=== PATIENT | male | born 1965 | race Caucasian/White ===

== ENCOUNTER 2019-11-19 16:24 | Emergency (ER) | payer MEDICARE ==
[2019-11-19] MEDS ORDERED: DUONEB 0.5-3 MG/3 ml Neb IH ONE ×2 (16:43→16:50)
[2019-11-19] MEDS ORDERED: solu-MEDROL 125 MG IV ONE (16:43)
--- NOTE | 2019-11-19 16:49 | ERPHSYRPT ---
- History of Present Illness Time Seen by Provider: 11/19/19 16:40 Source: patient Exam Limitations: no limitations Physician History: 53 years old male with history of tobacco abuse, COPD, congestive heart failure, hypertension presented in the ER with chief complaint of increasing shortness of breath since yesterday associated with cough productive of clear to yellow sputum, copious in amount. Patient report shortness of breath gets worse with activity and no significant relieving factors. He has bilateral lower extremity swelling which is not any worse than usual and has been taking diuretics. Denies any fever or chills. Denies any known sick contact. Timing/Duration: yesterday, gradual onset, worse Activities at Onset: rest Severity of Dyspnea-Max: moderate Severity of Dyspnea-Current: moderate Possible Cause: occasional episodes Modifying Factors: Improves With: coughing Associated Symptoms: cough, chest pain/discomfort, edema, wheezing, leg swelling, painful breathing, productive cough, No fever Allergies/Adverse Reactions: No Known Drug Allergies Allergy (Unverified 11/19/19 16:45) Home Medications: Albuterol Sulfate [Albuterol Sulfate Hfa] 2 puffs QID 11/19/19 [History] Alprazolam 0.5 mg [xanAX 0.5 MG] 1 ea TID 11/19/19 [History] Bumetanide 1 ea DAILY 11/19/19 [History] Fluticasone/Vilanterol [Breo Ellipta 100-25 Mcg INH] 1 ea DAILY 11/19/19 [History] Levocetirizine Dihydrochloride 1 ea DAILY 11/19/19 [History] Prednisone 10 mg [Deltasone 10 mg] 1 ea DAILY 11/19/19 [History] Roflumilast [Daliresp] 1 ea DAILY 11/19/19 [History] - Review of Systems Constitutional: No Symptoms Eyes: No Symptoms Ears, Nose, & Throat: No Symptoms Respiratory: Cough, Dyspnea, Dyspnea on Exertion (JAIN), Wheezing Cardiac: Edema Abdominal/Gastrointestinal: No Symptoms Genitourinary Symptoms: No Symptoms Musculoskeletal: No Symptoms Skin: No Symptoms Neurological: No Symptoms Psychological: No Symptoms Endocrine: No Symptoms Hematologic/Lymphatic: No Symptoms Immunological/Allergic: No Symptoms - Past Medical History Respiratory History: CHF, COPD - Past Surgical History Past Surgical History: No - Social History Drug Use: none - Nursing Vital Signs Nursing Vital Signs: Initial Vital Signs Temperature 98.4 F 11/19/19 16:43 Pulse Rate 105 H 11/19/19 16:43 Respiratory Rate 24 11/19/19 16:43 Blood Pressure 114/83 11/19/19 16:43 O2 Sat by Pulse Oximetry 97 11/19/19 16:43 Pain Scale Pain Intensity 4 - Physical Exam General Appearance: mild distress, alert Eye Exam: PERRL/EOMI, eyes nml inspection Ears, Nose, Throat Exam: hearing grossly normal, normal ENT inspection, normal pharynx Neck Exam: normal inspection, non-tender, supple, full range of motion Respiratory Exam: wheezing Cardiovascular/Chest Exam: normal heart sounds, tachycardia Abdominal/Gastrointestinal Exam: soft, normal bowel sounds Extremity Exam: non-tender, swelling Neurologic Exam: alert, oriented x 3, cooperative Skin Exam: normal color SpO2 Interpretation: normal SpO2: 97 - Course EKG Interpreted by Me: RATE ([id number]), Sinus Tach, NORMAL AXIS, NORMAL INTERVALS, Non-specific ST Changes Ordered Tests: Active Orders 24 hr Category Date Time Status Flower Stripper STAT Care 11/19/19 16:44 Active EKG-ER Only STAT Care 11/19/19 16:43 Active IV Insertion STAT Care 11/19/19 16:43 Active CHEST 1 VIEW (PORTABLE) Stat Exams 11/19/19 16:44 Taken BLOOD CULTURE Stat Lab 11/19/19 17:07 Received CBC W DIFF Stat Lab 11/19/19 16:46 Completed CMP Stat Lab 11/19/19 16:46 Completed D-DIMER QUANTITATIVE Stat Lab 11/19/19 16:46 Completed Lactic Acid Stat Lab 11/19/19 16:49 Completed MAGNESIUM Stat Lab 11/19/19 16:46 Completed Manual Differential NC Stat Lab 11/19/19 16:46 Completed NT PRO BNP Stat Lab 11/19/19 16:46 Completed TROPONIN Q3H Lab 11/19/19 16:46 Completed TROPONIN Q3H Lab 11/19/19 19:45 Ordered TROPONIN Q3H Lab 11/19/19 22:45 Ordered TROPONIN Q3H Lab 11/20/19 01:45 Ordered TROPONIN Q3H Lab 11/20/19 04:45 Ordered Respiratory Therapy Assessment ONCE RT 11/19/19 17:05 Active Medication Summary Discontinued Medications Generic Name Dose Route Start Last Admin Trade Name Freq PRN Reason Stop Dose Admin Albuterol/Ipratropium 3 ml 11/19/19 16:43 11/19/19 17:00 Duoneb 0.5-3 Mg/3 Ml Neb IH 11/19/19 16:44 3 ml STAT ONE Administration Albuterol/Ipratropium Confirm 11/19/19 16:50 Duoneb 0.5-3 Mg/3 Ml Neb Administered 11/19/19 16:51 Dose 3 ml IH .STK-MED ONE Aspirin 324 mg 11/20/19 10:00 Ecotrin 81 Mg PO 12/20/19 09:59 DAILY LIZETT Aspirin Confirm 11/19/19 17:10 Baby Aspirin 81 Mg Chew Administered 11/19/19 17:11 Dose 324 mg .ROUTE .STK-MED ONE Aspirin 324 mg 11/19/19 17:44 11/19/19 18:02 Baby Aspirin 81 Mg Chew PO 11/19/19 17:45 324 mg STAT ONE Administration Azithromycin 500 mg in 250 mls @ 250 mls/hr 11/19/19 17:25 11/19/19 17:50 Zithromax 500 Mg/ 250 Ml Nacl Premix IV 11/19/19 18:24 250 mls/hr STAT STA 250 mls/hr Administration Ceftriaxone Sodium/Dextrose 2 g in 50 mls @ 100 mls/hr 11/19/19 17:25 11/19/19 17:50 Rocephin 2 Gm-D5w 50ml Bag IV 11/19/19 17:54 100 mls/hr STAT STA 100 mls/hr Administration Azithromycin Confirm 11/19/19 17:45 Zithromax 500 Mg/ 250 Ml Nacl Premix Administered 11/19/19 17:46 Dose 500 mg in 250 mls @ ud IV .STK-MED ONE Ceftriaxone Sodium/Dextrose Confirm 11/19/19 17:45 Rocephin 2 Gm-D5w 50ml Bag Administered 11/19/19 17:46 Dose 2 g in 50 mls @ ud IV .STK-MED ONE Methylprednisolone Sodium Succinate 125 mg 11/19/19 16:43 11/19/19 17:12 Solu-Medrol 125 Mg IV 11/19/19 16:44 125 mg STAT ONE Administration Methylprednisolone Sodium Succinate Confirm 11/19/19 17:10 Solu-Medrol 125 Mg Administered 11/19/19 17:11 Dose 125 mg .ROUTE .STK-MED ONE Lab/Rad Data: Laboratory Result Diagrams 11/19/19 16:46 11/19/19 16:46 Laboratory Results 11/19/19 11/19/19 11/19/19 Range/Units 16:49 16:46 16:46 WBC (4.0-10.5) K/mm3 RBC (4.1-5.6) M/mm3 Hgb (12.5-18.0) gm/dl Hct (42-50) % MCV (78-100) fl MCH (26-32) pg MCHC (32-36) g/dl RDW (11.5-14.0) % Plt Count (150-450) K/mm3 MPV (7.5-11.0) fl Segmented Neutrophils (36.-66.) % Band Neutrophils (0.0-2.0) % Lymphocytes (Manual) (24-44) % Monocytes (Manual) (0.0-12.0) % Eosinophils (Manual) (0.00-3.0) % Platelet Estimate (NORMAL) RBC Morphology D-Dimer 359 (215-500) ng/mL Sodium (137-145) mmol/L Potassium (3.5-5.1) mmol/L Chloride (98-107) mmol/L Carbon Dioxide (22-30) mmol/L Anion Gap (5-15) MEQ/L BUN (9-20) mg/dL Creatinine (0.66-1.25) mg/dL Estimated GFR ML/MIN Glucose (74-106) mg/dL Lactic Acid 1.5 (0.4-2.0) Calcium (8.4-10.2) mg/dL Magnesium (1.6-2.3) mg/dL Total Bilirubin (0.2-1.3) mg/dL AST (17-59) U/L ALT (0-50) U/L Alkaline Phosphatase (38-126) U/L Troponin I < 0.012 (0.000-0.034) ng/mL NT-Pro-B Natriuret Pep (0-900) pg/mL Serum Total Protein (6.3-8.2) g/dL Albumin (3.5-5.0) g/dL 11/19/19 11/19/19 Range/Units 16:46 16:46 WBC 12.2 H (4.0-10.5) K/mm3 RBC 5.12 (4.1-5.6) M/mm3 Hgb 16.8 (12.5-18.0) gm/dl Hct 52.1 H (42-50) % MCV 101.8 H (78-100) fl MCH 32.8 H (26-32) pg MCHC 32.2 (32-36) g/dl RDW 14.0 (11.5-14.0) % Plt Count 168 (150-450) K/mm3 MPV 11.5 H (7.5-11.0) fl Segmented Neutrophils 80 H (36.-66.) % Band Neutrophils 1 (0.0-2.0) % Lymphocytes (Manual) 11 L (24-44) % Monocytes (Manual) 7 (0.0-12.0) % Eosinophils (Manual) 1 (0.00-3.0) % Platelet Estimate NORMAL (NORMAL) RBC Morphology NORMAL D-Dimer (215-500) ng/mL Sodium 139 (137-145) mmol/L Potassium 3.5 (3.5-5.1) mmol/L Chloride 105 (98-107) mmol/L Carbon Dioxide 29 (22-30) mmol/L Anion Gap 9.4 (5-15) MEQ/L BUN 15 (9-20) mg/dL Creatinine 0.78 (0.66-1.25) mg/dL Estimated GFR > 60.0 ML/MIN Glucose 88 (74-106) mg/dL Lactic Acid (0.4-2.0) Calcium 9.3 (8.4-10.2) mg/dL Magnesium 2.1 (1.6-2.3) mg/dL Total Bilirubin 0.80 (0.2-1.3) mg/dL AST 23 (17-59) U/L ALT 22 (0-50) U/L Alkaline Phosphatase 54 (38-126) U/L Troponin I (0.000-0.034) ng/mL NT-Pro-B Natriuret Pep 37.8 (0-900) pg/mL Serum Total Protein 6.8 (6.3-8.2) g/dL Albumin 4.2 (3.5-5.0) g/dL - Progress Progress: improved, re-examined Air Movement: good Progress Note: 11/19/19 18:13 53 years old is evaluated for worsening shortness of breath. Patient was wheezing all over on presentation, given shot of Solu-Medrol and breathing treatment, on reevaluation feeling better. EKG showed sinus tach with no acute ST elevations. Negative troponins. Has a white count of 12, grossly unremarkable chemistries. Chest x-ray did not show focal consolidation. I have given him a dose of Rocephin/Zithromax. Recommended observation admission but patient does not want to stay. He does have nebulizer at home which he is advised to use it every 4-6 hourly as needed and will start him on oral prednisone and Levaquin to go home. Discussed signs symptoms of worsening needing return to ER which he seems understanding. 11/19/19 18:25 I have ambulated patient in the ER without oxygen and his sats are around 96%. Patient reported then that he has been using 3 L oxygen normally at home. I think he would do good and is stable for discharge. Antibiotics given: Yes Counseled pt/family regarding: lab results, diagnosis, need for follow-up, rad results, smoking cessation - Departure Departure Disposition: Home Clinical Impression: COPD exacerbation Condition: Stable Critical Care Time: Yes Critical Care Time(excluding separately billable procedures): Critical 30-74 mins Referrals: TRISH DOMINGO [Primary Care Provider] - (2 days for re evaluation) Instructions: Chronic Obstructive Pulmonary Disease, Cough, Adult (DC), Exacerbation of COPD (DC) Additional Instructions: Do not smoke. Take inhaler and nebulizer which you have at home as recommended. Follow-up with your primary care physician for reevaluation. Return to ER for worsening shortness of breath/wheezing/fever chills etc. Prescriptions: Prednisone 20 mg [Deltasone 20 mg] 60 mg PO DAILY 5 Days #15 tablet Levofloxacin [Levaquin 500 MG Tablet] 500 mg PO DAILY #7 tablet
[2019-11-19] MEDS ORDERED: solu-MEDROL 125 MG ONE (17:10)
[2019-11-19] MEDS ORDERED: BABY ASPIRIN 81 MG CHEW ONE (17:10)
[2019-11-19 17:24] LABS: Hematocrit 52.1 % (42-50); Hemoglobin 16.8 gm/dl (12.5-18.0); Mean Cell Volume 101.8 fl (78-100); Mean Corpuscular Hemoglobin 32.8 pg (26-32); Mean Corpuscular Hgb Concent. 32.2 g/dl (32-36); Mean Platelet Volume 11.5 fl (7.5-11.0); Platelet Count 168 K/mm3 (150-450); Red Blood Count 5.12 M/mm3 (4.1-5.6); White Blood Count 12.2 K/mm3 (4.0-10.5)
[2019-11-19] MEDS ORDERED: ROCEPHIN 2 Gm-D5w 50ML BAG** 2 G/50 ML IVPB IV STA (17:25)
[2019-11-19] MEDS ORDERED: Zithromax 500 MG/ 250 ML NaCl Premix 500 MG/250 ML IVPB IV STA (17:25)
[2019-11-19 17:37] LABS: ALBUMIN 4.2 g/dL (3.5-5.0); ALKALINE PHOSPHATASE 54 U/L (38-126); ANION GAP 9.4 MEQ/L (5-15); BLOOD UREA NITROGEN 15 mg/dL (9-20); CHLORIDE 105 mmol/L (98-107); Calcium 9.3 mg/dL (8.4-10.2); Carbon Dioxide 29 mmol/L (22-30); Creatinine 1 0.78 mg/dL (0.66-1.25); EST GLOMERULAR FILTRATION RATE > 60.0 ML/MIN; Glucose 88 mg/dL (74-106); MAGNESIUM 2.1 mg/dL (1.6-2.3); NT PRO BNP 37.8 pg/mL (0-900); Potassium 3.5 mmol/L (3.5-5.1); SGOT/AST 23 U/L (17-59); SGPT/ALT 22 U/L (0-50); SODIUM 139 mmol/L (137-145); Total Protein 6.8 g/dL (6.3-8.2)
[2019-11-19] MEDS ORDERED: BABY ASPIRIN 81 MG CHEW PO ONE (17:44)
[2019-11-19] MEDS ORDERED: Zithromax 500 MG/ 250 ML NaCl Premix 500 MG/250 ML IVPB IV ONE (17:45)
[2019-11-19] MEDS ORDERED: ROCEPHIN 2 Gm-D5w 50ML BAG** 2 G/50 ML IVPB IV ONE (17:45)
[2019-11-19 18:16] LABS: BAND 1 % (0.0-2.0); Eosinophil 1 % (0.00-3.0); Lymphocytes 11 % (24-44); Monocyte 7 % (0.0-12.0); Neutrophils 80 % (36.-66.); Platelet Estimate NORMAL (NORMAL); Total Cells Counted 100
--- NOTE | 2019-11-19 18:37 | XRAY ---
Indication: Cough. Pneumonia. Comparison: March 03, 2007. Portable chest demonstrates new minimal left mid to lower lung subsegmental atelectasis/scarring. Remaining heart and right lung normal. Bony thorax intact.
[2019-11-19 19:10] VITALS: BP 116/86; PULSE 92; O2SAT 100
[2019-11-20] MEDS ORDERED: ECOTRIN 81 MG PO SCH (10:00)
== END 2019-11-19 19:18 | disposition home or self-care (01) ==
LOC: ED 16:24
DX: J44.1 Chronic obstructive pulmonary disease with (acute) exacerbation (principal); I50.9 Heart failure, unspecified; I10 Essential (primary) hypertension
CPT/HCPCS: 36000; 36415; 71045; 80053; 83605; 83735; 83880; 84484; 85025; 85379; 87040; 93005; 93041; 94640; 96365; 96368; 96374; 99284; 99291; J0456; J0696; J2930; A9270-GY

== ENCOUNTER 2019-11-23 18:40 | Inpatient (IN) | payer MEDICARE ==
--- NOTE | 2019-11-23 18:54 | ERPHSYRPT ---
- History of Present Illness Time Seen by Provider: 11/23/19 18:51 Source: patient Exam Limitations: no limitations Physician History: This is a 53-year-old obese white male who is oxygen dependent COPD on steroids who presents to this emergency department with worsening shortness of breath and cough as well as wheezing. Patient was seen on 11/19/2019 with a diagnosis of COPD exacerbation. It was recommended at that time that the patient be admitted in the hospital. However patient refused. 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 Patient has a history of tobacco abuse COPD, CHF hypertension. He has no known exposure to COVID-19 patients. A few months ago patient has been admitted to [facility] with COPD and shortness of breath. He states at that time his COVID-19 test were negative. He had several of them. Patient denies chest pain. He denies abdominal pain. Timing/Duration: day(s) (Several days) Severity of Dyspnea-Max: moderate Severity of Dyspnea-Current: moderate Possible Cause: frequent episodes Modifying Factors: Improves With: coughing, exertion Associated Symptoms: cough, ankle swelling, No chest pain/discomfort Allergies/Adverse Reactions: No Known Drug Allergies Allergy (Verified 11/23/19 18:55) Home Medications: Albuterol Sulfate [Albuterol Sulfate Hfa] 2 puffs QID 11/19/19 [History] Alprazolam 0.5 mg [xanAX 0.5 MG] 1 ea TID 11/19/19 [History] Bumetanide 1 ea DAILY 11/19/19 [History] Fluticasone/Vilanterol [Breo Ellipta 100-25 Mcg INH] 1 ea DAILY 11/19/19 [History] Levocetirizine Dihydrochloride 1 ea DAILY 11/19/19 [History] Prednisone 10 mg [Deltasone 10 mg] 1 ea DAILY 11/19/19 [History] Roflumilast [Daliresp] 1 ea DAILY 11/19/19 [History] Hx Influenza Vaccination/Date Given: No Hx Pneumococcal Vaccination/Date Given: No Travel Risk - International Travel Have you traveled outside of the country in past 3 weeks: No - Coronavirus Screening Are you exhibiting any of the following symptoms?: Yes Symptoms: Shortness of Breath Close contact with a COVID-19 positive Pt in past 14-21 Days: No - Review of Systems Constitutional: No Symptoms Eyes: No Symptoms Ears, Nose, & Throat: No Symptoms Respiratory: Cough, Dyspnea, Wheezing Cardiac: No Symptoms Abdominal/Gastrointestinal: No Symptoms Genitourinary Symptoms: No Symptoms Musculoskeletal: No Symptoms Skin: No Symptoms Neurological: No Symptoms Psychological: No Symptoms Endocrine: No Symptoms Hematologic/Lymphatic: No Symptoms Immunological/Allergic: No Symptoms All Other Systems: Reviewed and Negative - Past Medical History Pertinent Past Medical History: Yes Neurological History: No Pertinent History ENT History: No Pertinent History Cardiac History: No Pertinent History Respiratory History: CHF, COPD Endocrine Medical History: No Pertinent History Musculoskeletal History: No Pertinent History GI Medical History: No Pertinent History History: No Pertinent History Psycho-Social History: No Pertinent History Male Reproductive Disorders: No Pertinent History - Past Surgical History Past Surgical History: No Neuro Surgical History: No Pertinent History Cardiac: No Pertinent History Respiratory: No Pertinent History Gastrointestinal: No Pertinent History Genitourinary: No Pertinent History Musculoskeletal: No Pertinent History Male Surgical History: No Pertinent History - Social History Smoking Status: Current every day smoker Exposure to second hand smoke: Yes Drug Use: none Patient Lives Alone: Yes - Nursing Vital Signs Nursing Vital Signs: Initial Vital Signs Temperature 98.2 F 11/23/19 18:41 Pulse Rate 117 H 11/23/19 18:41 Respiratory Rate 26 H 11/23/19 18:41 Blood Pressure 136/85 11/23/19 18:41 O2 Sat by Pulse Oximetry 94 L 11/23/19 18:41 Pain Scale Pain Intensity 0 - Physical Exam General Appearance: mild distress, alert, anxiety Eye Exam: PERRL/EOMI, eyes nml inspection Ears, Nose, Throat Exam: hearing grossly normal, normal ENT inspection Neck Exam: normal inspection, non-tender, supple, full range of motion Respiratory Exam: airway intact, diminished breath sounds, wheezing, No chest tenderness, No respiratory distress Cardiovascular/Chest Exam: normal heart sounds, regular rate/rhythm Abdominal/Gastrointestinal Exam: soft, normal bowel sounds, No tenderness Rectal Exam: not done Extremity Exam: normal range of motion, pedal edema Neurologic Exam: alert, oriented x 3, cooperative, utility pipe layer II-XII nml as tested, normal mood/affect, nml cerebellar function, nml station & gait, sensation nml Skin Exam: normal color, warm, dry Lymphatic Exam: No adenopathy SpO2 Interpretation: borderline oxygenation - Course Nursing assessment & vital signs reviewed: Yes Ordered Tests: Active Orders 24 hr Category Date Time Status Second Class Welder STAT Care 11/23/19 18:55 Active EKG-ER Only STAT Care 11/23/19 18:54 Active IV Insertion STAT Care 11/23/19 18:54 Active CHEST 1 VIEW (PORTABLE) Stat Exams 11/23/19 18:55 Taken BLOOD CULTURE Stat Lab 11/23/19 18:50 Received CBC W DIFF Stat Lab 11/23/19 18:50 Completed CMP Stat Lab 11/23/19 18:50 Completed D-DIMER QUANTITATIVE Stat Lab 11/23/19 18:50 Completed Lactic Acid Stat Lab 11/23/19 19:00 Completed Lactic Acid Stat Lab 11/23/19 21:07 Received Manual Differential NC Stat Lab 11/23/19 18:50 Completed NT PRO BNP Stat Lab 11/23/19 18:50 Completed PROTIME WITH INR Stat Lab 11/23/19 18:50 Completed TROPONIN Q3H Lab 11/23/19 18:50 Completed TROPONIN Q3H Lab 11/23/19 22:00 Ordered TROPONIN Q3H Lab 11/24/19 01:00 Ordered TROPONIN Q3H Lab 11/24/19 04:00 Ordered TROPONIN Q3H Lab 11/24/19 07:00 Ordered Respiratory Therapy Assessment DAILY RT 11/23/19 19:35 Completed Transfer Order Routine Transfer 11/23/19 Ordered Medication Summary Discontinued Medications Generic Name Dose Route Start Last Admin Trade Name Freq PRN Reason Stop Dose Admin Albuterol/Ipratropium 3 ml 11/23/19 19:35 11/23/19 19:37 Duoneb 0.5-3 Mg/3 Ml Neb IH 11/23/19 19:36 3 ml STAT ONE Administration Albuterol/Ipratropium Confirm 11/23/19 19:36 Duoneb 0.5-3 Mg/3 Ml Neb Administered 11/23/19 19:37 Dose 3 ml IH .STK-MED ONE Ceftriaxone Sodium/Dextrose 1 g in 50 mls @ 100 mls/hr 11/23/19 20:58 11/23/19 21:33 Rocephin 1 Gm-D5w 50 Ml Bag IV 11/23/19 21:27 100 mls/hr STAT STA 100 mls/hr Administration Ceftriaxone Sodium/Dextrose Confirm 11/23/19 21:29 Rocephin 1 Gm-D5w 50 Ml Bag Administered 11/23/19 21:30 Dose 1 g in 50 mls @ ud IV .STK-MED ONE Methylprednisolone Sodium Succinate 125 mg 11/23/19 19:16 11/23/19 19:24 Solu-Medrol 125 Mg IV 11/23/19 19:17 125 mg STAT ONE Administration Methylprednisolone Sodium Succinate Confirm 11/23/19 19:21 Solu-Medrol 125 Mg Administered 11/23/19 19:22 Dose 125 mg .ROUTE .STK-MED ONE Lab/Rad Data: Laboratory Result Diagrams 11/23/19 18:50 11/23/19 18:50 Laboratory Results 11/23/19 11/23/19 11/23/19 Range/Units 19:39 19:00 18:50 WBC (4.0-10.5) K/mm3 RBC (4.1-5.6) M/mm3 Hgb (12.5-18.0) gm/dl Hct (42-50) % MCV (78-100) fl MCH (26-32) pg MCHC (32-36) g/dl RDW (11.5-14.0) % Plt Count (150-450) K/mm3 MPV (7.5-11.0) fl Segmented Neutrophils (36.-66.) % Band Neutrophils (0.0-2.0) % Lymphocytes (Manual) (24-44) % Monocytes (Manual) (0.0-12.0) % Platelet Estimate (NORMAL) RBC Morphology PT (8.83-12.87) SECONDS INR (0.8-3.0) D-Dimer (215-500) ng/mL Sodium (137-145) mmol/L Potassium (3.5-5.1) mmol/L Chloride (98-107) mmol/L Carbon Dioxide (22-30) mmol/L Anion Gap (5-15) MEQ/L BUN (9-20) mg/dL Creatinine (0.66-1.25) mg/dL Estimated GFR ML/MIN Glucose (74-106) mg/dL Lactic Acid 3.5 H (0.4-2.0) Calcium (8.4-10.2) mg/dL Total Bilirubin (0.2-1.3) mg/dL AST (17-59) U/L ALT (0-50) U/L Alkaline Phosphatase (38-126) U/L Troponin I < 0.012 (0.000-0.034) ng/mL NT-Pro-B Natriuret Pep (0-900) pg/mL Serum Total Protein (6.3-8.2) g/dL Albumin (3.5-5.0) g/dL SARS-CoV-2 (PCR) NEGATIVE (NEGATIVE) 11/23/19 11/23/19 11/23/19 Range/Units 18:50 18:50 18:50 WBC 17.0 H (4.0-10.5) K/mm3 RBC 5.01 (4.1-5.6) M/mm3 Hgb 16.3 (12.5-18.0) gm/dl Hct 50.2 H (42-50) % MCV 100.2 H (78-100) fl MCH 32.5 H (26-32) pg MCHC 32.5 (32-36) g/dl RDW 14.2 H (11.5-14.0) % Plt Count 172 (150-450) K/mm3 MPV 10.4 (7.5-11.0) fl Segmented Neutrophils 84 H (36.-66.) % Band Neutrophils 2 (0.0-2.0) % Lymphocytes (Manual) 12 L (24-44) % Monocytes (Manual) 2 (0.0-12.0) % Platelet Estimate NORMAL (NORMAL) RBC Morphology NORMAL PT 11.6 (8.83-12.87) SECONDS INR 1.03 (0.8-3.0) D-Dimer 250 (215-500) ng/mL Sodium 136 L (137-145) mmol/L Potassium 3.8 (3.5-5.1) mmol/L Chloride 103 (98-107) mmol/L Carbon Dioxide 26 (22-30) mmol/L Anion Gap 11.3 (5-15) MEQ/L BUN 18 (9-20) mg/dL Creatinine 1.08 (0.66-1.25) mg/dL Estimated GFR > 60.0 ML/MIN Glucose 115 H (74-106) mg/dL Lactic Acid (0.4-2.0) Calcium 9.3 (8.4-10.2) mg/dL Total Bilirubin 0.20 (0.2-1.3) mg/dL AST 22 (17-59) U/L ALT 30 (0-50) U/L Alkaline Phosphatase 50 (38-126) U/L Troponin I (0.000-0.034) ng/mL NT-Pro-B Natriuret Pep 56.3 (0-900) pg/mL Serum Total Protein 6.9 (6.3-8.2) g/dL Albumin 4.4 (3.5-5.0) g/dL SARS-CoV-2 (PCR) (NEGATIVE) - Progress Progress: improved, re-examined Air Movement: fair Progress Note: 11/23/19 20:56 Chest x-ray today shows no acute pulmonary process. There are chronic changes noted. There is no significant change from the prior chest x-ray dated 11/19/2019. 11/23/19 21:28 Call decision making: This patient has COPD exacerbation. He failed outpatient therapy just 4 days ago. He is back again with similar and worsening symptoms. Patient's white count has increased from 12,00 to 17,000. We will place him on IV antibiotics. We will admit him in the hospital. I spoke with Dr. Lagunas. History, condition, laboratory results, EKG findings as well as x-ray findings. Patient is COVID-19 negative on today's rapid test. She accepts the patient for admission. Blood Culture(s) Obtained: Yes Antibiotics given: Yes Counseled pt/family regarding: lab results, diagnosis, need for follow-up, rad results - Departure Departure Disposition: In-patient Admission Clinical Impression: COPD exacerbation, Leukocytosis Condition: Fair Critical Care Time: No Referrals: [facility] [Primary Care Provider] - Instructions: Chronic Obstructive Pulmonary Disease
[2019-11-23 19:00] LABS: Hematocrit 50.2 % (42-50); Hemoglobin 16.3 gm/dl (12.5-18.0); Mean Cell Volume 100.2 fl (78-100); Mean Corpuscular Hemoglobin 32.5 pg (26-32); Mean Corpuscular Hgb Concent. 32.5 g/dl (32-36); Mean Platelet Volume 10.4 fl (7.5-11.0); Platelet Count 172 K/mm3 (150-450); Red Blood Count 5.01 M/mm3 (4.1-5.6); Red Cell Distribution Width 14.2 % (11.5-14.0)
[2019-11-23 19:06] LABS: INR 1.03 (0.8-3.0); PROTIME 11.6 SECONDS (8.83-12.87)
[2019-11-23] MEDS ORDERED: solu-MEDROL 125 MG IV ONE (19:16)
[2019-11-23 19:19] LABS: ALBUMIN 4.4 g/dL (3.5-5.0); ALKALINE PHOSPHATASE 50 U/L (38-126); ANION GAP 11.3 MEQ/L (5-15); BLOOD UREA NITROGEN 18 mg/dL (9-20); CHLORIDE 103 mmol/L (98-107); Calcium 9.3 mg/dL (8.4-10.2); Carbon Dioxide 26 mmol/L (22-30); Creatinine 1 1.08 mg/dL (0.66-1.25); EST GLOMERULAR FILTRATION RATE > 60.0 ML/MIN; Glucose 115 mg/dL (74-106); NT PRO BNP 56.3 pg/mL (0-900); Potassium 3.8 mmol/L (3.5-5.1); SGOT/AST 22 U/L (17-59); SGPT/ALT 30 U/L (0-50); SODIUM 136 mmol/L (137-145); Total Protein 6.9 g/dL (6.3-8.2)
[2019-11-23] MEDS ORDERED: solu-MEDROL 125 MG ONE (19:21)
[2019-11-23] MEDS ORDERED: DUONEB 0.5-3 MG/3 ml Neb IH ONE ×3 (19:35→23:25)
[2019-11-23 19:55] LABS: BAND 2 % (0.0-2.0); Lymphocytes 12 % (24-44); Monocyte 2 % (0.0-12.0); Neutrophils 84 % (36.-66.); Platelet Estimate NORMAL (NORMAL); Total Cells Counted 100
[2019-11-23] MEDS ORDERED: ROCEPHIN 1 Gm-D5w 50 ml Bag** 1 G/50 ML IVPB IV STA (20:58)
[2019-11-23] MEDS ORDERED: ROCEPHIN 1 Gm-D5w 50 ml Bag** 1 G/50 ML IVPB IV ONE (21:29)
[2019-11-23] MEDS ORDERED: TYLENOL 325 MG PO PRN (22:12)
[2019-11-23] MEDS ORDERED: Zofran 4 MG/2 ML VIAL IV PRN (22:12)
--- NOTE | 2019-11-23 22:18 | XRAY ---
Indication: Short of breath. COPD. Comparison: November 19, 2019. Portable chest hyperinflated without focal infiltrate, consolidation, or large effusion. Heart is not enlarged. Bony thorax intact. No new/acute findings. Impression: Nonacute hyperinflated chest.
[2019-11-23] MEDS: solu-MEDROL 125 MG IV SCH (22:22)
[2019-11-23] MEDS: DUONEB 0.5-3 MG/3 ml Neb IH SCH (23:39)
[2019-11-24] MEDS ORDERED: Ativan 2 MG/1 ML VIAL IV PRN (00:12)
[2019-11-24] MEDS: DUONEB 0.5-3 MG/3 ml Neb IH SCH ×6 (03:29→23:13)
[2019-11-24 04:22] LABS: Absolute Neutrophil Ct (ANC) 12.44 (1.4-6.9); BASOPHIL % 0.1 % (0.0-0.4); Basophil (Absolute #) 0.01 (0-0.4); Eosinophil % 0.1 % (0.00-5.0); Eosinophil (Absolute #) 0.01 (0-0.5); Hematocrit 49.3 % (42-50); Hemoglobin 15.7 gm/dl (12.5-18.0); Lymphocyte (Absolute #) 0.51 (1.0-4.6); Lymphocytes % 3.8 % (24.0-44.0); Mean Cell Volume 102.1 fl (78-100); Mean Corpuscular Hemoglobin 32.5 pg (26-32); Mean Corpuscular Hgb Concent. 31.8 g/dl (32-36); Mean Platelet Volume 10.7 fl (7.5-11.0); Monocyte (Absolute #) 0.44 (0.0-1.3); Monocytes % 3.3 % (0.0-12.0); Neutrophil % 92.7 % (36.0-66.0); Platelet Count 156 K/mm3 (150-450); Red Blood Count 4.83 M/mm3 (4.1-5.6); Red Cell Distribution Width 14.2 % (11.5-14.0); White Blood Count 13.4 K/mm3 (4.0-10.5)
[2019-11-24 04:38] LABS: ALKALINE PHOSPHATASE 46 U/L (38-126); ANION GAP 9.1 MEQ/L (5-15); BLOOD UREA NITROGEN 17 mg/dL (9-20); CHLORIDE 104 mmol/L (98-107); Calcium 8.9 mg/dL (8.4-10.2); Carbon Dioxide 26 mmol/L (22-30); EST GLOMERULAR FILTRATION RATE > 60.0 ML/MIN; Glucose 137 mg/dL (74-106); Potassium 4.5 mmol/L (3.5-5.1); SGOT/AST 21 U/L (17-59); SGPT/ALT 29 U/L (0-50); SODIUM 135 mmol/L (137-145); Total Protein 6.3 g/dL (6.3-8.2)
[2019-11-24 05:24] LABS: Slide Review 1 YES
[2019-11-24] MEDS: solu-MEDROL 125 MG IV SCH ×3 (05:38→21:44)
[2019-11-24] MEDS: Sodium Chloride 0.9% 10 ML FLUSH Syringe IV SCH ×3 (05:41→21:44)
[2019-11-24] MEDS ORDERED: DUONEB 0.5-3 MG/3 ml Neb IH ONE (06:57)
[2019-11-24] MEDS: Advair Hfa 115/21 Common canister IH SCH ×2 (07:14→19:35)
[2019-11-24] MEDS ORDERED: Zithromax 500 MG/ 250 ML NaCl Premix 500 MG/250 ML IVPB IV SCH (10:00)
--- NOTE | 2019-11-24 13:43 | PCM.DS ---
Discharge Summary Date of Admission: 11/23/19 22:09 Admitting Physician: UMESH KEITH DO Primary Care Provider: UMESH KEITH DO Allergies Allergies No Known Drug Allergies Allergy (Verified 11/23/19 18:55) Hospital Summary - Hospital Course Hospital Course: Patient is a 69 yr old gentleman undergoing Tx for gastric cancer. He - Vitals & Intake/Output Vital Signs: Vital Signs Temperature 98.5 F 11/24/19 12:00 Pulse Rate 89 11/24/19 12:00 Respiratory Rate 18 11/24/19 12:00 Blood Pressure 121/58 11/24/19 12:00 O2 Sat by Pulse Oximetry 95 11/24/19 12:00 Intake & Output: Intake & Output 11/22/19 11/23/19 11/24/19 11/25/19 11:59 11:59 11:59 11:59 Intake Total 966 Balance 966 Weight 106 kg - Lab Result Diagrams: 11/24/19 04:08 11/24/19 04:08 Lab Results-Last 24 Hrs: Lab Results-Last 24 Hours 11/23/19 11/23/19 11/23/19 Range/Units 18:50 18:50 18:50 WBC 17.0 H (4.0-10.5) K/mm3 RBC 5.01 (4.1-5.6) M/mm3 Hgb 16.3 (12.5-18.0) gm/dl Hct 50.2 H (42-50) % MCV 100.2 H (78-100) fl MCH 32.5 H (26-32) pg MCHC 32.5 (32-36) g/dl RDW 14.2 H (11.5-14.0) % Plt Count 172 (150-450) K/mm3 MPV 10.4 (7.5-11.0) fl Gran % (36.0-66.0) % Eos # (Auto) (0-0.5) Absolute Lymphs (auto) (1.0-4.6) Absolute Monos (auto) (0.0-1.3) Lymphocytes % (24.0-44.0) % Monocytes % (0.0-12.0) % Eosinophils % (0.00-5.0) % Basophils % (0.0-0.4) % Absolute Granulocytes (1.4-6.9) Segmented Neutrophils 84 H (36.-66.) % Band Neutrophils 2 (0.0-2.0) % Lymphocytes (Manual) 12 L (24-44) % Monocytes (Manual) 2 (0.0-12.0) % Basophils # (0-0.4) Platelet Estimate NORMAL (NORMAL) RBC Morphology NORMAL PT 11.6 (8.83-12.87) SECONDS INR 1.03 (0.8-3.0) D-Dimer 250 (215-500) ng/mL Sodium 136 L (137-145) mmol/L Potassium 3.8 (3.5-5.1) mmol/L Chloride 103 (98-107) mmol/L Carbon Dioxide 26 (22-30) mmol/L Anion Gap 11.3 (5-15) MEQ/L BUN 18 (9-20) mg/dL Creatinine 1.08 (0.66-1.25) mg/dL Estimated GFR > 60.0 ML/MIN Glucose 115 H (74-106) mg/dL Lactic Acid (0.4-2.0) Calcium 9.3 (8.4-10.2) mg/dL Total Bilirubin 0.20 (0.2-1.3) mg/dL AST 22 (17-59) U/L ALT 30 (0-50) U/L Alkaline Phosphatase 50 (38-126) U/L Troponin I (0.000-0.034) ng/mL NT-Pro-B Natriuret Pep 56.3 (0-900) pg/mL Serum Total Protein 6.9 (6.3-8.2) g/dL Albumin 4.4 (3.5-5.0) g/dL SARS-CoV-2 (PCR) (NEGATIVE) Slides for Path Review 11/23/19 11/23/19 11/23/19 Range/Units 18:50 19:00 19:39 WBC (4.0-10.5) K/mm3 RBC (4.1-5.6) M/mm3 Hgb (12.5-18.0) gm/dl Hct (42-50) % MCV (78-100) fl MCH (26-32) pg MCHC (32-36) g/dl RDW (11.5-14.0) % Plt Count (150-450) K/mm3 MPV (7.5-11.0) fl Gran % (36.0-66.0) % Eos # (Auto) (0-0.5) Absolute Lymphs (auto) (1.0-4.6) Absolute Monos (auto) (0.0-1.3) Lymphocytes % (24.0-44.0) % Monocytes % (0.0-12.0) % Eosinophils % (0.00-5.0) % Basophils % (0.0-0.4) % Absolute Granulocytes (1.4-6.9) Segmented Neutrophils (36.-66.) % Band Neutrophils (0.0-2.0) % Lymphocytes (Manual) (24-44) % Monocytes (Manual) (0.0-12.0) % Basophils # (0-0.4) Platelet Estimate (NORMAL) RBC Morphology PT (8.83-12.87) SECONDS INR (0.8-3.0) D-Dimer (215-500) ng/mL Sodium (137-145) mmol/L Potassium (3.5-5.1) mmol/L Chloride (98-107) mmol/L Carbon Dioxide (22-30) mmol/L Anion Gap (5-15) MEQ/L BUN (9-20) mg/dL Creatinine (0.66-1.25) mg/dL Estimated GFR ML/MIN Glucose (74-106) mg/dL Lactic Acid 3.5 H (0.4-2.0) Calcium (8.4-10.2) mg/dL Total Bilirubin (0.2-1.3) mg/dL AST (17-59) U/L ALT (0-50) U/L Alkaline Phosphatase (38-126) U/L Troponin I < 0.012 (0.000-0.034) ng/mL NT-Pro-B Natriuret Pep (0-900) pg/mL Serum Total Protein (6.3-8.2) g/dL Albumin (3.5-5.0) g/dL SARS-CoV-2 (PCR) NEGATIVE (NEGATIVE) Slides for Path Review 11/23/19 11/23/19 11/24/19 Range/Units 21:07 22:10 01:15 WBC (4.0-10.5) K/mm3 RBC (4.1-5.6) M/mm3 Hgb (12.5-18.0) gm/dl Hct (42-50) % MCV (78-100) fl MCH (26-32) pg MCHC (32-36) g/dl RDW (11.5-14.0) % Plt Count (150-450) K/mm3 MPV (7.5-11.0) fl Gran % (36.0-66.0) % Eos # (Auto) (0-0.5) Absolute Lymphs (auto) (1.0-4.6) Absolute Monos (auto) (0.0-1.3) Lymphocytes % (24.0-44.0) % Monocytes % (0.0-12.0) % Eosinophils % (0.00-5.0) % Basophils % (0.0-0.4) % Absolute Granulocytes (1.4-6.9) Segmented Neutrophils (36.-66.) % Band Neutrophils (0.0-2.0) % Lymphocytes (Manual) (24-44) % Monocytes (Manual) (0.0-12.0) % Basophils # (0-0.4) Platelet Estimate (NORMAL) RBC Morphology PT (8.83-12.87) SECONDS INR (0.8-3.0) D-Dimer (215-500) ng/mL Sodium (137-145) mmol/L Potassium (3.5-5.1) mmol/L Chloride (98-107) mmol/L Carbon Dioxide (22-30) mmol/L Anion Gap (5-15) MEQ/L BUN (9-20) mg/dL Creatinine (0.66-1.25) mg/dL Estimated GFR ML/MIN Glucose (74-106) mg/dL Lactic Acid 1.6 (0.4-2.0) Calcium (8.4-10.2) mg/dL Total Bilirubin (0.2-1.3) mg/dL AST (17-59) U/L ALT (0-50) U/L Alkaline Phosphatase (38-126) U/L Troponin I < 0.012 < 0.012 (0.000-0.034) ng/mL NT-Pro-B Natriuret Pep (0-900) pg/mL Serum Total Protein (6.3-8.2) g/dL Albumin (3.5-5.0) g/dL SARS-CoV-2 (PCR) (NEGATIVE) Slides for Path Review 11/24/19 11/24/19 11/24/19 Range/Units 04:08 04:08 04:08 WBC 13.4 H (4.0-10.5) K/mm3 RBC 4.83 (4.1-5.6) M/mm3 Hgb 15.7 (12.5-18.0) gm/dl Hct 49.3 (42-50) % MCV 102.1 H (78-100) fl MCH 32.5 H (26-32) pg MCHC 31.8 L (32-36) g/dl RDW 14.2 H (11.5-14.0) % Plt Count 156 (150-450) K/mm3 MPV 10.7 (7.5-11.0) fl Gran % 92.7 H (36.0-66.0) % Eos # (Auto) 0.01 (0-0.5) Absolute Lymphs (auto) 0.51 L (1.0-4.6) Absolute Monos (auto) 0.44 (0.0-1.3) Lymphocytes % 3.8 L (24.0-44.0) % Monocytes % 3.3 (0.0-12.0) % Eosinophils % 0.1 (0.00-5.0) % Basophils % 0.1 (0.0-0.4) % Absolute Granulocytes 12.44 H (1.4-6.9) Segmented Neutrophils (36.-66.) % Band Neutrophils (0.0-2.0) % Lymphocytes (Manual) (24-44) % Monocytes (Manual) (0.0-12.0) % Basophils # 0.01 (0-0.4) Platelet Estimate (NORMAL) RBC Morphology PT (8.83-12.87) SECONDS INR (0.8-3.0) D-Dimer (215-500) ng/mL Sodium 135 L (137-145) mmol/L Potassium 4.5 (3.5-5.1) mmol/L Chloride 104 (98-107) mmol/L Carbon Dioxide 26 (22-30) mmol/L Anion Gap 9.1 (5-15) MEQ/L BUN 17 (9-20) mg/dL Creatinine 0.90 (0.66-1.25) mg/dL Estimated GFR > 60.0 ML/MIN Glucose 137 H (74-106) mg/dL Lactic Acid (0.4-2.0) Calcium 8.9 (8.4-10.2) mg/dL Total Bilirubin 0.20 (0.2-1.3) mg/dL AST 21 (17-59) U/L ALT 29 (0-50) U/L Alkaline Phosphatase 46 (38-126) U/L Troponin I < 0.012 (0.000-0.034) ng/mL NT-Pro-B Natriuret Pep (0-900) pg/mL Serum Total Protein 6.3 (6.3-8.2) g/dL Albumin 4.0 (3.5-5.0) g/dL SARS-CoV-2 (PCR) (NEGATIVE) Slides for Path Review YES 11/24/19 Range/Units 07:00 WBC (4.0-10.5) K/mm3 RBC (4.1-5.6) M/mm3 Hgb (12.5-18.0) gm/dl Hct (42-50) % MCV (78-100) fl MCH (26-32) pg MCHC (32-36) g/dl RDW (11.5-14.0) % Plt Count (150-450) K/mm3 MPV (7.5-11.0) fl Gran % (36.0-66.0) % Eos # (Auto) (0-0.5) Absolute Lymphs (auto) (1.0-4.6) Absolute Monos (auto) (0.0-1.3) Lymphocytes % (24.0-44.0) % Monocytes % (0.0-12.0) % Eosinophils % (0.00-5.0) % Basophils % (0.0-0.4) % Absolute Granulocytes (1.4-6.9) Segmented Neutrophils (36.-66.) % Band Neutrophils (0.0-2.0) % Lymphocytes (Manual) (24-44) % Monocytes (Manual) (0.0-12.0) % Basophils # (0-0.4) Platelet Estimate (NORMAL) RBC Morphology PT (8.83-12.87) SECONDS INR (0.8-3.0) D-Dimer (215-500) ng/mL Sodium (137-145) mmol/L Potassium (3.5-5.1) mmol/L Chloride (98-107) mmol/L Carbon Dioxide (22-30) mmol/L Anion Gap (5-15) MEQ/L BUN (9-20) mg/dL Creatinine (0.66-1.25) mg/dL Estimated GFR ML/MIN Glucose (74-106) mg/dL Lactic Acid (0.4-2.0) Calcium (8.4-10.2) mg/dL Total Bilirubin (0.2-1.3) mg/dL AST (17-59) U/L ALT (0-50) U/L Alkaline Phosphatase (38-126) U/L Troponin I < 0.012 (0.000-0.034) ng/mL NT-Pro-B Natriuret Pep (0-900) pg/mL Serum Total Protein (6.3-8.2) g/dL Albumin (3.5-5.0) g/dL SARS-CoV-2 (PCR) (NEGATIVE) Slides for Path Review - Radiology Exams Ordered Rad Exams-Entire Visit: Radiology Procedures Category Date Time Status CHEST 1 VIEW (PORTABLE) Stat Exams 11/23/19 18:55 Completed - Procedures and Test Procedures and Tests throughout Hospitalization: Therapy Orders & Screens 11/23/19 19:35 Respiratory Therapy Assessment DAILY Comment: 11/23/19 22:12 Oxygen Nasal Cannula 3 lpm Comment: Respiratory Therapy Consult ROUTINE Comment: Reason For Exam: 11/23/19 23:10 RT Screen per Nursing Assess ONCE Comment: Protocol Order Physician Instructions: Greater than 3 points order RT Admission Screen Reason For Exam: Triggered on Admission Diagnosis: COPD Diagnosis: COPD Home O2: Yes: 3 L NC @ home Home CPAP/BIPAP: Yes Home Nebs/MDI: Yes Total Points: 15 11/24/19 07:00 Peak Expiratory Flow Rate DAILY Comment: Reason For Exam: Diagnosis: COPD - Discharge Disposition: Home, Self-Care Condition: Fair Prescriptions: No Action Roflumilast [Daliresp] 1 ea DAILY Prednisone 10 mg [Deltasone 10 mg] 1 ea DAILY Levocetirizine Dihydrochloride 1 ea DAILY Fluticasone/Vilanterol [Breo Ellipta 100-25 Mcg INH] 1 ea DAILY Bumetanide 1 ea DAILY Alprazolam 0.5 mg [xanAX 0.5 MG] 1 ea TID Albuterol Sulfate [Albuterol Sulfate Hfa] 2 puffs QID Ipratropium/Albuterol Sulfate [Iprat-Albut 0.5-3(2.5) mg/3 ml] 1 ampul IH UD Follow up with: UMESH KEITH DO [Primary Care Provider] - 1 Week
[2019-11-24] MEDS ORDERED: DUONEB 0.5-3 MG/3 ml Neb IH SCH (15:15)
--- NOTE | 2019-11-24 15:35 | PCM.HP ---
History of Present Illness - Chief Complaint Chief Complaint: COPD History of Present Illness: is a 53 year old male on disability for oxygen and steroid dependant COPD followed by [employer],Dr Burgos. He is a current everyday smoker,diagnosed with sleep apnea but no longer has his Cpap machine. States he would forget to where it and insurance took it away.He suffers from chronic pitting edema on Bumex but continues to have edema. He presented to ER with sob,cough and wheezing that has been progressively getting worse . This is the second time in ER this month. Covid tests have been negative . ER labs WBC 17,000. Troponin,BNP and Ddimer were not elevated. CXR showed hyperinflated lungs without infiltrate. Admitted with COPD exacerbation. - Review of Systems Constitutional: Fatigue Eyes: No Symptoms Respiratory: Cough, Short Of Breath, Wheezing Cardiac: Edema Abdominal/Gastrointestinal: Constipation (chronic) Genitourinary Symptoms: No Symptoms Musculoskeletal: No Symptoms Skin: No Symptoms Neurological: No Symptoms Psychological: Anxiety Endocrine: No Symptoms Hematologic/Lymphatic: No Symptoms Immunological/Allergic: No Symptoms Medications & Allergies Home Medications: Home Medication List Albuterol Sulfate [Albuterol Sulfate Hfa] 2 puffs QID 11/19/19 [History Confirmed 11/23/19] Alprazolam 0.5 mg [xanAX 0.5 MG] 1 ea TID 11/19/19 [History Confirmed 11/23/19] Bumetanide 1 ea DAILY 11/19/19 [History Confirmed 11/23/19] Fluticasone/Vilanterol [Breo Ellipta 100-25 Mcg INH] 1 ea DAILY 11/19/19 [History Confirmed 11/23/19] Levocetirizine Dihydrochloride 1 ea DAILY 11/19/19 [History Confirmed 11/23/19] Prednisone 10 mg [Deltasone 10 mg] 1 ea DAILY 11/19/19 [History Confirmed 11/23/19] Roflumilast [Daliresp] 1 ea DAILY 11/19/19 [History Confirmed 11/23/19] Ipratropium/Albuterol Sulfate [Iprat-Albut 0.5-3(2.5) mg/3 ml] 1 ampul IH UD 11/23/19 [History Confirmed 11/23/19] Allergies/Adverse Reactions: Allergies Allergy/AdvReac Type Severity Reaction Status Date / Time No Known Drug Allergies Allergy Verified 11/23/19 18:55 - Past Medical History Past Medical History: Yes Neurological History: No Pertinent History ENT History: No Pertinent History Cardiac History: No Pertinent History Respiratory History: CHF, COPD, Sleep Apnea Endocrine Medical History: No Pertinent History Musculoskelatal History: No Pertinent History GI Medical History: No Pertinent History History: No Pertinent History Pyscho-Social History: No Pertinent History Male Reproductive Disorders: No Pertinent History - Past Surgical History Past Surgical History: No Neuro Surgical History: No Pertinent History Cardiac History: No Pertinent History Respiratory Surgery: No Pertinent History GI Surgical History: No Pertinent History Genitourinary Surgical Hx: No Pertinent History Musculskeletal Surgical Hx: No Pertinent History Male Surgical History: No Pertinent History - Social History Smoking Status: Current every day smoker How long have you smoked: 49 years Exposure to second hand smoke: Yes Alcohol: None Drug Use: none - Physical Exam Vital Signs: Vital Signs - 24 hr Temp Pulse Resp BP Pulse Ox 11/24/19 12:00 98.5 F 89 18 121/58 95 11/24/19 11:22 98 H 24 96 11/24/19 07:14 98.2 F 67 19 132/80 97 11/24/19 07:13 79 28 H 89 L 11/24/19 04:02 98.1 F 85 24 141/74 97 11/24/19 03:29 85 22 97 11/23/19 23:31 75 22 94 L 11/23/19 22:50 98.1 F 95 H 22 123/83 97 11/23/19 22:10 92 H 21 116/74 97 11/23/19 21:18 94 H 21 118/79 95 11/23/19 20:00 96 H 20 119/78 97 11/23/19 19:40 100 H 20 110/80 98 11/23/19 19:38 101 H 18 98 11/23/19 18:41 98.2 F 117 H 28 H 136/85 95 General Appearance: mild distress (conversational dyspnea improved after Duoneb Tx.) Neurologic Exam: alert, oriented x 3, agitation Eye Exam: eyes nml inspection Ears, Nose, Throat Exam: moist mucous membranes Respiratory Exam: diminished breath sounds, wheezing (eew scattered) Cardiovascular Exam: regular rate/rhythm Gastrointestinal/Abdomen Exam: distention Rectal Exam: deferred (nontender) Results - Labs Lab/Micro Results: Lab Results-Last 24 Hours 11/23/19 11/23/19 11/23/19 Range/Units 18:50 18:50 18:50 WBC 17.0 H (4.0-10.5) K/mm3 RBC 5.01 (4.1-5.6) M/mm3 Hgb 16.3 (12.5-18.0) gm/dl Hct 50.2 H (42-50) % MCV 100.2 H (78-100) fl MCH 32.5 H (26-32) pg MCHC 32.5 (32-36) g/dl RDW 14.2 H (11.5-14.0) % Plt Count 172 (150-450) K/mm3 MPV 10.4 (7.5-11.0) fl Gran % (36.0-66.0) % Eos # (Auto) (0-0.5) Absolute Lymphs (auto) (1.0-4.6) Absolute Monos (auto) (0.0-1.3) Lymphocytes % (24.0-44.0) % Monocytes % (0.0-12.0) % Eosinophils % (0.00-5.0) % Basophils % (0.0-0.4) % Absolute Granulocytes (1.4-6.9) Segmented Neutrophils 84 H (36.-66.) % Band Neutrophils 2 (0.0-2.0) % Lymphocytes (Manual) 12 L (24-44) % Monocytes (Manual) 2 (0.0-12.0) % Basophils # (0-0.4) Platelet Estimate NORMAL (NORMAL) RBC Morphology NORMAL PT 11.6 (8.83-12.87) SECONDS INR 1.03 (0.8-3.0) D-Dimer 250 (215-500) ng/mL Sodium 136 L (137-145) mmol/L Potassium 3.8 (3.5-5.1) mmol/L Chloride 103 (98-107) mmol/L Carbon Dioxide 26 (22-30) mmol/L Anion Gap 11.3 (5-15) MEQ/L BUN 18 (9-20) mg/dL Creatinine 1.08 (0.66-1.25) mg/dL Estimated GFR > 60.0 ML/MIN Glucose 115 H (74-106) mg/dL Lactic Acid (0.4-2.0) Calcium 9.3 (8.4-10.2) mg/dL Total Bilirubin 0.20 (0.2-1.3) mg/dL AST 22 (17-59) U/L ALT 30 (0-50) U/L Alkaline Phosphatase 50 (38-126) U/L Troponin I (0.000-0.034) ng/mL NT-Pro-B Natriuret Pep 56.3 (0-900) pg/mL Serum Total Protein 6.9 (6.3-8.2) g/dL Albumin 4.4 (3.5-5.0) g/dL SARS-CoV-2 (PCR) (NEGATIVE) Slides for Path Review 11/23/19 11/23/19 11/23/19 Range/Units 18:50 19:00 19:39 WBC (4.0-10.5) K/mm3 RBC (4.1-5.6) M/mm3 Hgb (12.5-18.0) gm/dl Hct (42-50) % MCV (78-100) fl MCH (26-32) pg MCHC (32-36) g/dl RDW (11.5-14.0) % Plt Count (150-450) K/mm3 MPV (7.5-11.0) fl Gran % (36.0-66.0) % Eos # (Auto) (0-0.5) Absolute Lymphs (auto) (1.0-4.6) Absolute Monos (auto) (0.0-1.3) Lymphocytes % (24.0-44.0) % Monocytes % (0.0-12.0) % Eosinophils % (0.00-5.0) % Basophils % (0.0-0.4) % Absolute Granulocytes (1.4-6.9) Segmented Neutrophils (36.-66.) % Band Neutrophils (0.0-2.0) % Lymphocytes (Manual) (24-44) % Monocytes (Manual) (0.0-12.0) % Basophils # (0-0.4) Platelet Estimate (NORMAL) RBC Morphology PT (8.83-12.87) SECONDS INR (0.8-3.0) D-Dimer (215-500) ng/mL Sodium (137-145) mmol/L Potassium (3.5-5.1) mmol/L Chloride (98-107) mmol/L Carbon Dioxide (22-30) mmol/L Anion Gap (5-15) MEQ/L BUN (9-20) mg/dL Creatinine (0.66-1.25) mg/dL Estimated GFR ML/MIN Glucose (74-106) mg/dL Lactic Acid 3.5 H (0.4-2.0) Calcium (8.4-10.2) mg/dL Total Bilirubin (0.2-1.3) mg/dL AST (17-59) U/L ALT (0-50) U/L Alkaline Phosphatase (38-126) U/L Troponin I < 0.012 (0.000-0.034) ng/mL NT-Pro-B Natriuret Pep (0-900) pg/mL Serum Total Protein (6.3-8.2) g/dL Albumin (3.5-5.0) g/dL SARS-CoV-2 (PCR) NEGATIVE (NEGATIVE) Slides for Path Review 11/23/19 11/23/19 11/24/19 Range/Units 21:07 22:10 01:15 WBC (4.0-10.5) K/mm3 RBC (4.1-5.6) M/mm3 Hgb (12.5-18.0) gm/dl Hct (42-50) % MCV (78-100) fl MCH (26-32) pg MCHC (32-36) g/dl RDW (11.5-14.0) % Plt Count (150-450) K/mm3 MPV (7.5-11.0) fl Gran % (36.0-66.0) % Eos # (Auto) (0-0.5) Absolute Lymphs (auto) (1.0-4.6) Absolute Monos (auto) (0.0-1.3) Lymphocytes % (24.0-44.0) % Monocytes % (0.0-12.0) % Eosinophils % (0.00-5.0) % Basophils % (0.0-0.4) % Absolute Granulocytes (1.4-6.9) Segmented Neutrophils (36.-66.) % Band Neutrophils (0.0-2.0) % Lymphocytes (Manual) (24-44) % Monocytes (Manual) (0.0-12.0) % Basophils # (0-0.4) Platelet Estimate (NORMAL) RBC Morphology PT (8.83-12.87) SECONDS INR (0.8-3.0) D-Dimer (215-500) ng/mL Sodium (137-145) mmol/L Potassium (3.5-5.1) mmol/L Chloride (98-107) mmol/L Carbon Dioxide (22-30) mmol/L Anion Gap (5-15) MEQ/L BUN (9-20) mg/dL Creatinine (0.66-1.25) mg/dL Estimated GFR ML/MIN Glucose (74-106) mg/dL Lactic Acid 1.6 (0.4-2.0) Calcium (8.4-10.2) mg/dL Total Bilirubin (0.2-1.3) mg/dL AST (17-59) U/L ALT (0-50) U/L Alkaline Phosphatase (38-126) U/L Troponin I < 0.012 < 0.012 (0.000-0.034) ng/mL NT-Pro-B Natriuret Pep (0-900) pg/mL Serum Total Protein (6.3-8.2) g/dL Albumin (3.5-5.0) g/dL SARS-CoV-2 (PCR) (NEGATIVE) Slides for Path Review 11/24/19 11/24/19 11/24/19 Range/Units 04:08 04:08 04:08 WBC 13.4 H (4.0-10.5) K/mm3 RBC 4.83 (4.1-5.6) M/mm3 Hgb 15.7 (12.5-18.0) gm/dl Hct 49.3 (42-50) % MCV 102.1 H (78-100) fl MCH 32.5 H (26-32) pg MCHC 31.8 L (32-36) g/dl RDW 14.2 H (11.5-14.0) % Plt Count 156 (150-450) K/mm3 MPV 10.7 (7.5-11.0) fl Gran % 92.7 H (36.0-66.0) % Eos # (Auto) 0.01 (0-0.5) Absolute Lymphs (auto) 0.51 L (1.0-4.6) Absolute Monos (auto) 0.44 (0.0-1.3) Lymphocytes % 3.8 L (24.0-44.0) % Monocytes % 3.3 (0.0-12.0) % Eosinophils % 0.1 (0.00-5.0) % Basophils % 0.1 (0.0-0.4) % Absolute Granulocytes 12.44 H (1.4-6.9) Segmented Neutrophils (36.-66.) % Band Neutrophils (0.0-2.0) % Lymphocytes (Manual) (24-44) % Monocytes (Manual) (0.0-12.0) % Basophils # 0.01 (0-0.4) Platelet Estimate (NORMAL) RBC Morphology PT (8.83-12.87) SECONDS INR (0.8-3.0) D-Dimer (215-500) ng/mL Sodium 135 L (137-145) mmol/L Potassium 4.5 (3.5-5.1) mmol/L Chloride 104 (98-107) mmol/L Carbon Dioxide 26 (22-30) mmol/L Anion Gap 9.1 (5-15) MEQ/L BUN 17 (9-20) mg/dL Creatinine 0.90 (0.66-1.25) mg/dL Estimated GFR > 60.0 ML/MIN Glucose 137 H (74-106) mg/dL Lactic Acid (0.4-2.0) Calcium 8.9 (8.4-10.2) mg/dL Total Bilirubin 0.20 (0.2-1.3) mg/dL AST 21 (17-59) U/L ALT 29 (0-50) U/L Alkaline Phosphatase 46 (38-126) U/L Troponin I < 0.012 (0.000-0.034) ng/mL NT-Pro-B Natriuret Pep (0-900) pg/mL Serum Total Protein 6.3 (6.3-8.2) g/dL Albumin 4.0 (3.5-5.0) g/dL SARS-CoV-2 (PCR) (NEGATIVE) Slides for Path Review YES 11/24/19 Range/Units 07:00 WBC (4.0-10.5) K/mm3 RBC (4.1-5.6) M/mm3 Hgb (12.5-18.0) gm/dl Hct (42-50) % MCV (78-100) fl MCH (26-32) pg MCHC (32-36) g/dl RDW (11.5-14.0) % Plt Count (150-450) K/mm3 MPV (7.5-11.0) fl Gran % (36.0-66.0) % Eos # (Auto) (0-0.5) Absolute Lymphs (auto) (1.0-4.6) Absolute Monos (auto) (0.0-1.3) Lymphocytes % (24.0-44.0) % Monocytes % (0.0-12.0) % Eosinophils % (0.00-5.0) % Basophils % (0.0-0.4) % Absolute Granulocytes (1.4-6.9) Segmented Neutrophils (36.-66.) % Band Neutrophils (0.0-2.0) % Lymphocytes (Manual) (24-44) % Monocytes (Manual) (0.0-12.0) % Basophils # (0-0.4) Platelet Estimate (NORMAL) RBC Morphology PT (8.83-12.87) SECONDS INR (0.8-3.0) D-Dimer (215-500) ng/mL Sodium (137-145) mmol/L Potassium (3.5-5.1) mmol/L Chloride (98-107) mmol/L Carbon Dioxide (22-30) mmol/L Anion Gap (5-15) MEQ/L BUN (9-20) mg/dL Creatinine (0.66-1.25) mg/dL Estimated GFR ML/MIN Glucose (74-106) mg/dL Lactic Acid (0.4-2.0) Calcium (8.4-10.2) mg/dL Total Bilirubin (0.2-1.3) mg/dL AST (17-59) U/L ALT (0-50) U/L Alkaline Phosphatase (38-126) U/L Troponin I < 0.012 (0.000-0.034) ng/mL NT-Pro-B Natriuret Pep (0-900) pg/mL Serum Total Protein (6.3-8.2) g/dL Albumin (3.5-5.0) g/dL SARS-CoV-2 (PCR) (NEGATIVE) Slides for Path Review Microbiology 11/24/19 08:27 Gram Stain - Final Sputum - Expectorant - Radiology Impressions Radiology Exams & Impressions: Radiology Procedures Category Date Time Status CHEST 1 VIEW (PORTABLE) Stat Exams 11/23/19 18:55 Completed - Other Procedures and Tests Respiratory Therapy 11/23/19 19:35 Respiratory Therapy Assessment DAILY 11/23/19 22:12 Oxygen Nasal Cannula 3 lpm 11/24/19 07:00 Peak Expiratory Flow Rate DAILY Assessment/Plan (1) COPD exacerbation Current Visit: Yes Status: Acute Assessment & Plan: IV solumedrol and antibiotics,Neb Tx culture pending Code(s): J44.1 - CHRONIC OBSTRUCTIVE PULMONARY DISEASE W (ACUTE) EXACERBATION (2) Leukocytosis Current Visit: Yes Status: Acute Assessment & Plan: sputum and blood cultures pending Code(s): D72.829 - ELEVATED WHITE BLOOD CELL COUNT, UNSPECIFIED (3) Sleep apnea Current Visit: Yes Status: Chronic Assessment & Plan: untreated Code(s): G47.30 - SLEEP APNEA, UNSPECIFIED (4) Edema Current Visit: Yes Status: Chronic Assessment & Plan: not responding to Bumex,suspect cause is untreated sleep apnea. Code(s): R60.9 - EDEMA, UNSPECIFIED
[2019-11-24] MEDS: xanAX 0.5 MG PO SCH ×2 (15:50→21:44)
[2019-11-24] MEDS: BUMEX 1 MG PO SCH (15:51)
[2019-11-24] MEDS: DALIRESP PO SCH (15:51)
[2019-11-24] MEDS: CLARITIN 10 MG PO SCH (15:51)
[2019-11-24] MEDS ORDERED: PROVENTIL 2.5 MG/3 ML NEB IH PRN (16:00)
[2019-11-24] MEDS: ROCEPHIN 1 Gm-D5w 50 ml Bag** 1 G/50 ML IVPB IV SCH (21:44)
[2019-11-24] MEDS: Zithromax 500 MG/ 250 ML NaCl Premix 500 MG/250 ML IVPB IV SCH (22:12)
[2019-11-25] MEDS: DUONEB 0.5-3 MG/3 ml Neb IH SCH ×6 (02:59→23:16)
[2019-11-25] MEDS: solu-MEDROL 125 MG IV SCH ×3 (05:16→21:29)
[2019-11-25] MEDS: Sodium Chloride 0.9% 10 ML FLUSH Syringe IV SCH ×3 (06:08→21:35)
[2019-11-25 06:17] LABS: ALBUMIN 4.1 g/dL (3.5-5.0); ALKALINE PHOSPHATASE 46 U/L (38-126); ANION GAP 7.9 MEQ/L (5-15); BLOOD UREA NITROGEN 24 mg/dL (9-20); CHLORIDE 99 mmol/L (98-107); Calcium 9.2 mg/dL (8.4-10.2); Carbon Dioxide 31 mmol/L (22-30); Creatinine 1 0.82 mg/dL (0.66-1.25); EST GLOMERULAR FILTRATION RATE > 60.0 ML/MIN; Glucose 131 mg/dL (74-106); Potassium 4.2 mmol/L (3.5-5.1); SGOT/AST 24 U/L (17-59); SGPT/ALT 34 U/L (0-50); SODIUM 134 mmol/L (137-145); Total Protein 6.5 g/dL (6.3-8.2)
[2019-11-25] MEDS: Advair Hfa 115/21 Common canister IH SCH ×2 (07:13→19:22)
[2019-11-25 08:57] LABS: Hematocrit 49.5 % (42-50); Hemoglobin 16.2 gm/dl (12.5-18.0); Mean Corpuscular Hemoglobin 33.1 pg (26-32); Mean Corpuscular Hgb Concent. 32.7 g/dl (32-36); Mean Platelet Volume 11.7 fl (7.5-11.0); Platelet Count 167 K/mm3 (150-450); White Blood Count 19.8 K/mm3 (4.0-10.5)
[2019-11-25] MEDS: DALIRESP PO SCH (09:13)
[2019-11-25] MEDS: BUMEX 1 MG PO SCH (09:13)
[2019-11-25] MEDS: xanAX 0.5 MG PO SCH ×3 (09:13→21:29)
[2019-11-25] MEDS: CLARITIN 10 MG PO SCH (09:13)
[2019-11-25] MEDS: ENOXAPARIN SODIUM SQ SCH (09:14)
[2019-11-25 09:43] LABS: Lymphocytes 8 % (24-44); Monocyte 7 % (0.0-12.0); Neutrophils 85 % (36.-66.); Platelet Estimate NORMAL (NORMAL); Total Cells Counted 100
[2019-11-25] MEDS ORDERED: LEVOCETIRIZINE DIHYDROCHLORIDE PO SCH (10:00)
[2019-11-25] MEDS ORDERED: ROFLUMILAST PO SCH (10:00)
--- NOTE | 2019-11-25 13:42 | PCM.NOTE ---
Date and Time: 11/25/19 1322 Subjective Assessment: Patient states he is starting to breath a little easier finally. He is eating ok ,denies any new symptoms.Is a 1ppd smoker but does not want a nicoderm patch. Objective Exam Neurologic Exam: alert, oriented x 3, cooperative, normal mood/affect (no longer aggitated) Skin Exam: warm, dry (dusky color) Ears, Nose, Throat Exam: other (no nasal discharge , O2/NC) Respiratory Exam: diminished breath sounds, wheezing (eew all lung snyder but with improved aeration compaired to yesterday) Cardiovascular Exam: regular rate/rhythm Gastrointestinal/Abdomen Exam: soft (nontender,less distended) Extremity Exam: pedal edema (elastic hose on ,pitting edema pretibial) OBJECTIVE DATA Vital Signs: Vital Signs - 24 hr Temp Pulse Resp BP Pulse Ox 11/25/19 12:00 97.9 F 84 16 111/56 97 11/25/19 10:54 86 18 95 11/25/19 08:00 98.0 F 76 14 125/66 94 L 11/25/19 07:16 84 18 94 L 11/25/19 03:51 97.9 F 91 H 22 119/69 95 11/25/19 02:59 91 H 22 95 11/24/19 23:53 97.9 F 96 H 22 117/65 97 11/24/19 23:13 92 H 22 94 L 11/24/19 20:02 98.5 F 104 H 26 H 138/66 96 11/24/19 19:36 119 H 24 95 11/24/19 19:34 95 11/24/19 16:00 97.9 F 99 H 18 122/70 95 Pain Assessment - Last Documented Pain Intensity 0 Pain Scale Used 0-10 Pain Scale Intake and Output: Intake & Output 11/23/19 11/24/19 11/25/19 11/26/19 11:59 11:59 11:59 11:59 Intake Total 966 2207 620 Output Total 3100 700 Balance 966 -893 -80 Weight 106 kg Lab Results: Lab Results-Last 24 Hours 11/25/19 11/25/19 11/25/19 Range/Units 04:00 05:20 05:20 WBC 19.8 H (4.0-10.5) K/mm3 RBC 4.90 (4.1-5.6) M/mm3 Hgb 16.2 (12.5-18.0) gm/dl Hct 49.5 (42-50) % MCV 101.0 H (78-100) fl MCH 33.1 H (26-32) pg MCHC 32.7 (32-36) g/dl RDW 14.0 (11.5-14.0) % Plt Count 167 (150-450) K/mm3 MPV 11.7 H (7.5-11.0) fl Segmented Neutrophils 85 H (36.-66.) % Lymphocytes (Manual) 8 L (24-44) % Monocytes (Manual) 7 (0.0-12.0) % Platelet Estimate NORMAL (NORMAL) RBC Morphology NORMAL Sodium 134 L (137-145) mmol/L Potassium 4.2 (3.5-5.1) mmol/L Chloride 99 (98-107) mmol/L Carbon Dioxide 31 H (22-30) mmol/L Anion Gap 7.9 (5-15) MEQ/L BUN 24 H (9-20) mg/dL Creatinine 0.82 (0.66-1.25) mg/dL Estimated GFR > 60.0 ML/MIN Glucose 131 H (74-106) mg/dL Hemoglobin A1c (4.5-6.0) % Calcium 9.2 (8.4-10.2) mg/dL Total Bilirubin 0.30 (0.2-1.3) mg/dL AST 24 (17-59) U/L ALT 34 (0-50) U/L Alkaline Phosphatase 46 (38-126) U/L Serum Total Protein 6.5 (6.3-8.2) g/dL Albumin 4.1 (3.5-5.0) g/dL TSH 3rd Generation 1.440 (0.47-4.68) mIU/L 11/25/19 Range/Units 05:20 WBC (4.0-10.5) K/mm3 RBC (4.1-5.6) M/mm3 Hgb (12.5-18.0) gm/dl Hct (42-50) % MCV (78-100) fl MCH (26-32) pg MCHC (32-36) g/dl RDW (11.5-14.0) % Plt Count (150-450) K/mm3 MPV (7.5-11.0) fl Segmented Neutrophils (36.-66.) % Lymphocytes (Manual) (24-44) % Monocytes (Manual) (0.0-12.0) % Platelet Estimate (NORMAL) RBC Morphology Sodium (137-145) mmol/L Potassium (3.5-5.1) mmol/L Chloride (98-107) mmol/L Carbon Dioxide (22-30) mmol/L Anion Gap (5-15) MEQ/L BUN (9-20) mg/dL Creatinine (0.66-1.25) mg/dL Estimated GFR ML/MIN Glucose (74-106) mg/dL Hemoglobin A1c 5.82 (4.5-6.0) % Calcium (8.4-10.2) mg/dL Total Bilirubin (0.2-1.3) mg/dL AST (17-59) U/L ALT (0-50) U/L Alkaline Phosphatase (38-126) U/L Serum Total Protein (6.3-8.2) g/dL Albumin (3.5-5.0) g/dL TSH 3rd Generation (0.47-4.68) mIU/L Radiology Exams: Radiology Procedures Category Date Time Status CHEST 1 VIEW (PORTABLE) Stat Exams 11/23/19 18:55 Completed Assessment/Plan (1) COPD exacerbation Current Visit: Yes Status: Acute Assessment & Plan: improving Code(s): J44.1 - CHRONIC OBSTRUCTIVE PULMONARY DISEASE W (ACUTE) EXACERBATION (2) Leukocytosis Current Visit: Yes Status: Acute Assessment & Plan: WBC 19,800 today was 17,000 on admission down to 13,000 yesterday - is on IV Solumedrol ,sputum and blood culture are still pending. Continue Rocephin and Zithromax and await culture. Code(s): D72.829 - ELEVATED WHITE BLOOD CELL COUNT, UNSPECIFIED (3) Sleep apnea Current Visit: Yes Status: Chronic Code(s): G47.30 - SLEEP APNEA, UNSPECIFIED (4) Edema Current Visit: Yes Status: Chronic Assessment & Plan: continue Bumex. Code(s): R60.9 - EDEMA, UNSPECIFIED
[2019-11-25] MEDS: ROCEPHIN 1 Gm-D5w 50 ml Bag** 1 G/50 ML IVPB IV SCH (21:29)
[2019-11-25] MEDS: Zithromax 500 MG/ 250 ML NaCl Premix 500 MG/250 ML IVPB IV SCH (22:04)
[2019-11-26] MEDS: DUONEB 0.5-3 MG/3 ml Neb IH SCH ×6 (03:29→23:21)
[2019-11-26] MEDS: solu-MEDROL 125 MG IV SCH (05:21)
[2019-11-26] MEDS: Sodium Chloride 0.9% 10 ML FLUSH Syringe IV SCH ×3 (05:21→21:36)
[2019-11-26 06:16] LABS: Hematocrit 49.8 % (42-50); Hemoglobin 15.9 gm/dl (12.5-18.0); Mean Cell Volume 103.8 fl (78-100); Mean Corpuscular Hemoglobin 33.1 pg (26-32); Mean Corpuscular Hgb Concent. 31.9 g/dl (32-36); Mean Platelet Volume 11.3 fl (7.5-11.0); Platelet Count 162 K/mm3 (150-450); White Blood Count 22.2 K/mm3 (4.0-10.5)
[2019-11-26 06:33] LABS: ALBUMIN 3.9 g/dL (3.5-5.0); ALKALINE PHOSPHATASE 43 U/L (38-126); BLOOD UREA NITROGEN 29 mg/dL (9-20); CHLORIDE 98 mmol/L (98-107); Carbon Dioxide 33 mmol/L (22-30); Creatinine 1 0.88 mg/dL (0.66-1.25); EST GLOMERULAR FILTRATION RATE > 60.0 ML/MIN; Glucose 120 mg/dL (74-106); SGOT/AST 22 U/L (17-59); SGPT/ALT 29 U/L (0-50); SODIUM 136 mmol/L (137-145); Total Protein 6.2 g/dL (6.3-8.2)
[2019-11-26] MEDS: Advair Hfa 115/21 Common canister IH SCH ×2 (06:43→18:54)
[2019-11-26 07:16] LABS: ANION GAP 9.8 MEQ/L (5-15); Potassium 4.6 mmol/L (3.5-5.1)
[2019-11-26] MEDS: xanAX 0.5 MG PO SCH ×3 (09:31→21:36)
[2019-11-26] MEDS: DALIRESP PO SCH (09:31)
[2019-11-26] MEDS: BUMEX 1 MG PO SCH (09:31)
[2019-11-26] MEDS: CLARITIN 10 MG PO SCH (09:31)
[2019-11-26] MEDS: ENOXAPARIN SODIUM SQ SCH (09:31)
[2019-11-26 10:02] LABS: ANISOCYTOSIS 1+; Lymphocytes 6 % (24-44); Monocyte 4 % (0.0-12.0); Neutrophils 90 % (36.-66.); Platelet Estimate NORMAL (NORMAL); Total Cells Counted 100; Toxic Granulation 1+
--- NOTE | 2019-11-26 12:07 | PCM.NOTE ---
Date and Time: 11/26/19 1205 Subjective Assessment: still short of breath - Review of Systems Constitutional: No Fever, No Chills Eyes: No Symptoms Ears, Nose, & Throat: No Symptoms Respiratory: Orthopnea, Short Of Breath, No Cough Cardiac: No Chest Pain, No Edema, No Syncope Abdominal/Gastrointestinal: No Abdominal Pain, No Nausea, No Vomiting, No Diarrhea Genitourinary Symptoms: No Dysuria Musculoskeletal: No Back Pain, No Neck Pain Skin: No Rash Neurological: No Dizziness, No Focal Weakness, No Sensory Changes Psychological: No Symptoms Endocrine: No Symptoms Hematologic/Lymphatic: No Symptoms Immunological/Allergic: No Symptoms Objective Exam General Appearance: no apparent distress, alert Neurologic Exam: alert, oriented x 3, cooperative, normal mood/affect, nml cerebellar function, sensation nml, No motor deficits Skin Exam: normal color, warm, dry Eye Exam: PERRL, EOMI, eyes nml inspection Ears, Nose, Throat Exam: normal ENT inspection, pharynx normal, moist mucous membranes Neck Exam: normal inspection, non-tender, supple, full range of motion Respiratory Exam: normal breath sounds, respiratory distress, diminished breath sounds Cardiovascular Exam: regular rate/rhythm, normal heart sounds Gastrointestinal/Abdomen Exam: soft, No tenderness, No mass Extremity Exam: normal inspection, normal range of motion Back Exam: normal inspection, normal range of motion, No CVA tenderness, No vertebral tenderness Male Genitalia Exam: deferred Rectal Exam: deferred OBJECTIVE DATA Vital Signs: Vital Signs - 24 hr Temp Pulse Resp BP Pulse Ox 11/26/19 10:43 73 16 97 11/26/19 07:19 98.1 F 68 20 114/66 98 11/26/19 06:47 82 20 95 11/26/19 03:41 97.9 F 84 20 122/80 96 11/26/19 03:31 79 18 97 11/25/19 23:57 97.9 F 88 18 105/63 96 11/25/19 23:16 94 H 20 97 11/25/19 20:00 98.3 F 103 H 20 119/61 94 L 11/25/19 19:23 101 H 20 94 L 11/25/19 15:56 98.0 F 103 H 16 118/58 95 11/25/19 15:10 88 22 93 L Pain Assessment - Last Documented Pain Intensity 0 Pain Scale Used 0-10 Pain Scale Intake and Output: Intake & Output 11/24/19 11/25/19 11/26/19 11/27/19 11:59 11:59 11:59 11:59 Intake Total 966 2207 620 Output Total 3100 1300 Balance 196 -503 -680 Weight 106 kg Lab Results: Lab Results-Last 24 Hours 11/26/19 11/26/19 Range/Units 04:55 04:55 WBC 22.2 H (4.0-10.5) K/mm3 RBC 4.80 (4.1-5.6) M/mm3 Hgb 15.9 (12.5-18.0) gm/dl Hct 49.8 (42-50) % MCV 103.8 H (78-100) fl MCH 33.1 H (26-32) pg MCHC 31.9 L (32-36) g/dl RDW 14.0 (11.5-14.0) % Plt Count 162 (150-450) K/mm3 MPV 11.3 H (7.5-11.0) fl Segmented Neutrophils 90 H (36.-66.) % Lymphocytes (Manual) 6 L (24-44) % Monocytes (Manual) 4 (0.0-12.0) % Toxic Granulation 1+ Platelet Estimate NORMAL (NORMAL) RBC Morphology ABNORMAL Anisocytosis 1+ Sodium 136 L (137-145) mmol/L Potassium 4.6 (3.5-5.1) mmol/L Chloride 98 (98-107) mmol/L Carbon Dioxide 33 H (22-30) mmol/L Anion Gap 9.8 (5-15) MEQ/L BUN 29 H (9-20) mg/dL Creatinine 0.88 (0.66-1.25) mg/dL Estimated GFR > 60.0 ML/MIN Glucose 120 H (74-106) mg/dL Calcium 9.0 (8.4-10.2) mg/dL Total Bilirubin 0.30 (0.2-1.3) mg/dL AST 22 (17-59) U/L ALT 29 (0-50) U/L Alkaline Phosphatase 43 (38-126) U/L Serum Total Protein 6.2 L (6.3-8.2) g/dL Albumin 3.9 (3.5-5.0) g/dL Assessment/Plan (1) COPD exacerbation Current Visit: Yes Status: Acute Code(s): J44.1 - CHRONIC OBSTRUCTIVE PULMONARY DISEASE W (ACUTE) EXACERBATION (2) Leukocytosis Current Visit: Yes Status: Acute Code(s): D72.829 - ELEVATED WHITE BLOOD CELL COUNT, UNSPECIFIED (3) Sleep apnea Current Visit: Yes Status: Chronic Code(s): G47.30 - SLEEP APNEA, UNSPECIFIED
[2019-11-26] MEDS ORDERED: TYLENOL 325 MG PO PRN (13:15)
[2019-11-26] MEDS: solu-MEDROL 40 MG IV SCH ×2 (14:24→22:22)
--- NOTE | 2019-11-26 16:51 | CONS ---
CONSULT DATE: 11/26/2019 HISTORY OF PRESENT ILLNESS: Mr. Gibbs is a 53 year-old male with history of advanced chronic obstructive pulmonary disease, well known to me, who has been sick for about the past 2 weeks. The patient initially started feeling sick around Labor Day weekend. He had developed cough productive of thick expectoration with increasing wheezing. He was seen in [facility] and was advised hospitalization. However, he opted to go home. The patient reports that he started feeling progressively more short of breath over the past few days and ended up coming back to the hospital before last weekend. He is being admitted under the care of Dr. Shearer. He was treated with IV steroids and antibiotics. At the time of my evaluation today, he is sitting in chair. He feels "a lot better". He is able to carry off a normal conversation. He has not ambulated yet. He was seen by primary care this morning and was advised of possible discharge tomorrow. He is nevertheless still on very high dose steroids of Solu-Medrol 80 mg q 8. PAST MEDICAL HISTORY: Positive for chronic obstructive pulmonary disease, chronic bronchitis, history of pulmonary thromboembolism, history of lung nodule, anxiety. PAST SURGICAL HISTORY: No recent surgeries. PERSONAL AND SOCIAL HISTORY: Has been a smoker. ALLERGIES: NOTED. CURRENT MEDICATIONS: Reviewed. PHYSICAL EXAMINATION: Middle aged male appears comfortable. Able to speak without much respiratory difficulty. VITAL SIGNS: Noted. HEENT: Normocephalic. Oral exam is unremarkable. NECK: Supple. CVS: 1st and 2nd heart sounds normal, regular rhythm. RESPIRATORY: Shows diminished breath sounds. Scattered rhonchi are heard. ABDOMEN: Soft. No significant edema noted. WBC 22.2, Hgb 15.9, Hct 50, platelets 162, sodium 136, potassium 4.6, chloride 98, bicarb 33. Glucose 120, BUN 29, creatinine 0.8. Chest x-ray was unremarkable. Blood cultures have remained negative. ASSESSMENT: 53 year-old male admitted with: 1. CHRONIC OBSTRUCTIVE PULMONARY DISEASE WITH ACUTE EXACERBATION CLINICALLY IMPROVING. 2. ACUTE BRONCHITIS. 3. HYPOXEMIA. 4. PRIOR HISTORY OF PULMONARY THROMBOEMBOLISM. 5. HISTORY OF LUNG NODULE. 6. ANXIETY DISORDER. RECOMMENDATIONS: 1. Patient has clearly shown significant clinical improvement with current therapy. He is currently on Rocephin and Zithromax. 2. Advised reduction in IV steroids, will convert into PO upon discharge. 3. Continue Advair along with Daliresp and bronchodilators. 4. Patient is on deep vein thrombosis prophylaxis. 5. He has been advised to follow-up with me in 1 week upon discharge. Call earlier if needed. Will continue to follow. Thank you for allowing me to participate in the care of Mr. Gibbs.
[2019-11-26] MEDS: ROCEPHIN 1 Gm-D5w 50 ml Bag** 1 G/50 ML IVPB IV SCH (21:31)
[2019-11-26] MEDS: Zithromax 500 MG/ 250 ML NaCl Premix 500 MG/250 ML IVPB IV SCH (22:22)
[2019-11-27] MEDS: DUONEB 0.5-3 MG/3 ml Neb IH SCH ×4 (03:41→14:14)
[2019-11-27 05:09] LABS: Hematocrit 49.8 % (42-50); Hemoglobin 15.8 gm/dl (12.5-18.0); Mean Cell Volume 103.3 fl (78-100); Mean Corpuscular Hemoglobin 32.8 pg (26-32); Mean Corpuscular Hgb Concent. 31.7 g/dl (32-36); Mean Platelet Volume 10.5 fl (7.5-11.0); Platelet Count 149 K/mm3 (150-450); Red Blood Count 4.82 M/mm3 (4.1-5.6); Red Cell Distribution Width 14.1 % (11.5-14.0); White Blood Count 22.1 K/mm3 (4.0-10.5)
[2019-11-27 05:21] LABS: ALKALINE PHOSPHATASE 49 U/L (38-126); ANION GAP 9.1 MEQ/L (5-15); BLOOD UREA NITROGEN 26 mg/dL (9-20); CHLORIDE 97 mmol/L (98-107); Calcium 9.3 mg/dL (8.4-10.2); Carbon Dioxide 34 mmol/L (22-30); Creatinine 1 0.75 mg/dL (0.66-1.25); EST GLOMERULAR FILTRATION RATE > 60.0 ML/MIN; Glucose 135 mg/dL (74-106); Potassium 5.3 mmol/L (3.5-5.1); SGOT/AST 25 U/L (17-59); SGPT/ALT 37 U/L (0-50); SODIUM 135 mmol/L (137-145); Total Protein 6.4 g/dL (6.3-8.2)
[2019-11-27] MEDS: solu-MEDROL 40 MG IV SCH ×2 (05:48→16:26)
[2019-11-27 06:04] LABS: Lymphocytes 5 % (24-44); Monocyte 3 % (0.0-12.0); Neutrophils 92 % (36.-66.); Platelet Estimate NORMAL (NORMAL); Total Cells Counted 100
[2019-11-27] MEDS: Advair Hfa 115/21 Common canister IH SCH (07:04)
[2019-11-27 07:14] VITALS: O2SAT 97
[2019-11-27] MEDS: xanAX 0.5 MG PO SCH ×2 (10:50→16:26)
[2019-11-27] MEDS: BUMEX 1 MG PO SCH (10:50)
[2019-11-27] MEDS: CLARITIN 10 MG PO SCH (10:50)
[2019-11-27] MEDS: ENOXAPARIN SODIUM SQ SCH (10:50)
[2019-11-27] MEDS: DALIRESP PO SCH (10:51)
--- NOTE | 2019-11-27 11:57 | PCM.NOTE ---
Date and Time: 11/27/19 1157 Subjective Assessment: doing better - Review of Systems Constitutional: No Fever, No Chills Eyes: No Symptoms Ears, Nose, & Throat: No Symptoms Respiratory: No Cough, No Short Of Breath Cardiac: No Chest Pain, No Edema, No Syncope Abdominal/Gastrointestinal: No Abdominal Pain, No Nausea, No Vomiting, No Diarrhea Genitourinary Symptoms: No Dysuria Musculoskeletal: No Back Pain, No Neck Pain Skin: No Rash Neurological: No Dizziness, No Focal Weakness, No Sensory Changes Psychological: No Symptoms Endocrine: No Symptoms Hematologic/Lymphatic: No Symptoms Immunological/Allergic: No Symptoms Objective Exam General Appearance: no apparent distress, alert Neurologic Exam: alert, oriented x 3, cooperative, normal mood/affect, nml cerebellar function, sensation nml, No motor deficits Skin Exam: normal color, warm, dry Eye Exam: PERRL, EOMI, eyes nml inspection Ears, Nose, Throat Exam: normal ENT inspection, pharynx normal, moist mucous membranes Neck Exam: normal inspection, non-tender, supple, full range of motion Respiratory Exam: normal breath sounds, lungs clear, No respiratory distress Cardiovascular Exam: regular rate/rhythm, normal heart sounds Gastrointestinal/Abdomen Exam: soft, No tenderness, No mass Extremity Exam: normal inspection, normal range of motion Back Exam: normal inspection, normal range of motion, No CVA tenderness, No vertebral tenderness Male Genitalia Exam: deferred Rectal Exam: deferred OBJECTIVE DATA Vital Signs: Vital Signs - 24 hr Temp Pulse Resp BP Pulse Ox 11/27/19 11:02 88 18 97 11/27/19 07:45 98.1 F 87 16 118/72 97 11/27/19 07:00 87 16 97 11/27/19 03:44 83 20 93 L 11/27/19 03:42 97.4 F 84 18 119/66 95 11/27/19 00:00 97.2 F 81 22 125/70 95 11/26/19 23:24 92 H 18 96 11/26/19 19:44 97.4 F 87 115/59 96 11/26/19 18:55 91 H 20 95 11/26/19 16:00 98.0 F 83 20 133/78 95 11/26/19 14:41 105 H 20 93 L 11/26/19 12:00 97.9 F 87 20 118/64 96 Pain Assessment - Last Documented Pain Intensity 0 Pain Scale Used [facility] Intake and Output: Intake & Output 11/24/19 11/25/19 11/26/19 11/27/19 11:59 11:59 11:59 11:59 Intake Total 966 2207 620 1320 Output Total 3100 1300 2250 Balance 147 -968 -256 -655 Weight 106 kg 110.132 kg Lab Results: Lab Results-Last 24 Hours 11/27/19 11/27/19 Range/Units 04:50 04:50 WBC 22.1 H (4.0-10.5) K/mm3 RBC 4.82 (4.1-5.6) M/mm3 Hgb 15.8 (12.5-18.0) gm/dl Hct 49.8 (42-50) % MCV 103.3 H (78-100) fl MCH 32.8 H (26-32) pg MCHC 31.7 L (32-36) g/dl RDW 14.1 H (11.5-14.0) % Plt Count 149 L (150-450) K/mm3 MPV 10.5 (7.5-11.0) fl Segmented Neutrophils 92 H (36.-66.) % Lymphocytes (Manual) 5 L (24-44) % Monocytes (Manual) 3 (0.0-12.0) % Platelet Estimate NORMAL (NORMAL) RBC Morphology NORMAL Sodium 135 L (137-145) mmol/L Potassium 5.3 H (3.5-5.1) mmol/L Chloride 97 L (98-107) mmol/L Carbon Dioxide 34 H (22-30) mmol/L Anion Gap 9.1 (5-15) MEQ/L BUN 26 H (9-20) mg/dL Creatinine 0.75 (0.66-1.25) mg/dL Estimated GFR > 60.0 ML/MIN Glucose 135 H (74-106) mg/dL Calcium 9.3 (8.4-10.2) mg/dL Total Bilirubin 0.30 (0.2-1.3) mg/dL AST 25 (17-59) U/L ALT 37 (0-50) U/L Alkaline Phosphatase 49 (38-126) U/L Serum Total Protein 6.4 (6.3-8.2) g/dL Albumin 4.0 (3.5-5.0) g/dL Multi-Disciplinary Progress Notes: Multi-Disciplinary Progress Notes 11/27/19 09:55 Case Management Note by Kristina Sosa PATIENT CONTINUES TO DENY ANY NEEDS REGARDING DC AT THIS TIME. HE HAS HOME OXYGEN ALREADY SET UP AT 3L/NC THRU [facility]. 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
[2019-11-27 13:28] VITALS: BP 126/66
[2019-11-27 14:16] VITALS: PULSE 94
--- NOTE | 2019-11-27 21:10 | PCM.DS ---
Discharge Summary Date of Admission: 11/23/19 22:09 Admitting Physician: UMESH KEITH DO Consults: Consults on Case 11/24/19 15:47 Consult Pulmonology ROUTINE Primary Care Provider: UMESH KEITH DO Allergies Allergies No Known Drug Allergies Allergy (Verified 11/23/19 18:55) Hospital Summary - Hospital Course Hospital Course: Chief Complaint Diagnosis COPD Allergies Allergy/AdvReac Type Severity Reaction Status Date / Time No Known Drug Allergies Allergy Verified 11/23/19 18:55 Vital Signs (Last 24 hours) Temp Pulse Resp BP Pulse Ox 11/27/19 14:15 94 H 18 97 11/27/19 12:00 97.6 F 90 16 126/66 97 11/27/19 11:02 88 18 97 11/27/19 07:45 98.1 F 87 16 118/72 97 11/27/19 07:00 87 16 97 11/27/19 03:44 83 20 93 L 11/27/19 03:42 97.4 F 84 18 119/66 95 11/27/19 00:00 97.2 F 81 22 125/70 95 11/26/19 23:24 92 H 18 96 Home Medications Medication Instructions Recorded Confirmed Last Taken Type Ipratropium/Albuterol Sulfate 1 ampul IH UD 11/23/19 11/23/19 Unknown History [Iprat-Albut 0.5-3(2.5) mg/3 ml] Azithromycin [Zithromax Tri-Brennon] 500 mg PO UD #1 packet 11/27/19 Unknown Rx Current Medications Discontinued Medications Generic Name Dose Route Start Last Admin Trade Name Freq PRN Reason Stop Dose Admin Acetaminophen 652 mg 11/23/19 22:12 Tylenol 325 Mg PO 12/23/19 22:11 Q4H PRN PRN PAIN, FEVER, HEADACHE Acetaminophen 650 mg 11/26/19 13:15 Tylenol 325 Mg PO 12/23/19 22:11 Q4H PRN PRN PAIN, FEVER, HEADACHE Albuterol Sulfate 2.5 mg 11/24/19 16:00 Proventil 2.5 Mg/3 Ml Neb IH 12/24/19 15:59 Q2H PRN PRN SHORTNESS OF BREATH/WHEEZING Albuterol/Ipratropium 3 ml 11/23/19 19:35 11/23/19 19:37 Duoneb 0.5-3 Mg/3 Ml Neb IH 11/23/19 19:36 3 ml STAT ONE Administration Albuterol/Ipratropium Confirm 11/23/19 19:36 Duoneb 0.5-3 Mg/3 Ml Neb Administered 11/23/19 19:37 Dose 3 ml IH .STK-MED ONE Albuterol/Ipratropium Confirm 11/23/19 23:25 Duoneb 0.5-3 Mg/3 Ml Neb Administered 11/23/19 23:26 Dose 3 ml IH .STK-MED ONE Albuterol/Ipratropium 3 ml 11/23/19 23:00 11/27/19 14:14 Duoneb 0.5-3 Mg/3 Ml Neb IH 12/23/19 22:59 3 ml Q4HRT LIZETT Administration Albuterol/Ipratropium Confirm 11/24/19 06:57 Duoneb 0.5-3 Mg/3 Ml Neb Administered 11/24/19 06:58 Dose 3 ml IH .STK-MED ONE Alprazolam 0.5 mg 11/24/19 15:00 11/27/19 16:26 Xanax 0.5 Mg PO 12/24/19 14:59 Not Given TID LIZETT Bumetanide 1 mg 11/24/19 16:00 11/27/19 10:50 Bumex 1 Mg PO 12/24/19 15:59 1 mg DAILY LIZETT Administration Enoxaparin Sodium 40 mg 11/25/19 10:00 11/27/19 10:50 Enoxaparin Sodium SQ 12/25/19 09:59 40 mg DAILY LIZETT Administration Ceftriaxone Sodium/Dextrose 1 g in 50 mls @ 100 mls/hr 11/23/19 20:58 11/23/19 21:33 Rocephin 1 Gm-D5w 50 Ml Bag IV 11/23/19 21:27 100 mls/hr STAT STA 100 mls/hr Administration Ceftriaxone Sodium/Dextrose Confirm 11/23/19 21:29 Rocephin 1 Gm-D5w 50 Ml Bag Administered 11/23/19 21:30 Dose 1 g in 50 mls @ ud IV .STK-MED ONE Ceftriaxone Sodium/Dextrose 1 g in 50 mls @ 100 mls/hr 11/24/19 22:00 11/26/19 21:31 Rocephin 1 Gm-D5w 50 Ml Bag IV 12/24/19 21:59 100 mls/hr QPM LIZETT Administration Azithromycin 500 mg in 250 mls @ 250 mls/hr 11/24/19 10:00 11/23/19 22:41 Zithromax 500 Mg/ 250 Ml Nacl Premix IV 12/24/19 09:59 250 mls/hr Q24H10 LIZETT Administration Azithromycin 500 mg in 250 mls @ 250 mls/hr 11/24/19 22:00 11/26/19 22:22 Zithromax 500 Mg/ 250 Ml Nacl Premix IV 12/24/19 09:59 250 mls/hr QPM LIZETT Administration Loratadine 10 mg 11/24/19 16:00 11/27/19 10:50 Claritin 10 Mg PO 12/24/19 15:59 10 mg DAILY LIZETT Administration Lorazepam 1 mg 11/24/19 00:12 11/24/19 00:47 Ativan 2 Mg/1 Ml Vial IV 12/24/19 00:11 1 mg Q6H PRN PRN Administration ANXIETY Methylprednisolone Sodium Succinate 125 mg 11/23/19 19:16 11/23/19 19:24 Solu-Medrol 125 Mg IV 11/23/19 19:17 125 mg STAT ONE Administration Methylprednisolone Sodium Succinate Confirm 11/23/19 19:21 Solu-Medrol 125 Mg Administered 11/23/19 19:22 Dose 125 mg .ROUTE .STK-MED ONE Methylprednisolone Sodium Succinate 80 mg 11/23/19 22:12 11/26/19 05:21 Solu-Medrol 125 Mg IV 12/23/19 22:11 80 mg Q8H LIZETT Administration Methylprednisolone Sodium Succinate 40 mg 11/26/19 14:00 11/27/19 16:26 Solu-Medrol 40 Mg IV 12/26/19 13:59 Not Given Q8HT LIZETT Ondansetron HCl 4 mg 11/23/19 22:12 Zofran 4 Mg/2 Ml Vial IV 12/23/19 22:11 Q6H PRN PRN NAUSEA/VOMITING Roflumilast 250 mcg 11/24/19 16:00 11/27/19 10:51 Daliresp PO 12/24/19 15:59 250 mcg DAILY LIZETT Administration Fluticasone/Salmeterol 2 puff 11/24/19 07:00 11/27/19 07:04 Advair Hfa 115/21 Common Canister* IH 12/24/19 06:59 2 puff BIDRT LIZETT Administration Sodium Chloride 10 ml 11/24/19 06:00 11/26/19 21:36 Sodium Chloride 0.9% 10 Ml Flush Syringe IV 12/24/19 05:59 10 ml Q8HT LIZETT Administration Intake & Output (Last 24 hours) 11/25/19 11/26/19 11/27/19 11/28/19 11:59 11:59 11:59 11:59 Intake Total 2207 620 1320 620 Output Total 3100 1300 2250 700 Balance -893 -680 -930 -80 Weight 110.132 kg Microbiology Results (Last 24 hours) 11/24/19 08:27 Sputum - Expectorant Gram Stain - Final 11/24/19 08:27 Sputum - Expectorant Sputum Culture - Final ORGANISMS ISOLATED ARE CONSISTENT WITH NORMAL RESP AC MODERATE GROWTH, NO PREDOMINANT ORGANISM Laboratory Results (Last 24 hours) 11/27/19 11/27/19 04:50 04:50 WBC 22.1 H RBC 4.82 Hgb 15.8 Hct 49.8 MCV 103.3 H MCH 32.8 H MCHC 31.7 L RDW 14.1 H Plt Count 149 L MPV 10.5 Segmented Neutrophils 92 H Lymphocytes (Manual) 5 L Monocytes (Manual) 3 Platelet Estimate NORMAL RBC Morphology NORMAL Sodium 135 L Potassium 5.3 H Chloride 97 L Carbon Dioxide 34 H Anion Gap 9.1 BUN 26 H Creatinine 0.75 Estimated GFR > 60.0 Glucose 135 H Calcium 9.3 Total Bilirubin 0.30 AST 25 ALT 37 Alkaline Phosphatase 49 Serum Total Protein 6.4 Albumin 4.0 Orders (Last 24 hours) Category Date Time Status Discharge Routine Discharge 11/27/19 Ordered CBC W DIFF AM.LAB Lab 11/27/19 04:50 Completed CMP AM.LAB Lab 11/27/19 04:50 Completed Manual Differential NC Routine Lab 11/27/19 04:50 Completed Patient Care Notes (Last 24 hours) 11/27/19 16:27 Nursing Note by Rozina Clemens patient discharged home with paperwork, instructions given, IV removed. Patient' s family did not bring patient's portable oxygen tank so patient did not have any oxygen to wear home. He stated that he would be fine and goes a couple hours without it sometimes Initialized on 11/27/19 16:27 - END OF NOTE 11/27/19 09:55 Case Management Note by Kristina Sosa PATIENT CONTINUES TO DENY ANY NEEDS REGARDING DC AT THIS TIME. HE HAS HOME OXYGEN ALREADY SET UP AT 3/MS THRU [facility]. PATIENT PLANS TO RETURN HOME TO HIS PRIOR LEVEL OF FUNCTIONING Initialized on 11/27/19 09:55 - END OF NOTE - Vitals & Intake/Output Vital Signs: Vital Signs Temperature 97.6 F 11/27/19 12:00 Pulse Rate 94 H 11/27/19 14:15 Respiratory Rate 18 11/27/19 14:15 Blood Pressure 126/66 11/27/19 12:00 O2 Sat by Pulse Oximetry 97 11/27/19 14:15 Intake & Output: Intake & Output 11/25/19 11/26/19 11/27/19 11/28/19 11:59 11:59 11:59 11:59 Intake Total 2207 620 1320 620 Output Total 3100 1300 2250 700 Balance -893 -680 -930 -80 Weight 110.132 kg - Lab Result Diagrams: 11/27/19 04:50 11/27/19 04:50 Lab Results-Last 24 Hrs: Lab Results-Last 24 Hours 11/27/19 11/27/19 Range/Units 04:50 04:50 WBC 22.1 H (4.0-10.5) K/mm3 RBC 4.82 (4.1-5.6) M/mm3 Hgb 15.8 (12.5-18.0) gm/dl Hct 49.8 (42-50) % MCV 103.3 H (78-100) fl MCH 32.8 H (26-32) pg MCHC 31.7 L (32-36) g/dl RDW 14.1 H (11.5-14.0) % Plt Count 149 L (150-450) K/mm3 MPV 10.5 (7.5-11.0) fl Segmented Neutrophils 92 H (36.-66.) % Lymphocytes (Manual) 5 L (24-44) % Monocytes (Manual) 3 (0.0-12.0) % Platelet Estimate NORMAL (NORMAL) RBC Morphology NORMAL Sodium 135 L (137-145) mmol/L Potassium 5.3 H (3.5-5.1) mmol/L Chloride 97 L (98-107) mmol/L Carbon Dioxide 34 H (22-30) mmol/L Anion Gap 9.1 (5-15) MEQ/L BUN 26 H (9-20) mg/dL Creatinine 0.75 (0.66-1.25) mg/dL Estimated GFR > 60.0 ML/MIN Glucose 135 H (74-106) mg/dL Calcium 9.3 (8.4-10.2) mg/dL Total Bilirubin 0.30 (0.2-1.3) mg/dL AST 25 (17-59) U/L ALT 37 (0-50) U/L Alkaline Phosphatase 49 (38-126) U/L Serum Total Protein 6.4 (6.3-8.2) g/dL Albumin 4.0 (3.5-5.0) g/dL Micro Results-Entire Visit: Microbiology 11/24/19 08:27 Gram Stain - Final Sputum - Expectorant Sputum Culture - Final ORGANISMS ISOLATED ARE CONSISTENT WITH NORMAL RESP AC MODERATE GROWTH, NO PREDOMINANT ORGANISM 11/23/19 21:10 Blood Culture - Preliminary Blood NO GROWTH TO DATE 11/23/19 18:50 Blood Culture - Preliminary Blood NO GROWTH TO DATE - Procedures and Test Procedures and Tests throughout Hospitalization: Therapy Orders & Screens 11/23/19 19:35 Respiratory Therapy Assessment DAILY Comment: 11/23/19 22:12 Oxygen Nasal Cannula 3 lpm Comment: Respiratory Therapy Consult ROUTINE Comment: Reason For Exam: 11/23/19 23:10 RT Screen per Nursing Assess ONCE Comment: Protocol Order Physician Instructions: Greater than 3 points order RT Admission Screen Reason For Exam: Triggered on Admission Diagnosis: COPD Diagnosis: COPD Home O2: Yes: 3 L NC @ home Home CPAP/BIPAP: Yes Home Nebs/MDI: Yes Total Points: 15 11/24/19 07:00 Peak Expiratory Flow Rate DAILY Comment: Reason For Exam: Diagnosis: COPD Discharge Exam General Appearance: no apparent distress, alert Neurologic Exam: alert, oriented x 3, cooperative, normal mood/affect, nml cerebellar function, sensation nml, No motor deficits Eye Exam: PERRL, EOMI, eyes nml inspection Ears, Nose, Throat Exam: normal ENT inspection, pharynx normal, moist mucous membranes Neck Exam: normal inspection, non-tender, supple, full range of motion Respiratory Exam: normal breath sounds, lungs clear, No respiratory distress Cardiovascular Exam: regular rate/rhythm, normal heart sounds Gastrointestinal/Abdomen Exam: soft, No tenderness, No mass Male Genitalia Exam: deferred Rectal Exam: deferred Back Exam: normal inspection, normal range of motion, No CVA tenderness, No vertebral tenderness Extremity Exam: normal inspection, normal range of motion Skin Exam: normal color, warm, dry Final Diagnosis/Problem List - Final Discharge Diagnosis/Problem (1) COPD exacerbation Status: Resolved Code(s): J44.1 - CHRONIC OBSTRUCTIVE PULMONARY DISEASE W (ACUTE) EXACERBATION (2) Leukocytosis Status: Acute Code(s): D72.829 - ELEVATED WHITE BLOOD CELL COUNT, UNSPECIFIED (3) Sleep apnea Status: Chronic Code(s): G47.30 - SLEEP APNEA, UNSPECIFIED - Discharge Discharge Date: 11/27/19 Disposition: Home, Self-Care Condition: Stable Prescriptions: New Azithromycin [Zithromax Tri-Brennon] 500 mg PO UD #1 packet Continue Roflumilast [Daliresp] 1 ea DAILY Prednisone 10 mg [Deltasone 10 mg] 1 ea DAILY Levocetirizine Dihydrochloride 1 ea DAILY Fluticasone/Vilanterol [Breo Ellipta 100-25 Mcg INH] 1 ea DAILY Bumetanide 1 ea DAILY Alprazolam 0.5 mg [xanAX 0.5 MG] 1 ea TID Albuterol Sulfate [Albuterol Sulfate Hfa] 2 puffs QID Ipratropium/Albuterol Sulfate [Iprat-Albut 0.5-3(2.5) mg/3 ml] 1 ampul IH UD Instructions: Exacerbation of COPD (DC) Additional Instructions: DR HALE APPOINTMENT IN [place]. Follow up with: ROZINA HALE [ACTIVE STAFF] - 12/05/19 2:00 pm AG SOW MD [ACTIVE STAFF] - 12/05/19 10:30 am Forms: Discharge Instructions
== END 2019-11-27 15:30 | disposition home or self-care (01) | DRG 192 ==
LOC: ED 18:40 → MED SURG 22:09
PROVIDERS: ADMIT Family Medicine; ATTEND General Practice
DX: J44.1 Chronic obstructive pulmonary disease with (acute) exacerbation (principal); J20.9 Acute bronchitis, unspecified; J44.0 Chronic obstructive pulmonary disease with (acute) lower respiratory infection; Z99.81 Dependence on supplemental oxygen; I10 Essential (primary) hypertension; R09.02 Hypoxemia; F41.9 Anxiety disorder, unspecified; D72.829 Elevated white blood cell count, unspecified; R60.9 Edema, unspecified; G47.30 Sleep apnea, unspecified; Z79.899 Other long term (current) drug therapy; F17.200 Nicotine dependence, unspecified, uncomplicated
CPT/HCPCS: 36000; 36415; 71045; 80053; 83036; 83605; 83880; 84443; 84484; 85025; 85379; 85610; 87040; 87070; 93005; 93041; 94150; 94640; 94760; 96365; 96374; 99284; U0003; J0456; J0696; J1650; J2060; J2920; J2930; A9270-GY

== ENCOUNTER 2019-12-12 18:04 | Inpatient (IN) | payer MEDICARE ==
--- NOTE | 2019-12-12 18:23 | ERPHSYRPT ---
- History of Present Illness Time Seen by Provider: 12/12/19 18:22 Source: patient, family Exam Limitations: no limitations Patient Subjective Stated Complaint: bilat lower leg pain/swelling with redness and fluid from the left leg blister Triage Nursing Assessment: pt to ED c/o bilat lower leg pain, swelling and redness x 1.5 weeks. rates 6/10 pain to legs. denies hx DVT. legs appear shiny, tight, swollen, red, and warm to touch. pt ambulatory with slow gate to ED room. states he uses a walker at home on occasion. wound noted to posterior side of L leg. Physician History: He has cellulitis in both lower legs. The condition is worsening over the past week or so. He is having pain with weight bearing. The left leg has an open blister on the posterior calf draining serous fluid. He is obese and has chronic LE edema. Method of Injury: other (No injury, obese with chronic LE edema) Occurred: last week Quality: constant, burning, cramping, throbbing Severity of Pain-Max: moderate Severity of Pain-Current: moderate Lower Extremities Pain: leg: bilateral (cellulitis), foot: bilateral (cellulitis), ankle: bilateral (cellulitis) Modifying Factors: Improves With: movement Associated Symptoms: none Allergies/Adverse Reactions: No Known Drug Allergies Allergy (Verified 12/12/19 18:22) Home Medications: Albuterol Sulfate [Albuterol Sulfate Hfa] 2 puffs QID 11/19/19 [History] Alprazolam 0.5 mg [xanAX 0.5 MG] 1 ea TID 11/19/19 [History] Bumetanide 1 ea DAILY 11/19/19 [History] Fluticasone/Vilanterol [Breo Ellipta 100-25 Mcg INH] 1 ea DAILY 11/19/19 [History] Levocetirizine Dihydrochloride 1 ea DAILY 11/19/19 [History] Prednisone 10 mg [Deltasone 10 mg] 1 ea DAILY 11/19/19 [History] Roflumilast [Daliresp] 1 ea DAILY 11/19/19 [History] Ipratropium/Albuterol Sulfate [Iprat-Albut 0.5-3(2.5) mg/3 ml] 1 ampul IH UD 11/23/19 [History] Fluticasone/Umeclidin/Vilanter [Trelegy Ellipta 100-62.5-25] 1 puff DAILY 12/12/19 [History] Hx Tetanus, Diphtheria Vaccination/Date Given: No Hx Influenza Vaccination/Date Given: No Hx Pneumococcal Vaccination/Date Given: No Immunizations Up to Date: No Travel Risk - International Travel Have you traveled outside of the country in past 3 weeks: No - Coronavirus Screening Are you exhibiting any of the following symptoms?: No Close contact with a COVID-19 positive Pt in past 14-21 Days: No - Review of Systems Constitutional: Malaise, Weakness Eyes: No Symptoms Ears, Nose, & Throat: No Symptoms Respiratory: No Symptoms Cardiac: No Symptoms Abdominal/Gastrointestinal: No Symptoms, Appetite Changes Musculoskeletal: Joint Redness, Joint Pain, Joint Swelling Skin: Cellulitis Neurological: No Symptoms Psychological: No Symptoms Endocrine: No Symptoms Hematologic/Lymphatic: No Symptoms Immunological/Allergic: No Symptoms All Other Systems: Reviewed and Negative - Past Medical History Pertinent Past Medical History: Yes Neurological History: No Pertinent History ENT History: No Pertinent History Cardiac History: No Pertinent History Respiratory History: CHF, COPD, Sleep Apnea Endocrine Medical History: No Pertinent History Musculoskeletal History: No Pertinent History GI Medical History: No Pertinent History History: No Pertinent History Psycho-Social History: No Pertinent History Male Reproductive Disorders: No Pertinent History - Past Surgical History Past Surgical History: No Neuro Surgical History: No Pertinent History Cardiac: No Pertinent History Respiratory: No Pertinent History Gastrointestinal: No Pertinent History Genitourinary: No Pertinent History Musculoskeletal: No Pertinent History Male Surgical History: No Pertinent History - Social History Smoking Status: Current every day smoker How long have you smoked: 49 years Exposure to second hand smoke: Yes Drug Use: none Patient Lives Alone: No - Nursing Vital Signs Nursing Vital Signs: Initial Vital Signs Temperature 98.9 F 12/12/19 18:11 Pulse Rate 107 H 12/12/19 18:11 Respiratory Rate 22 12/12/19 18:11 Blood Pressure 104/82 12/12/19 18:11 O2 Sat by Pulse Oximetry 99 12/12/19 18:11 Pain Scale Pain Intensity 5 - Physical Exam General Appearance: mild distress Eyes, Ears, Nose, Throat Exam: normal ENT inspection Neck Exam: normal inspection Cardiovascular/Respiratory Exam: chest non-tender, normal breath sounds Gastrointestinal/Abdominal Exam: non-tender, soft Back Exam: normal inspection, normal range of motion Hips Exam: bilateral: non-tender, normal inspection, normal range of motion, no evidence of injury Legs Exam: bilateral leg: limited range of motion, pain, soft tissue tenderness, swelling (oozing fluid from left post calf), other (cellulitis) Knees Exam: bilateral knee: normal inspection, normal range of motion, no evidence of injury Ankle Exam: bilateral ankle: soft tissue tenderness, swelling, other (cellulitis) Foot Exam: bilateral foot: soft tissue tenderness, swelling, other (celllulitis) Neuro/Tendon Exam: normal sensation, normal motor functions, responds to pain Mental Status Exam: alert, oriented x 3, cooperative Skin Exam: normal color, warm, dry SpO2 Interpretation: normal SpO2: 99 O2 Delivery: Room Air - Course Nursing assessment & vital signs reviewed: Yes EKG Interpreted by Me: RATE, Sinus Rhythm, NORMAL AXIS, NORMAL INTERVALS, NORMAL QRS, NORMAL ST-T Ordered Tests: Active Orders 24 hr Category Date Time Status Bedrest with BRP/BSC ROUTINE Activity 12/12/19 21:43 Active Up Ad [place] TOLERATED Activity 12/12/19 21:43 Active IV Insertion STAT Care 12/12/19 18:47 Completed Oxygen-ED Only Nasal Cannula 3 lpm Care 12/12/19 21:[address] in Observation ROUTINE Care 12/12/19 21:43 Active Wound Care ROUTINE Care 12/12/19 21:43 Active Heart-Healthy Diet Diet 12/12/19 Breakfast Active BLOOD CULTURE Stat Lab 12/12/19 19:38 Received CBC W DIFF Stat Lab 12/12/19 18:24 Completed CMP Stat Lab 12/12/19 18:24 Completed Transfer Order Routine Transfer 12/12/19 Completed Medication Summary Generic Name Dose Route Start Last Admin Trade Name Freq PRN Reason Stop Dose Admin Ceftriaxone Sodium/Dextrose 1 g in 50 mls @ 100 mls/hr 12/13/19 10:00 Rocephin 1 Gm-D5w 50 Ml Bag IV 01/12/20 09:59 Q24H10 LIZETT Discontinued Medications Generic Name Dose Route Start Last Admin Trade Name Freq PRN Reason Stop Dose Admin Hydrocodone Bitart/Acetaminophen 1 tab 12/12/19 20:37 12/12/19 20:45 [place] 10/325 Mg Tablet PO 12/12/19 20:38 1 tab STAT ONE Administration Hydrocodone Bitart/Acetaminophen Confirm 12/12/19 20:41 [place] 10/325 Mg Tablet Administered 12/12/19 20:42 Dose 1 tab .ROUTE .STK-MED ONE Ceftriaxone Sodium/Dextrose 1 g in 50 mls @ 100 mls/hr 12/12/19 20:37 12/12/19 20:45 Rocephin 1 Gm-D5w 50 Ml Bag IV 12/12/19 21:06 100 ml/hr STAT STA 100 mls/hr Administration Ceftriaxone Sodium/Dextrose Confirm 12/12/19 20:41 Rocephin 1 Gm-D5w 50 Ml Bag Administered 12/12/19 20:42 Dose 1 g in 50 mls @ ud IV .STK-MED ONE Lab/Rad Data: Laboratory Result Diagrams 12/12/19 18:24 12/12/19 18:24 Laboratory Results 12/12/19 12/12/19 Range/Units 18:24 18:24 WBC 9.9 (4.0-10.5) K/mm3 RBC 4.32 (4.1-5.6) M/mm3 Hgb 14.2 (12.5-18.0) gm/dl Hct 44.3 (42-50) % MCV 102.5 H (78-100) fl MCH 32.9 H (26-32) pg MCHC 32.1 (32-36) g/dl RDW 14.0 (11.5-14.0) % Plt Count 176 (150-450) K/mm3 MPV 11.0 (7.5-11.0) fl Gran % 65.4 (36.0-66.0) % Eos # (Auto) 0.28 (0-0.5) Absolute Lymphs (auto) 2.12 (1.0-4.6) Absolute Monos (auto) 1.00 (0.0-1.3) Lymphocytes % 21.4 L (24.0-44.0) % Monocytes % 10.1 (0.0-12.0) % Eosinophils % 2.8 (0.00-5.0) % Basophils % 0.3 (0.0-0.4) % Absolute Granulocytes 6.48 (1.4-6.9) Basophils # 0.03 (0-0.4) Sodium 136 L (137-145) mmol/L Potassium 3.4 L (3.5-5.1) mmol/L Chloride 102 (98-107) mmol/L Carbon Dioxide 31 H (22-30) mmol/L Anion Gap 6.7 (5-15) MEQ/L BUN 11 (9-20) mg/dL Creatinine 0.69 (0.66-1.25) mg/dL Estimated GFR > 60.0 ML/MIN Glucose 91 (74-106) mg/dL Calcium 9.2 (8.4-10.2) mg/dL Total Bilirubin 0.60 (0.2-1.3) mg/dL AST 26 (17-59) U/L ALT 29 (0-50) U/L Alkaline Phosphatase 58 (38-126) U/L Serum Total Protein 6.3 (6.3-8.2) g/dL Albumin 3.7 (3.5-5.0) g/dL - Progress Progress: improved Progress Note: Significant lower extremity edema and erythema, cellulitis, no sign of DVT, open area on post. left calf draining serous fluid. Not septic. Labs OK. Obs bed per Dr. Shearer. He wants rocephin ordered as monotherapy, no other abx (for potential MRSA) at this time. 12/12/19 21:13 - Departure Departure Disposition: Observation Clinical Impression: Cellulitis Qualifiers: Site of cellulitis: extremity Site of cellulitis of extremity: lower extremity Laterality: unspecified laterality Qualified Code(s): L03.119 - Cellulitis of unspecified part of limb Condition: Stable Critical Care Time: No
[2019-12-12 19:08] LABS: Absolute Neutrophil Ct (ANC) 6.48 (1.4-6.9); BASOPHIL % 0.3 % (0.0-0.4); Basophil (Absolute #) 0.03 (0-0.4); Eosinophil % 2.8 % (0.00-5.0); Eosinophil (Absolute #) 0.28 (0-0.5); Hematocrit 44.3 % (42-50); Hemoglobin 14.2 gm/dl (12.5-18.0); Lymphocyte (Absolute #) 2.12 (1.0-4.6); Lymphocytes % 21.4 % (24.0-44.0); Mean Cell Volume 102.5 fl (78-100); Mean Corpuscular Hemoglobin 32.9 pg (26-32); Mean Corpuscular Hgb Concent. 32.1 g/dl (32-36); Monocytes % 10.1 % (0.0-12.0); Neutrophil % 65.4 % (36.0-66.0); Platelet Count 176 K/mm3 (150-450); Red Blood Count 4.32 M/mm3 (4.1-5.6); White Blood Count 9.9 K/mm3 (4.0-10.5)
[2019-12-12 19:30] LABS: ALBUMIN 3.7 g/dL (3.5-5.0); ALKALINE PHOSPHATASE 58 U/L (38-126); ANION GAP 6.7 MEQ/L (5-15); BLOOD UREA NITROGEN 11 mg/dL (9-20); CHLORIDE 102 mmol/L (98-107); Calcium 9.2 mg/dL (8.4-10.2); Carbon Dioxide 31 mmol/L (22-30); Creatinine 1 0.69 mg/dL (0.66-1.25); EST GLOMERULAR FILTRATION RATE > 60.0 ML/MIN; Glucose 91 mg/dL (74-106); Potassium 3.4 mmol/L (3.5-5.1); SGOT/AST 26 U/L (17-59); SGPT/ALT 29 U/L (0-50); SODIUM 136 mmol/L (137-145); Total Protein 6.3 g/dL (6.3-8.2)
[2019-12-12] MEDS ORDERED: Norco 10/325 MG Tablet PO ONE (20:37)
[2019-12-12] MEDS ORDERED: ROCEPHIN 1 Gm-D5w 50 ml Bag** 1 G/50 ML IVPB IV STA (20:37)
[2019-12-12] MEDS ORDERED: Norco 10/325 MG Tablet ONE (20:41)
[2019-12-12] MEDS ORDERED: ROCEPHIN 1 Gm-D5w 50 ml Bag** 1 G/50 ML IVPB IV ONE (20:41)
[2019-12-12] MEDS: xanAX 0.5 MG PO SCH (23:28)
[2019-12-12] MEDS ORDERED: PROVENTIL 2.5 MG/3 ML NEB IH PRN (23:42)
[2019-12-13] MEDS: DUONEB 0.5-3 MG/3 ml Neb IH SCH ×4 (05:39→19:16)
[2019-12-13] MEDS: Advair Hfa 115/21 Common canister IH SCH ×2 (05:40→19:17)
[2019-12-13] MEDS: Sodium Chloride 0.9% 10 ML FLUSH Syringe IV SCH ×3 (05:59→22:19)
[2019-12-13] MEDS ORDERED: PROVENTIL 2.5 MG/3 ML NEB IH SCH (07:00)
--- NOTE | 2019-12-13 09:11 | PCM.HP ---
History of Present Illness - Chief Complaint Chief Complaint: swelling on both lower extrimities History of Present Illness: is a 54 year old male.has cellulitis in both lower legs. The condition is worsening over the past week or so. He is having pain with weight bearing. The left leg has an open blister on the posterior calf draining serous fluid. He is obese and has chronic LE edema. Method of Injury: other (No injury, obese with chronic LE edema) Occurred: last week Quality: constant, burning, cramping, throbbing Severity of Pain-Max: moderate Severity of Pain-Current: moderate Lower Extremities Pain: leg: bilateral (cellulitis), foot: bilateral (cellulitis), ankle: bilateral (cellulitis) Modifying Factors: Improves With: movement Associated Symptoms: none - Review of Systems Constitutional: No Fever, No Chills Eyes: No Symptoms Ears, Nose, & Throat: No Symptoms Respiratory: No Cough, No Short Of Breath Cardiac: No Chest Pain, No Edema, No Syncope Abdominal/Gastrointestinal: No Abdominal Pain, No Nausea, No Vomiting, No Diarrhea Genitourinary Symptoms: No Dysuria Musculoskeletal: No Back Pain, No Neck Pain Skin: Cellulitis (both lower extrimitiy), No Rash Neurological: No Dizziness, No Focal Weakness, No Sensory Changes Psychological: No Symptoms Endocrine: No Symptoms Hematologic/Lymphatic: No Symptoms Immunological/Allergic: No Symptoms Medications & Allergies Home Medications: Home Medication List Albuterol Sulfate [Albuterol Sulfate Hfa] 2 puffs QID 11/19/19 [History Confirmed 12/12/19] Alprazolam 0.5 mg [xanAX 0.5 MG] 1 ea TID 11/19/19 [History Confirmed 12/12/19] Bumetanide 1 ea DAILY 11/19/19 [History Confirmed 12/12/19] Levocetirizine Dihydrochloride 1 ea DAILY 11/19/19 [History Confirmed 12/12/19] Prednisone 10 mg [Deltasone 10 mg] 1 ea DAILY 11/19/19 [History Confirmed 12/12/19] Roflumilast [Daliresp] 1 ea DAILY 11/19/19 [History Confirmed 12/12/19] Ipratropium/Albuterol Sulfate [Iprat-Albut 0.5-3(2.5) mg/3 ml] 1 ampul IH UD 11/23/19 [History Confirmed 12/12/19] Fluticasone/Umeclidin/Vilanter [Trelegy Ellipta 100-62.5-25] 1 puff DAILY 12/12/19 [History Confirmed 12/12/19] Allergies/Adverse Reactions: Allergies Allergy/AdvReac Type Severity Reaction Status Date / Time No Known Drug Allergies Allergy Verified 12/12/19 18:22 - Past Medical History Past Medical History: Yes Neurological History: No Pertinent History ENT History: No Pertinent History Cardiac History: No Pertinent History Respiratory History: CHF, COPD, Sleep Apnea Endocrine Medical History: No Pertinent History Musculoskelatal History: No Pertinent History GI Medical History: No Pertinent History History: No Pertinent History Pyscho-Social History: No Pertinent History Male Reproductive Disorders: No Pertinent History - Past Surgical History Past Surgical History: No Neuro Surgical History: No Pertinent History Cardiac History: No Pertinent History Respiratory Surgery: No Pertinent History GI Surgical History: No Pertinent History Genitourinary Surgical Hx: No Pertinent History Musculskeletal Surgical Hx: No Pertinent History Male Surgical History: No Pertinent History - Social History Smoking Status: Current every day smoker How long have you smoked: 49 years Exposure to second hand smoke: Yes Alcohol: None Drug Use: none - Physical Exam Vital Signs: Vital Signs - 24 hr Temp Pulse Resp BP Pulse Ox 12/13/19 07:48 98.3 F 92 H 18 110/63 98 12/13/19 05:44 91 H 20 95 12/13/19 03:51 98.2 F 73 20 105/69 98 12/12/19 23:28 100 H 22 97 12/12/19 22:13 99 12/12/19 22:06 97.8 F 112 H 26 H 146/87 98 12/12/19 20:24 96 H 16 111/79 100 12/12/19 19:05 99 H 16 106/82 100 12/12/19 18:11 98.9 F 107 H 22 104/82 99 General Appearance: no apparent distress, alert Neurologic Exam: alert, oriented x 3, cooperative, normal mood/affect, nml cerebellar function, nml station & gait, sensation nml, No motor deficits Eye Exam: PERRL/EOMI, eyes nml inspection Ears, Nose, Throat Exam: normal ENT inspection, TMs normal, pharynx normal, moist mucous membranes Neck Exam: normal inspection, non-tender, supple, full range of motion Respiratory Exam: normal breath sounds, lungs clear, No respiratory distress Cardiovascular Exam: regular rate/rhythm, normal heart sounds, normal peripheral pulses Gastrointestinal/Abdomen Exam: soft, normal bowel sounds, No tenderness, No mass Back Exam: normal inspection, normal range of motion, No CVA tenderness, No vertebral tenderness Extremity Exam: normal inspection, normal range of motion, pelvis stable, inflammation, swelling Skin Exam: normal color, warm, dry, No rash Wound Assessment: Skin/Wound Assessment Wound/Incision Assessment Start: 12/12/19 21:47 Text: Status: Active Freq: Q6H Protocol: Document 12/13/19 08:00 RENATO (Rec: 12/13/19 09:02 RENATO [id number]) Wound/Incision Assessment Right Other Wound Assessment Shift Assessment Wound Type CELLULITIS Wound Stage Non Pressure Wound Dressing Status Dry & Intact General Appearance Reddened Primary Dressing Gauze Roll/Wrap Secondary Dressing Non-Adherent Gauze Pads Left Other Wound Assessment Shift Assessment Wound Type CELLULITIS Wound Stage Non Pressure Wound Dressing Status Dry & Intact General Appearance Reddened Primary Dressing Gauze Roll/Wrap Secondary Dressing Non-Adherent Gauze Pads Lymphatic Exam: No adenopathy Results - Labs Lab/Micro Results: Lab Results-Last 24 Hours 12/12/19 12/12/19 Range/Units 18:24 18:24 WBC 9.9 (4.0-10.5) K/mm3 RBC 4.32 (4.1-5.6) M/mm3 Hgb 14.2 (12.5-18.0) gm/dl Hct 44.3 (42-50) % MCV 102.5 H (78-100) fl MCH 32.9 H (26-32) pg MCHC 32.1 (32-36) g/dl RDW 14.0 (11.5-14.0) % Plt Count 176 (150-450) K/mm3 MPV 11.0 (7.5-11.0) fl Gran % 65.4 (36.0-66.0) % Eos # (Auto) 0.28 (0-0.5) Absolute Lymphs (auto) 2.12 (1.0-4.6) Absolute Monos (auto) 1.00 (0.0-1.3) Lymphocytes % 21.4 L (24.0-44.0) % Monocytes % 10.1 (0.0-12.0) % Eosinophils % 2.8 (0.00-5.0) % Basophils % 0.3 (0.0-0.4) % Absolute Granulocytes 6.48 (1.4-6.9) Basophils # 0.03 (0-0.4) Sodium 136 L (137-145) mmol/L Potassium 3.4 L (3.5-5.1) mmol/L Chloride 102 (98-107) mmol/L Carbon Dioxide 31 H (22-30) mmol/L Anion Gap 6.7 (5-15) MEQ/L BUN 11 (9-20) mg/dL Creatinine 0.69 (0.66-1.25) mg/dL Estimated GFR > 60.0 ML/MIN Glucose 91 (74-106) mg/dL Calcium 9.2 (8.4-10.2) mg/dL Total Bilirubin 0.60 (0.2-1.3) mg/dL AST 26 (17-59) U/L ALT 29 (0-50) U/L Alkaline Phosphatase 58 (38-126) U/L Serum Total Protein 6.3 (6.3-8.2) g/dL Albumin 3.7 (3.5-5.0) g/dL - Radiology Impressions Radiology Exams & Impressions: Radiology Procedures Category Date Time Status ARTERIAL BILAT LOWER EXTREMITY [US] DAILY Exams 12/13/19 09:15 Ordered VENOUS BILATERAL EXTREMITY [US] DAILY Exams 12/13/19 09:15 Ordered - Other Procedures and Tests Respiratory Therapy 12/12/19 23:02 Oxygen Nasal Cannula 3 lpm 12/12/19 23:16 Peak Expiratory Flow Rate ONCE Respiratory Therapy Assessment DAILY Assessment/Plan (1) Cellulitis Current Visit: Yes Status: Acute Qualifiers: Site of cellulitis: extremity Site of cellulitis of extremity: lower extremity Laterality: unspecified laterality Qualified Code(s): L03.119 - Cellulitis of unspecified part of limb Assessment & Plan: Chief Complaint Diagnosis BLE cellulitis Allergies Allergy/AdvReac Type Severity Reaction Status Date / Time No Known Drug Allergies Allergy Verified 12/12/19 18:22 Vital Signs (Last 24 hours) Temp Pulse Resp BP Pulse Ox 10/01/20 07:48 98.3 F 92 H 18 110/63 98 12/13/19 05:44 91 H 20 95 12/13/19 03:51 98.2 F 73 20 105/69 98 12/12/19 23:28 100 H 22 97 12/12/19 22:13 99 12/12/19 22:06 97.8 F 112 H 26 H 146/87 98 12/12/19 20:24 96 H 16 111/79 100 12/12/19 19:05 99 H 16 106/82 100 12/12/19 18:11 98.9 F 107 H 22 104/82 99 Home Medications Medication Instructions Recorded Confirmed Last Taken Type Fluticasone/Umeclidin/Vilanter 1 puff DAILY 12/12/19 12/12/19 12/12/19 History [Corwin Camejo 100-62.5-25] Current Medications Generic Name Dose Route Start Last Admin Trade Name Freq PRN Reason Stop Dose Admin Albuterol Sulfate 2.5 mg 12/12/19 23:42 Proventil 2.5 Mg/3 Ml Neb IH 01/11/20 23:40 Q4H PRN PRN SHORTNESS OF BREATH Albuterol/Ipratropium 3 ml 12/13/19 07:00 12/13/19 05:39 Duoneb 0.5-3 Mg/3 Ml Neb IH 01/12/20 06:59 3 ml QIDRT LIZETT Administration Alprazolam 0.5 mg 12/12/19 23:00 12/12/19 23:28 Xanax 0.5 Mg PO 01/11/20 22:59 0.5 mg TID LIZETT Administration Bumetanide 1 mg 12/13/19 10:00 Bumex 1 Mg PO 01/12/20 09:59 DAILY LIZETT Gabapentin 300 mg 12/13/19 10:00 Neurontin 300 Mg PO 01/12/20 09:59 BID LIZETT Ceftriaxone Sodium/Dextrose 1 g in 50 mls @ 100 mls/hr 12/13/19 22:00 Rocephin 1 Gm-D5w 50 Ml Bag IV 01/12/20 21:59 Q24H22 LIZETT Loratadine 10 mg 12/13/19 10:00 Claritin 10 Mg PO 01/12/20 09:59 DAILY LIZETT Prednisone 10 mg 12/13/19 10:00 Deltasone 10 Mg PO 01/12/20 09:59 DAILY LIZETT Roflumilast 250 mcg 12/13/19 10:00 Daliresp PO 01/12/20 09:59 DAILY LIZETT Fluticasone/Salmeterol 2 puff 12/13/19 07:00 12/13/19 05:40 Advair Hfa 115/21 Common Canister* IH 01/12/20 06:59 2 puff BIDRT LIZETT Administration Sodium Chloride 10 ml 12/13/19 06:00 12/13/19 05:59 Sodium Chloride 0.9% 10 Ml Flush Syringe IV 01/12/20 05:59 10 ml Q8HT LIZETT Administration Discontinued Medications Generic Name Dose Route Start Last Admin Trade Name Freq PRN Reason Stop Dose Admin Hydrocodone Bitart/Acetaminophen 1 tab 12/12/19 20:37 12/12/19 20:45 Bannister 10/325 Mg Tablet PO 12/12/19 20:38 1 tab STAT ONE Administration Hydrocodone Bitart/Acetaminophen Confirm 12/12/19 20:41 Bannister 10/325 Mg Tablet Administered 12/12/19 20:42 Dose 1 tab .ROUTE .STK-MED ONE Albuterol Sulfate 2.5 mg 12/13/19 07:00 12/12/19 23:27 Proventil 2.5 Mg/3 Ml Neb IH 01/12/20 06:59 2.5 mg QIDRT LIZETT Administration Ceftriaxone Sodium/Dextrose 1 g in 50 mls @ 100 mls/hr 12/12/19 20:37 12/12/19 20:45 Rocephin 1 Gm-D5w 50 Ml Bag IV 12/12/19 21:06 100 ml/hr STAT STA 100 mls/hr Administration Ceftriaxone Sodium/Dextrose Confirm 12/12/19 20:41 Rocephin 1 Gm-D5w 50 Ml Bag Administered 12/12/19 20:42 Dose 1 g in 50 mls @ ud IV .STK-MED ONE Intake & Output (Last 24 hours) 12/10/19 12/11/19 12/12/19 12/13/19 11:59 11:59 11:59 11:59 Intake Total 600 Output Total 750 Balance -150 Weight 109.3 kg Microbiology Results (Last 24 hours) 12/12/19 19:38 Blood Blood Culture Gram Stain - Pending 12/12/19 19:38 Blood Blood Culture - Pending 12/12/19 18:24 Blood Blood Culture Gram Stain - Pending 12/12/19 18:24 Blood Blood Culture - Pending Laboratory Results (Last 24 hours) 12/12/19 12/12/19 18:24 18:24 WBC 9.9 RBC 4.32 Hgb 14.2 Hct 44.3 MCV 102.5 H MCH 32.9 H MCHC 32.1 RDW 14.0 Plt Count 176 MPV 11.0 Gran % 65.4 Eos # (Auto) 0.28 Absolute Lymphs (auto) 2.12 Absolute Monos (auto) 1.00 Lymphocytes % 21.4 L Monocytes % 10.1 Eosinophils % 2.8 Basophils % 0.3 Absolute Granulocytes 6.48 Basophils # 0.03 Sodium 136 L Potassium 3.4 L Chloride 102 Carbon Dioxide 31 H Anion Gap 6.7 BUN 11 Creatinine 0.69 Estimated GFR > 60.0 Glucose 91 Calcium 9.2 Total Bilirubin 0.60 AST 26 ALT 29 Alkaline Phosphatase 58 Serum Total Protein 6.3 Albumin 3.7 Orders (Last 24 hours) Category Date Time Status Bedrest with BRP/BSC ROUTINE Activity 12/12/19 21:43 Active Up Ad [place] Q8H Activity 12/12/19 21:43 Active IV Insertion STAT Care 12/12/19 18:47 Completed Oxygen-ED Only Nasal Cannula 3 lpm Care 12/12/19 21:[address] in Observation ROUTINE Care 12/12/19 21:43 Active Wound Care ROUTINE Care 12/12/19 21:43 Active [employer]/Discharge Plan ROUTINE Cons 12/12/19 22:58 Active House Regular Diet Diet 12/13/19 Breakfast Active Nutritional Admission Screen ONCE Diet 12/12/19 22:58 Active ARTERIAL BILAT LOWER EXTREMITY [US] DAILY Exams 12/13/19 09:15 Ordered VENOUS BILATERAL EXTREMITY [US] DAILY Exams 12/13/19 09:15 Ordered BLOOD CULTURE Stat Lab 12/12/19 19:38 Received CBC W DIFF Stat Lab 12/12/19 18:24 Completed CMP Stat Lab 12/12/19 18:24 Completed Albuterol 2.5 mg/3 ml Neb [Proventil 2.5 mg/3 ml Neb Med 12/12/19 23:42 Active ] 2.5 mg IH Q4H PRN PRN Albuterol 2.5 mg/3 ml Neb [Proventil 2.5 mg/3 ml Neb Med 12/13/19 07:00 Discontinued ] 2.5 mg IH QIDRT Albuterol/Ipratropium 3ml Neb* [DUONEB 0.5-3 MG/3 ml Med 12/13/19 07:00 Active Neb] 3 ml IH QIDRT Alprazolam 0.5 mg [xanAX 0.5 MG] Med 12/12/19 23:00 Active 0.5 mg PO TID Bumetanide 1 mg [Bumex 1 mg] Med 12/13/19 10:00 Active 1 mg PO DAILY Ceftriaxone 1 GM/50 ML PREMIX* [ROCEPHIN 1 Gm-D5w 50 ml Med 12/13/19 22:00 Active Bag] 1 g in 50 ml IV Q24H22 Ceftriaxone 1 GM/50 ML PREMIX* [ROCEPHIN 1 Gm-D5w 50 ml Med 12/12/19 20:37 Discontinued Bag] 1 g in 50 ml IV STAT Ceftriaxone 1 GM/50 ML PREMIX* [ROCEPHIN 1 Gm-D5w 50 ml Med 12/12/19 20:41 Discontinued Bag] 1 g in 50 ml IV UD Fluticasone/Salmeterol 115/21 [Advair Hfa 115/21 Common Med 12/13/19 07:00 Active canister*] 2 puff IH BIDRT Gabapentin 300 mg [Neurontin 300 mg] Med 12/13/19 10:00 Active 300 mg PO BID Hydrocodone/APAP 10/325 mg [Bannister 10/325 MG Tablet Med 12/12/19 20:41 Discontinued *] 1 tab .ROUTE .STK-MED ONE Hydrocodone/APAP 10/325 mg [Bannister 10/325 MG Tablet Med 12/12/19 20:37 Discontinued *] 1 tab PO STAT ONE Loratadine 10 mg [Claritin 10 mg] Med 12/13/19 10:00 Active 10 mg PO DAILY NaCl 0.9% 10 ML FLUSH [Sodium Chloride 0.9% 10 ML FLUSH Med 12/13/19 06:00 Active Syringe] 10 ml IV Q8HT Prednisone 10 mg [Deltasone 10 mg] Med 12/13/19 10:00 Active 10 mg PO DAILY Roflumilast [Daliresp] Med 12/13/19 10:00 Active 250 mcg PO DAILY OT Screen per Nursing Assess ONCE OT 12/12/19 22:58 Active PT Eval & Treat (MD Order) ONCE PT 12/13/19 09:02 Active PT Screen per Nursing Assess ONCE PT 12/12/19 22:58 Active Oxygen Nasal Cannula 3 lpm RT 12/12/19 23:02 Active Peak Expiratory Flow Rate ONCE RT 12/12/19 23:16 Active Pulse Oximetry .spot check RT 12/12/19 23:03 Active RT Screen per Nursing Assess ONCE RT 12/12/19 22:58 Completed Respiratory Therapy Assessment DAILY RT 12/12/19 23:16 Active Code(s): L03.90 - CELLULITIS, UNSPECIFIED (2) COPD (chronic obstructive pulmonary disease) Current Visit: Yes Status: Acute (3) Edema Current Visit: No Status: Chronic Code(s): R60.9 - EDEMA, UNSPECIFIED
[2019-12-13] MEDS: BUMEX 1 MG PO SCH (09:28)
[2019-12-13] MEDS: NEURONTIN 300 MG PO SCH ×2 (09:29→21:08)
[2019-12-13] MEDS: CLARITIN 10 MG PO SCH (09:29)
[2019-12-13] MEDS: xanAX 0.5 MG PO SCH ×3 (09:29→21:08)
[2019-12-13] MEDS: DALIRESP PO SCH (09:29)
[2019-12-13] MEDS: DELTASONE 10 MG PO SCH (09:29)
[2019-12-13] MEDS ORDERED: ROFLUMILAST PO SCH (10:00)
[2019-12-13] MEDS ORDERED: LEVOCETIRIZINE DIHYDROCHLORIDE PO SCH (10:00)
[2019-12-13] MEDS ORDERED: BUMEX 1 MG PO SCH (10:00)
[2019-12-13] MEDS ORDERED: DELTASONE 10 MG PO SCH (10:00)
--- NOTE | 2019-12-13 11:31 | XRAY ---
Indication: Bilateral lower extremity edema. Bilateral cellulitis. Two-dimensional sonogram and color Doppler imaging of the major venous vessels of the left and right leg was performed. Comparison: None No thrombus seen in the examined deep venous vessels of the left and right leg including greater saphenous veins. Veins demonstrate normal compressibility. Venous waveforms are normal with and without augmentation. Impression: Left and right legs negative for DVT.
--- NOTE | 2019-12-13 11:35 | XRAY ---
Indication: Bilateral lower extremity edema. Bilateral cellulitis. Two-dimensional sonogram and color Doppler imaging of the major arteries vessels of the left and right leg was performed. Comparison: None Examination of the right leg demonstrates widely patent common femoral, deep femoral, superficial femoral, popliteal, posterior tibial, and dorsal pedal arteries. Arterial waveforms are multiphasic throughout the right leg. Examination of the left leg also demonstrates widely patent common femoral, deep femoral, superficial femoral, popliteal, posterior tibial, and dorsal pedal arteries with normal multiphasic arterial waveforms. Left and right ankle brachial index exam not performed due to open bilateral leg wounds. Impression: Left and right leg arterial sonogram negative for critical stenosis/obstruction.
[2019-12-13] MEDS: NORCO 5/325 MG PO PRN ×2 (12:11→16:37)
[2019-12-13] MEDS: ROCEPHIN 1 Gm-D5w 50 ml Bag** 1 G/50 ML IVPB IV SCH (21:09)
[2019-12-14] MEDS: Sodium Chloride 0.9% 10 ML FLUSH Syringe IV SCH ×3 (07:10→21:34)
[2019-12-14] MEDS: NORCO 5/325 MG PO PRN ×3 (07:18→21:33)
[2019-12-14] MEDS: DUONEB 0.5-3 MG/3 ml Neb IH SCH ×4 (07:22→18:32)
[2019-12-14] MEDS: Advair Hfa 115/21 Common canister IH SCH ×2 (07:22→18:32)
[2019-12-14 08:46] LABS: Absolute Neutrophil Ct (ANC) 6.14 (1.4-6.9); BASOPHIL % 0.2 % (0.0-0.4); Basophil (Absolute #) 0.02 (0-0.4); Eosinophil % 3.2 % (0.00-5.0); Eosinophil (Absolute #) 0.28 (0-0.5); Hematocrit 43.2 % (42-50); Hemoglobin 14.1 gm/dl (12.5-18.0); Lymphocyte (Absolute #) 1.51 (1.0-4.6); Lymphocytes % 17.2 % (24.0-44.0); Mean Cell Volume 101.4 fl (78-100); Mean Corpuscular Hemoglobin 33.1 pg (26-32); Mean Corpuscular Hgb Concent. 32.6 g/dl (32-36); Mean Platelet Volume 10.2 fl (7.5-11.0); Monocyte (Absolute #) 0.82 (0.0-1.3); Monocytes % 9.4 % (0.0-12.0); Platelet Count 173 K/mm3 (150-450); Red Blood Count 4.26 M/mm3 (4.1-5.6); Red Cell Distribution Width 13.7 % (11.5-14.0); White Blood Count 8.8 K/mm3 (4.0-10.5)
[2019-12-14] MEDS: CLARITIN 10 MG PO SCH (09:05)
[2019-12-14] MEDS: xanAX 0.5 MG PO SCH ×3 (09:05→21:34)
[2019-12-14] MEDS: DALIRESP PO SCH (09:05)
[2019-12-14] MEDS: DELTASONE 10 MG PO SCH (09:05)
[2019-12-14] MEDS: NEURONTIN 300 MG PO SCH ×2 (09:05→21:34)
[2019-12-14] MEDS: BUMEX 1 MG PO SCH (09:05)
--- NOTE | 2019-12-14 10:28 | PCM.NOTE ---
Date and Time: 12/14/19 1027 Subjective Assessment: swollen legs, no fever - Review of Systems Constitutional: No Fever, No Chills Eyes: No Symptoms Ears, Nose, & Throat: No Symptoms Respiratory: Orthopnea, No Cough, No Short Of Breath Cardiac: No Chest Pain, No Edema, No Syncope Abdominal/Gastrointestinal: No Abdominal Pain, No Nausea, No Vomiting, No Diarrhea Genitourinary Symptoms: No Dysuria Musculoskeletal: Joint Swelling, No Back Pain, No Neck Pain Skin: Cellulitis, No Rash Neurological: No Dizziness, No Focal Weakness, No Sensory Changes Psychological: No Symptoms Endocrine: No Symptoms Hematologic/Lymphatic: No Symptoms Immunological/Allergic: No Symptoms Objective Exam General Appearance: no apparent distress, alert Neurologic Exam: alert, oriented x 3, cooperative, normal mood/affect, nml cerebellar function, sensation nml, No motor deficits Skin Exam: normal color, warm, dry Wound Assessment: Skin/Wound Assessment Wound/Incision Assessment Start: 12/12/19 21:47 Text: Status: Active Freq: Q6H Protocol: Document 12/14/19 07:29 RENATO (Rec: 12/14/19 07:39 [id number] Wound/Incision Assessment Right Other Wound Assessment Shift Assessment Wound Type CELLULITIS Wound Stage Non Pressure Wound Drainage Amount Moderate Drainage Description Serous Drainage Odor None/Absent General Appearance Reddened Surrounding Tissue Brainard,Bright Red,Taut,Edematous ,Edematous-pitting Comment KHADIJAH-barrier cream applied Left Other Wound Assessment Shift Assessment Wound Type CELLULITIS Wound Stage Non Pressure Wound Drainage Amount Moderate Drainage Description Serous Drainage Odor None/Absent General Appearance Reddened Surrounding Tissue Brainard,Bright Red,Edematous Comment KHADIJAH-barrier cream applied Wound Photo Photo Taken No Eye Exam: PERRL, EOMI, eyes nml inspection Ears, Nose, Throat Exam: normal ENT inspection, pharynx normal, moist mucous membranes Neck Exam: normal inspection, non-tender, supple, full range of motion Respiratory Exam: normal breath sounds, lungs clear, No respiratory distress Cardiovascular Exam: regular rate/rhythm, normal heart sounds Gastrointestinal/Abdomen Exam: soft, No tenderness, No mass Extremity Exam: normal inspection, normal range of motion, inflammation, pedal edema, swelling Back Exam: normal inspection, normal range of motion, No CVA tenderness, No vertebral tenderness Male Genitalia Exam: deferred Rectal Exam: deferred OBJECTIVE DATA Vital Signs: Vital Signs - 24 hr Temp Pulse Resp BP Pulse Ox 12/14/19 07:24 78 22 96 12/14/19 07:00 97.4 F 79 18 100/59 98 12/14/19 04:00 97.8 F 83 12 119/84 100 12/14/19 00:00 98.1 F 79 20 115/74 100 12/13/19 19:20 73 20 97 12/13/19 18:23 98.3 F 92 H 21 110/66 99 12/13/19 15:42 98.8 F 84 18 105/62 96 12/13/19 15:32 102 H 18 97 12/13/19 12:00 97.6 F 102 H 18 102/65 97 12/13/19 10:36 90 18 95 Oxygen-Last 24 hours Oxygen Flowrate (L/min)-RT 3 Pain Assessment - Last Documented Pain Intensity 0 Pain Scale Used 0-10 Pain Scale Intake and Output: Intake & Output 12/11/19 12/12/19 12/13/19 12/14/19 11:59 11:59 11:59 11:59 Intake Total 600 2510 Output Total 750 3350 Balance -150 -840 Weight 109.3 kg Lab Results: Lab Results-Last 24 Hours 12/14/19 Range/Units 08:35 WBC 8.8 (4.0-10.5) K/mm3 RBC 4.26 (4.1-5.6) M/mm3 Hgb 14.1 (12.5-18.0) gm/dl Hct 43.2 (42-50) % MCV 101.4 H (78-100) fl MCH 33.1 H (26-32) pg MCHC 32.6 (32-36) g/dl RDW 13.7 (11.5-14.0) % Plt Count 173 (150-450) K/mm3 MPV 10.2 (7.5-11.0) fl Gran % 70.0 H (36.0-66.0) % Eos # (Auto) 0.28 (0-0.5) Absolute Lymphs (auto) 1.51 (1.0-4.6) Absolute Monos (auto) 0.82 (0.0-1.3) Lymphocytes % 17.2 L (24.0-44.0) % Monocytes % 9.4 (0.0-12.0) % Eosinophils % 3.2 (0.00-5.0) % Basophils % 0.2 (0.0-0.4) % Absolute Granulocytes 6.14 (1.4-6.9) Basophils # 0.02 (0-0.4) Radiology Exams: Radiology Procedures Category Date Time Status ARTERIAL BILAT LOWER EXTREMITY [US] DAILY Exams 12/13/19 09:15 Completed VENOUS BILATERAL EXTREMITY [US] DAILY Exams 12/13/19 09:15 Completed Assessment/Plan (1) Cellulitis Current Visit: Yes Status: Acute Qualifiers: Site of cellulitis: extremity Site of cellulitis of extremity: lower extremity Laterality: unspecified laterality Qualified Code(s): L03.119 - Cellulitis of unspecified part of limb Code(s): L03.90 - CELLULITIS, UNSPECIFIED (2) COPD (chronic obstructive pulmonary disease) Current Visit: Yes Status: Acute (3) Edema Current Visit: No Status: Chronic Code(s): R60.9 - EDEMA, UNSPECIFIED
[2019-12-14 13:51] LABS: ALBUMIN 3.7 g/dL (3.5-5.0); ALKALINE PHOSPHATASE 63 U/L (38-126); ANION GAP 5.2 MEQ/L (5-15); BLOOD UREA NITROGEN 11 mg/dL (9-20); CHLORIDE 97 mmol/L (98-107); Calcium 9.1 mg/dL (8.4-10.2); Carbon Dioxide 38 mmol/L (22-30); Creatinine 1 0.74 mg/dL (0.66-1.25); EST GLOMERULAR FILTRATION RATE > 60.0 ML/MIN; Glucose 124 mg/dL (74-106); Potassium 4.1 mmol/L (3.5-5.1); SGOT/AST 23 U/L (17-59); SGPT/ALT 29 U/L (0-50); SODIUM 136 mmol/L (137-145); Total Protein 6.4 g/dL (6.3-8.2)
[2019-12-14] MEDS: ROCEPHIN 1 Gm-D5w 50 ml Bag** 1 G/50 ML IVPB IV SCH (21:30)
[2019-12-15] MEDS: Sodium Chloride 0.9% 10 ML FLUSH Syringe IV SCH ×3 (06:05→20:37)
[2019-12-15] MEDS: NORCO 5/325 MG PO PRN ×3 (06:21→20:34)
[2019-12-15] MEDS: Advair Hfa 115/21 Common canister IH SCH ×2 (06:53→19:10)
[2019-12-15] MEDS: DUONEB 0.5-3 MG/3 ml Neb IH SCH ×4 (06:53→19:09)
--- NOTE | 2019-12-15 07:08 | PCM.NOTE ---
Date and Time: 12/15/1907 Subjective Assessment: doing better, still swelling on legs - Review of Systems Constitutional: No Fever, No Chills Eyes: No Symptoms Ears, Nose, & Throat: No Symptoms Respiratory: No Cough, No Short Of Breath Cardiac: Edema, No Chest Pain, No Syncope Abdominal/Gastrointestinal: No Abdominal Pain, No Nausea, No Vomiting, No Diarrhea Genitourinary Symptoms: No Dysuria Musculoskeletal: No Back Pain, No Neck Pain Skin: Cellulitis, No Rash Neurological: No Dizziness, No Focal Weakness, No Sensory Changes Psychological: No Symptoms Endocrine: No Symptoms Hematologic/Lymphatic: No Symptoms Immunological/Allergic: No Symptoms Objective Exam General Appearance: no apparent distress, alert Neurologic Exam: alert, oriented x 3, cooperative, normal mood/affect, nml cerebellar function, sensation nml, No motor deficits Skin Exam: normal color, warm, dry Wound Assessment: Skin/Wound Assessment Wound/Incision Assessment Start: 12/12/19 21:47 Text: Status: Active Freq: Q6H Protocol: Document 12/15/19 02:00 KX (Rec: 12/15/19 02:30 KX [id number]) Wound/Incision Assessment Right Other Wound Assessment Shift Assessment Wound Type CELLULITIS Wound Stage Non Pressure Wound Dressing Status Dry & Intact Drainage Amount None Primary Dressing KERLIX Secondary Dressing COBAN Comment BARRIER CREAM , KERLIX, COBAN. WRAPPED BY PT THIS AM. Dressing in place and no drainage noted. Left Other Wound Assessment Shift Assessment Wound Type CELLULITIS Wound Stage Non Pressure Wound Dressing Status Dry & Intact Drainage Amount None Primary Dressing KERLIX Secondary Dressing COBAN Comment BARRIER CREAM , KERLIX, COBAN. WRAPPED BY PT THIS AM Wound Photo Photo Taken No Eye Exam: PERRL, EOMI, eyes nml inspection Ears, Nose, Throat Exam: normal ENT inspection, pharynx normal, moist mucous membranes Neck Exam: normal inspection, non-tender, supple, full range of motion Respiratory Exam: normal breath sounds, lungs clear, No respiratory distress Cardiovascular Exam: regular rate/rhythm, normal heart sounds Gastrointestinal/Abdomen Exam: soft, No tenderness, No mass Extremity Exam: normal inspection, normal range of motion, pedal edema, swelling Back Exam: normal inspection, normal range of motion, No CVA tenderness, No vertebral tenderness Male Genitalia Exam: deferred Rectal Exam: deferred OBJECTIVE DATA Vital Signs: Vital Signs - 24 hr Temp Pulse Resp BP Pulse Ox 12/15/19 06:56 87 16 98 12/15/19 06:52 98.9 F 70 18 123/67 100 12/15/19 04:00 97.4 F 82 20 112/66 97 12/15/19 00:00 97.9 F 79 20 109/65 99 12/14/19 19:42 97.5 F 87 20 140/81 99 12/14/19 18:36 74 20 98 12/14/19 15:50 98.6 F 70 20 107/63 98 12/14/19 14:47 72 18 97 12/14/19 11:13 98.6 F 92 H 20 111/80 99 12/14/19 10:52 109 H 24 93 L 12/14/19 07:24 78 22 96 Oxygen-Last 24 hours Oxygen Flowrate (L/min)-RT 2 Pain Assessment - Last Documented Pain Intensity 7 Pain Scale Used 0-10 Pain Scale Intake and Output: Intake & Output 12/12/19 12/13/19 12/14/19 12/15/19 11:59 11:59 11:59 11:59 Intake Total 600 2510 1680 Output Total 750 3350 2600 Balance -150 -840 -920 Weight 109.3 kg 111.5 kg Lab Results: Lab Results-Last 24 Hours 12/14/19 12/14/19 Range/Units 08:35 08:35 WBC 8.8 (4.0-10.5) K/mm3 RBC 4.26 (4.1-5.6) M/mm3 Hgb 14.1 (12.5-18.0) gm/dl Hct 43.2 (42-50) % MCV 101.4 H (78-100) fl MCH 33.1 H (26-32) pg MCHC 32.6 (32-36) g/dl RDW 13.7 (11.5-14.0) % Plt Count 173 (150-450) K/mm3 MPV 10.2 (7.5-11.0) fl Gran % 70.0 H (36.0-66.0) % Eos # (Auto) 0.28 (0-0.5) Absolute Lymphs (auto) 1.51 (1.0-4.6) Absolute Monos (auto) 0.82 (0.0-1.3) Lymphocytes % 17.2 L (24.0-44.0) % Monocytes % 9.4 (0.0-12.0) % Eosinophils % 3.2 (0.00-5.0) % Basophils % 0.2 (0.0-0.4) % Absolute Granulocytes 6.14 (1.4-6.9) Basophils # 0.02 (0-0.4) Sodium 136 L (137-145) mmol/L Potassium 4.1 D (3.5-5.1) mmol/L Chloride 97 L (98-107) mmol/L Carbon Dioxide 38 H (22-30) mmol/L Anion Gap 5.2 (5-15) MEQ/L BUN 11 (9-20) mg/dL Creatinine 0.74 (0.66-1.25) mg/dL Estimated GFR > 60.0 ML/MIN Glucose 124 H (74-106) mg/dL Calcium 9.1 (8.4-10.2) mg/dL Total Bilirubin 0.50 (0.2-1.3) mg/dL AST 23 (17-59) U/L ALT 29 (0-50) U/L Alkaline Phosphatase 63 (38-126) U/L Serum Total Protein 6.4 (6.3-8.2) g/dL Albumin 3.7 (3.5-5.0) g/dL Radiology Exams: Radiology Procedures Category Date Time Status ARTERIAL BILAT LOWER EXTREMITY [US] DAILY Exams 12/13/19 09:15 Completed VENOUS BILATERAL EXTREMITY [US] DAILY Exams 12/13/19 09:15 Completed Multi-Disciplinary Progress Notes: Multi-Disciplinary Progress Notes 12/14/19 11:27 Physical Therapy Note by Shanita Ye PT. SEEN BY PT THIS DATE TO ADDRESS BILATERAL LL CELLULITIS AND EDEMA. NOTED SLIGHT DECREASED ERYTHEMA BILATERAL LLS BUT PITTING EDEMA 2+. PT. REPORTS CONT. L LL PN > R MOSTLY IN AREA OF BLISTER POSTERIOR L LL. CONT. TO NOTE LARGE SEROUS DRAINAGE BILATERAL LLS. TOOK PT. T SHOWER W/ ASSIST OF HEEL EMERY BUFFER AND CLEANSED LLS W/ HIBICLENS/STERILE WATER MIXTURE AND SHOWER NOZZLE. ABLE TO REMOVE THIN LAYER OF YELLOW BIOFILM/BLISTER W/ WASHCLOTH. DRESSED BILATERAL LLS W/ ZINC/BARRIER CREAM COMBO FLUFFY GAUZE, ABD, AND ANOTHER LAYER OF FLUFF FOLLOWED BY COBAN FOR COMPRESSION. CONT. TO ADVISE PT. TO ELEVATE LLS BUT HE REPORTS INCREASED PN AND HAS NOT BEEN COMPLIANT W/ THIS. NSG REPORTED HE SLEPT IN RELCLINER W/ LLS IN DEPENDENT POSITION. WILL MONITOR AMOUNT OF SEROUS DRAINAGE AND WHETHER IT CAN BE CONTAINED WITHIN LAYERED COMPRESSION BANDAGE. WILL CONT. PT TO ADDRESS EDEMA MG'T AND STASIS/BLISTER AREAS. SHANITA YE, PT Initialized on 12/14/19 11:27 - END OF NOTE 12/14/19 10:35 Case Management Note by Kristina Sosa PATIENT CONTINUES TO DENY ANY NEEDS REGARDING DC AT THIS TIME. PATIENT ALREADY HAS HOME OXYGEN AND HAS REFUSED HHC SERVICES Initialized on 12/14/19 10:35 - END OF NOTE Assessment/Plan (1) Cellulitis Current Visit: Yes Status: Acute Qualifiers: Site of cellulitis: extremity Site of cellulitis of extremity: lower extremity Laterality: unspecified laterality Qualified Code(s): L03.119 - Cellulitis of unspecified part of limb Assessment & Plan: Chief Complaint Diagnosis CELLULITIS BLE, EDEMA Allergies Allergy/AdvReac Type Severity Reaction Status Date / Time No Known Drug Allergies Allergy Verified 12/12/19 18:22 Vital Signs (Last 24 hours) Temp Pulse Resp BP Pulse Ox 12/15/19 06:56 87 16 98 12/15/19 06:52 98.9 F 70 18 123/67 100 12/15/19 04:00 97.4 F 82 20 112/66 97 12/15/19 00:00 97.9 F 79 20 109/65 99 12/14/19 19:42 97.5 F 87 20 140/81 99 12/14/19 18:36 74 20 98 12/14/19 15:50 98.6 F 70 20 107/63 98 12/14/19 14:47 72 18 97 12/14/19 11:13 98.6 F 92 H 20 111/80 99 12/14/19 10:52 109 H 24 93 L 12/14/19 07:24 78 22 96 Home Medications Medication Instructions Recorded Confirmed Last Taken Type Fluticasone/Umeclidin/Vilanter 1 puff DAILY 12/12/19 12/12/19 12/12/19 History [Trelegy Ellipta 100-62.5-25] Current Medications Generic Name Dose Route Start Last Admin Trade Name Freq PRN Reason Stop Dose Admin Hydrocodone Bitart/Acetaminophen 1 tab 12/13/19 12:03 12/15/19 06:21 [place] 5/325 Mg PO 12/18/19 12:02 1 tab Q4H PRN PRN Administration PAIN Albuterol Sulfate 2.5 mg 12/12/19 23:42 Proventil 2.5 Mg/3 Ml Neb IH 01/11/20 23:40 Q4H PRN PRN SHORTNESS OF BREATH Albuterol/Ipratropium 3 ml 12/13/19 07:00 12/15/19 06:53 Duoneb 0.5-3 Mg/3 Ml Neb IH 01/12/20 06:59 3 ml QIDRT LIZETT Administration Alprazolam 0.5 mg 12/12/19 23:00 12/14/19 21:34 Xanax 0.5 Mg PO 01/11/20 22:59 0.5 mg TID LIZETT Administration Bumetanide 1 mg 12/13/19 10:00 12/14/19 09:05 Bumex 1 Mg PO 01/12/20 09:59 1 mg DAILY LIZETT Administration Gabapentin 300 mg 12/13/19 10:00 12/14/19 21:34 Neurontin 300 Mg PO 01/12/20 09:59 300 mg BID LIZETT Administration Ceftriaxone Sodium/Dextrose 1 g in 50 mls @ 100 mls/hr 12/13/19 22:00 12/14/19 21:30 Rocephin 1 Gm-D5w 50 Ml Bag IV 01/12/20 21:59 100 mls/hr Q24H22 LIZETT Administration Loratadine 10 mg 12/13/19 10:00 12/14/19 09:05 Claritin 10 Mg PO 01/12/20 09:59 10 mg DAILY LIZETT Administration Prednisone 10 mg 12/13/19 10:00 12/14/19 09:05 Deltasone 10 Mg PO 01/12/20 09:59 10 mg DAILY LIZETT Administration Roflumilast 250 mcg 12/13/19 10:00 12/14/19 09:05 Daliresp PO 01/12/20 09:59 250 mcg DAILY LIZETT Administration Fluticasone/Salmeterol 2 puff 12/13/19 07:00 12/15/19 06:53 Advair Hfa 115/21 Common Canister* IH 01/12/20 06:59 2 puff BIDRT LIZETT Administration Sodium Chloride 10 ml 12/13/19 06:00 12/15/19 06:05 Sodium Chloride 0.9% 10 Ml Flush Syringe IV 01/12/20 05:59 10 ml Q8HT LIZETT Administration Discontinued Medications Generic Name Dose Route Start Last Admin Trade Name Anitha PRN Reason Stop Dose Admin Hydrocodone Bitart/Acetaminophen 1 tab 12/12/19 20:37 12/12/19 20:45 [place] 10/325 Mg Tablet PO 12/12/19 20:38 1 tab STAT ONE Administration Hydrocodone Bitart/Acetaminophen Confirm 12/12/19 20:41 [place] 10/325 Mg Tablet Administered 12/12/19 20:42 Dose 1 tab .ROUTE .STK-MED ONE Albuterol Sulfate 2.5 mg 12/13/19 07:00 12/12/19 23:27 Proventil 2.5 Mg/3 Ml Neb IH 01/12/20 06:59 2.5 mg QIDRT LIZETT Administration Ceftriaxone Sodium/Dextrose 1 g in 50 mls @ 100 mls/hr 12/12/19 20:37 12/12/19 20:45 Rocephin 1 Gm-D5w 50 Ml Bag IV 12/12/19 21:06 100 ml/hr STAT STA 100 mls/hr Administration Ceftriaxone Sodium/Dextrose Confirm 12/12/19 20:41 Rocephin 1 Gm-D5w 50 Ml Bag Administered 12/12/19 20:42 Dose 1 g in 50 mls @ ud IV .STK-MED ONE Intake & Output (Last 24 hours) 12/12/19 12/13/19 12/14/19 12/15/19 11:59 11:59 11:59 11:59 Intake Total 600 2510 1680 Output Total 750 3350 2600 Balance -150 -840 -920 Weight 109.3 kg 111.5 kg Microbiology Results (Last 24 hours) 12/12/19 19:38 Blood Blood Culture Gram Stain - Pending 12/12/19 19:38 Blood Blood Culture - Preliminary NO GROWTH TO DATE 12/12/19 18:24 Blood Blood Culture Gram Stain - Pending 12/12/19 18:24 Blood Blood Culture - Preliminary NO GROWTH TO DATE Laboratory Results (Last 24 hours) 12/14/19 12/14/19 08:35 08:35 WBC 8.8 RBC 4.26 Hgb 14.1 Hct 43.2 MCV 101.4 H MCH 33.1 H MCHC 32.6 RDW 13.7 Plt Count 173 MPV 10.2 Gran % 70.0 H Eos # (Auto) 0.28 Absolute Lymphs (auto) 1.51 Absolute Monos (auto) 0.82 Lymphocytes % 17.2 L Monocytes % 9.4 Eosinophils % 3.2 Basophils % 0.2 Absolute Granulocytes 6.14 Basophils # 0.02 Sodium 136 L Potassium 4.1 D Chloride 97 L Carbon Dioxide 38 H Anion Gap 5.2 BUN 11 Creatinine 0.74 Estimated GFR > 60.0 Glucose 124 H Calcium 9.1 Total Bilirubin 0.50 AST 23 ALT 29 Alkaline Phosphatase 63 Serum Total Protein 6.4 Albumin 3.7 Orders (Last 24 hours) Category Date Time Status Admission Status Change [Change to Full Admit] ROUTINE Care 12/14/19 10:27 Active CBC W DIFF Routine Lab 12/14/19 08:35 Completed CMP Routine Lab 12/14/19 08:35 Completed Patient Care Notes (Last 24 hours) 12/14/19 11:27 Physical Therapy Note by Shanita Ye PT. SEEN BY PT THIS DATE TO ADDRESS BILATERAL LL CELLULITIS AND EDEMA. NOTED SLIGHT DECREASED ERYTHEMA BILATERAL LLS BUT PITTING EDEMA 2+. PT. REPORTS CONT. L LL PN > R MOSTLY IN AREA OF BLISTER POSTERIOR L LL. CONT. TO NOTE LARGE SEROUS DRAINAGE BILATERAL LLS. TOOK PT. T SHOWER W/ ASSIST OF HEEL EMERY BUFFER AND CLEANSED LLS W/ HIBICLENS/STERILE WATER MIXTURE AND SHOWER NOZZLE. ABLE TO REMOVE THIN LAYER OF YELLOW BIOFILM/BLISTER W/ WASHCLOTH. DRESSED BILATERAL LLS W/ ZINC/BARRIER CREAM COMBO FLUFFY GAUZE, ABD, AND ANOTHER LAYER OF FLUFF FOLLOWED BY COBAN FOR COMPRESSION. CONT. TO ADVISE PT. TO ELEVATE LLS BUT HE REPORTS INCREASED PN AND HAS NOT BEEN COMPLIANT W/ THIS. NSG REPORTED HE SLEPT IN RELCLINER W/ LLS IN DEPENDENT POSITION. WILL MONITOR AMOUNT OF SEROUS DRAINAGE AND WHETHER IT CAN BE CONTAINED WITHIN LAYERED COMPRESSION BANDAGE. WILL CONT. PT TO ADDRESS EDEMA MG'T AND STASIS/BLISTER AREAS. SHANITA YE, PT Initialized on 12/14/19 11:27 - END OF NOTE 12/14/19 10:35 Case Management Note by Kristina Sosa PATIENT CONTINUES TO DENY ANY NEEDS REGARDING DC AT THIS TIME. PATIENT ALREADY HAS HOME OXYGEN AND HAS REFUSED HHC SERVICES Initialized on 12/14/19 10:35 - END OF NOTE Code(s): L03.90 - CELLULITIS, UNSPECIFIED (2) COPD (chronic obstructive pulmonary disease) Current Visit: Yes Status: Acute (3) Edema Current Visit: No Status: Chronic Code(s): R60.9 - EDEMA, UNSPECIFIED
[2019-12-15] MEDS: xanAX 0.5 MG PO SCH ×3 (08:43→20:34)
[2019-12-15] MEDS: CLARITIN 10 MG PO SCH (08:43)
[2019-12-15] MEDS: DELTASONE 10 MG PO SCH (08:43)
[2019-12-15] MEDS: BUMEX 1 MG PO SCH (08:44)
[2019-12-15] MEDS: NEURONTIN 300 MG PO SCH ×2 (08:44→20:34)
[2019-12-15] MEDS: DALIRESP PO SCH (08:44)
[2019-12-15] MEDS: ROCEPHIN 1 Gm-D5w 50 ml Bag** 1 G/50 ML IVPB IV SCH (20:35)
[2019-12-16] MEDS: DUONEB 0.5-3 MG/3 ml Neb IH SCH ×4 (06:46→19:37)
[2019-12-16] MEDS: Advair Hfa 115/21 Common canister IH SCH ×2 (06:46→19:39)
[2019-12-16] MEDS: NORCO 5/325 MG PO PRN ×3 (06:54→19:43)
--- NOTE | 2019-12-16 08:59 | PCM.NOTE ---
Date and Time: 12/16/19857 Subjective Assessment: doing better - Review of Systems Constitutional: No Fever, No Chills Eyes: No Symptoms Ears, Nose, & Throat: No Symptoms Respiratory: No Cough, No Short Of Breath Cardiac: Edema, No Chest Pain, No Syncope Abdominal/Gastrointestinal: No Abdominal Pain, No Nausea, No Vomiting, No Diarrhea Genitourinary Symptoms: No Dysuria Musculoskeletal: No Back Pain, No Neck Pain Skin: Cellulitis, No Rash Neurological: No Dizziness, No Focal Weakness, No Sensory Changes Psychological: No Symptoms Endocrine: No Symptoms Hematologic/Lymphatic: No Symptoms Immunological/Allergic: No Symptoms Objective Exam General Appearance: no apparent distress, alert Neurologic Exam: alert, oriented x 3, cooperative, normal mood/affect, nml cerebellar function, sensation nml, No motor deficits Skin Exam: normal color, warm, dry Wound Assessment: Skin/Wound Assessment Wound/Incision Assessment Start: 12/12/19 21:47 Text: Status: Active Freq: Q6H Protocol: Document 12/16/19 08:00 BE (Rec: 12/16/19 08:24 BE [id number]) Wound/Incision Assessment Right Other Wound Assessment Shift Assessment Wound Type CELLULITIS Wound Stage Non Pressure Wound Dressing Status Dry & Intact Drainage Amount None Primary Dressing KERLIX Secondary Dressing COBAN Comment BARRIER CREAM , KERLIX, COBAN. WRAPPED BY PT Dressing in place and no drainage noted. Left Other Wound Assessment Shift Assessment Wound Type CELLULITIS Wound Stage Non Pressure Wound Dressing Status Dry & Intact Drainage Amount None Primary Dressing KERLIX Secondary Dressing COBAN Comment BARRIER CREAM , KERLIX, COBAN. WRAPPED BY PT Eye Exam: PERRL, EOMI, eyes nml inspection Ears, Nose, Throat Exam: normal ENT inspection, pharynx normal, moist mucous membranes Neck Exam: normal inspection, non-tender, supple, full range of motion Respiratory Exam: normal breath sounds, lungs clear, No respiratory distress Cardiovascular Exam: regular rate/rhythm, normal heart sounds Gastrointestinal/Abdomen Exam: soft, No tenderness, No mass Extremity Exam: normal inspection, normal range of motion, swelling Back Exam: normal inspection, normal range of motion, No CVA tenderness, No vertebral tenderness Male Genitalia Exam: deferred Rectal Exam: deferred OBJECTIVE DATA Vital Signs: Vital Signs - 24 hr Temp Pulse Resp BP Pulse Ox 12/16/19 07:00 98.1 F 96 H 18 130/79 97 12/16/19 06:50 91 H 18 98 12/16/19 04:00 97.7 F 82 18 111/75 99 12/15/19 23:45 98.1 F 83 19 105/65 98 12/15/19 20:00 97.5 F 91 H 20 113/64 99 12/15/19 19:13 100 H 18 97 12/15/19 15:49 98.1 F 86 16 116/56 98 12/15/19 15:24 86 16 98 12/15/19 11:37 98.3 F 91 H 16 112/62 96 12/15/19 10:41 90 16 96 Pain Assessment - Last Documented Pain Intensity 6 Pain Scale Used 0-10 Pain Scale Intake and Output: Intake & Output 12/13/19 12/14/19 12/15/19 12/16/19 11:59 11:59 11:59 11:59 Intake Total 600 2510 1680 3703 Output Total 750 3350 2600 2850 Balance -150 -840 -920 853 Weight 109.3 kg 111.5 kg Assessment/Plan (1) Cellulitis Current Visit: Yes Status: Acute Qualifiers: Site of cellulitis: extremity Site of cellulitis of extremity: lower extremity Laterality: unspecified laterality Qualified Code(s): L03.119 - Cellulitis of unspecified part of limb Assessment & Plan: Chief Complaint Diagnosis CELLULITIS BLE, EDEMA Allergies Allergy/AdvReac Type Severity Reaction Status Date / Time No Known Drug Allergies Allergy Verified 12/12/19 18:22 Vital Signs (Last 24 hours) Temp Pulse Resp BP Pulse Ox 12/16/19 07:00 98.1 F 96 H 18 130/79 97 12/16/19 06:50 91 H 18 98 12/16/19 04:00 97.7 F 82 18 111/75 99 12/15/19 23:45 98.1 F 83 19 105/65 98 12/15/19 20:00 97.5 F 91 H 20 113/64 99 12/15/19 19:13 100 H 18 97 12/15/19 15:49 98.1 F 86 16 116/56 98 12/15/19 15:24 86 16 98 12/15/19 11:37 98.3 F 91 H 16 112/62 96 12/15/19 10:41 90 16 96 Home Medications Medication Instructions Recorded Confirmed Last Taken Type Fluticasone/Umeclidin/Vilanter 1 puff DAILY 12/12/19 12/12/19 12/12/19 History [[place] 100-62.5-25] Current Medications Generic Name Dose Route Start Last Admin Trade Name Freq PRN Reason Stop Dose Admin Hydrocodone Bitart/Acetaminophen 1 tab 12/13/19 12:03 12/16/19 06:54 [place] 5/325 Mg PO 12/18/19 12:02 1 tab Q4H PRN PRN Administration PAIN Albuterol Sulfate 2.5 mg 12/12/19 23:42 Proventil 2.5 Mg/3 Ml Neb IH 01/11/20 23:40 Q4H PRN PRN SHORTNESS OF BREATH Albuterol/Ipratropium 3 ml 12/13/19 07:00 12/16/19 06:46 Duoneb 0.5-3 Mg/3 Ml Neb IH 01/12/20 06:59 3 ml QIDRT LIZETT Administration Alprazolam 0.5 mg 12/12/19 23:00 12/15/19 20:34 Xanax 0.5 Mg PO 01/11/20 22:59 0.5 mg TID LIZETT Administration Bumetanide 1 mg 12/13/19 10:00 12/15/19 08:44 Bumex 1 Mg PO 01/12/20 09:59 1 mg DAILY LIZETT Administration Gabapentin 300 mg 12/13/19 10:00 12/15/19 20:34 Neurontin 300 Mg PO 01/12/20 09:59 300 mg BID LIZETT Administration Ceftriaxone Sodium/Dextrose 1 g in 50 mls @ 100 mls/hr 12/13/19 22:00 12/15/19 20:35 Rocephin 1 Gm-D5w 50 Ml Bag IV 01/12/20 21:59 100 mls/hr Q24H22 LIZETT Administration Loratadine 10 mg 12/13/19 10:00 12/15/19 08:43 Claritin 10 Mg PO 01/12/20 09:59 10 mg DAILY LIZETT Administration Prednisone 10 mg 12/13/19 10:00 12/15/19 08:43 Deltasone 10 Mg PO 01/12/20 09:59 10 mg DAILY LIZETT Administration Roflumilast 250 mcg 12/13/19 10:00 12/15/19 08:44 Daliresp PO 01/12/20 09:59 250 mcg DAILY LIZETT Administration Fluticasone/Salmeterol 2 puff 12/13/19 07:00 12/16/19 06:46 Advair Hfa 115/21 Common Canister* IH 01/12/20 06:59 2 puff BIDRT LIZETT Administration Sodium Chloride 10 ml 12/13/19 06:00 12/15/19 20:37 Sodium Chloride 0.9% 10 Ml Flush Syringe IV 01/12/20 05:59 10 ml Q8HT LIZETT Administration Discontinued Medications Generic Name Dose Route Start Last Admin Trade Name Freq PRN Reason Stop Dose Admin Hydrocodone Bitart/Acetaminophen 1 tab 12/12/19 20:37 12/12/19 20:45 [place] 10/325 Mg Tablet PO 12/12/19 20:38 1 tab STAT ONE Administration Hydrocodone Bitart/Acetaminophen Confirm 12/12/19 20:41 [place] 10/325 Mg Tablet Administered 12/12/19 20:42 Dose 1 tab .ROUTE .STK-MED ONE Albuterol Sulfate 2.5 mg 12/13/19 07:00 12/12/19 23:27 Proventil 2.5 Mg/3 Ml Neb IH 01/12/20 06:59 2.5 mg QIDRT LIZETT Administration Ceftriaxone Sodium/Dextrose 1 g in 50 mls @ 100 mls/hr 12/12/19 20:37 12/12/19 20:45 Rocephin 1 Gm-D5w 50 Ml Bag IV 12/12/19 21:06 100 ml/hr STAT STA 100 mls/hr Administration Ceftriaxone Sodium/Dextrose Confirm 12/12/19 20:41 Rocephin 1 Gm-D5w 50 Ml Bag Administered 12/12/19 20:42 Dose 1 g in 50 mls @ ud IV .STK-MED ONE Intake & Output (Last 24 hours) 12/13/19 12/14/19 12/15/19 12/16/19 11:59 11:59 11:59 11:59 Intake Total 600 2510 1680 3703 Output Total 750 3350 2609 2850 Balance -150 -840 -920 853 Weight 109.3 kg 111.5 kg Orders (Last 24 hours) Category Date Time Status CBC W DIFF AM.LAB Lab 12/17/19 04:00 Ordered CMP AM.LAB Lab 12/17/19 04:00 Ordered Code(s): L03.90 - CELLULITIS, UNSPECIFIED (2) COPD (chronic obstructive pulmonary disease) Current Visit: Yes Status: Acute (3) Edema Current Visit: No Status: Chronic Code(s): R60.9 - EDEMA, UNSPECIFIED
[2019-12-16] MEDS: NEURONTIN 300 MG PO SCH ×2 (09:27→21:38)
[2019-12-16] MEDS: xanAX 0.5 MG PO SCH ×3 (09:27→21:38)
[2019-12-16] MEDS: BUMEX 1 MG PO SCH (09:27)
[2019-12-16] MEDS: CLARITIN 10 MG PO SCH (09:27)
[2019-12-16] MEDS: DELTASONE 10 MG PO SCH (09:27)
[2019-12-16] MEDS: DALIRESP PO SCH (09:28)
[2019-12-16] MEDS: Sodium Chloride 0.9% 10 ML FLUSH Syringe IV SCH ×3 (11:01→21:38)
[2019-12-16] MEDS: ROCEPHIN 1 Gm-D5w 50 ml Bag** 1 G/50 ML IVPB IV SCH (21:38)
[2019-12-17] MEDS: NORCO 5/325 MG PO PRN ×3 (02:04→11:22)
[2019-12-17 05:23] LABS: Hematocrit 40.2 % (42-50); Hemoglobin 12.6 gm/dl (12.5-18.0); Mean Cell Volume 105.2 fl (78-100); Mean Corpuscular Hgb Concent. 31.3 g/dl (32-36); Mean Platelet Volume 10.4 fl (7.5-11.0); Platelet Count 186 K/mm3 (150-450); Red Blood Count 3.82 M/mm3 (4.1-5.6); Red Cell Distribution Width 13.8 % (11.5-14.0); White Blood Count 7.7 K/mm3 (4.0-10.5)
[2019-12-17 05:38] LABS: ALBUMIN 3.4 g/dL (3.5-5.0); ALKALINE PHOSPHATASE 55 U/L (38-126); ANION GAP 2.7 MEQ/L (5-15); BLOOD UREA NITROGEN 10 mg/dL (9-20); CHLORIDE 99 mmol/L (98-107); Calcium 9.2 mg/dL (8.4-10.2); Carbon Dioxide 38 mmol/L (22-30); Creatinine 1 0.75 mg/dL (0.66-1.25); EST GLOMERULAR FILTRATION RATE > 60.0 ML/MIN; Glucose 109 mg/dL (74-106); Potassium 4.3 mmol/L (3.5-5.1); SGOT/AST 21 U/L (17-59); SGPT/ALT 22 U/L (0-50); SODIUM 135 mmol/L (137-145); Total Protein 5.8 g/dL (6.3-8.2)
[2019-12-17 06:23] LABS: Eosinophil 1 % (0.00-3.0); Lymphocytes 27 % (24-44); Monocyte 6 % (0.0-12.0); Neutrophils 66 % (36.-66.); Total Cells Counted 100
[2019-12-17 06:24] LABS: Platelet Estimate NORMAL (NORMAL)
[2019-12-17] MEDS: DUONEB 0.5-3 MG/3 ml Neb IH SCH ×2 (06:43→10:58)
[2019-12-17] MEDS: Advair Hfa 115/21 Common canister IH SCH (06:43)
[2019-12-17] MEDS: Sodium Chloride 0.9% 10 ML FLUSH Syringe IV SCH (08:29)
[2019-12-17] MEDS: DALIRESP PO SCH (08:58)
[2019-12-17] MEDS: DELTASONE 10 MG PO SCH (08:58)
[2019-12-17] MEDS: BUMEX 1 MG PO SCH (08:58)
[2019-12-17] MEDS: NEURONTIN 300 MG PO SCH (08:58)
[2019-12-17] MEDS: xanAX 0.5 MG PO SCH (08:58)
[2019-12-17] MEDS: CLARITIN 10 MG PO SCH (08:58)
[2019-12-17 13:17] VITALS: BP 126/71; PULSE 108; O2SAT 98
--- NOTE | 2019-12-17 20:41 | PCM.DS ---
Discharge Summary Date of Admission: 12/14/19 10:27 Admitting Physician: AG SOW Primary Care Provider: AG SOW Allergies Allergies No Known Drug Allergies Allergy (Verified 12/12/19 18:22) Hospital Summary - Hospital Course Hospital Course: Last Vital Signs Temp 97.0 F 12/17/19 13:15 Pulse 108 H 12/17/19 13:15 Resp 22 12/17/19 13:15 BP 126/71 12/17/19 13:15 Pulse Ox 98 12/17/19 13:15 Allergies No Known Drug Allergies Allergy (Verified 12/12/19 18:22) Intake & Output 12/17/19 12/18/19 11:59 11:59 Intake Total 1160 Output Total 2300 Balance -1140 Orders 12/17/19 Discharge Routine Lab Tests 12/17/19 12/17/19 04:25 04:25 WBC 7.7 RBC 3.82 L Hgb 12.6 Hct 40.2 L MCV 105.2 H MCH 33.0 H MCHC 31.3 L RDW 13.8 Plt Count 186 MPV 10.4 Segmented Neutrophils 66 Lymphocytes (Manual) 27 Monocytes (Manual) 6 Eosinophils (Manual) 1 Platelet Estimate NORMAL RBC Morphology NORMAL Sodium 135 L Potassium 4.3 Chloride 99 Carbon Dioxide 38 H Anion Gap 2.7 L BUN 10 Creatinine 0.75 Estimated GFR > 60.0 Glucose 109 H Calcium 9.2 Total Bilirubin 0.40 AST 21 ALT 22 Alkaline Phosphatase 55 Serum Total Protein 5.8 L Albumin 3.4 L Microbiology 12/12/19 19:38 Blood Blood Culture Gram Stain - Final Not Reportable 12/12/19 19:38 Blood Blood Culture - Final NO GROWTH 12/12/19 18:24 Blood Blood Culture Gram Stain - Final Not Reportable 12/12/19 18:24 Blood Blood Culture - Final NO GROWTH - Vitals & Intake/Output Vital Signs: Vital Signs Temperature 97.0 F 12/17/19 13:15 Pulse Rate 108 H 12/17/19 13:15 Respiratory Rate 22 12/17/19 13:15 Blood Pressure 126/71 12/17/19 13:15 O2 Sat by Pulse Oximetry 98 12/17/19 13:15 Intake & Output: Intake & Output 10/03/20 10/04/20 10/05/20 10/06/20 11:59 11:59 11:59 11:59 Intake Total 1680 3703 1160 Output Total 2600 9180 2300 Balance -920 853 -1140 - Lab Result Diagrams: 12/17/19 04:25 12/17/19 04:25 Lab Results-Last 24 Hrs: Lab Results-Last 24 Hours 12/17/19 12/17/19 Range/Units 04:25 04:25 WBC 7.7 (4.0-10.5) K/mm3 RBC 3.82 L (4.1-5.6) M/mm3 Hgb 12.6 (12.5-18.0) gm/dl Hct 40.2 L (42-50) % MCV 105.2 H (78-100) fl MCH 33.0 H (26-32) pg MCHC 31.3 L (32-36) g/dl RDW 13.8 (11.5-14.0) % Plt Count 186 (150-450) K/mm3 MPV 10.4 (7.5-11.0) fl Segmented Neutrophils 66 (36.-66.) % Lymphocytes (Manual) 27 (24-44) % Monocytes (Manual) 6 (0.0-12.0) % Eosinophils (Manual) 1 (0.00-3.0) % Platelet Estimate NORMAL (NORMAL) RBC Morphology NORMAL Sodium 135 L (137-145) mmol/L Potassium 4.3 (3.5-5.1) mmol/L Chloride 99 (98-107) mmol/L Carbon Dioxide 38 H (22-30) mmol/L Anion Gap 2.7 L (5-15) MEQ/L BUN 10 (9-20) mg/dL Creatinine 0.75 (0.66-1.25) mg/dL Estimated GFR > 60.0 ML/MIN Glucose 109 H (74-106) mg/dL Calcium 9.2 (8.4-10.2) mg/dL Total Bilirubin 0.40 (0.2-1.3) mg/dL AST 21 (17-59) U/L ALT 22 (0-50) U/L Alkaline Phosphatase 55 (38-126) U/L Serum Total Protein 5.8 L (6.3-8.2) g/dL Albumin 3.4 L (3.5-5.0) g/dL Micro Results-Entire Visit: Microbiology 12/12/19 19:38 Blood Culture Gram Stain - Final Blood Not Reportable Blood Culture - Final NO GROWTH 12/12/19 18:24 Blood Culture Gram Stain - Final Blood Not Reportable Blood Culture - Final NO GROWTH - Procedures and Test Procedures and Tests throughout Hospitalization: Therapy Orders & Screens 12/12/19 22:58 OT Screen per Nursing Assess ONCE Comment: Protocol Order Physician Instructions: Greater than 3 points order OT Admission Screening Reason For Exam: Triggered on Admission Diagnosis: BLE cellulitis Open Wound/Cellutlitis/Pressure Ulcers: Yes Acute Fx/ORIF/Change in wt bearing status: No Severe MUSCULOSKELETAL pain: No ADL Dysfunction: No Acute CVA w/Hemiparesis/Hemiplegia: No Decreased Functional Mobility/Strength: Yes Sprain/Strain: No Acute Post-op Mobility Dysfunction: No Total Points: 6 PT Screen per Nursing Assess ONCE Comment: Protocol Order Physician Instructions: Greater than 3 points order PT Admission Screenin Reason For Exam: Triggered on Admission Diagnosis: BLE cellulitis Open Wound/Cellutlitis/Pressure Ulcers: Yes Acute Fx/ORIF/Change in wt bearing status: No Severe MUSCULOSKELETAL pain: No ADL Dysfunction: No Acute CVA w/Hemiparesis/Hemiplegia: No Decreased Functional Mobility/Strength: Yes Sprain/Strain: No Acute Post-op Mobility Dysfunction: No Total Points: 6 RT Screen per Nursing Assess ONCE Comment: Protocol Order Physician Instructions: Greater than 3 points order RT Admission Screen Reason For Exam: Triggered on Admission Diagnosis: BLE cellulitis Diagnosis: BLE cellulitis Pneumonia: No Home O2: Yes: o2 3L NC Asthma: No CHF: No Home CPAP/BIPAP: No Home Nebs/MDI: Yes Total Points: 10 12/12/19 23:02 Oxygen Nasal Cannula 3 lpm Comment: Diagnosis: BLE cellulitis 12/12/19 23:16 Peak Expiratory Flow Rate ONCE Comment: Reason For Exam: Diagnosis: BLE cellulitis Respiratory Therapy Assessment DAILY Comment: Diagnosis: BLE cellulitis 12/13/19 09:02 PT Eval & Treat (MD Order) ONCE Reason for Eval:: cellulitis Diagnosis: BLE cellulitis Discharge Exam General Appearance: no apparent distress, alert Neurologic Exam: alert, oriented x 3, cooperative, normal mood/affect, nml cerebellar function, sensation nml, No motor deficits Eye Exam: PERRL, EOMI, eyes nml inspection Ears, Nose, Throat Exam: normal ENT inspection, pharynx normal, moist mucous membranes Neck Exam: normal inspection, non-tender, supple, full range of motion Respiratory Exam: normal breath sounds, lungs clear, No respiratory distress Cardiovascular Exam: regular rate/rhythm, normal heart sounds Gastrointestinal/Abdomen Exam: soft, No tenderness, No mass Male Genitalia Exam: deferred Rectal Exam: deferred Back Exam: normal inspection, normal range of motion, No CVA tenderness, No vertebral tenderness Extremity Exam: normal inspection, normal range of motion Skin Exam: normal color, warm, dry Wound Assessment: Skin/Wound Assessment Wound/Incision Assessment Start: 12/12/19 21:47 Text: Status: Active Freq: Q6H Protocol: Document 12/17/19 07:37 AR (Rec: 12/17/19 07:39 AR [id number]) Wound/Incision Assessment Right Other Wound Assessment Shift Assessment Wound Type CELLULITIS Dressing Status Dry & Intact Drainage Amount None Primary Dressing KERLIX Secondary Dressing COBAN Comment tubigrip in place Left Other Wound Assessment Shift Assessment Wound Type CELLULITIS Wound Stage Non Pressure Wound Dressing Status Dry & Intact Primary Dressing KERLIX Secondary Dressing COBAN Comment BARRIER CREAM , KERLIX, COBAN. WRAPPED BY PT Wound Photo Photo Taken No Final Diagnosis/Problem List - Final Discharge Diagnosis/Problem (1) Cellulitis Status: Acute Assessment & Plan: improved Code(s): L03.90 - CELLULITIS, UNSPECIFIED (2) COPD (chronic obstructive pulmonary disease) Status: Acute (3) Edema Status: Chronic Code(s): R60.9 - EDEMA, UNSPECIFIED - Discharge Discharge Date: 12/17/19 Disposition: Home, Self-Care Condition: Stable Prescriptions: New Cephalexin [Keflex] 500 mg PO QID 10 Days #40 capsule Naproxen 375 mg [Naprosyn 375 mg] 375 mg PO BID 15 Days #30 tablet Continue Roflumilast [Daliresp] 1 ea DAILY Prednisone 10 mg [Deltasone 10 mg] 1 ea DAILY Levocetirizine Dihydrochloride 1 ea DAILY Bumetanide 1 ea DAILY Alprazolam 0.5 mg [xanAX 0.5 MG] 1 ea TID Albuterol Sulfate [Albuterol Sulfate Hfa] 2 puffs QID Ipratropium/Albuterol Sulfate [Iprat-Albut 0.5-3(2.5) mg/3 ml] 1 ampul IH UD Fluticasone/Umeclidin/Vilanter [Trelegy Ellipta 100-62.5-25] 1 puff DAILY Instructions: Heart Failure, Adult, Cellulitis and Erysipelas (Skin Infections) , Cellulitis (Skin Infection), Adult (DC) Additional Instructions: Appt with Wound Care on 12/20/19 @ 09:30. Follow up with: AG SOW MD [Primary Care Provider] - 1 Week Forms: Discharge Instructions
== END 2019-12-17 13:33 | disposition home or self-care (01) | DRG 603 ==
LOC: ED 18:04 → MED SURG 21:40 → OBSVTOIN 12-14 10:27
PROVIDERS: ADMIT General Practice; ATTEND General Practice
DX: L03.116 Cellulitis of left lower limb (principal); L03.115 Cellulitis of right lower limb; M79.662 Pain in left lower leg; M79.661 Pain in right lower leg; G47.30 Sleep apnea, unspecified; R60.9 Edema, unspecified; Z79.899 Other long term (current) drug therapy; J44.9 Chronic obstructive pulmonary disease, unspecified
CPT/HCPCS: 29581; 36000; 36415; 80053; 85025; 87040; 93925; 93970; 94150; 94640; 94760; 96365; 97161; 99284; G0378; J0696; J7609; A9270-GY

== ENCOUNTER 2020-01-19 08:37 | Emergency (ER) | payer MEDICARE ==
[2020-01-19 08:56] VITALS: O2SAT 100
--- NOTE | 2020-01-19 09:11 | ERPHSYRPT ---
- History of Present Illness Time Seen by Provider: 01/19/20 08:38 Source: patient Exam Limitations: no limitations Patient Subjective Stated Complaint: leg pain r/t cellulitis Triage Nursing Assessment: pt to ED c/o bilat lower leg pain and swelling. hx cellulitis and has been seeing wound clinic for dressing changes and treatment. reports family helps change dressings at home as well. rates 9/10 pain. is getting established with pain clinic but has not seen them yet and the pain is keeping him up at night. tylenol taken at 0700 with no relief. legs are swollen and wrapped from wound clinic on arrival. Physician History: Patient is here with bilateral leg pain. Patient recently discharged from the hospital for bilateral cellulitis with ulcers. He is seeing wound care at home. He states he had an increase in bilateral leg pain. He has no DVT-like symptoms. Has no chest pain, shortness of breath, signs or symptoms of pulmonary embolism. He has stopped taking his antibiotic. States he finished the course. He is due to see pain management next week. Location: bilateral leg pain Quality: sharp Radiation: none Severity: moderate Duration: chronic Timing: gradual Modifying factors/associated signs and symptoms: home medication and antibiotics. Allergies/Adverse Reactions: No Known Drug Allergies Allergy (Verified 01/19/20 08:56) Home Medications: Albuterol Sulfate [Albuterol Sulfate Hfa] 2 puffs QID 11/19/19 [History] Alprazolam 0.5 mg [xanAX 0.5 MG] 1 ea TID 11/19/19 [History] Bumetanide 1 ea DAILY 11/19/19 [History] Levocetirizine Dihydrochloride 1 ea DAILY 11/19/19 [History] Prednisone 10 mg [Deltasone 10 mg] 1 ea DAILY 11/19/19 [History] Roflumilast [Daliresp] 1 ea DAILY 11/19/19 [History] Ipratropium/Albuterol Sulfate [Iprat-Albut 0.5-3(2.5) mg/3 ml] 1 ampul IH UD 11/23/19 [History] Fluticasone/Umeclidin/Vilanter [Trelegy Ellipta 100-62.5-25] 1 puff DAILY 12/12/19 [History] Hx Tetanus, Diphtheria Vaccination/Date Given: No Hx Influenza Vaccination/Date Given: No Hx Pneumococcal Vaccination/Date Given: No Travel Risk - International Travel Have you traveled outside of the country in past 3 weeks: No - Coronavirus Screening Are you exhibiting any of the following symptoms?: No Close contact with a COVID-19 positive Pt in past 14-21 Days: No - Review of Systems Constitutional: No Fever, No Chills Eyes: No Symptoms Ears, Nose, & Throat: No Symptoms Respiratory: No Cough, No Dyspnea Cardiac: No Chest Pain, No Edema, No Syncope Abdominal/Gastrointestinal: No Abdominal Pain, No Nausea, No Vomiting, No Diarrhea Genitourinary Symptoms: No Dysuria Musculoskeletal: No Back Pain, No Neck Pain Skin: Cellulitis (Pain), No Rash Neurological: No Dizziness, No Focal Weakness, No Sensory Changes Psychological: No Symptoms Endocrine: No Symptoms All Other Systems: Reviewed and Negative - Past Medical History Pertinent Past Medical History: Yes Neurological History: No Pertinent History ENT History: No Pertinent History Cardiac History: No Pertinent History Respiratory History: CHF, COPD, Sleep Apnea Endocrine Medical History: No Pertinent History Musculoskeletal History: No Pertinent History GI Medical History: No Pertinent History History: No Pertinent History Psycho-Social History: No Pertinent History Male Reproductive Disorders: No Pertinent History Other Medical History: lower leg cellulitis - Past Surgical History Past Surgical History: No Neuro Surgical History: No Pertinent History Cardiac: No Pertinent History Respiratory: No Pertinent History Gastrointestinal: No Pertinent History Genitourinary: No Pertinent History Musculoskeletal: No Pertinent History Male Surgical History: No Pertinent History - Social History Smoking Status: Current every day smoker How long have you smoked: years Exposure to second hand smoke: Yes Drug Use: none Patient Lives Alone: No - Nursing Vital Signs Nursing Vital Signs: Initial Vital Signs Temperature 97.5 F 01/19/20 08:48 Pulse Rate 104 H 01/19/20 08:48 Respiratory Rate 20 01/19/20 08:48 Blood Pressure 125/75 01/19/20 08:48 O2 Sat by Pulse Oximetry 100 01/19/20 08:48 Pain Scale Pain Intensity 9 - Physical Exam General Appearance: no apparent distress, alert Eye Exam: PERRL/EOMI, eyes nml inspection Ears, Nose, Throat Exam: normal ENT inspection, TMs normal, pharynx normal, moist mucous membranes Neck Exam: normal inspection, non-tender, supple, full range of motion Respiratory Exam: normal breath sounds, lungs clear, No respiratory distress Cardiovascular Exam: regular rate/rhythm, normal heart sounds, normal peripheral pulses Gastrointestinal/Abdomen Exam: soft, normal bowel sounds, No tenderness, No mass Back Exam: normal inspection, normal range of motion, No CVA tenderness, No vertebral tenderness Extremity Exam: normal inspection, normal range of motion, pelvis stable Neurologic Exam: alert, oriented x 3, cooperative, normal mood/affect, nml cerebellar function, nml station & gait, sensation nml, No motor deficits Skin Exam: normal color, warm, dry, No rash Lymphatic Exam: No adenopathy SpO2 Interpretation: normal SpO2: 100 Comments: 01/19/20 09:30 No obvious deformity, sensation intact, 2+ capillary refill, 2 point tactile discrimination intact. 5 out of 5 strength. Full range of motion without pain. Compartments are soft, nontender. Overlying skin shows no tenting, bruising, ecchymosis. There is some bilateral redness. Patient also has healing ulcers. Overall it actually looks really good from my perspective. No signs of necrotizing fasciitis or gas. - Course Nursing assessment & vital signs reviewed: Yes - Progress Progress: improved Progress Note: 01/19/20 09:31 Overall the legs look well and improving. I will add on doxycycline to get broader coverage in case there is a component of MRSA to this. Patient was previously only on Keflex. I will also give patient Flexeril to help with some of the pain in the short-term. Overall, I do believe the going to pain management is the best course for this patient. She return here for any new or changing symptoms. Otherwise, patient is afebrile, not tachycardic in the room when I see him. He is not tachypneic. No other signs of sepsis or overwhelming infection. - Departure Departure Disposition: Home Clinical Impression: Bilateral leg pain Condition: Stable Critical Care Time: No Referrals: [facility] [Primary Care Provider] - Instructions: Cellulitis (Skin Infection), Adult (DC) Additional Instructions: Use Tylenol and ibuprofen every 4-6 hours take flexeril as prescribed stop smoking to promote wound healing use a rotation of hot and cold pack (not applied directly to skin) 20-30 mins on and 1 hour off Call PCP on Tuesday for wound reexam Prescriptions: Cyclobenzaprine HCl 10 mg [Flexeril 10 MG] 10 mg PO TID #12 tablet Doxycycline Hyclate 100 mg [Vibramycin 100 MG] 100 mg PO BID #14 tab
[2020-01-19 09:33] VITALS: BP 102/76; PULSE 115
== END 2020-01-19 09:33 | disposition home or self-care (01) ==
LOC: ED 08:37
DX: M79.605 Pain in left leg (principal); M79.604 Pain in right leg; Z79.899 Other long term (current) drug therapy; J44.9 Chronic obstructive pulmonary disease, unspecified; G47.30 Sleep apnea, unspecified; Z87.2 Personal history of diseases of the skin and subcutaneous tissue
CPT/HCPCS: 99283

== ENCOUNTER 2020-02-13 14:37 | Inpatient (IN) | payer MEDICARE ==
[2020-02-13] MEDS ORDERED: Zofran 4 MG/2 ML VIAL IV ONE (15:14)
[2020-02-13] MEDS ORDERED: Zosyn 3.375 GM Vial 3.375 GM in Sodium Chloride 100ML MINI-BAG PLUS 100 ML IV ONE (15:14)
[2020-02-13] MEDS ORDERED: MORPHINE SULFATE 4 MG INJ IV ONE ×2 (15:14→16:51)
[2020-02-13] MEDS ORDERED: VANCOMYCIN 2 GRAM/400 ML BAG 2 GM/400 ML PIGGYBACK IV ONE ×2 (15:15→15:42)
[2020-02-13] MEDS ORDERED: Sodium Chloride 100ML MINI-BAG PLUS 100 ML IV ONE (15:28)
[2020-02-13] MEDS ORDERED: Zosyn 3.375 GM Vial IV ONE (15:28)
[2020-02-13] MEDS ORDERED: Zofran 4 MG/2 ML VIAL ONE (15:28)
[2020-02-13] MEDS ORDERED: MORPHINE SULFATE 4 MG INJ ONE ×2 (15:28→16:55)
[2020-02-13] MEDS ORDERED: VANCOCIN 1 GM VIAL*** 1 GM in Sodium Chloride 0.9% 250 ML 250 ML IV SCH (15:30)
[2020-02-13 15:47] LABS: Absolute Neutrophil Ct (ANC) 8.42 (1.4-6.9); BASOPHIL % 0.2 % (0.0-0.4); Basophil (Absolute #) 0.02 (0-0.4); Eosinophil % 0.9 % (0.00-5.0); Eosinophil (Absolute #) 0.11 (0-0.5); Hematocrit 44.7 % (42-50); Hemoglobin 14.2 gm/dl (12.5-18.0); Lymphocyte (Absolute #) 1.82 (1.0-4.6); Lymphocytes % 15.4 % (24.0-44.0); Mean Cell Volume 101.8 fl (78-100); Mean Corpuscular Hemoglobin 32.3 pg (26-32); Mean Corpuscular Hgb Concent. 31.8 g/dl (32-36); Mean Platelet Volume 10.6 fl (7.5-11.0); Monocyte (Absolute #) 1.45 (0.0-1.3); Monocytes % 12.3 % (0.0-12.0); Neutrophil % 71.2 % (36.0-66.0); Platelet Count 269 K/mm3 (150-450); Red Blood Count 4.39 M/mm3 (4.1-5.6); Red Cell Distribution Width 14.8 % (11.5-14.0); White Blood Count 11.8 K/mm3 (4.0-10.5)
[2020-02-13 16:00] LABS: ALBUMIN 3.6 g/dL (3.5-5.0); ALKALINE PHOSPHATASE 69 U/L (38-126); ANION GAP 8.4 MEQ/L (5-15); BLOOD UREA NITROGEN 17 mg/dL (9-20); CHLORIDE 106 mmol/L (98-107); Calcium 9.1 mg/dL (8.4-10.2); Carbon Dioxide 30 mmol/L (22-30); Creatinine 1 0.92 mg/dL (0.66-1.25); EST GLOMERULAR FILTRATION RATE > 60.0 ML/MIN; Glucose 100 mg/dL (74-106); SGOT/AST 20 U/L (17-59); SGPT/ALT 14 U/L (0-50); SODIUM 141 mmol/L (137-145); Total Protein 6.1 g/dL (6.3-8.2)
--- NOTE | 2020-02-13 16:13 | ERPHSYRPT ---
- History of Present Illness Time Seen by Provider: 02/13/20 14:48 Source: patient Exam Limitations: no limitations Patient Subjective Stated Complaint: bilateral leg pain Triage Nursing Assessment: pt to ED c/o bilateral lower leg pain r/t cellulitis for unknown time. has been seen in ED and stayed in hospital mulitple times for this infection. pt sees wound clinic every week on but states his pain is worse when he leaves. "I just want to get it my way and stay here so I can get better antibiotics." rates 8/10 currently. legs are currently wrapped but are notably swollen. pt reports changing dressing at home BID. Physician History: 54 years old male with multiple medical problems including bilateral lower extremity swelling/venous stasis needing wrapping regularly presented in the ER with chief complaint of bilateral lower extremity pain and increasing swelling and redness for the last couple of weeks. He recently took some antibiotics but does not seem any improvement and is complaining of worsening weeping ulcer on the left lower extremity than the right. Complaining of dull aching to sharp pain in both legs 8/10 intensity without any significant aggravating or relieving factors. No swelling or redness is extending to both feet as well. No fever or chills reported. No history of DVT. Timing/Duration: week(s), gradual onset, worse Quality: painful Severity: moderate Location: extremities Possible Causes: no cause identified Associated Symptoms: change in skin texture, edema, rash Allergies/Adverse Reactions: No Known Drug Allergies Allergy (Verified 02/13/20 15:03) Home Medications: Albuterol Sulfate [Albuterol Sulfate Hfa] 2 puffs QID 11/19/19 [History] Alprazolam 0.5 mg [xanAX 0.5 MG] 1 ea TID 11/19/19 [History] Bumetanide 1 ea DAILY 11/19/19 [History] Levocetirizine Dihydrochloride 1 ea DAILY 11/19/19 [History] Prednisone 10 mg [Deltasone 10 mg] 1 ea DAILY 11/19/19 [History] Roflumilast [Daliresp] 1 ea DAILY 11/19/19 [History] Ipratropium/Albuterol Sulfate [Iprat-Albut 0.5-3(2.5) mg/3 ml] 1 ampul IH UD 11/23/19 [History] Fluticasone/Umeclidin/Vilanter [Trelegy Ellipta 100-62.5-25] 1 puff DAILY 12/12/19 [History] Hx Tetanus, Diphtheria Vaccination/Date Given: No Hx Influenza Vaccination/Date Given: No Hx Pneumococcal Vaccination/Date Given: No Immunizations Up to Date: No Travel Risk - International Travel Have you traveled outside of the country in past 3 weeks: No - Coronavirus Screening Are you exhibiting any of the following symptoms?: No Close contact with a COVID-19 positive Pt in past 14-21 Days: No - Review of Systems Constitutional: No Symptoms Eyes: No Symptoms Ears, Nose, & Throat: No Symptoms Respiratory: No Symptoms Cardiac: No Symptoms Abdominal/Gastrointestinal: No Symptoms Genitourinary Symptoms: No Symptoms Musculoskeletal: Myalgias Skin: Cellulitis, Induration, Rash, Skin Lesions Neurological: No Symptoms Psychological: No Symptoms Endocrine: No Symptoms Hematologic/Lymphatic: No Symptoms Immunological/Allergic: No Symptoms - Past Medical History Pertinent Past Medical History: Yes Neurological History: No Pertinent History ENT History: No Pertinent History Cardiac History: No Pertinent History Respiratory History: CHF, COPD, Sleep Apnea Endocrine Medical History: No Pertinent History Musculoskeletal History: No Pertinent History GI Medical History: No Pertinent History History: No Pertinent History Psycho-Social History: No Pertinent History Male Reproductive Disorders: No Pertinent History Other Medical History: chronic lower leg cellulitis. wears 3 L NC at all times - Past Surgical History Past Surgical History: No Neuro Surgical History: No Pertinent History Cardiac: No Pertinent History Respiratory: No Pertinent History Gastrointestinal: No Pertinent History Genitourinary: No Pertinent History Musculoskeletal: No Pertinent History Male Surgical History: No Pertinent History - Social History Smoking Status: Current every day smoker How long have you smoked: years Exposure to second hand smoke: Yes Drug Use: none Patient Lives Alone: No - Nursing Vital Signs Nursing Vital Signs: Initial Vital Signs Temperature 99 F 02/13/20 14:52 Pulse Rate 119 H 02/13/20 14:52 Respiratory Rate 22 02/13/20 14:52 Blood Pressure 116/75 02/13/20 14:52 O2 Sat by Pulse Oximetry 99 02/13/20 14:52 Pain Scale Pain Intensity 8 - Physical Exam General Appearance: no apparent distress, alert, anxiety Eye Exam: PERRL/EOMI, eyes nml inspection Ears, Nose, Throat Exam: normal ENT inspection, pharynx normal Neck Exam: normal inspection, full range of motion Respiratory Exam: normal breath sounds, chest tenderness Cardiovascular Exam: normal heart sounds, tachycardia Gastrointestinal/Abdomen Exam: soft, No tenderness Back Exam: normal inspection, normal range of motion Extremity Exam: inflammation, pedal edema, swelling, tenderness, other (Lateral lower extremity swelling erythema from knee down ulcer/skin break in the right anterior leg and skin break on the left leg circumferential with yellowish discharge standing the dressing. Warm and tender to touch. Intact movements at ankle and toes. Cap refill less than 3 seconds.) Neurologic Exam: alert, oriented x 3, cooperative SpO2 Interpretation: normal SpO2: 100 O2 Delivery: Room Air Ordered Tests: Active Orders 24 hr Category Date Time Status IV Insertion STAT Care 02/13/20 15:40 Active IV Insertion-2nd Peripheral STAT Care 02/13/20 15:40 Active BLOOD CULTURE Stat Lab 02/13/20 15:35 Received CBC W DIFF Stat Lab 02/13/20 15:35 Completed CMP Stat Lab 02/13/20 15:35 Completed CULTURE,WOUND Stat Lab 02/13/20 15:42 Received Lactic Acid Stat Lab 02/13/20 15:42 Completed Medication Summary Generic Name Dose Route Start Last Admin Trade Name Freq PRN Reason Stop Dose Admin Vancomycin HCl 1 gm/ Sodium 250 mls @ 125 mls/hr 02/13/20 15:30 Chloride IV 03/14/20 15:29 Q12H LIZETT Vancomycin HCl 2 gm in 400 mls @ 133.333 mls/hr 02/13/20 15:15 02/13/20 15:44 Vancomycin 2 Gram/400 Ml Bag IV 02/13/20 18:14 133.333 ml/hr STAT ONE 133.33 mls/hr Administration Discontinued Medications Generic Name Dose Route Start Last Admin Trade Name Freq PRN Reason Stop Dose Admin Piperacillin Sod/Tazobactam 100 mls @ 200 mls/hr 02/13/20 15:14 02/13/20 15:35 Sod 3.375 gm/ Sodium Chloride IV 02/13/20 15:43 200 mls/hr STAT ONE Administration Sodium Chloride Confirm 02/13/20 15:28 Sodium Chloride 100ml Mini-Bag Plus Administered 02/13/20 15:29 Dose 100 mls @ ud IV .STK-MED ONE Vancomycin HCl Confirm 02/13/20 15:42 Vancomycin 2 Gram/400 Ml Bag Administered 02/13/20 15:43 Dose 2 gm in 400 mls @ ud IV .STK-MED ONE Morphine Sulfate 4 mg 02/13/20 15:14 02/13/20 15:34 Morphine Sulfate 4 Mg Inj IV 02/13/20 15:15 4 mg STAT ONE Administration Morphine Sulfate Confirm 02/13/20 15:28 Morphine Sulfate 4 Mg Inj Administered 02/13/20 15:29 Dose 4 mg .ROUTE .STK-MED ONE Ondansetron HCl 4 mg 02/13/20 15:14 02/13/20 15:34 Zofran 4 Mg/2 Ml Vial IV 02/13/20 15:15 4 mg STAT ONE Administration Ondansetron HCl Confirm 02/13/20 15:28 Zofran 4 Mg/2 Ml Vial Administered 02/13/20 15:29 Dose 4 mg .ROUTE .STK-MED ONE Piperacillin Sod/Tazobactam Sod Confirm 02/13/20 15:28 Zosyn 3.375 Gm Vial Administered 02/13/20 15:29 Dose 3.375 gm IV .STK-MED ONE Lab/Rad Data: Laboratory Result Diagrams 02/13/20 15:35 02/13/20 15:35 Laboratory Results 02/13/20 02/13/20 02/13/20 Range/Units 15:42 15:35 15:35 WBC 11.8 H (4.0-10.5) K/mm3 RBC 4.39 (4.1-5.6) M/mm3 Hgb 14.2 (12.5-18.0) gm/dl Hct 44.7 (42-50) % MCV 101.8 H (78-100) fl MCH 32.3 H (26-32) pg MCHC 31.8 L (32-36) g/dl RDW 14.8 H (11.5-14.0) % Plt Count 269 (150-450) K/mm3 MPV 10.6 (7.5-11.0) fl Gran % 71.2 H (36.0-66.0) % Eos # (Auto) 0.11 (0-0.5) Absolute Lymphs (auto) 1.82 (1.0-4.6) Absolute Monos (auto) 1.45 H (0.0-1.3) Lymphocytes % 15.4 L (24.0-44.0) % Monocytes % 12.3 H (0.0-12.0) % Eosinophils % 0.9 (0.00-5.0) % Basophils % 0.2 (0.0-0.4) % Absolute Granulocytes 8.42 H (1.4-6.9) Basophils # 0.02 (0-0.4) Sodium 141 (137-145) mmol/L Potassium 4.0 (3.5-5.1) mmol/L Chloride 106 (98-107) mmol/L Carbon Dioxide 30 (22-30) mmol/L Anion Gap 8.4 (5-15) MEQ/L BUN 17 (9-20) mg/dL Creatinine 0.92 (0.66-1.25) mg/dL Estimated GFR > 60.0 ML/MIN Glucose 100 (74-106) mg/dL Lactic Acid 1.8 (0.4-2.0) Calcium 9.1 (8.4-10.2) mg/dL Total Bilirubin 0.30 (0.2-1.3) mg/dL AST 20 (17-59) U/L ALT 14 (0-50) U/L Alkaline Phosphatase 69 (38-126) U/L Serum Total Protein 6.1 L (6.3-8.2) g/dL Albumin 3.6 (3.5-5.0) g/dL - Progress Progress: unchanged Progress Note: 02/13/20 16:15 I believe patient has cellulitis and its worsening, involving both legs and es pecially on the left with circumferential loss of skin with exposed raw area. I have started him on broad-spectrum antibiotics. Discussed with Dr. Shearer and patient is admitted Discussed with .: Roby Will see patient in: hospital (observation) Counseled pt/family regarding: lab results, diagnosis - Departure Departure Disposition: Observation Clinical Impression: Cellulitis of both lower extremities Condition: Stable Critical Care Time: No Referrals: [facility] [Primary Care Provider] -
[2020-02-13] MEDS ORDERED: MORPHINE SULFATE 4 MG INJ IV PRN (17:34)
[2020-02-13] MEDS ORDERED: DUONEB 0.5-3 MG/3 ml Neb IH PRN (17:34)
[2020-02-13] MEDS ORDERED: HUMALOG SQ PRN (17:34)
[2020-02-13] MEDS ORDERED: Zofran 4 MG/2 ML VIAL IV PRN (17:34)
[2020-02-13] MEDS ORDERED: SUBLIMAZE 100 MCG/2 ML ONE (17:48)
[2020-02-13] MEDS ORDERED: NEURONTIN 300 MG ONE (17:48)
[2020-02-13] MEDS: SUBLIMAZE 100 MCG/2 ML IV PRN (17:51)
[2020-02-13] MEDS: NEURONTIN 300 MG PO SCH ×2 (17:51→21:33)
[2020-02-13] MEDS ORDERED: MEDICATION INTERVENTION MC SCH (18:45)
[2020-02-13] MEDS: DUONEB 0.5-3 MG/3 ml Neb IH SCH (19:12)
[2020-02-13] MEDS: Pepcid 20 MG VIAL IV SCH (21:33)
[2020-02-13] MEDS: Mirapex 0.5 MG Tablet PO SCH (21:33)
[2020-02-13] MEDS ORDERED: NON-FORMULARY ITEM (Pramipexole Di-Hcl [Mirapex] 1 MG) PO SCH (22:00)
[2020-02-13] MEDS ORDERED: PATIENT OWN MEDICATION IH PRN (22:29)
[2020-02-13] MEDS: Zosyn 3.375 GM Vial 3.375 GM in Sodium Chloride 100ML MINI-BAG PLUS 100 ML IV SCH (23:48)
[2020-02-14] MEDS: SUBLIMAZE 100 MCG/2 ML IV PRN ×4 (00:32→23:17)
[2020-02-14] MEDS: Zosyn 3.375 GM Vial 3.375 GM in Sodium Chloride 100ML MINI-BAG PLUS 100 ML IV SCH ×4 (05:04→23:18)
[2020-02-14 05:32] LABS: Absolute Neutrophil Ct (ANC) 4.49 (1.4-6.9); BASOPHIL % 0.3 % (0.0-0.4); Basophil (Absolute #) 0.02 (0-0.4); Eosinophil % 3.7 % (0.00-5.0); Eosinophil (Absolute #) 0.29 (0-0.5); Hematocrit 46.2 % (42-50); Hemoglobin 14.4 gm/dl (12.5-18.0); Lymphocyte (Absolute #) 1.89 (1.0-4.6); Lymphocytes % 24.4 % (24.0-44.0); Mean Cell Volume 104.3 fl (78-100); Mean Corpuscular Hemoglobin 32.5 pg (26-32); Mean Corpuscular Hgb Concent. 31.2 g/dl (32-36); Mean Platelet Volume 10.9 fl (7.5-11.0); Monocyte (Absolute #) 1.07 (0.0-1.3); Monocytes % 13.8 % (0.0-12.0); Neutrophil % 57.8 % (36.0-66.0); Platelet Count 234 K/mm3 (150-450); Red Blood Count 4.43 M/mm3 (4.1-5.6); Red Cell Distribution Width 14.8 % (11.5-14.0); White Blood Count 7.8 K/mm3 (4.0-10.5)
[2020-02-14 05:52] LABS: ALBUMIN 3.8 g/dL (3.5-5.0); ALKALINE PHOSPHATASE 66 U/L (38-126); ANION GAP 6.8 MEQ/L (5-15); BLOOD UREA NITROGEN 13 mg/dL (9-20); CHLORIDE 102 mmol/L (98-107); Calcium 9.4 mg/dL (8.4-10.2); Carbon Dioxide 32 mmol/L (22-30); Creatinine 1 0.84 mg/dL (0.66-1.25); EST GLOMERULAR FILTRATION RATE > 60.0 ML/MIN; Glucose 107 mg/dL (74-106); SGOT/AST 20 U/L (17-59); SGPT/ALT 14 U/L (0-50); SODIUM 137 mmol/L (137-145); Total Protein 6.3 g/dL (6.3-8.2)
[2020-02-14] MEDS: DUONEB 0.5-3 MG/3 ml Neb IH SCH ×4 (06:30→19:26)
[2020-02-14] MEDS: Advair Hfa 115/21 Common canister IH SCH ×2 (06:30→19:27)
--- NOTE | 2020-02-14 09:09 | PCM.HP ---
History of Present Illness - Chief Complaint Chief Complaint: CELLULITIS LOWER EXTREMITIES History of Present Illness: is a 54 years old male with multiple medical problems including bilateral lower extremity swelling/venous stasis needing wrapping regularly presented in the ER with chief complaint of bilateral lower extremity pain and increasing swelling and redness for the last couple of weeks. He recently took some antibiotics but does not seem any improvement and is complaining of worsening weeping ulcer on the left lower extremity than the right. Complaining of dull aching to sharp pain in both legs 8/10 intensity without any significant aggravating or relieving factors. No swelling or redness is extending to both feet as well. No fever or chills reported. No history of DVT. Timing/Duration: week(s), gradual onset, worse - Review of Systems Constitutional: No Fever, No Chills Eyes: No Symptoms Ears, Nose, & Throat: No Symptoms Respiratory: No Cough, No Short Of Breath Cardiac: No Chest Pain, No Edema, No Syncope Abdominal/Gastrointestinal: No Abdominal Pain, No Nausea, No Vomiting, No Diarrhea Genitourinary Symptoms: No Dysuria Musculoskeletal: No Back Pain, No Neck Pain Skin: Cellulitis, No Rash Neurological: No Dizziness, No Focal Weakness, No Sensory Changes Psychological: No Symptoms Endocrine: No Symptoms Hematologic/Lymphatic: No Symptoms Immunological/Allergic: No Symptoms Medications & Allergies Home Medications: Home Medication List Albuterol Sulfate [Albuterol Sulfate Hfa] 2 puffs QID 11/19/19 [History Confirmed 02/13/20] Alprazolam 0.5 mg [xanAX 0.5 MG] 0.5 mg PO TID PRN 11/19/19 [History Confirmed 02/13/20] Bumetanide 1 mg PO DAILY 11/19/19 [History Confirmed 02/13/20] Levocetirizine Dihydrochloride 5 mg PO DAILY 11/19/19 [History Confirmed 02/13/20] Prednisone 10 mg [Deltasone 10 mg] 10 mg PO DAILY 11/19/19 [History Confirmed 02/13/20] Roflumilast [Daliresp] 250 mcg PO DAILY 11/19/19 [History Confirmed 02/13/20] Ipratropium/Albuterol Sulfate [Iprat-Albut 0.5-3(2.5) mg/3 ml] 1 ampul IH QID 11/23/19 [History Confirmed 02/13/20] Fluticasone/Umeclidin/Vilanter [Trelegy Ellipta 100-62.5-25] 1 puff IH DAILY 12/12/19 [History Confirmed 02/13/20] Albuterol Sulfate [Proair Hfa] 8.5 gm IH QID 02/13/20 [History Confirmed 02/13/20] Aspirin 81 mg PO DAILY 02/13/20 [History Confirmed 02/13/20] Pramipexole Di-HCl [Mirapex] 1 mg PO HS 02/13/20 [History Confirmed 02/13/20] Tramadol HCl 50 mg [Ultram 50 mg] 50 mg PO Q12H PRN PRN 02/13/20 [History Confirmed 02/13/20] Allergies/Adverse Reactions: Allergies Allergy/AdvReac Type Severity Reaction Status Date / Time No Known Drug Allergies Allergy Verified 02/13/20 18:07 - Past Medical History Past Medical History: Yes Neurological History: No Pertinent History ENT History: No Pertinent History Cardiac History: No Pertinent History Respiratory History: CHF, COPD, Pneumonia, Sleep Apnea Endocrine Medical History: No Pertinent History Musculoskelatal History: No Pertinent History GI Medical History: No Pertinent History History: No Pertinent History Pyscho-Social History: No Pertinent History Male Reproductive Disorders: No Pertinent History Comment: chronic lower leg cellulitis. wears 3 L NC at all times - Past Surgical History Past Surgical History: No Neuro Surgical History: No Pertinent History Cardiac History: No Pertinent History Respiratory Surgery: No Pertinent History GI Surgical History: No Pertinent History Genitourinary Surgical Hx: No Pertinent History Musculskeletal Surgical Hx: No Pertinent History Male Surgical History: No Pertinent History - Social History Smoking Status: Current every day smoker How long have you smoked: years Exposure to second hand smoke: Yes Alcohol: None Drug Use: none - Physical Exam Vital Signs: Vital Signs - 24 hr Temp Pulse Resp BP Pulse Ox 02/14/20 07:10 97.6 F 69 22 130/73 99 02/14/20 06:39 80 18 99 02/14/20 04:00 98.4 F 70 20 127/83 100 02/14/20 00:00 97.7 F 75 16 133/80 98 02/13/20 19:50 98.3 F 107 H 19 120/75 96 02/13/20 19:12 99 H 21 96 02/13/20 18:01 98.1 F 116 H 16 139/81 98 02/13/20 17:00 108 H 22 106/74 98 02/13/20 16:16 100 02/13/20 16:00 112 H 20 107/66 99 02/13/20 15:42 112 H 19 113/70 100 02/13/20 14:52 99 F 119 H 22 116/75 99 Oxygen-Last 24 hours Oxygen Flowrate (L/min)-RT 3 General Appearance: no apparent distress, alert Neurologic Exam: alert, oriented x 3, cooperative, normal mood/affect, nml cerebellar function, nml station & gait, sensation nml, No motor deficits Eye Exam: PERRL/EOMI, eyes nml inspection Ears, Nose, Throat Exam: normal ENT inspection, TMs normal, pharynx normal, moist mucous membranes Neck Exam: normal inspection, non-tender, supple, full range of motion Respiratory Exam: normal breath sounds, lungs clear, No respiratory distress Cardiovascular Exam: regular rate/rhythm, normal heart sounds, normal peripheral pulses Gastrointestinal/Abdomen Exam: soft, normal bowel sounds, No tenderness, No mass Back Exam: normal inspection, normal range of motion, No CVA tenderness, No vertebral tenderness Extremity Exam: normal inspection, normal range of motion, pelvis stable Skin Exam: normal color, warm, dry, No rash Wound Assessment: Skin/Wound Assessment Wound/Incision Assessment Start: 02/13/20 18:33 Text: Status: Active Freq: Q6H Protocol: Document 02/14/20 08:00 EVA (Rec: 02/14/20 08:12 EVA [id number]) Wound/Incision Assessment Lower Other Wound Assessment Shift Assessment Wound Type CELLULITIS Wound Stage Non Pressure Wound Dressing Status Reinforced Drainage Amount Moderate Drainage Description Yellow Drainage Odor None/Absent Surrounding Tissue Bright Red Comment BILATERAL LOWER LEGS, DRESSINGS INTACT, YELLOW DRAINAGE NOTED, MORE FROM THE LEFT LEG, TOWELS PLACED UNDER DRESSING UNTIL PHYSICAL THERAPY CAN EVAL PT Right Lower Anterior Other Wound Assessment Shift Assessment Wound Type ULCERATION Wound Stage Non Pressure Wound Dressing Status Reinforced Drainage Amount Minimal Drainage Description Yellow Comment DRESSING INTACT, OLD YELLWO DRAINAGE NOTED Right Lower Posterior Other Wound Type ULCERATION Wound Stage Non Pressure Wound Dressing Status Reinforced Drainage Amount Minimal Drainage Description Yellow Comment DRESSING IN PLACE, OLD YELLOW DRAINAGE NOTED Left Lower Posterior Other Wound Assessment Shift Assessment Wound Type ULCERATION Wound Stage Non Pressure Wound Dressing Status Reinforced Drainage Amount Large Drainage Description Yellow Surrounding Tissue Bright Red Comment DRESSING INTACT, OLD AND NEW YELLOW DRAINGE NOTED, TOWEL PLACED UNDER LEG UNTIL PHYSICAL THERAPY CAN EVAL PT Lymphatic Exam: No adenopathy Results - Labs Lab/Micro Results: Lab Results-Last 24 Hours 02/13/20 02/13/20 02/13/20 Range/Units 15:35 15:35 15:42 WBC 11.8 H (4.0-10.5) K/mm3 RBC 4.39 (4.1-5.6) M/mm3 Hgb 14.2 (12.5-18.0) gm/dl Hct 44.7 (42-50) % MCV 101.8 H (78-100) fl MCH 32.3 H (26-32) pg MCHC 31.8 L (32-36) g/dl RDW 14.8 H (11.5-14.0) % Plt Count 269 (150-450) K/mm3 MPV 10.6 (7.5-11.0) fl Gran % 71.2 H (36.0-66.0) % Eos # (Auto) 0.11 (0-0.5) Absolute Lymphs (auto) 1.82 (1.0-4.6) Absolute Monos (auto) 1.45 H (0.0-1.3) Lymphocytes % 15.4 L (24.0-44.0) % Monocytes % 12.3 H (0.0-12.0) % Eosinophils % 0.9 (0.00-5.0) % Basophils % 0.2 (0.0-0.4) % Absolute Granulocytes 8.42 H (1.4-6.9) Basophils # 0.02 (0-0.4) Sodium 141 (137-145) mmol/L Potassium 4.0 (3.5-5.1) mmol/L Chloride 106 (98-107) mmol/L Carbon Dioxide 30 (22-30) mmol/L Anion Gap 8.4 (5-15) MEQ/L BUN 17 (9-20) mg/dL Creatinine 0.92 (0.66-1.25) mg/dL Estimated GFR > 60.0 ML/MIN Glucose 100 (74-106) mg/dL POC Glucometer (74 to 106) mg/dL Lactic Acid 1.8 (0.4-2.0) Calcium 9.1 (8.4-10.2) mg/dL Total Bilirubin 0.30 (0.2-1.3) mg/dL AST 20 (17-59) U/L ALT 14 (0-50) U/L Alkaline Phosphatase 69 (38-126) U/L Serum Total Protein 6.1 L (6.3-8.2) g/dL Albumin 3.6 (3.5-5.0) g/dL 02/13/20 02/14/20 02/14/20 Range/Units 20:25 04:52 04:52 WBC 7.8 (4.0-10.5) K/mm3 RBC 4.43 (4.1-5.6) M/mm3 Hgb 14.4 (12.5-18.0) gm/dl Hct 46.2 (42-50) % MCV 104.3 H (78-100) fl MCH 32.5 H (26-32) pg MCHC 31.2 L (32-36) g/dl RDW 14.8 H (11.5-14.0) % Plt Count 234 (150-450) K/mm3 MPV 10.9 (7.5-11.0) fl Gran % 57.8 (36.0-66.0) % Eos # (Auto) 0.29 (0-0.5) Absolute Lymphs (auto) 1.89 (1.0-4.6) Absolute Monos (auto) 1.07 (0.0-1.3) Lymphocytes % 24.4 (24.0-44.0) % Monocytes % 13.8 H (0.0-12.0) % Eosinophils % 3.7 (0.00-5.0) % Basophils % 0.3 (0.0-0.4) % Absolute Granulocytes 4.49 (1.4-6.9) Basophils # 0.02 (0-0.4) Sodium 137 (137-145) mmol/L Potassium 4.0 (3.5-5.1) mmol/L Chloride 102 (98-107) mmol/L Carbon Dioxide 32 H (22-30) mmol/L Anion Gap 6.8 (5-15) MEQ/L BUN 13 (9-20) mg/dL Creatinine 0.84 (0.66-1.25) mg/dL Estimated GFR > 60.0 ML/MIN Glucose 107 H (74-106) mg/dL POC Glucometer 101 (74 to 106) mg/dL Lactic Acid (0.4-2.0) Calcium 9.4 (8.4-10.2) mg/dL Total Bilirubin 0.50 (0.2-1.3) mg/dL AST 20 (17-59) U/L ALT 14 (0-50) U/L Alkaline Phosphatase 66 (38-126) U/L Serum Total Protein 6.3 (6.3-8.2) g/dL Albumin 3.8 (3.5-5.0) g/dL 02/14/20 Range/Units 06:28 WBC (4.0-10.5) K/mm3 RBC (4.1-5.6) M/mm3 Hgb (12.5-18.0) gm/dl Hct (42-50) % MCV (78-100) fl MCH (26-32) pg MCHC (32-36) g/dl RDW (11.5-14.0) % Plt Count (150-450) K/mm3 MPV (7.5-11.0) fl Gran % (36.0-66.0) % Eos # (Auto) (0-0.5) Absolute Lymphs (auto) (1.0-4.6) Absolute Monos (auto) (0.0-1.3) Lymphocytes % (24.0-44.0) % Monocytes % (0.0-12.0) % Eosinophils % (0.00-5.0) % Basophils % (0.0-0.4) % Absolute Granulocytes (1.4-6.9) Basophils # (0-0.4) Sodium (137-145) mmol/L Potassium (3.5-5.1) mmol/L Chloride (98-107) mmol/L Carbon Dioxide (22-30) mmol/L Anion Gap (5-15) MEQ/L BUN (9-20) mg/dL Creatinine (0.66-1.25) mg/dL Estimated GFR ML/MIN Glucose (74-106) mg/dL POC Glucometer 103 (74 to 106) mg/dL Lactic Acid (0.4-2.0) Calcium (8.4-10.2) mg/dL Total Bilirubin (0.2-1.3) mg/dL AST (17-59) U/L ALT (0-50) U/L Alkaline Phosphatase (38-126) U/L Serum Total Protein (6.3-8.2) g/dL Albumin (3.5-5.0) g/dL Accuchecks Date 02/14/20 Date 02/13/20 Time 06:28 Time 22:00 - Other Procedures and Tests Respiratory Therapy 02/13/20 22:28 Respiratory MDI BID 02/13/20 22:30 Oxygen Nasal Cannula 3 lpm Respiratory Therapy Assessment DAILY Assessment/Plan (1) Cellulitis of both lower extremities Current Visit: Yes Status: Acute Assessment & Plan: Chief Complaint Diagnosis CELLULITIS LOWER EXTREMITIES Allergies Allergy/AdvReac Type Severity Reaction Status Date / Time No Known Drug Allergies Allergy Verified 02/13/20 18:07 Vital Signs (Last 24 hours) Temp Pulse Resp BP Pulse Ox 02/14/20 07:10 97.6 F 69 22 130/73 99 02/14/20 06:39 80 18 99 02/14/20 04:00 98.4 F 70 20 127/83 100 02/14/20 00:00 97.7 F 75 16 133/80 98 02/13/20 19:50 98.3 F 107 H 19 120/75 96 02/13/20 19:12 99 H 21 96 02/13/20 18:01 98.1 F 116 H 16 139/81 98 02/13/20 17:00 108 H 22 106/74 98 02/13/20 16:16 100 02/13/20 16:00 112 H 20 107/66 99 02/13/20 15:42 112 H 19 113/70 100 02/13/20 14:52 99 F 119 H 22 116/75 99 Home Medications Medication Instructions Recorded Confirmed Last Taken Type Albuterol Sulfate [Proair Hfa] 8.5 gm IH QID 02/13/20 02/13/20 02/13/20 History Aspirin 81 mg PO DAILY 02/13/20 02/13/20 02/13/20 History Pramipexole Di-HCl [Mirapex] 1 mg PO HS 02/13/20 02/13/20 02/12/20 History Tramadol HCl 50 mg [Ultram 50 50 mg PO Q12H PRN PRN 02/13/20 02/13/20 02/13/20 History mg] Current Medications Generic Name Dose Route Start Last Admin Trade Name Freq PRN Reason Stop Dose Admin Acetaminophen 650 mg 02/13/20 17:34 Tylenol 325 Mg PO 03/14/20 17:33 Q4H PRN PRN PAIN AND/OR FEVER Albuterol/Ipratropium 3 ml 02/13/20 19:00 02/14/20 06:30 Duoneb 0.5-3 Mg/3 Ml Neb IH 03/14/20 18:59 3 ml QIDRT LIZETT Administration Alprazolam 0.5 mg 02/13/20 18:23 Xanax 0.5 Mg PO 03/14/20 18:22 TID PRN PRN ANXIETY Aspirin 81 mg 02/14/20 10:00 Ecotrin 81 Mg PO 03/15/20 09:59 DAILY LIZETT Bumetanide 1 mg 02/14/20 10:00 Bumex 1 Mg PO 03/15/20 09:59 DAILY LIZETT Famotidine 20 mg 02/13/20 22:00 02/13/20 21:33 Pepcid 20 Mg Vial IV 03/14/20 21:59 20 mg Q12HT LIZETT Administration Fentanyl Citrate 50 mcg 02/13/20 17:42 02/14/20 00:32 Sublimaze 100 Mcg/2 Ml IV 02/18/20 17:41 50 mcg Q6HPRN PRN Administration PAIN AND/OR FEVER Gabapentin 600 mg 02/13/20 18:00 02/13/20 21:33 Neurontin 300 Mg PO 03/14/20 17:59 600 mg TID LIZETT Administration Piperacillin Sod/Tazobactam 100 mls @ 200 mls/hr 02/14/20 00:00 02/14/20 05:04 Sod 3.375 gm/ Sodium Chloride IV 03/15/20 00:00 200 mls/hr Q6HT LIZETT Administration Insulin Human Lispro 0 unit 02/13/20 17:34 Humalog SQ 03/14/20 17:33 UD PRN HYPERGLYCEMIA Loratadine 10 mg 02/14/20 10:00 Claritin 10 Mg PO 03/15/20 09:59 DAILY LIZETT Ondansetron HCl 4 mg 02/13/20 17:34 Zofran 4 Mg/2 Ml Vial IV 03/14/20 17:33 Q6H PRN PRN NAUSEA/VOMITING Albuterol Mdi 2 each 02/13/20 22:29 IH 03/14/20 22:28 Q4HPRN PRN SHORTNESS OF BREATH/WHEEZING Pramipexole Dihydrochloride 1 mg 02/13/20 22:00 02/13/20 21:33 Mirapex 0.5 Mg Tablet PO 03/14/20 21:59 1 mg HS LIZETT Administration Prednisone 10 mg 02/14/20 10:00 Deltasone 10 Mg PO 03/15/20 09:59 DAILY LIZETT Roflumilast 250 mcg 02/14/20 10:00 Daliresp PO 03/15/20 09:59 DAILY LIZETT Fluticasone/Salmeterol 2 puff 02/14/20 07:00 02/14/20 06:30 Advair Hfa 115/21 Common Canister* IH 03/15/20 06:59 2 puff BIDRT LIZETT Administration Tramadol HCl 50 mg 02/13/20 18:23 Ultram 50 Mg PO 03/14/20 18:22 Q12H PRN PRN PAIN Discontinued Medications Generic Name Dose Route Start Last Admin Trade Name Freq PRN Reason Stop Dose Admin Albuterol/Ipratropium 3 ml 02/13/20 17:34 Duoneb 0.5-3 Mg/3 Ml Neb IH 03/14/20 17:33 Q4HPRN PRN SHORTNESS OF BREATH/WHEEZING Fentanyl Citrate Confirm 02/13/20 17:48 Sublimaze 100 Mcg/2 Ml Administered 02/13/20 17:49 Dose 100 mcg .ROUTE .STK-MED ONE Gabapentin Confirm 02/13/20 17:48 Neurontin 300 Mg Administered 02/13/20 17:49 Dose 600 mg .ROUTE .STK-MED ONE Vancomycin HCl 1 gm/ Sodium 250 mls @ 125 mls/hr 02/13/20 15:30 02/13/20 18:39 Chloride IV 03/14/20 15:29 Not Given Q12H LIZETT Piperacillin Sod/Tazobactam 100 mls @ 200 mls/hr 02/13/20 15:14 02/13/20 15:35 Sod 3.375 gm/ Sodium Chloride IV 02/13/20 15:43 200 mls/hr STAT ONE Administration Vancomycin HCl 2 gm in 400 mls @ 133.333 mls/hr 02/13/20 15:15 02/13/20 15:44 Vancomycin 2 Gram/400 Ml Bag IV 02/13/20 18:14 133.333 ml/hr STAT ONE 133.33 mls/hr Administration Sodium Chloride Confirm 02/13/20 15:28 Sodium Chloride 100ml Mini-Bag Plus Administered 02/13/20 15:29 Dose 100 mls @ ud IV .STK-MED ONE Vancomycin HCl Confirm 02/13/20 15:42 Vancomycin 2 Gram/400 Ml Bag Administered 02/13/20 15:43 Dose 2 gm in 400 mls @ ud IV .STK-MED ONE Miscellaneous Information 0 each 02/13/20 18:45 Medication Intervention MC 03/14/20 18:44 .RN TO CHECK WITH RT LIZETT Morphine Sulfate 4 mg 02/13/20 15:14 02/13/20 15:34 Morphine Sulfate 4 Mg Inj IV 02/13/20 15:15 4 mg STAT ONE Administration Morphine Sulfate Confirm 02/13/20 15:28 Morphine Sulfate 4 Mg Inj Administered 02/13/20 15:29 Dose 4 mg .ROUTE .STK-MED ONE Morphine Sulfate 4 mg 02/13/20 16:51 02/13/20 16:56 Morphine Sulfate 4 Mg Inj IV 02/13/20 16:52 4 mg STAT ONE Administration Morphine Sulfate Confirm 02/13/20 16:55 Morphine Sulfate 4 Mg Inj Administered 02/13/20 16:56 Dose 4 mg .ROUTE .STK-MED ONE Morphine Sulfate 4 mg 02/13/20 17:34 Morphine Sulfate 4 Mg Inj IV 02/18/20 17:33 Q4H PRN PRN PAIN Ondansetron HCl 4 mg 02/13/20 15:14 02/13/20 15:34 Zofran 4 Mg/2 Ml Vial IV 02/13/20 15:15 4 mg STAT ONE Administration Ondansetron HCl Confirm 02/13/20 15:28 Zofran 4 Mg/2 Ml Vial Administered 02/13/20 15:29 Dose 4 mg .ROUTE .STK-MED ONE Piperacillin Sod/Tazobactam Sod Confirm 02/13/20 15:28 Zosyn 3.375 Gm Vial Administered 02/13/20 15:29 Dose 3.375 gm IV .STK-MED ONE Intake & Output (Last 24 hours) 02/11/20 02/12/20 02/13/20 02/14/20 11:59 11:59 11:59 11:59 Intake Total 2497 Output Total 600 Balance 1897 Weight 109.8 kg Microbiology Results (Last 24 hours) 02/13/20 15:35 Blood Blood Culture Gram Stain - Pending 02/13/20 15:35 Blood Blood Culture - Pending 02/13/20 15:35 Blood Blood Culture Gram Stain - Pending 02/13/20 15:35 Blood Blood Culture - Pending 02/13/20 15:42 Leg - Left Lower Wound Culture - Pending Laboratory Results (Last 24 hours) 02/14/20 02/14/20 02/14/20 06:28 04:52 04:52 WBC 7.8 RBC 4.43 Hgb 14.4 Hct 46.2 MCV 104.3 H MCH 32.5 H MCHC 31.2 L RDW 14.8 H Plt Count 234 MPV 10.9 Gran % 57.8 Eos # (Auto) 0.29 Absolute Lymphs (auto) 1.89 Absolute Monos (auto) 1.07 Lymphocytes % 24.4 Monocytes % 13.8 H Eosinophils % 3.7 Basophils % 0.3 Absolute Granulocytes 4.49 Basophils # 0.02 Sodium 137 Potassium 4.0 Chloride 102 Carbon Dioxide 32 H Anion Gap 6.8 BUN 13 Creatinine 0.84 Estimated GFR > 60.0 Glucose 107 H POC Glucometer 103 Lactic Acid Calcium 9.4 Total Bilirubin 0.50 AST 20 ALT 14 Alkaline Phosphatase 66 Serum Total Protein 6.3 Albumin 3.8 02/13/20 02/13/20 02/13/20 20:25 15:42 15:35 WBC RBC Hgb Hct MCV MCH MCHC RDW Plt Count MPV Gran % Eos # (Auto) Absolute Lymphs (auto) Absolute Monos (auto) Lymphocytes % Monocytes % Eosinophils % Basophils % Absolute Granulocytes Basophils # Sodium 141 Potassium 4.0 Chloride 106 Carbon Dioxide 30 Anion Gap 8.4 BUN 17 Creatinine 0.92 Estimated GFR > 60.0 Glucose 100 POC Glucometer 101 Lactic Acid 1.8 Calcium 9.1 Total Bilirubin 0.30 AST 20 ALT 14 Alkaline Phosphatase 69 Serum Total Protein 6.1 L Albumin 3.6 02/13/20 15:35 WBC 11.8 H RBC 4.39 Hgb 14.2 Hct 44.7 MCV 101.8 H MCH 32.3 H MCHC 31.8 L RDW 14.8 H Plt Count 269 MPV 10.6 Gran % 71.2 H Eos # (Auto) 0.11 Absolute Lymphs (auto) 1.82 Absolute Monos (auto) 1.45 H Lymphocytes % 15.4 L Monocytes % 12.3 H Eosinophils % 0.9 Basophils % 0.2 Absolute Granulocytes 8.42 H Basophils # 0.02 Sodium Potassium Chloride Carbon Dioxide Anion Gap BUN Creatinine Estimated GFR Glucose POC Glucometer Lactic Acid Calcium Total Bilirubin AST ALT Alkaline Phosphatase Serum Total Protein Albumin Orders (Last 24 hours) Category Date Time Status Bedrest with BRP/BSC ROUTINE Activity 02/13/20 17:34 Active Up With Assistance ROUTINE Activity 02/13/20 17:34 Active Code Status Order ROUTINE Care 02/13/20 17:34 Active Fall Protocol Q1H Care 02/13/20 17:34 Active IV Care Q6H Care 02/13/20 17:34 Active IV Insertion STAT Care 02/13/20 15:40 Completed IV Insertion-2nd Peripheral STAT Care 02/13/20 15:40 Completed Oxygen-ED Only Nasal Cannula 3 lpm Care 02/13/20 17:20 Completed POCT Glucose Check ACHS Care 02/13/20 17:[address] in Observation ROUTINE Care 02/13/20 17:34 Active Amina Samson ROUTINE Care 02/13/20 17:34 Active Weight,Daily 0600 Care 02/13/20 17:34 Active 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 ROUTINE Cons 02/13/20 18:33 Active House Regular Diet Diet 02/13/20 Dinner Active Nutritional Admission Screen ONCE Diet 02/13/20 18:33 Active BLOOD CULTURE Stat Lab 02/13/20 15:35 Received CBC W DIFF AM.LAB Lab 02/14/20 04:52 Completed CBC W DIFF Stat Lab 02/13/20 15:35 Completed CMP AM.LAB Lab 02/14/20 04:52 Completed CMP Stat Lab 02/13/20 15:35 Completed CULTURE,WOUND Stat Lab 02/13/20 15:42 Received Lactic Acid Stat Lab 02/13/20 15:42 Completed POCT GLUCOSE Stat Lab 02/13/20 20:25 Completed POCT GLUCOSE Stat Lab 02/14/20 06:28 Completed Acetaminophen 325 mg [Tylenol 325 mg] Med 02/13/20 17:34 Active 650 mg PO Q4H PRN PRN Albuterol/Ipratropium 3ml Neb* [DUONEB 0.5-3 MG/3 ml Med 02/13/20 17:34 Discontinued Neb] 3 ml IH Q4HPRN PRN Albuterol/Ipratropium 3ml Neb* [DUONEB 0.5-3 MG/3 ml Med 02/13/20 19:00 Active Neb] 3 ml IH QIDRT Alprazolam 0.5 mg [xanAX 0.5 MG] Med 02/13/20 18:23 Active 0.5 mg PO TID PRN PRN Aspirin EC 81 mg [Ecotrin 81 mg] Med 02/14/20 10:00 Active 81 mg PO DAILY Bumetanide 1 mg [Bumex 1 mg] Med 02/14/20 10:00 Active 1 mg PO DAILY Famotidine 20 mg Vial [Pepcid 20 MG VIAL] Med 02/13/20 22:00 Active 20 mg IV Q12HT Fentanyl Citrate 100 Mcg/2 ml* [Sublimaze 100 Mcg/2 ml* Med 02/13/20 17:48 Discontinued ] 100 mcg .ROUTE .STK-MED ONE Fentanyl Citrate 100 Mcg/2 ml* [Sublimaze 100 Mcg/2 ml* Med 02/13/20 17:42 Active ] 50 mcg IV Q6HPRN PRN Fluticasone/Salmeterol 115/21 [Advair Hfa 115/21 Common Med 02/14/20 07:00 Active canister*] 2 puff IH BIDRT Gabapentin 300 mg [Neurontin 300 mg] Med 02/13/20 17:48 Discontinued 600 mg .ROUTE .STK-MED ONE Gabapentin 300 mg [Neurontin 300 mg] Med 02/13/20 18:00 Active 600 mg PO TID Insulin Lispro [Humalog] Med 02/13/20 17:34 Active See Dose Instructions SQ UD PRN Loratadine 10 mg [Claritin 10 mg] Med 02/14/20 10:00 Active 10 mg PO DAILY Medication Intervention Med 02/13/20 18:45 Discontinued 0 each MC .RN TO CHECK WITH RT Morphine Sulfate 4 mg Inj Med 02/13/20 15:28 Discontinued 4 mg .ROUTE .STK-MED ONE Morphine Sulfate 4 mg Inj Med 02/13/20 16:55 Discontinued 4 mg .ROUTE .STK-MED ONE Morphine Sulfate 4 mg Inj Med 02/13/20 17:34 Discontinued 4 mg IV Q4H PRN PRN Morphine Sulfate 4 mg Inj Med 02/13/20 15:14 Discontinued 4 mg IV STAT ONE Morphine Sulfate 4 mg Inj Med 02/13/20 16:51 Discontinued 4 mg IV STAT ONE NaCl 0.9% 100 ml Mini-Bag Plus [Sodium Chloride 100ML Med 02/13/20 15:28 Discontinued MINI-BAG PLUS] 100 ml IV UD Ondansetron HCl 4 mg/2 ml [Zofran 4 MG/2 ML VIAL] Med 02/13/20 15:28 Discontinued 4 mg .ROUTE .STK-MED ONE Ondansetron HCl 4 mg/2 ml [Zofran 4 MG/2 ML VIAL] Med 02/13/20 17:34 Active 4 mg IV Q6H PRN PRN Ondansetron HCl 4 mg/2 ml [Zofran 4 MG/2 ML VIAL] Med 02/13/20 15:14 Discontinued 4 mg IV STAT ONE Patient Own Med [Patient Own Medication] Med 02/13/20 22:29 Active 2 each IH Q4HPRN PRN Piperacillin/Tazobactam 3.375G [Zosyn 3.375 GM Vial] Med 02/13/20 15:28 Discontinued 3.375 gm IV .STK-MED ONE Piperacillin/Tazobactam 3.375G [Zosyn 3.375 GM Vial] 3. Med 02/14/20 00:00 Active 375 gm NaCl 0.9% 100 ml Mini-Bag Plus [Sodium Chloride 100ML MINI-BAG PLUS] 100 ml IV Q6HT Piperacillin/Tazobactam 3.375G [Zosyn 3.375 GM Vial] 3. Med 02/13/20 15:14 Discontinued 375 gm NaCl 0.9% 100 ml Mini-Bag Plus [Sodium Chloride 100ML MINI-BAG PLUS] 100 ml IV STAT Pramipexole Di-HCl 0.5 mg [Mirapex 0.5 MG Tablet] Med 02/13/20 22:00 Active 1 mg PO HS Prednisone 10 mg [Deltasone 10 mg] Med 02/14/20 10:00 Active 10 mg PO DAILY Roflumilast [Daliresp] Med 02/14/20 10:00 Active 250 mcg PO DAILY Tramadol HCl 50 mg [Ultram 50 mg] Med 02/13/20 18:23 Active 50 mg PO Q12H PRN PRN Vancomycin HCl 1 gm Inj [Vancocin 1 gm Vial] 1 gm Med 02/13/20 15:30 Discontinued NaCl 0.9% 250 ml [Sodium Chloride 0.9% 250 ML] 250 ml IV Q12H Vancomycin/Water For Inj (Peg) [Vancomycin 2 Gram/400 Med 02/13/20 15:15 Discontinued ml Bag] 2 gm in 400 ml IV STAT Vancomycin/Water For Inj (Peg) [Vancomycin 2 Gram/400 Med 02/13/20 15:42 Discontinued ml Bag] 2 gm in 400 ml IV UD OT Screen per Nursing Assess ONCE OT 02/13/20 18:33 Active PT Screen per Nursing Assess ONCE PT 02/13/20 18:33 Active Oxygen Nasal Cannula 3 lpm RT 02/13/20 22:30 Active Pulse Oximetry .spot check RT 02/13/20 22:30 Active RT Screen per Nursing Assess ONCE RT 02/13/20 18:33 Completed Respiratory MDI BID RT 02/13/20 22:28 Active Respiratory Therapy Assessment DAILY RT 02/13/20 22:30 Active Smoking Cessation Education ONCE RT 02/13/20 18:33 Completed Patient Care Notes (Last 24 hours) 02/14/20 05:08 Nursing Note by Shanita Cancino Upon chart review, pt's admission order stated admit to Med Surg Telemetry Obs. Telemetry was not placed on patient. Upon advising pt of order for telemetry, he questioned why he needed it and stated he wanted the nurse to check with Dr. Shearer this morning to see if he really needs to have it, due to being here for cellulitis. Will pass on in report to dayshift to check with Dr. Shearer Initialized on 02/14/20 05:08 - END OF NOTE Code(s): L03.115 - CELLULITIS OF RIGHT LOWER LIMB; L03.116 - CELLULITIS OF LEFT LOWER LIMB (2) COPD (chronic obstructive pulmonary disease) Current Visit: No Status: Acute (3) COPD exacerbation Current Visit: No Status: Resolved Code(s): J44.1 - CHRONIC OBSTRUCTIVE PULMONARY DISEASE W (ACUTE) EXACERBATION
[2020-02-14] MEDS ORDERED: PHARMACY DOSING REQUIRED: VANCOMYCIN IV STA (09:11)
[2020-02-14] MEDS ORDERED: ROFLUMILAST 250 MCG PO SCH (10:00)
[2020-02-14] MEDS ORDERED: NON-FORMULARY ITEM (Levocetirizine Dihydrochloride [Levocetirizine Dihydrochloride] 5 MG) PO SCH (10:00)
[2020-02-14] MEDS ORDERED: NON-FORMULARY ITEM (Aspirin [Aspirin] 81 MG) PO SCH (10:00)
[2020-02-14] MEDS ORDERED: NON-FORMULARY ITEM (Fluticasone/Umeclidin/Vilanter [Trelegy Ellipta 100-62.5-25] 1 PUFF) IH SCH (10:00)
[2020-02-14] MEDS: Pepcid 20 MG VIAL IV SCH ×2 (10:09→19:59)
[2020-02-14] MEDS: ECOTRIN 81 MG PO SCH (10:09)
[2020-02-14] MEDS: NEURONTIN 300 MG PO SCH ×3 (10:09→19:57)
[2020-02-14] MEDS: BUMEX 1 MG PO SCH (10:10)
[2020-02-14] MEDS: CLARITIN 10 MG PO SCH (10:11)
[2020-02-14] MEDS: DELTASONE 10 MG PO SCH (10:12)
[2020-02-14] MEDS: DALIRESP PO SCH (10:12)
[2020-02-14] MEDS: VANCOMYCIN 1.25 GM/250 ML BAG 1.25 GM/250 ML PIGGYBACK IV SCH ×2 (10:37→21:41)
--- NOTE | 2020-02-14 16:37 | PCM.CONS ---
Podiatry HPI - Consult Date of Consultation Date: 02/13/20 Reason for Consult: Bilateral venous stasis wounds, cellulitis Consulting Provider: BEATRICE TRAN DPM - [facility] History of Present Illness: Mr. Gibbs is a very pleasant 54-year-old male who who presented to the emergency room for IV antibiotics and treatment for the bilateral lower extremity wounds that have been treated by the wound care center here at [facility].He was consulted to my service for the same issue Patient was advised to follow up due to the concern for cellulitis to the bilateral lower extremity and an increase in drainage for IV antibiotics with admission for inpatient. Currently denies any constitutional symptoms of infection however on admission he had a white blood cell count of 12. At this time he has normalized. Vital signs are stable. He denies any other pedal complaints at this time Medications & Allergies Home Medications: Home Medication List Albuterol Sulfate [Albuterol Sulfate Hfa] 2 puffs QID 11/19/19 [History Confirmed 02/13/20] Alprazolam 0.5 mg [xanAX 0.5 MG] 0.5 mg PO TID PRN 11/19/19 [History Confirmed 02/13/20] Bumetanide 1 mg PO DAILY 11/19/19 [History Confirmed 02/13/20] Levocetirizine Dihydrochloride 5 mg PO DAILY 11/19/19 [History Confirmed 02/13/20] Prednisone 10 mg [Deltasone 10 mg] 10 mg PO DAILY 11/19/19 [History Confir med 02/13/20] Roflumilast [Daliresp] 250 mcg PO DAILY 11/19/19 [History Confirmed 02/13/20] Ipratropium/Albuterol Sulfate [Iprat-Albut 0.5-3(2.5) mg/3 ml] 1 ampul IH QID 11/23/19 [History Confirmed 02/13/20] Fluticasone/Umeclidin/Vilanter [Trelegy Ellipta 100-62.5-25] 1 puff IH DAILY 12/12/19 [History Confirmed 02/13/20] Albuterol Sulfate [Proair Hfa] 8.5 gm IH QID 02/13/20 [History Confirmed 05/03] Aspirin 81 mg PO DAILY 02/13/20 [History Confirmed 02/13/20] Pramipexole Di-HCl [Mirapex] 1 mg PO HS 02/13/20 [History Confirmed 02/13/20] Tramadol HCl 50 mg [Ultram 50 mg] 50 mg PO Q12H PRN PRN 02/13/20 [History Confirmed 02/13/20] Allergies/Adverse Reactions: Allergies Allergy/AdvReac Type Severity Reaction Status Date / Time No Known Drug Allergies Allergy Verified 02/13/20 18:07 - Past Medical History Past Medical History: Yes Neurological History: No Pertinent History ENT History: No Pertinent History Cardiac History: No Pertinent History Respiratory History: CHF, COPD, Pneumonia, Sleep Apnea Endocrine Medical History: No Pertinent History Musculoskelatal History: No Pertinent History GI Medical History: No Pertinent History History: No Pertinent History Pyscho-Social History: No Pertinent History Male Reproductive Disorders: No Pertinent History Comment: chronic lower leg cellulitis. wears 3 L NC at all times - Past Surgical History Past Surgical History: No Neuro Surgical History: No Pertinent History Cardiac History: No Pertinent History Respiratory Surgery: No Pertinent History GI Surgical History: No Pertinent History Genitourinary Surgical Hx: No Pertinent History Musculskeletal Surgical Hx: No Pertinent History Male Surgical History: No Pertinent History - Social History Smoking Status: Current every day smoker How long have you smoked: years Exposure to second hand smoke: Yes Alcohol: None Drug Use: none Physical Exam - Narrative Narrative Physical Exam: Podiatry Physical Exam Vascular: DP and PT pulses are unable to be palpated due to the extreme edema to the bilateral lower extremity on presentation patient is sitting in a dependent position. He does have bilateral lower extremity venous stasis with 4+ pitting edema to the pretibial area. There is no lymphangitis or lymphadenopathy on palpation of the popliteal or inguinal lymph nodes. No proximal streaking of the cellulitis. There is a line drawn where when the patient was admitted the cellulitis extended to the cellulitis is approximately 4 cm lower than this line on the left leg indicating that the cellulitis is likely resolving at this time. Skin temperature is warm to warm on the left lower extremity and warm to cool on the right lower extremity. Dermatological: Cellulitis left lower extremity, skin is supple turgor is boggy. Skin barrier cream over the bilateral lower extremity wounds. Wound description as below Neurological: Diminished sensation to the bilateral lower extremity as tested with a [place] [address] [employer] monofilament. Musculoskeletal:'s muscle strength is within normal limits. Range of motion is within normal limits the bilateral lower extremity. Pain with palpation to the edematous areas as well as the wounds to the bilateral lower extremity left more so than right Wound #1 left leg mid tibial area measuring approximately 33 cm x 8.6 cm x 0.1 cm Description 90% fibrotic 10% granular Signs and symptoms of infection: Serosanguineous drainage no probe to bone no undermining positive for cellulitis positive for periwound erythema Wound #2 anterior aspect right leg Measurements 4.0 cm x 3.2 cm x 0.1 cm Description 90% fibrotic 10% granular Signs and symptoms of infection: Serosanguineous drainage: No probe to bone, no undermining, positive for cellulitis, positive for periwound erythema. Less drainage than right lower extremity Wound #3 posterior aspect of right leg Measurements 8.0 x 3.5 x 0.1 Description 90% fibrotic 10% granular Signs and symptoms of infection: Serosanguineous drainage, no probe to bone, no undermining, positive for cellulitis, positive for periwound erythema. Less drainage than right lower extremity Results - Labs Lab/Micro Results: Lab Results-Last 24 Hours 02/13/20 02/14/20 02/14/20 Range/Units 20:25 04:52 04:52 WBC 7.8 (4.0-10.5) K/mm3 RBC 4.43 (4.1-5.6) M/mm3 Hgb 14.4 (12.5-18.0) gm/dl Hct 46.2 (42-50) % MCV 104.3 H (78-100) fl MCH 32.5 H (26-32) pg MCHC 31.2 L (32-36) g/dl RDW 14.8 H (11.5-14.0) % Plt Count 234 (150-450) K/mm3 MPV 10.9 (7.5-11.0) fl Gran % 57.8 (36.0-66.0) % Eos # (Auto) 0.29 (0-0.5) Absolute Lymphs (auto) 1.89 (1.0-4.6) Absolute Monos (auto) 1.07 (0.0-1.3) Lymphocytes % 24.4 (24.0-44.0) % Monocytes % 13.8 H (0.0-12.0) % Eosinophils % 3.7 (0.00-5.0) % Basophils % 0.3 (0.0-0.4) % Absolute Granulocytes 4.49 (1.4-6.9) Basophils # 0.02 (0-0.4) Sodium 137 (137-145) mmol/L Potassium 4.0 (3.5-5.1) mmol/L Chloride 102 (98-107) mmol/L Carbon Dioxide 32 H (22-30) mmol/L Anion Gap 6.8 (5-15) MEQ/L BUN 13 (9-20) mg/dL Creatinine 0.84 (0.66-1.25) mg/dL Estimated GFR > 60.0 ML/MIN Glucose 107 H (74-106) mg/dL POC Glucometer 101 (74 to 106) mg/dL Calcium 9.4 (8.4-10.2) mg/dL Total Bilirubin 0.50 (0.2-1.3) mg/dL AST 20 (17-59) U/L ALT 14 (0-50) U/L Alkaline Phosphatase 66 (38-126) U/L Serum Total Protein 6.3 (6.3-8.2) g/dL Albumin 3.8 (3.5-5.0) g/dL 02/14/20 Range/Units 06:28 WBC (4.0-10.5) K/mm3 RBC (4.1-5.6) M/mm3 Hgb (12.5-18.0) gm/dl Hct (42-50) % MCV (78-100) fl MCH (26-32) pg MCHC (32-36) g/dl RDW (11.5-14.0) % Plt Count (150-450) K/mm3 MPV (7.5-11.0) fl Gran % (36.0-66.0) % Eos # (Auto) (0-0.5) Absolute Lymphs (auto) (1.0-4.6) Absolute Monos (auto) (0.0-1.3) Lymphocytes % (24.0-44.0) % Monocytes % (0.0-12.0) % Eosinophils % (0.00-5.0) % Basophils % (0.0-0.4) % Absolute Granulocytes (1.4-6.9) Basophils # (0-0.4) Sodium (137-145) mmol/L Potassium (3.5-5.1) mmol/L Chloride (98-107) mmol/L Carbon Dioxide (22-30) mmol/L Anion Gap (5-15) MEQ/L BUN (9-20) mg/dL Creatinine (0.66-1.25) mg/dL Estimated GFR ML/MIN Glucose (74-106) mg/dL POC Glucometer 103 (74 to 106) mg/dL Calcium (8.4-10.2) mg/dL Total Bilirubin (0.2-1.3) mg/dL AST (17-59) U/L ALT (0-50) U/L Alkaline Phosphatase (38-126) U/L Serum Total Protein (6.3-8.2) g/dL Albumin (3.5-5.0) g/dL Microbiology 02/13/20 15:42 Wound Culture - Preliminary Leg - Left Lower GRAM POSITIVE ID AND SENSITIVITY PENDING Accuchecks Date 02/14/20 Date 02/13/20 Time 06:28 Time 22:00 - Other Procedures and Tests Respiratory Therapy 02/13/20 22:28 Respiratory MDI BID 02/13/20 22:30 Oxygen Nasal Cannula 3 lpm Respiratory Therapy Assessment DAILY Assessment/Plan (1) Venous stasis ulcer Current Visit: Yes Status: Acute Assessment & Plan: Initial patient examination and evaluation. Patient has been following up with wound care for debridements of the bilateral lower extremity. I will follow him while he is on the floor and refer back to them once he is outpatient if he so chooses. Highly recommend elevation of the bilateral lower extremity and avoiding having legs in the dependent position. Patient education was provided as to why this is important. Patient agrees however states that the wounds on the posterior aspect of his legs make it hard for him to elevate his legs to the bilateral lower extremity and his congestive heart failure makes it difficult for him to breathe while he is laying in bed. For this reason I believe that a pair of Prevalon boots would be most beneficial for him to offload the pressure to the posterior aspect of the bilateral lower extremity and allow him to elevate his legs more effectively. Antibiotic therapy managed by medicine team. Appreciate input. 4 the bilateral lower extremity ulcerations I recommend Dakin's solution 0.025% to the bilateral lower extremity every other day with dressing changes. I also do recommend Betadine paint following the Dakin solution soaks to the bilateral lower extremity and multilayer compression dressing consisting of Adaptic and Aquacel Ag to the wounds secured with 2 rolls of Kerlix and Coban with moderate compression I feel this is appropriate secondary to the results that were shown of the ultrasound performed on December 13, 2019 of no critical stenosis or obstructions of the veins of the bilateral lower extremity. He does not experience pain with compression of the calf. Compression therapy is highly recommended at this time. Wound care: PT to change dressing every other day unless otherwise indicated We will follow closely (2) Bilateral leg pain Current Visit: Yes Status: Acute Code(s): M79.604 - PAIN IN RIGHT LEG; M79.605 - PAIN IN LEFT LEG (3) Leukocytosis Current Visit: No Status: Acute Qualifiers: Leukocytosis type: unspecified Qualified Code(s): D72.829 - Elevated white blood cell count, unspecified Code(s): D72.829 - ELEVATED WHITE BLOOD CELL COUNT, UNSPECIFIED (4) Edema Current Visit: Yes Status: Chronic Code(s): R60.9 - EDEMA, UNSPECIFIED (5) Cellulitis Current Visit: No Status: Acute Qualifiers: Site of cellulitis: extremity Site of cellulitis of extremity: lower extremity Laterality: unspecified laterality Qualified Code(s): L03.119 - Cellulitis of unspecified part of limb Code(s): L03.90 - CELLULITIS, UNSPECIFIED
[2020-02-14] MEDS: xanAX 0.5 MG PO PRN (17:32)
[2020-02-14] MEDS: ULTRAM 50 MG PO PRN (17:32)
[2020-02-14] MEDS ORDERED: Dakin's Soln FULL STRENGTH TP SCH (17:45)
[2020-02-14] MEDS ORDERED: Sodium Chloride 100ML MINI-BAG PLUS 100 ML IV ONE ×5 (18:09→23:08)
[2020-02-14] MEDS ORDERED: Zosyn 3.375 GM Vial IV ONE ×3 (18:10→23:08)
[2020-02-14] MEDS: Mirapex 0.5 MG Tablet PO SCH (19:58)
[2020-02-15] MEDS: xanAX 0.5 MG PO PRN (04:08)
[2020-02-15] MEDS: DUONEB 0.5-3 MG/3 ml Neb IH SCH ×4 (05:30→19:20)
[2020-02-15] MEDS: Advair Hfa 115/21 Common canister IH SCH (05:33)
[2020-02-15] MEDS: SUBLIMAZE 100 MCG/2 ML IV PRN (05:49)
[2020-02-15] MEDS: Zosyn 3.375 GM Vial 3.375 GM in Sodium Chloride 100ML MINI-BAG PLUS 100 ML IV SCH (07:06)
[2020-02-15] MEDS: NEURONTIN 300 MG PO SCH ×3 (09:18→22:08)
[2020-02-15] MEDS: ECOTRIN 81 MG PO SCH (09:19)
[2020-02-15] MEDS: Pepcid 20 MG VIAL IV SCH ×2 (09:19→22:08)
[2020-02-15] MEDS: BUMEX 1 MG PO SCH (09:19)
[2020-02-15] MEDS: CLARITIN 10 MG PO SCH (09:19)
[2020-02-15] MEDS: DELTASONE 10 MG PO SCH (09:19)
[2020-02-15] MEDS: DALIRESP PO SCH (09:19)
[2020-02-15] MEDS: VANCOMYCIN 1.25 GM/250 ML BAG 1.25 GM/250 ML PIGGYBACK IV SCH ×2 (09:22→22:49)
--- NOTE | 2020-02-15 09:55 | PCM.NOTE ---
Date and Time: 02/15/20 0953 Subjective Assessment: doing better. wound culture positive for MRSA and Pseudomonas. - Review of Systems Constitutional: No Fever, No Chills Eyes: No Symptoms Ears, Nose, & Throat: No Symptoms Respiratory: No Cough, No Short Of Breath Cardiac: No Chest Pain, No Edema, No Syncope Abdominal/Gastrointestinal: No Abdominal Pain, No Nausea, No Vomiting, No Diarrhea Genitourinary Symptoms: No Dysuria Musculoskeletal: No Back Pain, No Neck Pain Skin: Cellulitis (both lower extrimities), No Rash Neurological: No Dizziness, No Focal Weakness, No Sensory Changes Psychological: No Symptoms Endocrine: No Symptoms Hematologic/Lymphatic: No Symptoms Immunological/Allergic: No Symptoms Objective Exam General Appearance: no apparent distress, alert Neurologic Exam: alert, oriented x 3, cooperative, normal mood/affect, nml cerebellar function, sensation nml, No motor deficits Skin Exam: normal color, warm, dry, other (cellulitis on both legs) Wound Assessment: Skin/Wound Assessment Wound/Incision Assessment Start: 02/13/20 18:33 Text: Status: Active Freq: Q6H Protocol: Document 02/15/20 02:00 KS (Rec: 02/15/20 03:14 KS [id number]) Wound/Incision Assessment Lower Other Wound Assessment Shift Assessment Wound Type CELLULITIS Wound Stage Non Pressure Wound Drainage Amount Moderate Drainage Description Yellow Drainage Odor None/Absent Surrounding Tissue Bright Red Comment rosa lower legs covered w compression dressings placed per PT this adelita. Right Lower Anterior Other Wound Assessment Shift Assessment Wound Type ULCERATION Wound Stage Non Pressure Wound Drainage Amount Minimal Drainage Description Yellow Comment . Right Lower Posterior Other Wound Assessment Shift Assessment Wound Type ULCERATION Wound Stage Non Pressure Wound Drainage Amount Minimal Drainage Description Yellow Comment dressing per Pt Left Lower Posterior Other Wound Assessment Shift Assessment Wound Type ULCERATION Wound Stage Non Pressure Wound Drainage Amount Large Drainage Description Yellow Surrounding Tissue Bright Red Comment compression dressings per PT Wound Photo Comment: . Eye Exam: PERRL, EOMI, eyes nml inspection Ears, Nose, Throat Exam: normal ENT inspection, pharynx normal, moist mucous membranes Neck Exam: normal inspection, non-tender, supple, full range of motion Respiratory Exam: normal breath sounds, lungs clear, No respiratory distress Cardiovascular Exam: regular rate/rhythm, normal heart sounds Gastrointestinal/Abdomen Exam: soft, No tenderness, No mass Extremity Exam: normal inspection, normal range of motion Back Exam: normal inspection, normal range of motion, No CVA tenderness, No vertebral tenderness Male Genitalia Exam: deferred Rectal Exam: deferred OBJECTIVE DATA Vital Signs: Vital Signs - 24 hr Temp Pulse Resp BP Pulse Ox 02/15/20 08:00 98.4 F 102 H 20 92/58 97 02/15/20 05:34 78 18 96 02/15/20 04:00 99.5 F 118 H 22 143/81 93 L 02/15/20 00:00 99.7 F 116 H 20 140/66 96 02/14/20 19:53 99.0 F 99 H 14 125/73 96 02/14/20 19:28 99 H 14 96 02/14/20 16:00 98.4 F 90 18 132/79 95 02/14/20 15:01 107 H 18 94 L 02/14/20 11:39 97.4 F 96 H 20 139/74 96 Pain Assessment - Last Documented Pain Intensity 5 Pain Scale Used 0-10 Pain Scale Intake and Output: Intake & Output 02/12/20 02/13/20 02/14/20 02/15/20 11:59 11:59 11:59 11:59 Intake Total 2497 2280 Output Total 1950 6100 Balance 547 -3820 Weight 111.3 kg 111.3 kg Multi-Disciplinary Progress Notes: Multi-Disciplinary Progress Notes 02/15/20 09:21 Pharmacy Note by Edgardo Hilliard Antibiotics and cultures reviewed. Keep Vancomycin for MRSA culture. Zosyn WALTER is close to intermediate. Will change to Merrem for optimal result against Pseudomonas. Initialized on 02/15/20 09:21 - END OF NOTE 02/14/20 14:01 Case Management Note by Kristina Sosa PATIENT HAS [facility]SE 3 DAYS A WEEK. THEY WERE NOTIFIED PATIENT IS HERE INPT. THEY WILL NEED NOTIFIED WHEN PATIENT DISCHARGED HOME AT [phone]. THEY WILL NEED THE DC INSTRUCTIONS, MED LIST AND DC SUMMARY (IF AVAILABLE) FAXED TO THEM AT [phone] Initialized on 02/14/20 14:01 - END OF NOTE Assessment/Plan (1) Cellulitis of both lower extremities Current Visit: Yes Status: Acute Assessment & Plan: Chief Complaint Diagnosis CELLULITIS LOWER EXTREMITIES Allergies Allergy/AdvReac Type Severity Reaction Status Date / Time No Known Drug Allergies Allergy Verified 02/13/20 18:07 Vital Signs (Last 24 hours) Temp Pulse Resp BP Pulse Ox 02/15/20 08:00 98.4 F 102 H 20 92/58 97 02/15/20 05:34 78 18 96 02/15/20 04:00 99.5 F 118 H 22 143/81 93 L 02/15/20 00:00 99.7 F 116 H 20 140/66 96 02/14/20 19:53 99.0 F 99 H 14 125/73 96 02/14/20 19:28 99 H 14 96 02/14/20 16:00 98.4 F 90 18 132/79 95 02/14/20 15:01 107 H 18 94 L 02/14/20 11:39 97.4 F 96 H 20 139/74 96 Home Medications Medication Instructions Recorded Confirmed Last Taken Type Albuterol Sulfate [Proair Hfa] 8.5 gm IH QID 02/13/20 02/13/20 02/13/20 History Aspirin 81 mg PO DAILY 02/13/20 02/13/20 02/13/20 History Pramipexole Di-HCl [Mirapex] 1 mg PO HS 02/13/20 02/13/20 02/12/20 History Tramadol HCl 50 mg [Ultram 50 50 mg PO Q12H PRN PRN 02/13/20 02/13/20 02/13/20 History mg] Current Medications Generic Name Dose Route Start Last Admin Trade Name Freq PRN Reason Stop Dose Admin Acetaminophen 650 mg 02/13/20 17:34 Tylenol 325 Mg PO 03/14/20 17:33 Q4H PRN PRN PAIN AND/OR FEVER Albuterol/Ipratropium 3 ml 02/13/20 19:00 02/15/20 05:30 Duoneb 0.5-3 Mg/3 Ml Neb IH 03/14/20 18:59 3 ml QIDRT LIZETT Administration Alprazolam 0.5 mg 02/13/20 18:23 02/15/20 04:08 Xanax 0.5 Mg PO 03/14/20 18:22 0.5 mg TID PRN PRN Administration ANXIETY Aspirin 81 mg 02/14/20 10:00 02/15/20 09:19 Ecotrin 81 Mg PO 03/15/20 09:59 81 mg DAILY LIZETT Administration Bumetanide 1 mg 02/14/20 10:00 02/15/20 09:19 Bumex 1 Mg PO 03/15/20 09:59 1 mg DAILY LIZETT Administration Device 1 02/16/20 09:30 Trough Drug Levels IJ 02/16/20 09:31 1XONLY ONE Famotidine 20 mg 02/13/20 22:00 02/15/20 09:19 Pepcid 20 Mg Vial IV 03/14/20 21:59 20 mg Q12HT LZIETT Administration Gabapentin 600 mg 02/13/20 18:00 02/15/20 09:18 Neurontin 300 Mg PO 03/14/20 17:59 600 mg TID LIZETT Administration Hydromorphone HCl 0.4 mg 02/15/20 09:06 Hydromorphone 1 Mg/Ml Injection IV 02/20/20 09:05 Q4H PRN PRN PAIN Vancomycin HCl 1.25 gm in 250 mls @ 166.667 mls/hr 02/14/20 10:00 02/15/20 09:22 Vancomycin 1.25 Gm/250 Ml Bag IV 03/15/20 09:59 166.667 mls/hr Q12HT LIZETT Administration Meropenem 1 g/ Sodium Chloride 100 mls @ 200 mls/hr 02/15/20 14:00 IV 03/16/20 13:59 Q8HT LIZETT Lidocaine/Prilocaine 10 gm 02/18/20 10:00 Emla Cream 5 Gm TP 03/19/20 09:59 WEEKLY LIZETT Loratadine 10 mg 02/14/20 10:00 02/15/20 09:19 Claritin 10 Mg PO 03/15/20 09:59 10 mg DAILY LIZETT Administration Ondansetron HCl 4 mg 02/13/20 17:34 02/14/20 19:58 Zofran 4 Mg/2 Ml Vial IV 03/14/20 17:33 4 mg Q6H PRN PRN Administration NAUSEA/VOMITING Albuterol Mdi 2 each 02/13/20 22:29 IH 03/14/20 22:28 Q4HPRN PRN SHORTNESS OF BREATH/WHEEZING Pramipexole Dihydrochloride 1 mg 02/13/20 22:00 02/14/20 19:58 Mirapex 0.5 Mg Tablet PO 03/14/20 21:59 1 mg HS LIZETT Administration Prednisone 10 mg 02/14/20 10:00 02/15/20 09:19 Deltasone 10 Mg PO 03/15/20 09:59 10 mg DAILY LIZETT Administration Roflumilast 250 mcg 02/14/20 10:00 02/15/20 09:19 Daliresp PO 03/15/20 09:59 250 mcg DAILY LIZETT Administration Fluticasone/Salmeterol 2 puff 02/14/20 07:00 02/15/20 05:33 Advair Hfa / Common Canister* IH 03/15/20 06:59 2 puff BIDRT LIZETT Administration Sodium Hypochlorite 473 ml 02/14/20 17:45 Dakin's Soln Full Strength TP 03/15/20 17:44 UD LIZETT Tramadol HCl 50 mg 02/13/20 18:23 02/14/20 17:32 Ultram 50 Mg PO 03/14/20 18:22 50 mg Q12H PRN PRN Administration PAIN Discontinued Medications Generic Name Dose Route Start Last Admin Trade Name Freq PRN Reason Stop Dose Admin Albuterol/Ipratropium 3 ml 02/13/20 17:34 Duoneb 0.5-3 Mg/3 Ml Neb IH 03/14/20 17:33 Q4HPRN PRN SHORTNESS OF BREATH/WHEEZING Fentanyl Citrate 50 mcg 02/13/20 17:42 02/15/20 05:49 Sublimaze 100 Mcg/2 Ml IV 02/18/20 17:41 50 mcg Q6HPRN PRN Administration PAIN AND/OR FEVER Fentanyl Citrate Confirm 02/13/20 17:48 Sublimaze 100 Mcg/2 Ml Administered 02/13/20 17:49 Dose 100 mcg .ROUTE .STK-MED ONE Gabapentin Confirm 02/13/20 17:48 Neurontin 300 Mg Administered 02/13/20 17:49 Dose 600 mg .ROUTE .STK-MED ONE Vancomycin HCl 1 gm/ Sodium 250 mls @ 125 mls/hr 02/13/20 15:30 02/13/20 18:39 Chloride IV 03/14/20 15:29 Not Given Q12H LIZETT Piperacillin Sod/Tazobactam 100 mls @ 200 mls/hr 02/13/20 15:14 02/13/20 15:35 Sod 3.375 gm/ Sodium Chloride IV 02/13/20 15:43 200 mls/hr STAT ONE Administration Vancomycin HCl 2 gm in 400 mls @ 133.333 mls/hr 02/13/20 15:15 02/13/20 15:44 Vancomycin 2 Gram/400 Ml Bag IV 02/13/20 18:14 133.333 ml/hr STAT ONE 133.33 mls/hr Administration Sodium Chloride Confirm 02/13/20 15:28 Sodium Chloride 100ml Mini-Bag Plus Administered 02/13/20 15:29 Dose 100 mls @ ud IV .STK-MED ONE Vancomycin HCl Confirm 02/13/20 15:42 Vancomycin 2 Gram/400 Ml Bag Administered 02/13/20 15:43 Dose 2 gm in 400 mls @ ud IV .STK-MED ONE Piperacillin Sod/Tazobactam 100 mls @ 200 mls/hr 02/14/20 00:00 02/15/20 07:06 Sod 3.375 gm/ Sodium Chloride IV 03/15/20 00:00 200 mls/hr Q6HT LIZETT Administration Sodium Chloride Confirm 02/14/20 18:09 Sodium Chloride 100ml Mini-Bag Plus Administered 02/14/20 18:10 Dose 100 mls @ ud IV .STK-MED ONE Sodium Chloride Confirm 02/14/20 18:10 Sodium Chloride 100ml Mini-Bag Plus Administered 02/14/20 18:11 Dose 100 mls @ ud IV .STK-MED ONE Sodium Chloride Confirm 02/14/20 23:04 Sodium Chloride 100ml Mini-Bag Plus Administered 02/14/20 23:05 Dose 100 mls @ ud IV .STK-MED ONE Sodium Chloride Confirm 02/14/20 23:07 Sodium Chloride 100ml Mini-Bag Plus Administered 02/14/20 23:08 Dose 100 mls @ ud IV .STK-MED ONE Sodium Chloride Confirm 02/14/20 23:08 Sodium Chloride 100ml Mini-Bag Plus Administered 02/14/20 23:09 Dose 100 mls @ ud IV .STK-MED ONE Insulin Human Lispro 0 unit 02/13/20 17:34 Humalog SQ 03/14/20 17:33 UD PRN HYPERGLYCEMIA Miscellaneous Information 0 each 02/13/20 18:45 Medication Intervention 03/14/20 18:44 .RN TO CHECK WITH RT LIZETT Morphine Sulfate 4 mg 02/13/20 15:14 02/13/20 15:34 Morphine Sulfate 4 Mg Inj IV 02/13/20 15:15 4 mg STAT ONE Administration Morphine Sulfate Confirm 02/13/20 15:28 Morphine Sulfate 4 Mg Inj Administered 02/13/20 15:29 Dose 4 mg .ROUTE .STK-MED ONE Morphine Sulfate 4 mg 02/13/20 16:51 02/13/20 16:56 Morphine Sulfate 4 Mg Inj IV 02/13/20 16:52 4 mg STAT ONE Administration Morphine Sulfate Confirm 02/13/20 16:55 Morphine Sulfate 4 Mg Inj Administered 02/13/20 16:56 Dose 4 mg .ROUTE .STK-MED ONE Morphine Sulfate 4 mg 02/13/20 17:34 Morphine Sulfate 4 Mg Inj IV 02/18/20 17:33 Q4H PRN PRN PAIN Non-Formulary Medication 1 each 02/14/20 09:11 02/14/20 10:52 Pharmacy Dosing Required: Vancomycin IV 02/14/20 09:12 1 each STAT STA Administration Ondansetron HCl 4 mg 02/13/20 15:14 02/13/20 15:34 Zofran 4 Mg/2 Ml Vial IV 02/13/20 15:15 4 mg STAT ONE Administration Ondansetron HCl Confirm 02/13/20 15:28 Zofran 4 Mg/2 Ml Vial Administered 02/13/20 15:29 Dose 4 mg .ROUTE .STK-MED ONE Piperacillin Sod/Tazobactam Sod Confirm 02/13/20 15:28 Zosyn 3.375 Gm Vial Administered 02/13/20 15:29 Dose 3.375 gm IV .STK-MED ONE Piperacillin Sod/Tazobactam Sod Confirm 02/14/20 18:10 Zosyn 3.375 Gm Vial Administered 02/14/20 18:11 Dose 3.375 gm IV .STK-MED ONE Piperacillin Sod/Tazobactam Sod Confirm 02/14/20 23:07 Zosyn 3.375 Gm Vial Administered 02/14/20 23:08 Dose 3.375 gm IV .STK-MED ONE Piperacillin Sod/Tazobactam Sod Confirm 02/14/20 23:08 Zosyn 3.375 Gm Vial Administered 02/14/20 23:09 Dose 3.375 gm IV .STK-MED ONE Intake & Output (Last 24 hours) 02/12/20 02/13/20 02/14/20 02/15/20 11:59 11:59 11:59 11:59 Intake Total 2497 2280 Output Total 1950 6100 Balance 547 -3820 Weight 111.3 kg 111.3 kg Microbiology Results (Last 24 hours) 02/13/20 15:35 Blood Blood Culture Gram Stain - Pending 02/13/20 15:35 Blood Blood Culture - Preliminary NO GROWTH TO DATE 02/13/20 15:35 Blood Blood Culture Gram Stain - Pending 02/13/20 15:35 Blood Blood Culture - Preliminary NO GROWTH TO DATE 02/13/20 15:42 Leg - Left Lower Wound Culture - Final Methicillin Resist Staph Aur Pseudomonas Aeruginosa Orders (Last 24 hours) Category Date Time Status Admission Status Change [Change to Full Admit] ROUTINE Care 02/14/20 09:07 Active Dressing Care ROUTINE Care 02/14/20 16:44 Active Isolation, Initiate & Maintain Q12H Care 02/15/20 07:00 Active Nursing [Miscellaneous Nursing Order] ROUTINE Care 02/14/20 16:47 Active Consult Podiatry ROUTINE Cons 02/14/20 09:14 Active House Regular Diet Diet 02/15/20 Breakfast Active CBC W DIFF AM.LAB Lab 02/16/20 04:00 Ordered CMP AM.LAB Lab 02/16/20 04:00 Ordered Vancomycin, Trough Urgent Lab 02/16/20 09:30 Ordered Aspirin EC 81 mg [Ecotrin 81 mg] Med 02/14/20 10:00 Active 81 mg PO DAILY Bumetanide 1 mg [Bumex 1 mg] Med 02/14/20 10:00 Active 1 mg PO DAILY Hydromorphone 1 mg/1Ml Inj [Hydromorphone 1 mg/ml Med 02/15/20 09:06 Active Injection] 0.4 mg IV Q4H PRN PRN Lidocaine/Prilocaine 5 gm [EMLA Cream 5 GM] Med 02/18/20 10:00 Active 10 gm TP WEEKLY Loratadine 10 mg [Claritin 10 mg] Med 02/14/20 10:00 Active 10 mg PO DAILY Meropenem [Merrem 1 GM] 1 g Med 02/15/20 14:00 Active NaCl 0.9% 100 ml Mini-Bag Plus [Sodium Chloride 100ML MINI-BAG PLUS] 100 ml IV Q8HT NaCl 0.9% 100 ml Mini-Bag Plus [Sodium Chloride 100ML Med 02/14/20 18:09 Discontinued MINI-BAG PLUS] 100 ml IV UD NaCl 0.9% 100 ml Mini-Bag Plus [Sodium Chloride 100ML Med 02/14/20 18:10 Discontinued MINI-BAG PLUS] 100 ml IV UD NaCl 0.9% 100 ml Mini-Bag Plus [Sodium Chloride 100ML Med 02/14/20 23:04 Disco ntinued MINI-BAG PLUS] 100 ml IV UD NaCl 0.9% 100 ml Mini-Bag Plus [Sodium Chloride 100ML Med 02/14/20 23:07 Discontinued MINI-BAG PLUS] 100 ml IV UD NaCl 0.9% 100 ml Mini-Bag Plus [Sodium Chloride 100ML Med 02/14/20 23:08 Discontinued MINI-BAG PLUS] 100 ml IV UD Pharmacy Dose Request: Vancomy [Pharmacy Dosing Med 02/14/20 09:11 Discontinued Required: Vancomycin] 1 each IV STAT STA Piperacillin/Tazobactam 3.375G [Zosyn 3.375 GM Vial] Med 02/14/20 18:10 Discontinued 3.375 gm IV .STK-MED ONE Piperacillin/Tazobactam 3.375G [Zosyn 3.375 GM Vial] Med 02/14/20 23:07 Discontinued 3.375 gm IV .STK-MED ONE Piperacillin/Tazobactam 3.375G [Zosyn 3.375 GM Vial] Med 02/14/20 23:08 Discontinued 3.375 gm IV .STK-MED ONE Prednisone 10 mg [Deltasone 10 mg] Med 02/14/20 10:00 Active 10 mg PO DAILY Roflumilast [Daliresp] Med 02/14/20 10:00 Active 250 mcg PO DAILY Sodium Hypochlorite 0.5% [Dakin's Soln FULL STRENGTH Med 02/14/20 17:45 Active ] 473 ml TP UD Therapuetic Drug Level Monitor [Trough Drug Levels] Med 02/16/20 09:30 Once 1 IJ 1XONLY ONE Vancomycin/Water For Inj (Peg) [Vancomycin 1.25 gm/250 Med 02/14/20 10:00 Active ml Bag] 1.25 gm in 250 ml IV Q12HT PT Eval & Treat (MD Order) ONCE PT 02/15/20 08:42 Active Patient Care Notes (Last 24 hours) 02/15/20 09:21 Pharmacy Note by Edgardo Hilliard Antibiotics and cultures reviewed. Keep Vancomycin for MRSA culture. Zosyn WALTER is close to intermediate. Will change to Merrem for optimal result against Pseudomonas. Initialized on 02/15/20 09:21 - END OF NOTE 02/15/20 06:01 Nursing Note by Ileana Nunez pt requesting pain med for rosa lower ext pain , rating pain 9/10. Prn fentanyl 50 mcg adm slow IVp. Initialized on 02/15/20 06:01 - END OF NOTE 02/14/20 14:07 Nursing Note by Tanja Vega is here to see patient. Initialized on 02/14/20 14:07 - END OF NOTE 02/14/20 14:01 Case Management Note by Kristina Sosa PATIENT HAS [facility]SE 3 DAYS A WEEK. THEY WERE NOTIFIED PATIENT IS HERE INPT. THEY WILL NEED NOTIFIED WHEN PATIENT DISCHARGED HOME AT [phone]. THEY WILL NEED THE DC INSTRUCTIONS, MED LIST AND DC SUMMARY (IF AVAILABLE) FAXED TO THEM AT [phone] Initialized on 02/14/20 14:01 - END OF NOTE Code(s): L03.115 - CELLULITIS OF RIGHT LOWER LIMB; L03.116 - CELLULITIS OF LEFT LOWER LIMB (2) COPD (chronic obstructive pulmonary disease) Current Visit: Yes Status: Chronic Qualifiers: COPD type: unspecified COPD Qualified Code(s): J44.9 - Chronic obstructive pulmonary disease, unspecified (3) COPD exacerbation Current Visit: No Status: Resolved Code(s): J44.1 - CHRONIC OBSTRUCTIVE PULMONARY DISEASE W (ACUTE) EXACERBATION
[2020-02-15] MEDS: Hydromorphone 1 mg/ml Injection IV PRN ×2 (10:22→14:36)
[2020-02-15] MEDS: Merrem 1 GM 1 G in Sodium Chloride 100ML MINI-BAG PLUS 100 ML IV SCH ×2 (14:36→22:07)
[2020-02-15] MEDS: ADVAIR 250-50 DISKUS 14 DOSE IH SCH (19:40)
[2020-02-15] MEDS: Mirapex 0.5 MG Tablet PO SCH (22:07)
[2020-02-16] MEDS: Hydromorphone 1 mg/ml Injection IV PRN ×4 (00:39→22:31)
[2020-02-16] MEDS: Merrem 1 GM 1 G in Sodium Chloride 100ML MINI-BAG PLUS 100 ML IV SCH ×3 (05:43→21:32)
[2020-02-16 06:02] LABS: Absolute Neutrophil Ct (ANC) 6.87 (1.4-6.9); BASOPHIL % 0.2 % (0.0-0.4); Basophil (Absolute #) 0.02 (0-0.4); Eosinophil % 5.2 % (0.00-5.0); Eosinophil (Absolute #) 0.55 (0-0.5); Hematocrit 47.6 % (42-50); Hemoglobin 14.9 gm/dl (12.5-18.0); Mean Cell Volume 103.3 fl (78-100); Mean Corpuscular Hemoglobin 32.3 pg (26-32); Mean Corpuscular Hgb Concent. 31.3 g/dl (32-36); Mean Platelet Volume 10.6 fl (7.5-11.0); Monocyte (Absolute #) 1.34 (0.0-1.3); Monocytes % 12.7 % (0.0-12.0); Neutrophil % 64.9 % (36.0-66.0); Platelet Count 212 K/mm3 (150-450); Red Blood Count 4.61 M/mm3 (4.1-5.6); Red Cell Distribution Width 14.1 % (11.5-14.0); White Blood Count 10.6 K/mm3 (4.0-10.5)
[2020-02-16 06:19] LABS: ALBUMIN 3.7 g/dL (3.5-5.0); ALKALINE PHOSPHATASE 59 U/L (38-126); ANION GAP 6.7 MEQ/L (5-15); BLOOD UREA NITROGEN 11 mg/dL (9-20); CHLORIDE 100 mmol/L (98-107); Calcium 9.4 mg/dL (8.4-10.2); Carbon Dioxide 32 mmol/L (22-30); Creatinine 1 0.68 mg/dL (0.66-1.25); EST GLOMERULAR FILTRATION RATE > 60.0 ML/MIN; Glucose 114 mg/dL (74-106); Potassium 4.1 mmol/L (3.5-5.1); SGOT/AST 25 U/L (17-59); SGPT/ALT 14 U/L (0-50); SODIUM 135 mmol/L (137-145); Total Protein 6.3 g/dL (6.3-8.2)
[2020-02-16] MEDS: DUONEB 0.5-3 MG/3 ml Neb IH SCH ×4 (07:18→19:01)
[2020-02-16] MEDS: ADVAIR 250-50 DISKUS 14 DOSE IH SCH ×2 (07:19→19:02)
[2020-02-16] MEDS ORDERED: TROUGH DRUG LEVELS IJ ONE (09:30)
--- NOTE | 2020-02-16 09:59 | PCM.NOTE ---
Date and Time: 02/16/20 0958 Subjective Assessment: doing better - Review of Systems Constitutional: No Fever, No Chills Eyes: No Symptoms Ears, Nose, & Throat: No Symptoms Respiratory: No Cough, No Short Of Breath Cardiac: No Chest Pain, No Edema, No Syncope Abdominal/Gastrointestinal: No Abdominal Pain, No Nausea, No Vomiting, No Diarrhea Genitourinary Symptoms: No Dysuria Musculoskeletal: No Back Pain, No Neck Pain Skin: Cellulitis, No Rash Neurological: No Dizziness, No Focal Weakness, No Sensory Changes Psychological: No Symptoms Endocrine: No Symptoms Hematologic/Lymphatic: No Symptoms Immunological/Allergic: No Symptoms Objective Exam General Appearance: no apparent distress, alert Neurologic Exam: alert, oriented x 3, cooperative, normal mood/affect, nml cerebellar function, sensation nml, No motor deficits Skin Exam: normal color, warm, dry Wound Assessment: Skin/Wound Assessment Wound/Incision Assessment Start: 02/13/20 18:33 Text: Status: Active Freq: Q6H Protocol: Document 02/16/20 08:00 TANJA (Rec: 02/16/20 09:06 Yudith [id number]) Wound/Incision Assessment Lower Other Wound Assessment Shift Assessment Wound Type CELLULITIS Wound Stage Non Pressure Wound Dressing Status Dry & Intact Surrounding Tissue Bright Red Comment rosa lower legs covered w compression dressings Right Lower Anterior Other Wound Assessment Shift Assessment Wound Type ULCERATION Wound Stage Non Pressure Wound Dressing Status Dry & Intact Right Lower Posterior Other Wound Assessment Shift Assessment Wound Type ULCERATION Wound Stage Non Pressure Wound Dressing Status Dry & Intact Comment dressing per Pt Left Lower Posterior Other Wound Assessment Shift Assessment Wound Type ULCERATION Wound Stage Non Pressure Wound Dressing Status Dry & Intact Surrounding Tissue Bright Red Comment compression dressings per PT Wound Photo Photo Taken No Eye Exam: PERRL, EOMI, eyes nml inspection Ears, Nose, Throat Exam: normal ENT inspection, pharynx normal, moist mucous membranes Neck Exam: normal inspection, non-tender, supple, full range of motion Respiratory Exam: normal breath sounds, lungs clear, No respiratory distress Cardiovascular Exam: regular rate/rhythm, normal heart sounds Gastrointestinal/Abdomen Exam: soft, No tenderness, No mass Extremity Exam: normal inspection, normal range of motion Back Exam: normal inspection, normal range of motion, No CVA tenderness, No vertebral tenderness Male Genitalia Exam: deferred Rectal Exam: deferred OBJECTIVE DATA Vital Signs: Vital Signs - 24 hr Temp Pulse Resp BP Pulse Ox 12/05/20 07:30 99.4 F 102 H 22 100/59 99 02/16/20 04:16 98.3 F 104 H 16 122/73 98 02/15/20 23:50 98.9 F 114 H 20 110/58 97 02/15/20 19:35 97.9 F 117 H 26 H 113/79 97 02/15/20 19:20 117 H 26 H 97 02/15/20 15:43 98.5 F 104 H 20 112/68 98 02/15/20 15:40 110 H 24 95 02/15/20 12:00 98.2 F 98 H 20 100/60 98 02/15/20 11:25 93 H 16 96 Pain Assessment - Last Documented Pain Intensity 0 Pain Scale Used 0-10 Pain Scale Intake and Output: Intake & Output 02/13/20 02/14/20 02/15/20 02/16/20 11:59 11:59 11:59 11:59 Intake Total 5472 5470 4745 Output Total 2361 9942 6700 Balance 913 -5302 -4152 Weight 111.3 kg 111.3 kg 111.3 kg Lab Results: Lab Results-Last 24 Hours 02/16/20 02/16/20 Range/Units 05:30 05:30 WBC 10.6 H (4.0-10.5) K/mm3 RBC 4.61 (4.1-5.6) M/mm3 Hgb 14.9 (12.5-18.0) gm/dl Hct 47.6 (42-50) % MCV 103.3 H (78-100) fl MCH 32.3 H (26-32) pg MCHC 31.3 L (32-36) g/dl RDW 14.1 H (11.5-14.0) % Plt Count 212 (150-450) K/mm3 MPV 10.6 (7.5-11.0) fl Gran % 64.9 (36.0-66.0) % Eos # (Auto) 0.55 H (0-0.5) Absolute Lymphs (auto) 1.80 (1.0-4.6) Absolute Monos (auto) 1.34 H (0.0-1.3) Lymphocytes % 17.0 L (24.0-44.0) % Monocytes % 12.7 H (0.0-12.0) % Eosinophils % 5.2 H (0.00-5.0) % Basophils % 0.2 (0.0-0.4) % Absolute Granulocytes 6.87 (1.4-6.9) Basophils # 0.02 (0-0.4) Sodium 135 L (137-145) mmol/L Potassium 4.1 (3.5-5.1) mmol/L Chloride 100 (98-107) mmol/L Carbon Dioxide 32 H (22-30) mmol/L Anion Gap 6.7 (5-15) MEQ/L BUN 11 (9-20) mg/dL Creatinine 0.68 (0.66-1.25) mg/dL Estimated GFR > 60.0 ML/MIN Glucose 114 H (74-106) mg/dL Calcium 9.4 (8.4-10.2) mg/dL Total Bilirubin 0.50 (0.2-1.3) mg/dL AST 25 (17-59) U/L ALT 14 (0-50) U/L Alkaline Phosphatase 59 (38-126) U/L Serum Total Protein 6.3 (6.3-8.2) g/dL Albumin 3.7 (3.5-5.0) g/dL Slides for Path Review Pending Multi-Disciplinary Progress Notes: Multi-Disciplinary Progress Notes 02/15/20 17:39 Physical Therapy Note by Shanita Ye PT. SEEN BY PT TODAY FOR W/C, DEBRIDEMENT AND DRESSING MG'T. PT. REPORTS BILATERAL LL PN IS 5-6/10 L > R. PT. STATES HE IS NOT ABLE TO ELEVATE LLS D/T PN FROM PRESSURE ON POSTERIOR LLS. PT. SITTING IN CHAIR W/ LES IN DEPENDENT POSITION. DRESSINGS DRY AND INTACT. IV PN MEDS GIVEN BY NSG PRIIOR TO PT. NOTED R LL EDMA AND MODERATE ERYTHEMA. SMALL DRY AREA ON ANTERIOR LL WAS ABLE TO BE DEBRIDED W/ SCISSORS AND FORCEPS. TENDERNESS NOTED POSTERIOR R LL. CLEANSED R LL W/ SOAP AND WATER. APPLIED BETADYNE TO BOTH OF THESE AREAS, FOLLOWED BY BARRIER CREAM, VASELINE GAUZE, KERLIX, SUREPRESS, AND COBAN. L LLP NFUL W/ DRESSING REMOVAL - NOTED WHITEISH YELLOW BIOFILM ON L LL. ATTEMPTED TO REMOVE W/ CLEANSING W/ SOAP AND WATER. PT. VERY PNFUL TO TOUCH. SOAKED W/ DILUTED DAKINS SOLUTION X 5 MINS, APPLIED BETADYNE, BARRIER CREAM, AQUACEL AG TO OPEN AREAS, KERLIX, SUREPRESS, AND COBAN. INSTRUCTED PT. RE: DONNING OF HEEL BOOTIES TO ALLOW FOR BETTER TOLERANCE TO LE ELVATTION. PT. REPORTS HE WOULD "TRY TO TONIGHT." WOULD LIKE FOR DRESSINGS TO REMAIN INTACT OVER THE WEEKEND DR. BARRON ORDERED 3X/WK, BUT CAN BE CHANGED PER NSG NOTED ABOVE IF NEEDED. SHANITA YE, PT Initialized on 02/15/20 17:39 - END OF NOTE 02/15/20 10:52 Case Management Note by Kristina Sosa PATIENT STILL BEING TREATED ACUTELY FOR LEG WOUNDS. WILL CONTINUE TO FOLLOW [place] NEEDS [place] Initialized on 02/15/20 10:52 - END OF NOTE Assessment/Plan (1) Cellulitis of both lower extremities Current Visit: Yes Status: Acute Assessment & Plan: Chief Complaint Diagnosis CELLULITIS LOWER EXTREMITIES Allergies Allergy/AdvReac Type Severity Reaction Status Date / Time No Known Drug Allergies Allergy Verified 02/13/20 18:07 Vital Signs (Last 24 hours) Temp Pulse Resp BP Pulse Ox 02/16/20 07:30 99.4 F 102 H 22 100/59 99 02/16/20 04:16 98.3 F 104 H 16 122/73 98 02/15/20 23:50 98.9 F 114 H 20 110/58 97 02/15/20 19:35 97.9 F 117 H 26 H 113/79 97 02/15/20 19:20 117 H 26 H 97 02/15/20 15:43 98.5 F 104 H 20 112/68 98 02/15/20 15:40 110 H 24 95 02/15/20 12:00 98.2 F 98 H 20 100/60 98 02/15/20 11:25 93 H 16 96 Home Medications Medication Instructions Recorded Confirmed Last Taken Type Albuterol Sulfate [Proair Hfa] 8.5 gm IH QID 02/13/20 02/13/20 02/13/20 History Aspirin 81 mg PO DAILY 02/13/20 02/13/20 02/13/20 History Pramipexole Di-HCl [Mirapex] 1 mg PO HS 02/13/20 02/13/2002/11/20 History Tramadol HCl 50 mg [Ultram 50 50 mg PO Q12H PRN PRN 02/13/20 02/13/20 02/13/20 History mg] Current Medications Generic Name Dose Route Start Last Admin Trade Name Freq PRN Reason Stop Dose Admin Acetaminophen 650 mg 02/13/20 17:34 Tylenol 325 Mg PO 03/14/20 17:33 Q4H PRN PRN PAIN AND/OR FEVER Albuterol/Ipratropium 3 ml 02/13/20 19:00 02/16/20 07:18 Duoneb 0.5-3 Mg/3 Ml Neb IH 03/14/20 18:59 3 ml QIDRT LIZETT Administration Alprazolam 0.5 mg 02/13/20 18:23 02/15/20 04:08 Xanax 0.5 Mg PO 03/14/20 18:22 0.5 mg TID PRN PRN Administration ANXIETY Aspirin 81 mg 02/14/20 10:00 02/15/20 09:19 Ecotrin 81 Mg PO 03/15/20 09:59 81 mg DAILY LIZETT Administration Bumetanide 1 mg 02/14/20 10:00 02/15/20 09:19 Bumex 1 Mg PO 03/15/20 09:59 1 mg DAILY LIZETT Administration Famotidine 20 mg 02/13/20 22:00 02/15/20 22:08 Pepcid 20 Mg Vial IV 03/14/20 21:59 20 mg Q12HT LIZETT Administration Gabapentin 600 mg 02/13/20 18:00 02/15/20 22:08 Neurontin 300 Mg PO 03/14/20 17:59 600 mg TID LIZETT Administration Hydromorphone HCl 0.4 mg 02/15/20 09:06 02/16/20 06:30 Hydromorphone 1 Mg/Ml Injection IV 02/20/20 09:05 0.4 mg Q4H PRN PRN Administration PAIN Vancomycin HCl 1.25 gm in 250 mls @ 166.667 mls/hr 02/14/20 10:00 02/15/20 22:49 Vancomycin 1.25 Gm/250 Ml Bag IV 03/15/20 09:59 166.667 mls/hr Q12HT LIZETT Administration Meropenem 1 g/ Sodium Chloride 100 mls @ 200 mls/hr 02/15/20 14:00 02/16/20 05:43 IV 03/16/20 13:59 200 mls/hr Q8HT LIZETT Administration Lidocaine/Prilocaine 10 gm 02/18/20 10:00 Emla Cream 5 Gm TP 03/19/20 09:59 WEEKLY LIZETT Loratadine 10 mg 02/14/20 10:00 02/15/20 09:19 Claritin 10 Mg PO 03/15/20 09:59 10 mg DAILY LIZETT Administration Ondansetron HCl 4 mg 02/13/20 17:34 02/14/20 19:58 Zofran 4 Mg/2 Ml Vial IV 03/14/20 17:33 4 mg Q6H PRN PRN Administration NAUSEA/VOMITING Albuterol Mdi 2 each 02/13/20 22:29 IH 03/14/20 22:28 Q4HPRN PRN SHORTNESS OF BREATH/WHEEZING Pramipexole Dihydrochloride 1 mg 02/13/20 22:00 02/15/20 22:07 Mirapex 0.5 Mg Tablet PO 03/14/20 21:59 1 mg HS LIZETT Administration Prednisone 10 mg 02/14/20 10:00 02/15/20 09:19 Deltasone 10 Mg PO 03/15/20 09:59 10 mg DAILY LIZETT Administration Roflumilast 250 mcg 02/14/20 10:00 02/15/20 09:19 Daliresp PO 03/15/20 09:59 250 mcg DAILY LIZETT Administration Fluticasone/Salmeterol 1 each 02/15/20 19:00 02/16/20 07:19 Advair 250-50 Diskus 14 Dose IH 03/16/20 18:59 1 each BIDRT LIZETT Administration Sodium Hypochlorite 473 ml 02/14/20 17:45 Dakin's Soln Full Strength TP 03/15/20 17:44 UD LIZETT Tramadol HCl 50 mg 02/13/20 18:23 02/14/20 17:32 Ultram 50 Mg PO 03/14/20 18:22 50 mg Q12H PRN PRN Administration PAIN Discontinued Medications Generic Name Dose Route Start Last Admin Trade Name Freq PRN Reason Stop Dose Admin Albuterol/Ipratropium 3 ml 02/13/20 17:34 Duoneb 0.5-3 Mg/3 Ml Neb IH 03/14/20 17:33 Q4HPRN PRN SHORTNESS OF BREATH/WHEEZING Device 1 02/16/20 09:30 Trough Drug Levels IJ 02/16/20 09:31 1XONLY ONE Fentanyl Citrate 50 mcg 02/13/20 17:42 02/15/20 05:49 Sublimaze 100 Mcg/2 Ml IV 02/18/20 17:41 50 mcg Q6HPRN PRN Administration PAIN AND/OR FEVER Fentanyl Citrate Confirm 02/13/20 17:48 Sublimaze 100 Mcg/2 Ml Administered 02/13/20 17:49 Dose 100 mcg .ROUTE .STK-MED ONE Gabapentin Confirm 02/13/20 17:48 Neurontin 300 Mg Administered 02/13/20 17:49 Dose 600 mg .ROUTE .STK-MED ONE Vancomycin HCl 1 gm/ Sodium 250 mls @ 125 mls/hr 02/13/20 15:30 02/13/20 18:39 Chloride IV 03/14/20 15:29 Not Given Q12H LIZETT Piperacillin Sod/Tazobactam 100 mls @ 200 mls/hr 02/13/20 15:14 02/13/20 15:35 Sod 3.375 gm/ Sodium Chloride IV 02/13/20 15:43 200 mls/hr STAT ONE Administration Vancomycin HCl 2 gm in 400 mls @ 133.333 mls/hr 02/13/20 15:15 02/13/20 15:44 Vancomycin 2 Gram/400 Ml Bag IV 02/13/20 18:14 133.333 ml/hr STAT ONE 133.33 mls/hr Administration Sodium Chloride Confirm 02/13/20 15:28 Sodium Chloride 100ml Mini-Bag Plus Administered 02/13/20 15:29 Dose 100 mls @ ud IV .STK-MED ONE Vancomycin HCl Confirm 02/13/20 15:42 Vancomycin 2 Gram/400 Ml Bag Administered 02/13/20 15:43 Dose 2 gm in 400 mls @ ud IV .STK-MED ONE Piperacillin Sod/Tazobactam 100 mls @ 200 mls/hr 02/14/20 00:00 02/15/20 07:06 Sod 3.375 gm/ Sodium Chloride IV 03/15/20 00:00 200 mls/hr Q6HT LIZETT Administration Sodium Chloride Confirm 02/14/20 18:09 Sodium Chloride 100ml Mini-Bag Plus Administered 02/14/20 18:10 Dose 100 mls @ ud IV .STK-MED ONE Sodium Chloride Confirm 02/14/20 18:10 Sodium Chloride 100ml Mini-Bag Plus Administered 02/14/20 18:11 Dose 100 mls @ ud IV .STK-MED ONE Sodium Chloride Confirm 02/14/20 23:04 Sodium Chloride 100ml Mini-Bag Plus Administered 02/14/20 23:05 Dose 100 mls @ ud IV .STK-MED ONE Sodium Chloride Confirm 02/14/20 23:07 Sodium Chloride 100ml Mini-Bag Plus Administered 02/14/20 23:08 Dose 100 mls @ ud IV .STK-MED ONE Sodium Chloride Confirm 02/14/20 23:08 Sodium Chloride 100ml Mini-Bag Plus Administered 02/14/20 23:09 Dose 100 mls @ ud IV .STK-MED ONE Insulin Human Lispro 0 unit 02/13/20 17:34 Humalog SQ 03/14/20 17:33 UD PRN HYPERGLYCEMIA Miscellaneous Information 0 each 02/13/20 18:45 Medication Intervention MC 03/14/20 18:44 .RN TO CHECK WITH [facility] Morphine Sulfate 4 mg 02/13/20 15:14 02/13/20 15:34 Morphine Sulfate 4 Mg Inj IV 02/13/20 15:15 4 mg STAT ONE Administration Morphine Sulfate Confirm 02/13/20 15:28 Morphine Sulfate 4 Mg Inj Administered 02/13/20 15:29 Dose 4 mg .ROUTE .STK-MED ONE Morphine Sulfate 4 mg 02/13/20 16:51 02/13/20 16:56 Morphine Sulfate 4 Mg Inj IV 02/13/20 16:52 4 mg STAT ONE Administration Morphine Sulfate Confirm 02/13/20 16:55 Morphine Sulfate 4 Mg Inj Administered 02/13/20 16:56 Dose 4 mg .ROUTE .STK-MED ONE Morphine Sulfate 4 mg 02/13/20 17:34 Morphine Sulfate 4 Mg Inj IV 02/18/20 17:33 Q4H PRN PRN PAIN Non-Formulary Medication 1 each 02/14/20 09:11 02/14/20 10:52 Pharmacy Dosing Required: Vancomycin IV 02/14/20 09:12 1 each STAT STA Administration Ondansetron HCl 4 mg 02/13/20 15:14 02/13/20 15:34 Zofran 4 Mg/2 Ml Vial IV 02/13/20 15:15 4 mg STAT ONE Administration Ondansetron HCl Confirm 02/13/20 15:28 Zofran 4 Mg/2 Ml Vial Administered 02/13/20 15:29 Dose 4 mg .ROUTE .STK-MED ONE Piperacillin Sod/Tazobactam Sod Confirm 02/13/20 15:28 Zosyn 3.375 Gm Vial Administered 02/13/20 15:29 Dose 3.375 gm IV .STK-MED ONE Piperacillin Sod/Tazobactam Sod Confirm 02/14/20 18:10 Zosyn 3.375 Gm Vial Administered 02/14/20 18:11 Dose 3.375 gm IV .STK-MED ONE Piperacillin Sod/Tazobactam Sod Confirm 02/14/20 23:07 Zosyn 3.375 Gm Vial Administered 02/14/20 23:08 Dose 3.375 gm IV .STK-MED ONE Piperacillin Sod/Tazobactam Sod Confirm 02/14/20 23:08 Zosyn 3.375 Gm Vial Administered 02/14/20 23:09 Dose 3.375 gm IV .STK-MED ONE Fluticasone/Salmeterol 2 puff 02/14/20 07:00 02/15/20 05:33 Advair Hfa 115/21 Common Canister* IH 03/15/20 06:59 2 puff BIDRT LIZETT Administration Intake & Output (Last 24 hours) 02/13/20 02/14/20 02/15/20 02/16/20 11:59 11:59 11:59 11:59 Intake Total 8266 6800 4729 Output Total 6252 3361 1280 Balance 189 -6813 -5321 Weight 111.3 kg 111.3 kg 111.3 kg Microbiology Results (Last 24 hours) 02/13/20 15:35 Blood Blood Culture Gram Stain - Pending 02/13/20 15:35 Blood Blood Culture - Preliminary NO GROWTH TO DATE 02/13/20 15:35 Blood Blood Culture Gram Stain - Pending 02/13/20 15:35 Blood Blood Culture - Preliminary NO GROWTH TO DATE 02/13/20 15:42 Leg - Left Lower Wound Culture - Final Methicillin Resist Staph Aur Pseudomonas Aeruginosa Laboratory Results (Last 24 hours) 02/16/20 02/16/20 05:30 05:30 WBC 10.6 H RBC 4.61 Hgb 14.9 Hct 47.6 MCV 103.3 H MCH 32.3 H MCHC 31.3 L RDW 14.1 H Plt Count 212 MPV 10.6 Gran % 64.9 Eos # (Auto) 0.55 H Absolute Lymphs (auto) 1.80 Absolute Monos (auto) 1.34 H Lymphocytes % 17.0 L Monocytes % 12.7 H Eosinophils % 5.2 H Basophils % 0.2 Absolute Granulocytes 6.87 Basophils # 0.02 Sodium 135 L Potassium 4.1 Chloride 100 Carbon Dioxide 32 H Anion Gap 6.7 BUN 11 Creatinine 0.68 Estimated GFR > 60.0 Glucose 114 H Calcium 9.4 Total Bilirubin 0.50 AST 25 ALT 14 Alkaline Phosphatase 59 Serum Total Protein 6.3 Albumin 3.7 Orders (Last 24 hours) Category Date Time Status CBC W DIFF AM.LAB Lab 02/16/20 05:30 Results CMP AM.LAB Lab 02/16/20 05:30 Completed Vancomycin, Trough Urgent Lab 02/16/20 09:41 Received Fluticasone/Salmeterol Disc [Advair 250-50 Diskus 14 Med 02/15/20 19:00 Active Dose] 1 each IH BIDRT Hydromorphone 1 mg/1Ml Inj [Hydromorphone 1 mg/ml Med 02/15/20 09:06 Active Injection] 0.4 mg IV Q4H PRN PRN Lidocaine/Prilocaine 5 gm [EMLA Cream 5 GM] Med 02/18/20 10:00 Active 10 gm TP WEEKLY Meropenem [Merrem 1 GM] 1 g Med 02/15/20 14:00 Active NaCl 0.9% 100 ml Mini-Bag Plus [Sodium Chloride 100ML MINI-BAG PLUS] 100 ml IV Q8HT Therapuetic Drug Level Monitor [Trough Drug Levels] Med 02/16/20 09:30 Discontinued 1 IJ 1XONLY ONE Respiratory MDI BID RT 02/16/20 07:00 Active Patient Care Notes (Last 24 hours) 02/15/20 17:39 Physical Therapy Note by Shanita Ye PT. SEEN BY PT TODAY FOR W/C, DEBRIDEMENT AND DRESSING MG'T. PT. REPORTS BILATERAL LL PN IS 5-6/10 L > R. PT. STATES HE IS NOT ABLE TO ELEVATE LLS D/T PN FROM PRESSURE ON POSTERIOR LLS. PT. SITTING IN CHAIR W/ LES IN DEPENDENT POSITION. DRESSINGS DRY AND INTACT. IV PN MEDS GIVEN BY NSG PRIIOR TO PT. NOTED R LL EDMA AND MODERATE ERYTHEMA. SMALL DRY AREA ON ANTERIOR LL WAS ABLE TO BE DEBRIDED W/ SCISSORS AND FORCEPS. TENDERNESS NOTED POSTERIOR R LL. CLEANSED R LL W/ SOAP AND WATER. APPLIED BETADYNE TO BOTH OF THESE AREAS, FOLLOWED BY BARRIER CREAM, VASELINE GAUZE, KERLIX, SUREPRESS, AND COBAN. L LLP NFUL W/ DRESSING REMOVAL - NOTED WHITEISH YELLOW BIOFILM ON L LL. ATTEMPTED TO REMOVE W/ CLEANSING W/ SOAP AND WATER. PT. VERY PNFUL TO TOUCH. SOAKED W/ DILUTED DAKINS SOLUTION X 5 MINS, APPLIED BETADYNE, BARRIER CREAM, AQUACEL AG TO OPEN AREAS, KERLIX, SUREPRESS, AND COBAN. INSTRUCTED PT. RE: DONNING OF HEEL BOOTIES TO ALLOW FOR BETTER TOLERANCE TO LE ELVATTION. PT. REPORTS HE WOULD "TRY TO TONIGHT." WOULD LIKE FOR DRESSINGS TO REMAIN INTACT OVER THE WEEKEND DR. BARRON ORDERED 3X/WK, BUT CAN BE CHANGED PER NSG NOTED ABOVE IF NEEDED. SHANITA YE, PT Initialized on 02/15/20 17:39 - END OF NOTE 02/15/20 10:52 Case Management Note by Kristina Sosa PATIENT STILL BEING TREATED ACUTELY FOR LEG WOUNDS. WILL CONTINUE TO FOLLOW FOR ANY NEEDS AT [place] Initialized on 02/15/20 10:52 - END OF NOTE Code(s): L03.115 - CELLULITIS OF RIGHT LOWER LIMB; L03.116 - CELLULITIS OF LEFT LOWER LIMB (2) COPD (chronic obstructive pulmonary disease) Current Visit: Yes Status: Chronic Qualifiers: COPD type: unspecified COPD Qualified Code(s): J44.9 - Chronic obstructive pulmonary disease, unspecified
[2020-02-16] MEDS: Pepcid 20 MG VIAL IV SCH ×2 (10:26→21:32)
[2020-02-16] MEDS: ECOTRIN 81 MG PO SCH (10:26)
[2020-02-16] MEDS: DELTASONE 10 MG PO SCH (10:26)
[2020-02-16] MEDS: BUMEX 1 MG PO SCH (10:26)
[2020-02-16] MEDS: NEURONTIN 300 MG PO SCH ×3 (10:26→21:32)
[2020-02-16] MEDS: CLARITIN 10 MG PO SCH (10:26)
[2020-02-16] MEDS: DALIRESP PO SCH (10:27)
[2020-02-16] MEDS: VANCOMYCIN 1.25 GM/250 ML BAG 1.25 GM/250 ML PIGGYBACK IV SCH (12:04)
[2020-02-16] MEDS: VANCOMYCIN 1.5 GRAM/300 ML BAG 1.5 GM/300 ML PIGGYBACK IV SCH ×2 (12:08→22:31)
[2020-02-16] MEDS: ULTRAM 50 MG PO PRN (14:30)
[2020-02-16 16:19] LABS: Slide Review 1 NO
[2020-02-16] MEDS: TYLENOL 325 MG PO PRN (17:43)
[2020-02-16] MEDS ORDERED: Sodium Chloride 100ML MINI-BAG PLUS 100 ML IV ONE (21:12)
[2020-02-16] MEDS: Mirapex 0.5 MG Tablet PO SCH (21:32)
[2020-02-17] MEDS: Hydromorphone 1 mg/ml Injection IV PRN ×3 (04:14→22:02)
[2020-02-17] MEDS: Merrem 1 GM 1 G in Sodium Chloride 100ML MINI-BAG PLUS 100 ML IV SCH ×3 (05:25→21:25)
[2020-02-17] MEDS: DUONEB 0.5-3 MG/3 ml Neb IH SCH ×4 (05:48→17:32)
[2020-02-17] MEDS: ADVAIR 250-50 DISKUS 14 DOSE IH SCH ×2 (05:48→17:33)
[2020-02-17] MEDS: ULTRAM 50 MG PO PRN (08:09)
[2020-02-17] MEDS: DALIRESP PO SCH (09:21)
[2020-02-17] MEDS: ECOTRIN 81 MG PO SCH (09:21)
[2020-02-17] MEDS: BUMEX 1 MG PO SCH (09:21)
[2020-02-17] MEDS: DELTASONE 10 MG PO SCH (09:21)
[2020-02-17] MEDS: NEURONTIN 300 MG PO SCH ×3 (09:21→21:26)
[2020-02-17] MEDS: CLARITIN 10 MG PO SCH (09:21)
[2020-02-17] MEDS: Pepcid 20 MG VIAL IV SCH ×2 (09:21→21:25)
[2020-02-17] MEDS: VANCOMYCIN 1.5 GRAM/300 ML BAG 1.5 GM/300 ML PIGGYBACK IV SCH ×2 (09:22→22:02)
--- NOTE | 2020-02-17 13:17 | PCM.NOTE ---
Date and Time: 02/17/20 1316 Subjective Assessment: Patient is on Vancomycin and Meropenem for MRSA and pseudomonas LLE cellulitis with ulcer. Podiatry has consulted. Patient has pain when laying in bed due to pressure on affected area and prefers to sit in chair but cannot elevate legs on recliner without pain causing pressure on the area.No other c/o. Objective Exam General Appearance: no apparent distress Neurologic Exam: alert, oriented x 3, other (frustrated) Skin Exam: normal color, warm, dry Wound Assessment: Skin/Wound Assessment Wound/Incision Assessment Start: 02/13/20 18:3 3 Text: Status: Active Freq: Q6H Protocol: Document 02/17/20 08:00 AR (Rec: 02/17/20 08:23 AR [id number]) Wound/Incision Assessment Lower Other Wound Assessment Shift Assessment Wound Type CELLULITIS Wound Stage Non Pressure Wound Dressing Status Dry & Intact Surrounding Tissue Bright Red Comment rosa lower legs covered with compression dressings, CDI Right Lower Anterior Other Wound Assessment Shift Assessment Wound Type ULCERATION Wound Stage Non Pressure Wound Dressing Status Dry & Intact Right Lower Posterior Other Wound Assessment Shift Assessment Wound Type ULCERATION Wound Stage Non Pressure Wound Dressing Status Dry & Intact Comment dressing per Pt, DRESSING CDI Left Lower Posterior Other Wound Assessment Shift Assessment Wound Type ULCERATION Wound Stage Non Pressure Wound Dressing Status Dry & Intact Surrounding Tissue Bright Red Comment compression dressings per PT, CDI Wound Photo Photo Taken No Ears, Nose, Throat Exam: normal ENT inspection Neck Exam: normal inspection Respiratory Exam: normal breath sounds Cardiovascular Exam: regular rate/rhythm Gastrointestinal/Abdomen Exam: soft, normal bowel sounds (nontender) Extremity Exam: other (bilateral LE dressings from knee to toes, toes are pink and warm) OBJECTIVE DATA Vital Signs: Vital Signs - 24 hr Temp Pulse Resp BP Pulse Ox 02/17/20 11:57 98.8 F 107 H 20 122/74 97 02/17/20 10:43 112 H 18 97 02/17/20 08:00 98.7 F 107 H 18 137/65 98 02/17/20 05:48 93 H 18 98 02/17/20 04:00 97.4 F 93 H 16 133/68 99 02/17/20 00:00 97.6 F 96 H 20 115/69 97 02/16/20 20:00 97.7 F 109 H 14 116/63 97 02/16/20 19:11 109 H 14 97 02/16/20 16:32 100.1 F 100 H 24 108/60 97 02/16/20 14:58 95 H 18 97 02/16/20 13:45 99.6 F 96 H 24 109/64 96 Oxygen-Last 24 hours Oxygen Flowrate (L/min)-RT 3 Oxygen Flowrate (L/min)-RT 3 Pain Assessment - Last Documented Pain Intensity 8 Pain Scale Used 0-10 Pain Scale Intake and Output: Intake & Output 02/15/20 02/16/20 02/17/20 02/18/20 11:59 11:59 11:59 11:59 Intake Total 2280 4729 2955 480 Output Total 6100 6700 3150 600 Balance -3820 -1971 -195 -120 Weight 111.3 kg 111.3 kg Lab Results: Lab Results-Last 24 Hours 02/16/20 Range/Units 05:30 Slides for Path Review NO Assessment/Plan (1) Cellulitis of both lower extremities Status: Acute Assessment & Plan: PT is monitoring dressings light compression,is on IV antibiotics Code(s): L03.115 - CELLULITIS OF RIGHT LOWER LIMB; L03.116 - CELLULITIS OF LEFT LOWER LIMB (2) Venous stasis ulcer Status: Acute Assessment & Plan: antibiotics per culture,patient continues to smoke not in mood to discuss this today
[2020-02-17] MEDS: Mirapex 0.5 MG Tablet PO SCH (21:26)
[2020-02-18] MEDS: Merrem 1 GM 1 G in Sodium Chloride 100ML MINI-BAG PLUS 100 ML IV SCH ×3 (05:40→21:07)
[2020-02-18] MEDS: Hydromorphone 1 mg/ml Injection IV PRN ×4 (06:29→23:31)
[2020-02-18] MEDS: ADVAIR 250-50 DISKUS 14 DOSE IH SCH ×2 (07:39→19:15)
[2020-02-18] MEDS: DUONEB 0.5-3 MG/3 ml Neb IH SCH ×4 (07:39→19:07)
[2020-02-18] MEDS: CLARITIN 10 MG PO SCH (09:46)
[2020-02-18] MEDS: ECOTRIN 81 MG PO SCH (09:46)
[2020-02-18] MEDS: VANCOMYCIN 1.5 GRAM/300 ML BAG 1.5 GM/300 ML PIGGYBACK IV SCH ×2 (09:46→22:17)
[2020-02-18] MEDS: BUMEX 1 MG PO SCH (09:46)
[2020-02-18] MEDS: NEURONTIN 300 MG PO SCH ×3 (09:46→22:17)
[2020-02-18] MEDS: DELTASONE 10 MG PO SCH (09:47)
[2020-02-18] MEDS: DALIRESP PO SCH (09:47)
[2020-02-18] MEDS: Pepcid 20 MG VIAL IV SCH ×2 (09:47→22:17)
[2020-02-18] MEDS ORDERED: EMLA Cream 5 GM TP SCH (10:00)
--- NOTE | 2020-02-18 11:39 | PCM.NOTE ---
Date and Time: 02/18/20 1139 Subjective Assessment: doing ok - Review of Systems Constitutional: No Fever, No Chills Eyes: No Symptoms Ears, Nose, & Throat: No Symptoms Respiratory: No Cough, No Short Of Breath Cardiac: No Chest Pain, No Edema, No Syncope Abdominal/Gastrointestinal: No Abdominal Pain, No Nausea, No Vomiting, No Diarrhea Genitourinary Symptoms: No Dysuria Musculoskeletal: No Back Pain, No Neck Pain Skin: No Rash Neurological: No Dizziness, No Focal Weakness, No Sensory Changes Psychological: No Symptoms Endocrine: No Symptoms Hematologic/Lymphatic: No Symptoms Immunological/Allergic: No Symptoms Objective Exam General Appearance: no apparent distress, alert Neurologic Exam: alert, oriented x 3, cooperative, normal mood/affect, nml cerebellar function, sensation nml, No motor deficits Skin Exam: normal color, warm, dry Wound Assessment: Skin/Wound Assessment Wound/Incision Assessment Start: 02/13/20 18:33 Text: Status: Active Freq: Q6H Protocol: Document 02/18/20 08:00 DS (Rec: 02/18/20 10:08 DS [id number]) Wound/Incision Assessment Lower Other Wound Assessment Shift Assessment Wound Type CELLULITIS Wound Stage Non Pressure Wound Dressing Status Dry & Intact Surrounding Tissue Bright Red Comment rosa lower legs covered with compression dressings, CDI Right Lower Anterior Other Wound Assessment Shift Assessment Wound Type ULCERATION Wound Stage Non Pressure Wound Dressing Status Dry & Intact Right Lower Posterior Other Wound Assessment Shift Assessment Wound Type ULCERATION Wound Stage Non Pressure Wound Dressing Status Dry & Intact Comment dressing per PT, DRESSING CDI Left Lower Posterior Other Wound Assessment Shift Assessment Wound Type ULCERATION Wound Stage Non Pressure Wound Dressing Status Dry & Intact Surrounding Tissue Bright Red Comment compression dressings per PT, CDI Wound Photo Photo Taken No Eye Exam: PERRL, EOMI, eyes nml inspection Ears, Nose, Throat Exam: normal ENT inspection, pharynx normal, moist mucous membranes Neck Exam: normal inspection, non-tender, supple, full range of motion Respiratory Exam: normal breath sounds, lungs clear, No respiratory distress Cardiovascular Exam: regular rate/rhythm, normal heart sounds Gastrointestinal/Abdomen Exam: soft, No tenderness, No mass Extremity Exam: normal inspection, normal range of motion Back Exam: normal inspection, normal range of motion, No CVA tenderness, No vertebral tenderness Male Genitalia Exam: deferred Rectal Exam: deferred OBJECTIVE DATA Vital Signs: Vital Signs - 24 hr Temp Pulse Resp BP Pulse Ox 12/07/20 07:44 99.4 F 113 H 22 123/55 94 L 02/18/20 04:00 98.4 F 105 H 18 128/74 95 02/18/20 00:00 98.5 F 97 H 18 123/70 97 02/17/20 20:00 97.9 F 102 H 16 121/64 94 L 02/17/20 17:36 114 H 20 94 L 02/17/20 16:00 97.7 F 109 H 18 117/73 95 02/17/20 14:55 107 H 18 96 02/17/20 11:57 98.8 F 107 H 20 122/74 97 Oxygen-Last 24 hours Oxygen Flowrate (L/min)-RT 3 Pain Assessment - Last Documented Pain Intensity 3 Pain Scale Used 0-10 Pain Scale Intake and Output: Intake & Output 02/15/20 02/16/20 02/17/20 02/18/20 11:59 11:59 11:59 11:59 Intake Total 2280 4729 2955 4115 Output Total 2584 3905 [id number] [facility] -[id number] -[id number] [id number] [id number] Weight 111.3 kg 111.3 kg Assessment/Plan (1) Cellulitis of both lower extremities Current Visit: Yes Status: Acute Code(s): L03.115 - CELLULITIS OF RIGHT LOWER LIMB; L03.116 - CELLULITIS OF LEFT LOWER LIMB (2) COPD (chronic obstructive pulmonary disease) Current Visit: Yes Status: Chronic Qualifiers: COPD type: unspecified COPD Qualified Code(s): J44.9 - Chronic obstructive pulmonary disease, unspecified
--- NOTE | 2020-02-18 13:05 | PCM.NOTE ---
Podiatry Narrative Note Podiatry Narrative Note: Narrative Subjective: Patient seen at chair side today. States he is feeling better than on admission however there is still some residual pain to the left lower extremity secondary to the wound on the posterior aspect of his left leg. Patient is adamant that he is in a significant amount of pain however he has been dispensed Dilaudid 30 minutes prior to intervention today. He states that he has been primarily nonambulatory only going to the bathroom and back. He refuses to work with physical therapy. He indicates that he wishes to go out to the parking lot to smoke a cigarette however the nursing staff will not allow him to do so. He currently denies any constitutional symptoms. He currently denies any other pedal complaints at this time Podiatry Physical Exam Vascular: DP and PT pulses are unable to be palpated due to the extreme edema to the bilateral lower extremity on presentation patient is sitting in a dependent position. He does have bilateral lower extremity venous stasis with 4+ pitting edema to the pretibial area. There is no lymphangitis or lymphadenopathy on palpation of the popliteal or inguinal lymph nodes. No proximal streaking of the cellulitis. Cellulitis appears to be diminishing to the left lower extremity. Skin temperature is warm to warm on the left lower extremity and warm to cool on the right lower extremity. Dermatological: Cellulitis left lower extremity, skin is supple turgor is boggy. Skin barrier cream over the bilateral lower extremity wounds. Wound description as below Neurological: Diminished sensation to the bilateral lower extremity as tested with a [place] Mary monofilament. Musculoskeletal:'s muscle strength is within normal limits. Range of motion is within normal limits the bilateral lower extremity. Pain with palpation to the edematous areas as well as the wounds to the bilateral lower extremity left more so than right Wound #1 left leg mid tibial area measuring approximately 33 cm x 8.6 cm x 0.1 cm Description 90% fibrotic 10% granular Signs and symptoms of infection: Serosanguineous drainage no probe to bone no undermining positive for cellulitis positive for periwound erythema Wound #2 anterior aspect right leg Measurements Apparently healed at this time 02/18/2020 Wound #3 posterior aspect of right leg Measurements Apparently healed at this time 02/18/2020 Results - Labs Lab/Micro Results: - Other Procedures and Tests Respiratory Therapy 02/13/20 22:28 Respiratory MDI BID 02/13/20 22:30 Oxygen Nasal Cannula 3 lpm Respiratory Therapy Assessment DAILY Assessment/Plan (1) Venous stasis ulcer Current Visit: Yes Status: Acute Assessment & Plan: Patient examination evaluation. Patient has progressed successfully to the right lower extremity to the open wounds with healthy epithelialized tissue with no drainage apparent at this time. These have been classified as healed. Patient has been advised that it is highly recommended that elevation of the bilateral lower extremity is to be performed. Prevalon boots were ordered however pressure relieving eggcrate heel off barrel loader's were provided. At this time I recommend that the patient offloads the posterior left mid calf wound with pillows beneath the knee while laying in his recliner. Patient is unable to lay in bed because it is difficult to breathe due to his COPD. Antibiotic therapy to be managed by the medicine team. Appreciate input. Bilateral lower extremity ulcerations were debrided today in total removing any fibrotic tissue and adherent necrotic tissue to the wound base. This was then cleansed with Dakin solution and allowed to soak this was then wiped from his legs and Betadine was applied to the bilateral lower extremity. A multilayer compression dressing was then applied to the right and left legs in order to reduce the amount of edema and potentially allow for wound healing. This consisted of Xeroform Aquacel Ag 4 x 4 gauze 2 rolls of Kerlix to each leg and 2 rolls of 4 inch Coban to each leg applied with moderate compression in order to push out the edema. I feel that this is appropriate secondary to the result that was shown on the ultrasound performed on December 13, 2019 with no critical stenosis or obstructions of the veins of the bilateral lower extremity. He does not experience any pain with calf compression. Compression therapy is highly recommended at this time. Wound care: PT will change dressing on Wednesdays and Fridays until discharge. I will likely take care of the dressing changes due to the fact that he is exquisitely painful following debridement and does not want to be left uncovered due to the pain he experiences when the wounds are exposed. I will follow closely moving forward. (2) Bilateral leg pain Current Visit: Yes Status: Acute Code(s): M79.604 - PAIN IN RIGHT LEG; M79.605 - PAIN IN LEFT LEG (3) Leukocytosis Current Visit: No Status: Acute Qualifiers: Leukocytosis type: unspecified Qualified Code(s): D72.829 - Elevated white blood cell count, unspecified Code(s): D72.829 - ELEVATED WHITE BLOOD CELL COUNT, UNSPECIFIED (4) Edema Current Visit: Yes Status: Chronic Code(s): R60.9 - EDEMA, UNSPECIFIED (5) Cellulitis Current Visit: No Status: Acute Qualifiers: Site of cellulitis: extremity Site of cellulitis of extremity: lower extremity Laterality: unspecified laterality Qualified Code(s): L03.119 - Cellulitis of unspecified part of limb Code(s): L03.90 - CELLULITIS, UNSPECIFIED
[2020-02-18] MEDS: xanAX 0.5 MG PO PRN (22:17)
[2020-02-18] MEDS: ULTRAM 50 MG PO PRN (22:17)
[2020-02-18] MEDS: Mirapex 0.5 MG Tablet PO SCH (22:17)
[2020-02-18] MEDS: TYLENOL 325 MG PO PRN (22:17)
[2020-02-19] MEDS: DUONEB 0.5-3 MG/3 ml Neb IH SCH ×4 (05:26→18:32)
[2020-02-19] MEDS: ADVAIR 250-50 DISKUS 14 DOSE IH SCH ×2 (05:26→18:32)
[2020-02-19] MEDS: Hydromorphone 1 mg/ml Injection IV PRN ×4 (05:35→22:43)
[2020-02-19] MEDS: Merrem 1 GM 1 G in Sodium Chloride 100ML MINI-BAG PLUS 100 ML IV SCH ×3 (05:36→21:22)
[2020-02-19] MEDS: DALIRESP PO SCH (09:00)
[2020-02-19] MEDS: ECOTRIN 81 MG PO SCH (09:00)
[2020-02-19] MEDS: Pepcid 20 MG VIAL IV SCH ×2 (09:00→22:27)
[2020-02-19] MEDS: NEURONTIN 300 MG PO SCH ×3 (09:00→22:27)
[2020-02-19] MEDS: CLARITIN 10 MG PO SCH (09:01)
[2020-02-19] MEDS: VANCOMYCIN 1.5 GRAM/300 ML BAG 1.5 GM/300 ML PIGGYBACK IV SCH ×2 (09:01→22:27)
[2020-02-19] MEDS: DELTASONE 10 MG PO SCH (09:01)
[2020-02-19] MEDS: BUMEX 1 MG PO SCH (09:01)
--- NOTE | 2020-02-19 11:33 | PCM.NOTE ---
Date and Time: 02/19/20 1132 Subjective Assessment: doing better - Review of Systems Constitutional: No Fever, No Chills Eyes: No Symptoms Ears, Nose, & Throat: No Symptoms Respiratory: No Cough, No Short Of Breath Cardiac: No Chest Pain, No Edema, No Syncope Abdominal/Gastrointestinal: No Abdominal Pain, No Nausea, No Vomiting, No Diarrhea Genitourinary Symptoms: No Dysuria Musculoskeletal: No Back Pain, No Neck Pain Skin: No Rash Neurological: No Dizziness, No Focal Weakness, No Sensory Changes Psychological: No Symptoms Endocrine: No Symptoms Hematologic/Lymphatic: No Symptoms Immunological/Allergic: No Symptoms Objective Exam General Appearance: no apparent distress, alert Neurologic Exam: alert, oriented x 3, cooperative, normal mood/affect, nml cerebellar function, sensation nml, No motor deficits Skin Exam: normal color, warm, dry Wound Assessment: Skin/Wound Assessment Wound/Incision Assessment Start: 02/13/20 18:33 Text: Status: Active Freq: Q6H Protocol: Document 02/19/20 08:00 [facility] (Rec: 02/19/20 08:33 [facility] [id number]) Wound/Incision Assessment Lower Other Wound Assessment Shift Assessment Wound Type CELLULITIS Wound Stage Non Pressure Wound Dressing Status Dry & Intact Surrounding Tissue Bright Red Primary Dressing Gauze Roll/Wrap Secondary Dressing coban Comment rosa lower legs covered with compression dressings, CDI Changed by MD after debridement by Dr Barron Right Lower Anterior Other Wound Assessment Shift Assessment Wound Type ULCERATION Wound Stage Non Pressure Wound Dressing Status Dry & Intact Drainage Amount None Surrounding Tissue Dark Red Primary Dressing Gauze Roll/Wrap Secondary Dressing coban Right Lower Posterior Other Wound Assessment Shift Assessment Wound Type ULCERATION Wound Stage Non Pressure Wound Dressing Status Dry & Intact Surrounding Tissue Dark Red Primary Dressing Gauze Roll/Wrap Secondary Dressing coban Left Lower Posterior Other Wound Assessment Shift Assessment Wound Type ULCERATION Wound Stage Non Pressure Wound Dressing Status Dry & Intact Surrounding Tissue Bright Red Primary Dressing Gauze Roll/Wrap Secondary Dressing coban Wound Photo Photo Taken No Eye Exam: PERRL, EOMI, eyes nml inspection Ears, Nose, Throat Exam: normal ENT inspection, pharynx normal, moist mucous membranes Neck Exam: normal inspection, non-tender, supple, full range of motion Respiratory Exam: normal breath sounds, lungs clear, No respiratory distress Cardiovascular Exam: regular rate/rhythm, normal heart sounds Gastrointestinal/Abdomen Exam: soft, No tenderness, No mass Extremity Exam: normal inspection, normal range of motion Back Exam: normal inspection, normal range of motion, No CVA tenderness, No vertebral tenderness Male Genitalia Exam: deferred Rectal Exam: deferred OBJECTIVE DATA Vital Signs: Vital Signs - 24 hr Temp Pulse Resp BP Pulse Ox 02/19/20 10:44 103 H 18 98 02/19/20 08:00 98 F 102 H 18 127/78 98 02/19/20 05:30 93 H 18 100 02/19/20 04:00 97.6 F 86 16 129/82 99 02/19/20 00:00 98.3 F 106 H 18 129/71 97 02/18/20 19:58 97.2 F 119 H 20 122/80 97 02/18/20 19:16 119 H 18 97 02/18/20 17:04 108 H 20 96 02/18/20 16:00 98.5 F 73 20 140/72 97 02/18/20 12:03 114 H 21 96 02/18/20 12:00 98.9 F 103 H 20 144/68 95 02/18/20 11:39 110 H 22 94 L Oxygen-Last 24 hours Oxygen Flowrate (L/min)-RT 3 Pain Assessment - Last Documented Pain Intensity 4 Pain Scale Used 0-10 Pain Scale Intake and Output: Intake & Output 02/16/20 02/17/20 02/18/20 02/19/20 11:59 11:59 11:59 11:59 Intake Total 4729 2955 4115 600 Output Total 6700 3150 5875 550 Balance -1970 50 Weight 111.3 kg 110.7 kg Multi-Disciplinary Progress Notes: Multi-Disciplinary Progress Notes 02/18/20 16:51 Physical Therapy Note by Shanita Valle DEBRIDEMENT AND DRESSING CHANGE PERFORMED BY DR. BARRON TODAY. PT. TO CONT W/ DRSESING CHANGE ON Tue02/20/20. SHANITA VALLE PT Initialized on 02/18/20 16:51 - END OF NOTE 02/18/20 12:30 Case Management Note by Kristina Sosa DR. MADE ROUNDS- HE REPORTS LEGS ARE LOOKING BETTER BUT PATIENT FREQUENTLY FAILS OUTPT TREATMENT AND WOULD LIKE PATIENT TO STAY LONG ABLE TO IN HOUSE TO CONTINUE PROPER CARE Initialized on 02/18/20 12:30 - END OF NOTE 02/18/20 11:51 Case Management Note by Kristina Sosa PATIENT CONTINUES TO DENY ANY NEEDS REGARDING DC HOME. HE WILL NEEDS SET UP WITH SOME SORT OF WOUND CARE AT TIME OF DC , WILL SEE WHAT CARID[facility] SAYS AFTER DEBRIDEMENT TODAY Initialized on 02/18/20 11:51 - END OF NOTE Assessment/Plan (1) Cellulitis of both lower extremities Current Visit: Yes Status: Acute Assessment & Plan: Chief Complaint Diagnosis CELLULITIS LOWER EXTREMITIES Allergies Allergy/AdvReac Type Severity Reaction Status Date / Time No Known Drug Allergies Allergy Verified 02/13/20 18:07 Vital Signs (Last 24 hours) Temp Pulse Resp BP Pulse Ox 02/19/20 10:44 103 H 18 98 02/19/20 08:00 98 F 102 H 18 127/78 98 02/19/20 05:30 93 H 18 100 02/19/20 04:00 97.6 F 86 16 129/82 99 02/19/20 00:00 98.3 F 106 H 18 129/71 97 02/18/20 19:58 97.2 F 119 H 20 122/80 97 02/18/20 19:16 119 H 18 97 02/18/20 17:04 108 H 20 96 02/18/20 16:00 98.5 F 73 20 140/72 97 02/18/20 12:03 114 H 21 96 02/18/20 12:00 98.9 F 103 H 20 144/68 95 02/18/20 11:39 110 H 22 94 L Home Medications Medication Instructions Recorded Confirmed Last Taken Type Albuterol Sulfate [Proair Hfa] 8.5 gm IH QID 02/13/20 02/13/20 02/13/20 History Aspirin 81 mg PO DAILY 02/13/20 02/13/20 02/13/20 History Pramipexole Di-HCl [Mirapex] 1 mg PO HS 02/13/20 02/13/20 02/12/20 History Tramadol HCl 50 mg [Ultram 50 50 mg PO Q12H PRN PRN 02/13/20 02/13/20 02/13/20 History mg] Current Medications Generic Name Dose Route Start Last Admin Trade Name Freq PRN Reason Stop Dose Admin Acetaminophen 650 mg 02/13/20 17:34 02/18/20 22:17 Tylenol 325 Mg PO 03/14/20 17:33 650 mg Q4H PRN PRN Administration PAIN AND/OR FEVER Albuterol/Ipratropium 3 ml 02/13/20 19:00 02/19/20 10:34 Duoneb 0.5-3 Mg/3 Ml Neb IH 03/14/20 18:59 3 ml QIDRT LIZETT Administration Alprazolam 0.5 mg 02/13/20 18:23 02/18/20 22:17 Xanax 0.5 Mg PO 03/14/20 18:22 0.5 mg TID PRN PRN Administration ANXIETY Aspirin 81 mg 02/14/20 10:00 02/19/20 09:00 Ecotrin 81 Mg PO 03/15/20 09:59 81 mg DAILY LIZETT Administration Bumetanide 1 mg 02/14/20 10:00 02/19/20 09:01 Bumex 1 Mg PO 03/15/20 09:59 1 mg DAILY LIZETT Administration Device 1 02/20/20 09:30 Trough Drug Levels IJ 02/20/20 09:31 1XONLY ONE Famotidine 20 mg 02/13/20 22:00 02/19/20 09:00 Pepcid 20 Mg Vial IV 03/14/20 21:59 20 mg Q12HT LIZETT Administration Gabapentin 600 mg 02/13/20 18:00 02/19/20 09:00 Neurontin 300 Mg PO 03/14/20 17:59 600 mg TID LIZETT Administration Hydromorphone HCl 0.4 mg 02/15/20 09:06 02/19/20 05:35 Hydromorphone 1 Mg/Ml Injection IV 02/20/20 09:05 0.4 mg Q4H PRN PRN Administration PAIN Meropenem 1 g/ Sodium Chloride 100 mls @ 200 mls/hr 02/15/20 14:00 02/19/20 05:36 IV 03/16/20 13:59 200 mls/hr Q8HT LIZETT Administration Vancomycin HCl 1.5 gm in 300 mls @ 200 mls/hr 02/16/20 12:00 02/19/20 09:01 Vancomycin 1.5 Gram/300 Ml Bag IV 03/17/20 11:59 200 mls/hr Q12HT LIZETT Administration Lidocaine/Prilocaine 10 gm 02/18/20 10:00 02/18/20 11:28 Emla Cream 5 Gm TP 03/19/20 09:59 10 gm WEEKLY LIZETT Administration Loratadine 10 mg 02/14/20 10:00 02/19/20 09:01 Claritin 10 Mg PO 03/15/20 09:59 10 mg DAILY LIZETT Administration Ondansetron HCl 4 mg 02/13/20 17:34 02/14/20 19:58 Zofran 4 Mg/2 Ml Vial IV 03/14/20 17:33 4 mg Q6H PRN PRN Administration NAUSEA/VOMITING Albuterol Mdi 2 each 02/13/20 22:29 IH 03/14/20 22:28 Q4HPRN PRN SHORTNESS OF BREATH/WHEEZING Pramipexole Dihydrochloride 1 mg 02/13/20 22:00 02/18/20 22:17 Mirapex 0.5 Mg Tablet PO 03/14/20 21:59 1 mg HS LIZETT Administration Prednisone 10 mg 02/14/20 10:00 02/19/20 09:01 Deltasone 10 Mg PO 03/15/20 09:59 10 mg DAILY LIZETT Administration Roflumilast 250 mcg 02/14/20 10:00 02/19/20 09:00 Daliresp PO 03/15/20 09:59 250 mcg DAILY LIZETT Administration Fluticasone/Salmeterol 1 each 02/15/20 19:00 02/19/20 05:26 Advair 250-50 Diskus 14 Dose IH 03/16/20 18:59 1 each BIDRT LIZETT Administration Sodium Hypochlorite 473 ml 02/14/20 17:45 Dakin's Soln Full Strength TP 03/15/20 17:44 UD LIZETT Tramadol HCl 50 mg 02/13/20 18:23 02/18/20 22:17 Ultram 50 Mg PO 03/14/20 18:22 50 mg Q12H PRN PRN Administration PAIN Discontinued Medications Generic Name Dose Route Start Last Admin Trade Name Freq PRN Reason Stop Dose Admin Albuterol/Ipratropium 3 ml 02/13/20 17:34 Duoneb 0.5-3 Mg/3 Ml Neb IH 03/14/20 17:33 Q4HPRN PRN SHORTNESS OF BREATH/WHEEZING Device 1 02/16/20 09:30 02/16/20 12:03 Trough Drug Levels IJ 02/16/20 09:31 1 1XONLY ONE Administration Fentanyl Citrate 50 mcg 02/13/20 17:42 02/15/20 05:49 Sublimaze 100 Mcg/2 Ml IV 02/18/20 17:41 50 mcg Q6HPRN PRN Administration PAIN AND/OR FEVER Fentanyl Citrate Confirm 02/13/20 17:48 Sublimaze 100 Mcg/2 Ml Administered 02/13/20 17:49 Dose 100 mcg .ROUTE .STK-MED ONE Gabapentin Confirm 02/13/20 17:48 Neurontin 300 Mg Administered 02/13/20 17:49 Dose 600 mg .ROUTE .STK-MED ONE Vancomycin HCl 1 gm/ Sodium 250 mls @ 125 mls/hr 02/13/20 15:30 02/13/20 18:39 Chloride IV 03/14/20 15:29 Not Given Q12H LIZETT Piperacillin Sod/Tazobactam 100 mls @ 200 mls/hr 02/13/20 15:14 02/13/20 15:35 Sod 3.375 gm/ Sodium Chloride IV 02/13/20 15:43 200 mls/hr STAT ONE Administration Vancomycin HCl 2 gm in 400 mls @ 133.333 mls/hr 02/13/20 15:15 02/13/20 15:44 Vancomycin 2 Gram/400 Ml Bag IV 02/13/20 18:14 133.333 ml/hr STAT ONE 133.33 mls/hr Administration Sodium Chloride Confirm 02/13/20 15:28 Sodium Chloride 100ml Mini-Bag Plus Administered 02/13/20 15:29 Dose 100 mls @ ud IV .STK-MED ONE Vancomycin HCl Confirm 02/13/20 15:42 Vancomycin 2 Gram/400 Ml Bag Administered 02/13/20 15:43 Dose 2 gm in 400 mls @ ud IV .STK-MED ONE Piperacillin Sod/Tazobactam 100 mls @ 200 mls/hr 02/14/20 00:00 02/15/20 07:06 Sod 3.375 gm/ Sodium Chloride IV 03/15/20 00:00 200 mls/hr Q6HT LIZETT Administration Vancomycin HCl 1.25 gm in 250 mls @ 166.667 mls/hr 02/14/20 10:00 02/16/20 12:04 Vancomycin 1.25 Gm/250 Ml Bag IV 03/15/20 09:59 Not Given Q12HT LIZETT Sodium Chloride Confirm 02/14/20 18:09 Sodium Chloride 100ml Mini-Bag Plus Administered 02/14/20 18:10 Dose 100 mls @ ud IV .STK-MED ONE Sodium Chloride Confirm 02/14/20 18:10 Sodium Chloride 100ml Mini-Bag Plus Administered 02/14/20 18:11 Dose 100 mls @ ud IV .STK-MED ONE Sodium Chloride Confirm 02/14/20 23:04 Sodium Chloride 100ml Mini-Bag Plus Administered 02/14/20 23:05 Dose 100 mls @ ud IV .STK-MED ONE Sodium Chloride Confirm 02/14/20 23:07 Sodium Chloride 100ml Mini-Bag Plus Administered 02/14/20 23:08 Dose 100 mls @ ud IV .STK-MED ONE Sodium Chloride Confirm 02/14/20 23:08 Sodium Chloride 100ml Mini-Bag Plus Administered 02/14/20 23:09 Dose 100 mls @ ud IV .STK-MED ONE Sodium Chloride Confirm 02/16/20 21:12 Sodium Chloride 100ml Mini-Bag Plus Administered 02/16/20 21:13 Dose 100 mls @ ud IV .STK-MED ONE Insulin Human Lispro 0 unit 02/13/20 17:34 Humalog SQ 03/14/20 17:33 UD PRN HYPERGLYCEMIA Miscellaneous Information 0 each 02/13/20 18:45 Medication Intervention 03/14/20 18:44 .RN TO CHECK WITH RT LIZETT Morphine Sulfate 4 mg 02/13/20 15:14 02/13/20 15:34 Morphine Sulfate 4 Mg Inj IV 02/13/20 15:15 4 mg STAT ONE Administration Morphine Sulfate Confirm 02/13/20 15:28 Morphine Sulfate 4 Mg Inj Administered 02/13/20 15:29 Dose 4 mg .ROUTE .STK-MED ONE Morphine Sulfate 4 mg 02/13/20 16:51 02/13/20 16:56 Morphine Sulfate 4 Mg Inj IV 02/13/20 16:52 4 mg STAT ONE Administration Morphine Sulfate Confirm 02/13/20 16:55 Morphine Sulfate 4 Mg Inj Administered 02/13/20 16:56 Dose 4 mg .ROUTE .STK-MED ONE Morphine Sulfate 4 mg 02/13/20 17:34 Morphine Sulfate 4 Mg Inj IV 02/18/20 17:33 Q4H PRN PRN PAIN Non-Formulary Medication 1 each 02/14/20 09:11 02/14/20 10:52 Pharmacy Dosing Required: Vancomycin IV 02/14/20 09:12 1 each STAT STA Administration Ondansetron HCl 4 mg 02/13/20 15:14 02/13/20 15:34 Zofran 4 Mg/2 Ml Vial IV 02/13/20 15:15 4 mg STAT ONE Administration Ondansetron HCl Confirm 02/13/20 15:28 Zofran 4 Mg/2 Ml Vial Administered 02/13/20 15:29 Dose 4 mg .ROUTE .STK-MED ONE Piperacillin Sod/Tazobactam Sod Confirm 02/13/20 15:28 Zosyn 3.375 Gm Vial Administered 02/13/20 15:29 Dose 3.375 gm IV .STK-MED ONE Piperacillin Sod/Tazobactam Sod Confirm 02/14/20 18:10 Zosyn 3.375 Gm Vial Administered 02/14/20 18:11 Dose 3.375 gm IV .STK-MED ONE Piperacillin Sod/Tazobactam Sod Confirm 02/14/20 23:07 Zosyn 3.375 Gm Vial Administered 02/14/20 23:08 Dose 3.375 gm IV .STK-MED ONE Piperacillin Sod/Tazobactam Sod Confirm 02/14/20 23:08 Zosyn 3.375 Gm Vial Administered 02/14/20 23:09 Dose 3.375 gm IV .STK-MED ONE Fluticasone/Salmeterol 2 puff 02/14/20 07:00 02/15/20 05:33 Advair Hfa 115/21 Common Canister* IH 03/15/20 06:59 2 puff BIDRT LIZETT Administration Intake & Output (Last 24 hours) 02/16/20 02/17/20 02/18/20 02/19/20 11:59 11:59 11:59 11:59 Intake Total 4729 2955 4115 600 Output Total 1112 3150 5820 550 Balance -6507 -425 614 50 Weight 111.3 kg 110.7 kg Orders (Last 24 hours) Category Date Time Status Vancomycin, Trough Urgent Lab 02/20/20 09:30 Ordered Therapuetic Drug Level Monitor [Trough Drug Levels] Med 02/20/20 09:30 Once 1 IJ 1XONLY ONE Patient Care Notes (Last 24 hours) 02/18/20 16:51 Physical Therapy Note by Shanita Valle DEBRIDEMENT AND DRESSING CHANGE PERFORMED BY DR. BARRON TODAY. PT. TO CONT W/ DRSESING CHANGE ON Tue02/20/20. SHANITA VALLE, PT Initialized on 02/18/20 16:51 - END OF NOTE 02/18/20 14:58 Nursing Note by Verenice Carrion Patient up in chair. Dr Barron had debrided legs and new dressings applied. Dressings c/d/i. States comfortable at present. Initialized on 02/18/20 14:58 - END OF NOTE 02/18/20 12:30 Case Management Note by Kristina Sosa DR. MADE ROUNDS- HE REPORTS LEGS ARE LOOKING BETTER BUT PATIENT FREQUENTLY FAILS OUTPT TREATMENT AND WOULD LIKE PATIENT TO STAY LONG ABLE TO IN HOUSE TO CONTINUE PROPER CARE Initialized on 02/18/20 12:30 - END OF NOTE 02/18/20 11:51 Case Management Note by Kristina Sosa PATIENT CONTINUES TO DENY ANY NEEDS REGARDING DC HOME. HE WILL NEEDS SET UP WITH SOME SORT OF WOUND CARE AT TIME OF DC , WILL SEE WHAT CARID[facility] SAYS AFTER DEBRIDEMENT TODAY Initialized on 02/18/20 11:51 - END OF NOTE Code(s): L03.115 - CELLULITIS OF RIGHT LOWER LIMB; L03.116 - CELLULITIS OF LEFT LOWER LIMB (2) COPD (chronic obstructive pulmonary disease) Current Visit: Yes Status: Chronic Qualifiers: COPD type: unspecified COPD Qualified Code(s): J44.9 - Chronic obstructive pulmonary disease, unspecified
[2020-02-19] MEDS ORDERED: HEPARIN-NS 1,000 UNITS/500 ML IV ONE (12:48)
--- NOTE | 2020-02-19 15:10 | XRAY ---
Indication: Ultrasound guidance for PICC line placement. Initial sonographic imaging of the right upper extremity was performed for localization of patent veins. A patent basilic vein identified above the elbow. Ultrasound guidance was then used for PICC line insertion. Full PICC line insertion is reported separately.
--- NOTE | 2020-02-19 15:11 | XRAY ---
Indication: Long-term IV access and therapy for MRSA infection. Informed consent obtained. Patient was placed on the fluoroscopic table in a supine position. Initial sonographic imaging of the right upper extremity was performed for localization of patent veins. The right upper extremity was then prepped and draped in sterile fashion. Tourniquet applied. 1% lidocaine plain used for local anesthesia. Using ultrasound guidance and a micropuncture needle, a basilic vein above the elbow was successfully percutaneously cannulized. A floppy tip 0.018 guidewire inserted. Tourniquet released. Needle was exchanged for a 5 Thai dilator peel away sheath catheter. Ultimately a 5 Thai double-lumen PICC line was inserted over a longer 0.018 guidewire with the tip positioned in the distal SVC using fluoroscopic guidance. Guidewire removed. Both ports flushed with heparinized saline. Catheter was secured. Postoperative instructions and orders given. Patient discharged in good condition. Impression: Technically successful right upper extremity PICC line placement using ultrasound and fluoroscopic guidance. No immediate complications. Approximately 2 cc blood loss. Approximately 0.2 minute of fluoroscopy used. Catheter length is 42 cm.
[2020-02-19] MEDS: ULTRAM 50 MG PO PRN (20:31)
[2020-02-19] MEDS: Mirapex 0.5 MG Tablet PO SCH (22:27)
[2020-02-19] MEDS: xanAX 0.5 MG PO PRN (23:33)
[2020-02-20] MEDS: Hydromorphone 1 mg/ml Injection IV PRN ×3 (04:47→22:05)
[2020-02-20] MEDS: Merrem 1 GM 1 G in Sodium Chloride 100ML MINI-BAG PLUS 100 ML IV SCH ×3 (05:27→22:04)
[2020-02-20] MEDS: DUONEB 0.5-3 MG/3 ml Neb IH SCH ×4 (07:10→18:43)
[2020-02-20] MEDS: ADVAIR 250-50 DISKUS 14 DOSE IH SCH ×2 (07:10→18:44)
[2020-02-20] MEDS: ULTRAM 50 MG PO PRN (08:06)
[2020-02-20] MEDS: CLARITIN 10 MG PO SCH (08:06)
[2020-02-20] MEDS: xanAX 0.5 MG PO PRN ×3 (08:06→22:10)
[2020-02-20] MEDS: Pepcid 20 MG VIAL IV SCH ×2 (08:06→22:04)
[2020-02-20] MEDS: ECOTRIN 81 MG PO SCH (08:06)
[2020-02-20] MEDS: DELTASONE 10 MG PO SCH (08:06)
[2020-02-20] MEDS: BUMEX 1 MG PO SCH (08:06)
[2020-02-20] MEDS: DALIRESP PO SCH (08:07)
[2020-02-20] MEDS: NEURONTIN 300 MG PO SCH ×3 (08:07→22:05)
[2020-02-20] MEDS ORDERED: Hydromorphone 1 mg/ml Injection IV PRN ×2 (09:07→10:04)
[2020-02-20] MEDS ORDERED: TROUGH DRUG LEVELS IJ ONE (09:30)
[2020-02-20] MEDS: VANCOMYCIN 1.5 GRAM/300 ML BAG 1.5 GM/300 ML PIGGYBACK IV SCH ×2 (10:19→22:48)
--- NOTE | 2020-02-20 11:48 | PCM.NOTE ---
Date and Time: 02/20/20 1147 Subjective Assessment: doing ok Objective Exam General Appearance: no apparent distress, alert Neurologic Exam: alert, oriented x 3, cooperative, normal mood/affect, nml cerebellar function, sensation nml, No motor deficits Skin Exam: normal color, warm, dry Wound Assessment: Skin/Wound Assessment Wound/Incision Assessment Start: 02/13/20 18:33 Text: Status: Active Freq: Q6H Protocol: Document 02/20/20 08:00 RENATO (Rec: 02/20/20 08:14 RENATO [id number]) Wound/Incision Assessment Lower Other Wound Assessment Shift Assessment Wound Type CELLULITIS Wound Stage Non Pressure Wound Dressing Status Dry & Intact Surrounding Tissue Bright Red Primary Dressing Gauze Roll/Wrap Secondary Dressing coban Comment rosa lower legs covered with compression dressings, CDI . Right Lower Anterior Other Wound Assessment Shift Assessment Wound Type ULCERATION Wound Stage Non Pressure Wound Dressing Status Dry & Intact Drainage Amount None Surrounding Tissue Dark Red Primary Dressing Gauze Roll/Wrap Secondary Dressing coban Right Lower Posterior Other Wound Assessment Shift Assessment Wound Type ULCERATION Wound Stage Non Pressure Wound Dressing Status Dry & Intact Surrounding Tissue Dark Red Primary Dressing Gauze Roll/Wrap Secondary Dressing coban Left Lower Posterior Other Wound Assessment Shift Assessment Wound Type ULCERATION Wound Stage Non Pressure Wound Dressing Status Dry & Intact Surrounding Tissue Bright Red Primary Dressing Gauze Roll/Wrap Secondary Dressing coban Wound Photo Photo Taken No Eye Exam: PERRL, EOMI, eyes nml inspection Ears, Nose, Throat Exam: normal ENT inspection, pharynx normal, moist mucous membranes Neck Exam: normal inspection, non-tender, supple, full range of motion Respiratory Exam: normal breath sounds, lungs clear, No respiratory distress Cardiovascular Exam: regular rate/rhythm, normal heart sounds Gastrointestinal/Abdomen Exam: soft, No tenderness, No mass Extremity Exam: normal inspection, normal range of motion Back Exam: normal inspection, normal range of motion, No CVA tenderness, No vertebral tenderness Male Genitalia Exam: deferred Rectal Exam: deferred OBJECTIVE DATA Vital Signs: Vital Signs - 24 hr Temp Pulse Resp BP Pulse Ox 02/20/20 11:16 118 H 16 90 L 02/20/20 08:00 106 H 22 97 02/20/20 07:21 88 20 98 02/20/20 04:10 98.2 F 95 H 26 H 132/79 98 02/20/20 00:00 98.6 F 97 H 20 139/81 96 02/19/20 20:00 98.2 F 106 H 18 127/74 98 02/19/20 18:32 98 H 18 98 02/19/20 16:00 98.6 F 99 H 20 161/90 99 02/19/20 12:00 98.0 F 97 H 22 121/57 100 Pain Assessment - Last Documented Pain Intensity 10 Pain Scale Used 0-10 Pain Scale Intake and Output: Intake & Output 02/17/20 02/18/20 02/19/20 02/20/20 11:59 11:59 11:59 11:59 Intake Total 2955 4115 600 2996 Output Total 3150 5875 550 3925 Balance -195 -1760 50 -929 Weight 110.7 kg 110.9 kg Lab Results: Lab Results-Last 24 Hours 02/20/20 Range/Units 09:32 Vancomycin Trough 12.91 (10-20) ug/mL Radiology Exams: Radiology Procedures Category Date Time Status GUIDE FOR VASCULAR ACCESS [US] Routine Exams 02/19/20 12:30 Completed PICC LINE PLACEMENT Routine Exams 02/19/20 14:42 Completed Multi-Disciplinary Progress Notes: Multi-Disciplinary Progress Notes 02/20/20 10:50 Case Management Note by Kristina Sosa NO CHANGE IN DC PLANS AT THIS TIME- WILL CONTINUE TO FOLLOW Initialized on 02/20/20 10:50 - END OF NOTE 02/19/20 17:24 Physical Therapy Note by Shanita Valle CHECKED DRESSINGS THIS DATE TO MAKE SURE THEY WERE DRY AND INTACT AND THEY WERE. SECURED A SMALL AREA OF [place] W/ TAPE. ORDER IS TO CLEAN AND DRESS BILATERAL LES 3X/WK OUTLINED IN DR. REAVES'S ORDER. WILL PERFORM TOMORROW. PLAN IS TO COORDINATE W/ NSG SO PT. CAN SHOWER. SHANITA VALLE PT Initialized on 02/19/20 17:24 - END OF NOTE 02/19/20 12:28 Case Management Note by Kristina Sosa S/W DR. CAI- HE WOULD LIKE PATIENT TO GET A TOTAL OF 10 DAYS OF ANTIBIOTICS PRIOR TO DC ALSO S/W DR. MCLEAN'S NURSE FOR DC PLANS- PATIENT WILL SEE HIM WEEKLY ON MONDAYS THEN SEE OTPT PHYSICAL THERAPY 2 DAYS WEEK. PATIENT AGREEABLE TO THIS PLAN Initialized on 02/19/20 12:28 - END OF NOTE Assessment/Plan (1) Cellulitis of both lower extremities Current Visit: Yes Status: Acute Assessment & Plan: Chief Complaint Diagnosis CELLULITIS LOWER EXTREMITIES Allergies Allergy/AdvReac Type Severity Reaction Status Date / Time No Known Drug Allergies Allergy Verified 02/13/20 18:07 Vital Signs (Last 24 hours) Temp Pulse Resp BP Pulse Ox 02/20/20 11:16 118 H 16 90 L 02/20/20 08:00 106 H 22 97 02/20/20 07:21 88 20 98 02/20/20 04:10 98.2 F 95 H 26 H 132/79 98 02/20/20 00:00 98.6 F 97 H 20 139/81 96 02/19/20 20:00 98.2 F 106 H 18 127/74 98 02/19/20 18:32 98 H 18 98 02/19/20 16:00 98.6 F 99 H 20 161/90 99 02/19/20 12:00 98.0 F 97 H 22 121/57 100 Home Medications Medication Instructions Recorded Confirmed Last Taken Type Albuterol Sulfate [Proair Hfa] 8.5 gm IH QID 02/13/20 02/13/20 02/13/20 History Pramipexole Di-HCl [Mirapex] 1 mg PO HS 02/13/20 02/13/20 02/12/20 History RX: Aspirin 81 mg PO DAILY 02/13/20 02/13/20 02/13/20 History Tramadol HCl 50 mg [Ultram 50 50 mg PO Q12H PRN PRN 02/13/20 02/13/20 02/13/20 History mg] Current Medications Generic Name Dose Route Start Last Admin Trade Name Freq PRN Reason Stop Dose Admin Acetaminophen 650 mg 02/13/20 17:34 02/18/20 22:17 Tylenol 325 Mg PO 03/14/20 17:33 650 mg Q4H PRN PRN Administration PAIN AND/OR FEVER Albuterol/Ipratropium 3 ml 02/13/20 19:00 02/20/20 11:15 Duoneb 0.5-3 Mg/3 Ml Neb IH 03/14/20 18:59 3 ml QIDRT LIZETT Administration Alprazolam 0.5 mg 02/13/20 18:23 02/20/20 08:06 Xanax 0.5 Mg PO 03/14/20 18:22 0.5 mg TID PRN PRN Administration ANXIETY Aspirin 81 mg 02/14/20 10:00 02/20/20 08:06 Ecotrin 81 Mg PO 03/15/20 09:59 81 mg DAILY LIZETT Administration Bumetanide 1 mg 02/14/20 10:00 02/20/20 08:06 Bumex 1 Mg PO 03/15/20 09:59 1 mg DAILY LIZETT Administration Famotidine 20 mg 02/13/20 22:00 02/20/20 08:06 Pepcid 20 Mg Vial IV 03/14/20 21:59 20 mg Q12HT LIZETT Administration Gabapentin 600 mg 02/13/20 18:00 02/20/20 08:07 Neurontin 300 Mg PO 03/14/20 17:59 600 mg TID LIZETT Administration Hydromorphone HCl 0.6 mg 02/20/20 10:04 02/20/20 10:08 Hydromorphone 1 Mg/Ml Injection IV 02/25/20 09:06 0.2 mg Q4H PRN PRN Administration PAIN Meropenem 1 g/ Sodium Chloride 100 mls @ 200 mls/hr 02/15/20 14:00 02/20/20 05:27 IV 03/16/20 13:59 200 mls/hr Q8HT LIZETT Administration Vancomycin HCl 1.5 gm in 300 mls @ 200 mls/hr 02/16/20 12:00 02/20/20 10:19 Vancomycin 1.5 Gram/300 Ml Bag IV 03/17/20 11:59 200 mls/hr Q12HT LIZETT Administration Lidocaine/Prilocaine 10 gm 02/18/20 10:00 02/18/20 11:28 Emla Cream 5 Gm TP 03/19/20 09:59 10 gm WEEKLY LIZETT Administration Loratadine 10 mg 02/14/20 10:00 02/20/20 08:06 Claritin 10 Mg PO 03/15/20 09:59 10 mg DAILY LIZETT Administration Ondansetron HCl 4 mg 02/13/20 17:34 02/14/20 19:58 Zofran 4 Mg/2 Ml Vial IV 03/14/20 17:33 4 mg Q6H PRN PRN Administration NAUSEA/VOMITING Albuterol Mdi 2 each 02/13/20 22:29 IH 03/14/20 22:28 Q4HPRN PRN SHORTNESS OF BREATH/WHEEZING Pramipexole Dihydrochloride 1 mg 02/13/20 22:00 02/19/20 22:27 Mirapex 0.5 Mg Tablet PO 03/14/20 21:59 1 mg HS LIZETT Administration Prednisone 10 mg 02/14/20 10:00 02/20/20 08:06 Deltasone 10 Mg PO 03/15/20 09:59 10 mg DAILY LIZETT Administration Roflumilast 250 mcg 02/14/20 10:00 02/20/20 08:07 Daliresp PO 03/15/20 09:59 250 mcg DAILY LIZETT Administration Fluticasone/Salmeterol 1 each 02/15/20 19:00 02/20/20 07:10 Advair 250-50 Diskus 14 Dose IH 03/16/20 18:59 1 each BIDRT LIZETT Administration Sodium Hypochlorite 473 ml 02/14/20 17:45 Dakin's Soln Full Strength TP 03/15/20 17:44 UD LIZETT Tramadol HCl 50 mg 02/13/20 18:23 02/20/20 08:06 Ultram 50 Mg PO 03/14/20 18:22 50 mg Q12H PRN PRN Administration PAIN Discontinued Medications Generic Name Dose Route Start Last Admin Trade Name Freq PRN Reason Stop Dose Admin Albuterol/Ipratropium 3 ml 02/13/20 17:34 Duoneb 0.5-3 Mg/3 Ml Neb IH 03/14/20 17:33 Q4HPRN PRN SHORTNESS OF BREATH/WHEEZING Device 1 02/16/20 09:30 02/16/20 12:03 Trough Drug Levels IJ 02/16/20 09:31 1 1XONLY ONE Administration Device 1 02/20/20 09:30 02/20/20 10:19 Trough Drug Levels IJ 02/20/20 09:31 1 1XONLY ONE Administration Fentanyl Citrate 50 mcg 02/13/20 17:42 02/15/20 05:49 Sublimaze 100 Mcg/2 Ml IV 02/18/20 17:41 50 mcg Q6HPRN PRN Administration PAIN AND/OR FEVER Fentanyl Citrate Confirm 02/13/20 17:48 Sublimaze 100 Mcg/2 Ml Administered 02/13/20 17:49 Dose 100 mcg .ROUTE .STK-MED ONE Gabapentin Confirm 02/13/20 17:48 Neurontin 300 Mg Administered 02/13/20 17:49 Dose 600 mg .ROUTE .STK-MED ONE Heparin Sodium (Beef Lung) 1,000 units 02/19/20 12:48 Heparin Lock Flush 100 Units/Ml 5ml Syringe .ROUTE 02/19/20 12:49 .STK-MED ONE Heparin Sodium/Sodium Chloride 1,000 unit 02/19/20 12:48 Heparin-Ns 1,000 Units/500 Ml IV 02/19/20 12:49 .STK-MED ONE Hydromorphone HCl 0.4 mg 02/15/20 09:06 02/20/20 04:47 Hydromorphone 1 Mg/Ml Injection IV 02/20/20 09:05 0.4 mg Q4H PRN PRN Administration PAIN Hydromorphone HCl 0.4 mg 02/20/20 09:07 02/20/20 09:43 Hydromorphone 1 Mg/Ml Injection IV 02/25/20 09:06 0.4 mg Q4H PRN PRN Administration PAIN Vancomycin HCl 1 gm/ Sodium 250 mls @ 125 mls/hr 02/13/20 15:30 02/13/20 18:39 Chloride IV 03/14/20 15:29 Not Given Q12H LIZETT Piperacillin Sod/Tazobactam 100 mls @ 200 mls/hr 02/13/20 15:14 02/13/20 15:35 Sod 3.375 gm/ Sodium Chloride IV 02/13/20 15:43 200 mls/hr STAT ONE Administration Vancomycin HCl 2 gm in 400 mls @ 133.333 mls/hr 02/13/20 15:15 02/13/20 15:44 Vancomycin 2 Gram/400 Ml Bag IV 02/13/20 18:14 133.333 ml/hr STAT ONE 133.33 mls/hr Administration Sodium Chloride Confirm 02/13/20 15:28 Sodium Chloride 100ml Mini-Bag Plus Administered 02/13/20 15:29 Dose 100 mls @ ud IV .STK-MED ONE Vancomycin HCl Confirm 02/13/20 15:42 Vancomycin 2 Gram/400 Ml Bag Administered 02/13/20 15:43 Dose 2 gm in 400 mls @ ud IV .STK-MED ONE Piperacillin Sod/Tazobactam 100 mls @ 200 mls/hr 02/14/20 00:00 02/15/20 07:06 Sod 3.375 gm/ Sodium Chloride IV 03/15/20 00:00 200 mls/hr Q6HT LIZETT Administration Vancomycin HCl 1.25 gm in 250 mls @ 166.667 mls/hr 02/14/20 10:00 02/16/20 12:04 Vancomycin 1.25 Gm/250 Ml Bag IV 03/15/20 09:59 Not Given Q12HT LIZETT Sodium Chloride Confirm 02/14/20 18:09 Sodium Chloride 100ml Mini-Bag Plus Administered 02/14/20 18:10 Dose 100 mls @ ud IV .STK-MED ONE Sodium Chloride Confirm 02/14/20 18:10 Sodium Chloride 100ml Mini-Bag Plus Administered 02/14/20 18:11 Dose 100 mls @ ud IV .STK-MED ONE Sodium Chloride Confirm 02/14/20 23:04 Sodium Chloride 100ml Mini-Bag Plus Administered 02/14/20 23:05 Dose 100 mls @ ud IV .STK-MED ONE Sodium Chloride Confirm 02/14/20 23:07 Sodium Chloride 100ml Mini-Bag Plus Administered 02/14/20 23:08 Dose 100 mls @ ud IV .STK-MED ONE Sodium Chloride Confirm 02/14/20 23:08 Sodium Chloride 100ml Mini-Bag Plus Administered 02/14/20 23:09 Dose 100 mls @ ud IV .STK-MED ONE Sodium Chloride Confirm 02/16/20 21:12 Sodium Chloride 100ml Mini-Bag Plus Administered 02/16/20 21:13 Dose 100 mls @ ud IV .STK-MED ONE Insulin Human Lispro 0 unit 02/13/20 17:34 Humalog SQ 03/14/20 17:33 UD PRN HYPERGLYCEMIA Miscellaneous Information 0 each 02/13/20 18:45 Medication Intervention MC 03/14/20 18:44 .RN TO CHECK WITH RT LIZETT Morphine Sulfate 4 mg 02/13/20 15:14 02/13/20 15:34 Morphine Sulfate 4 Mg Inj IV 02/13/20 15:15 4 mg STAT ONE Administration Morphine Sulfate Confirm 02/13/20 15:28 Morphine Sulfate 4 Mg Inj Administered 02/13/20 15:29 Dose 4 mg .ROUTE .STK-MED ONE Morphine Sulfate 4 mg 02/13/20 16:51 02/13/20 16:56 Morphine Sulfate 4 Mg Inj IV 02/13/20 16:52 4 mg STAT ONE Administration Morphine Sulfate Confirm 02/13/20 16:55 Morphine Sulfate 4 Mg Inj Administered 02/13/20 16:56 Dose 4 mg .ROUTE .STK-MED ONE Morphine Sulfate 4 mg 02/13/20 17:34 Morphine Sulfate 4 Mg Inj IV 02/18/20 17:33 Q4H PRN PRN PAIN Non-Formulary Medication 1 each 02/14/20 09:11 02/14/20 10:52 Pharmacy Dosing Required: Vancomycin IV 02/14/20 09:12 1 each STAT STA Administration Ondansetron HCl 4 mg 02/13/20 15:14 02/13/20 15:34 Zofran 4 Mg/2 Ml Vial IV 02/13/20 15:15 4 mg STAT ONE Administration Ondansetron HCl Confirm 02/13/20 15:28 Zofran 4 Mg/2 Ml Vial Administered 02/13/20 15:29 Dose 4 mg .ROUTE .STK-MED ONE Piperacillin Sod/Tazobactam Sod Confirm 02/13/20 15:28 Zosyn 3.375 Gm Vial Administered 02/13/20 15:29 Dose 3.375 gm IV .STK-MED ONE Piperacillin Sod/Tazobactam Sod Confirm 02/14/20 18:10 Zosyn 3.375 Gm Vial Administered 02/14/20 18:11 Dose 3.375 gm IV .STK-MED ONE Piperacillin Sod/Tazobactam Sod Confirm 02/14/20 23:07 Zosyn 3.375 Gm Vial Administered 02/14/20 23:08 Dose 3.375 gm IV .STK-MED ONE Piperacillin Sod/Tazobactam Sod Confirm 02/14/20 23:08 Zosyn 3.375 Gm Vial Administered 02/14/20 23:09 Dose 3.375 gm IV .STK-MED ONE Fluticasone/Salmeterol 2 puff 02/14/20 07:00 02/15/20 05:33 Advair Hfa 115/21 Common Canister* IH 03/15/20 06:59 2 puff BIDRT LIZETT Administration Intake & Output (Last 24 hours) 02/17/20 02/18/20 02/19/20 02/20/20 11:59 11:59 11:59 11:59 Intake Total 2955 4115 600 2996 Output Total 3150 5875 550 3925 Balance -195 -5012 50 -929 Weight 110.7 kg 110.9 kg Laboratory Results (Last 24 hours) 02/20/20 09:32 Vancomycin Trough 12.91 Orders (Last 24 hours) Category Date Time Status Infection Control Consult ROUTINE Cons 02/20/20 00:04 Active House Regular Diet Diet 02/19/20 Dinner Active GUIDE FOR VASCULAR ACCESS [US] Routine Exams 02/19/20 12:30 Completed PICC LINE PLACEMENT Routine Exams 02/19/20 14:42 Completed Vancomycin, Trough Urgent Lab 02/20/20 09:32 Completed Heparin Flush 500 units/5 ml [Heparin Lock Flush 100 Med 02/19/20 12:48 Discontinued Units/ml 5ml Syringe] 1,000 units .ROUTE .STK-MED ONE Heparin Sodium,Porcine/Ns/Pf [Heparin-Ns 1,000 Units/ Med 02/19/20 12:48 Discontinued 500 ml] 1,000 unit IV .STK-MED ONE Hydromorphone 1 mg/1Ml Inj [Hydromorphone 1 mg/ml Med 02/20/20 09:07 Discontinued Injection] 0.4 mg IV Q4H PRN PRN Hydromorphone 1 mg/1Ml Inj [Hydromorphone 1 mg/ml Med 02/20/20 10:04 Active Injection] 0.6 mg IV Q4H PRN PRN Therapuetic Drug Level Monitor [Trough Drug Levels] Med 02/20/20 09:30 Discontinued 1 IJ 1XONLY ONE Patient Care Notes (Last 24 hours) 02/20/20 10:50 Case Management Note by Kristina Sosa NO CHANGE IN DC PLANS AT THIS TIME- WILL CONTINUE TO FOLLOW Initialized on 02/20/20 10:50 - END OF NOTE 02/20/20 10:15 Nursing Note by Jackie Eddy c/o severe pain, unable to sit still, rocking back and forth in chair moaning. dr. cai updated by phone and new order received to increase dilaudid to 0.6mg q4h. pt given 0.2mg iv. Initialized on 02/20/20 10:15 - END OF NOTE 02/19/20 17:24 Physical Therapy Note by Shanita Valle CHECKED DRESSINGS THIS DATE TO MAKE SURE THEY WERE DRY AND INTACT AND THEY WERE. SECURED A SMALL AREA OF [place] W/ TAPE. ORDER IS TO CLEAN AND DRESS BILATERAL LES 3X/WK OUTLINED IN DR. CHRISTIAN'F'S ORDER. WILL PERFORM TOMORROW. PLAN IS TO COORDINATE W/ NSG SO PT. CAN SHOWER. SHANITA VALLE, PT Initialized on 02/19/20 17:24 - END OF NOTE 02/19/20 12:28 Case Management Note by Kristina Sosa S/W DR. CAI- HE WOULD LIKE PATIENT TO GET A TOTAL OF 10 DAYS OF ANTIBIOTICS PRIOR TO DC ALSO S/W DR. MCLEAN'S NURSE FOR DC PLANS- PATIENT WILL SEE HIM WEEKLY ON MONDAYS THEN SEE OTPT PHYSICAL THERAPY 2 DAYS WEEK. PATIENT AGREEABLE TO THIS PLAN Initialized on 02/19/20 12:28 - END OF NOTE Code(s): L03.115 - CELLULITIS OF RIGHT LOWER LIMB; L03.116 - CELLULITIS OF LEFT LOWER LIMB (2) COPD (chronic obstructive pulmonary disease) Current Visit: Yes Status: Chronic Qualifiers: COPD type: unspecified COPD Qualified Code(s): J44.9 - Chronic obstructive pulmonary disease, unspecified
[2020-02-20] MEDS: Mirapex 0.5 MG Tablet PO SCH (22:05)
[2020-02-21] MEDS: Merrem 1 GM 1 G in Sodium Chloride 100ML MINI-BAG PLUS 100 ML IV SCH ×3 (05:00→21:20)
[2020-02-21] MEDS: Hydromorphone 1 mg/ml Injection IV PRN ×4 (05:07→19:57)
[2020-02-21] MEDS: DUONEB 0.5-3 MG/3 ml Neb IH SCH ×4 (06:39→19:20)
[2020-02-21] MEDS: ADVAIR 250-50 DISKUS 14 DOSE IH SCH ×2 (06:39→19:21)
[2020-02-21] MEDS: VANCOMYCIN 1.5 GRAM/300 ML BAG 1.5 GM/300 ML PIGGYBACK IV SCH ×2 (09:45→21:58)
[2020-02-21] MEDS: BUMEX 1 MG PO SCH (09:45)
[2020-02-21] MEDS: ECOTRIN 81 MG PO SCH (09:46)
[2020-02-21] MEDS: Pepcid 20 MG VIAL IV SCH ×2 (09:46→21:58)
[2020-02-21] MEDS: CLARITIN 10 MG PO SCH (09:46)
[2020-02-21] MEDS: NEURONTIN 300 MG PO SCH ×3 (09:46→21:58)
[2020-02-21] MEDS: DELTASONE 10 MG PO SCH (09:46)
[2020-02-21] MEDS: DALIRESP PO SCH (09:47)
[2020-02-21] MEDS: xanAX 0.5 MG PO PRN (09:47)
--- NOTE | 2020-02-21 11:22 | PCM.NOTE ---
Date and Time: 02/21/20 112 Subjective Assessment: doing better - Review of Systems Constitutional: No Fever, No Chills Eyes: No Symptoms Ears, Nose, & Throat: No Symptoms Respiratory: No Cough, No Short Of Breath Cardiac: No Chest Pain, No Edema, No Syncope Abdominal/Gastrointestinal: No Abdominal Pain, No Nausea, No Vomiting, No Diarrhea Genitourinary Symptoms: No Dysuria Musculoskeletal: No Back Pain, No Neck Pain Skin: No Rash Neurological: No Dizziness, No Focal Weakness, No Sensory Changes Psychological: No Symptoms Endocrine: No Symptoms Hematologic/Lymphatic: No Symptoms Immunological/Allergic: No Symptoms Objective Exam General Appearance: no apparent distress, alert Neurologic Exam: alert, oriented x 3, cooperative, normal mood/affect, nml cerebellar function, sensation nml, No motor deficits Skin Exam: normal color, warm, dry Wound Assessment: Skin/Wound Assessment Wound/Incision Assessment Start: 02/13/20 18:33 Text: Status: Active Freq: Q6H Protocol: Document 02/21/20 08:00 MJ (Rec: 02/21/20 10:36 MJ [id number]) Wound/Incision Assessment Lower Other Wound Assessment Shift Assessment Wound Type CELLULITIS Wound Stage Non Pressure Wound Dressing Status Dry & Intact Surrounding Tissue Bright Red Primary Dressing Gauze Roll/Wrap Secondary Dressing coban Comment rosa lower legs covered with compression dressings, CDI . Right Lower Anterior Other Wound Assessment Shift Assessment Wound Type ULCERATION Wound Stage Non Pressure Wound Dressing Status Dry & Intact Drainage Amount None Surrounding Tissue Dark Red Primary Dressing Gauze Roll/Wrap Secondary Dressing coban Right Lower Posterior Other Wound Assessment Shift Assessment Wound Type ULCERATION Wound Stage Non Pressure Wound Dressing Status Dry & Intact Surrounding Tissue Dark Red Primary Dressing Gauze Roll/Wrap Secondary Dressing coban Left Lower Posterior Other Wound Assessment Shift Assessment Wound Type ULCERATION Wound Stage Non Pressure Wound Dressing Status Dry & Intact Surrounding Tissue Bright Red Primary Dressing Gauze Roll/Wrap Secondary Dressing coban Wound Photo Photo Taken No Eye Exam: PERRL, EOMI, eyes nml inspection Ears, Nose, Throat Exam: normal ENT inspection, pharynx normal, moist mucous membranes Neck Exam: normal inspection, non-tender, supple, full range of motion Respiratory Exam: normal breath sounds, lungs clear, No respiratory distress Cardiovascular Exam: regular rate/rhythm, normal heart sounds Gastrointestinal/Abdomen Exam: soft, No tenderness, No mass Extremity Exam: normal inspection, normal range of motion Back Exam: normal inspection, normal range of motion, No CVA tenderness, No vertebral tenderness Male Genitalia Exam: deferred Rectal Exam: deferred OBJECTIVE DATA Vital Signs: Vital Signs - 24 hr Temp Pulse Resp BP Pulse Ox 02/21/20 10:37 108 H 16 98 02/21/20 07:58 97.5 F 97 H 18 116/48 96 02/21/20 06:42 97 H 18 96 02/21/20 04:00 98.7 F 98 H 22 115/77 99 02/20/20 23:48 98.2 F 103 H 23 110/78 99 02/20/20 20:00 97.9 F 101 H 18 118/87 100 02/20/20 18:43 101 H 18 100 02/20/20 15:51 98.0 F 113 H 22 121/76 95 02/20/20 14:38 84 18 97 02/20/20 12:00 98.6 F 113 H 24 97 Pain Assessment - Last Documented Pain Intensity 9 Pain Scale Used 0-10 Pain Scale Intake and Output: Intake & Output 02/18/20 02/19/20 02/20/20 02/21/20 11:59 11:59 11:59 11:59 Intake Total 4115 600 2996 3322 Output Total 5840 550 3925 3450 Balance -1760 50 -929 -128 Weight 110.7 kg 110.9 kg 110.4 kg Radiology Exams: Radiology Procedures Category Date Time Status GUIDE FOR VASCULAR ACCESS [US] Routine Exams 02/19/20 12:30 Completed PICC LINE PLACEMENT Routine Exams 02/19/20 14:42 Completed Multi-Disciplinary Progress Notes: Multi-Disciplinary Progress Notes 02/20/20 15:43 Nutrition Note by Silva Suárez F/u Note: House regular diet con't with 100% po intake. Labs 02/15= Na 135, glu 114, alb wnl. adm weight 111.3 kg; current weight 110.9 kg. goal of po intake >=75% met and ongoing. Will con't to monitor and f/u prn. T.CELE Suárez Initialized on 02/20/20 15:43 - END OF NOTE Assessment/Plan (1) Cellulitis of both lower extremities Current Visit: Yes Status: Acute Assessment & Plan: Chief Complaint Diagnosis CELLULITIS LOWER EXTREMITIES Allergies Allergy/AdvReac Type Severity Reaction Status Date / Time No Known Drug Allergies Allergy Verified 02/13/20 18:07 Vital Signs (Last 24 hours) Temp Pulse Resp BP Pulse Ox 02/21/20 10:37 108 H 16 98 02/21/20 07:58 97.5 F 97 H 18 116/48 96 02/21/20 06:42 97 H 18 96 02/21/20 04:00 98.7 F 98 H 22 115/77 99 02/20/20 23:48 98.2 F 103 H 23 110/78 99 02/20/20 20:00 97.9 F 101 H 18 118/87 100 02/20/20 18:43 101 H 18 100 02/20/20 15:51 98.0 F 113 H 22 121/76 95 02/20/20 14:38 84 18 97 02/20/20 12:00 98.6 F 113 H 24 97 Home Medications Medication Instructions Recorded Confirmed Last Taken Type Albuterol Sulfate [Proair Hfa] 8.5 gm IH QID 02/13/20 02/13/20 02/13/20 History Aspirin 81 mg PO DAILY 02/13/20 02/13/20 02/13/20 History Pramipexole Di-HCl [Mirapex] 1 mg PO HS 02/13/20 02/13/20 02/12/20 History Tramadol HCl 50 mg [Ultram 50 50 mg PO Q12H PRN PRN 02/13/20 02/13/20 02/13/20 History mg] Current Medications Generic Name Dose Route Start Last Admin Trade Name Freq PRN Reason Stop Dose Admin Acetaminophen 650 mg 02/13/20 17:34 02/18/20 22:17 Tylenol 325 Mg PO 03/14/20 17:33 650 mg Q4H PRN PRN Administration PAIN AND/OR FEVER Albuterol/Ipratropium 3 ml 02/13/20 19:00 02/21/20 10:29 Duoneb 0.5-3 Mg/3 Ml Neb IH 03/14/20 18:59 3 ml QIDRT LIZETT Administration Alprazolam 0.5 mg 02/13/20 18:23 02/21/20 09:47 Xanax 0.5 Mg PO 03/14/20 18:22 0.5 mg TID PRN PRN Administration ANXIETY Aspirin 81 mg 02/14/20 10:00 02/21/20 09:46 Ecotrin 81 Mg PO 03/15/20 09:59 81 mg DAILY LIZETT Administration Bumetanide 1 mg 02/14/20 10:00 02/21/20 09:45 Bumex 1 Mg PO 03/15/20 09:59 1 mg DAILY LIZETT Administration Famotidine 20 mg 02/13/20 22:00 02/21/20 09:46 Pepcid 20 Mg Vial IV 03/14/20 21:59 20 mg Q12HT LIZETT Administration Gabapentin 600 mg 02/13/20 18:00 02/21/20 09:46 Neurontin 300 Mg PO 03/14/20 17:59 600 mg TID LIZETT Administration Hydromorphone HCl 1 mg 02/20/20 12:35 02/21/20 09:46 Hydromorphone 1 Mg/Ml Injection IV 02/25/20 09:06 1 mg Q4H PRN PRN Administration PAIN Meropenem 1 g/ Sodium Chloride 100 mls @ 200 mls/hr 02/15/20 14:00 02/21/20 05:00 IV 03/16/20 13:59 200 mls/hr Q8HT LIZETT Administration Vancomycin HCl 1.5 gm in 300 mls @ 200 mls/hr 02/16/20 12:00 02/21/20 09:45 Vancomycin 1.5 Gram/300 Ml Bag IV 03/17/20 11:59 200 mls/hr Q12HT LIZETT Administration Lidocaine/Prilocaine 10 gm 02/18/20 10:00 02/18/20 11:28 Emla Cream 5 Gm TP 03/19/20 09:59 10 gm WEEKLY LIZETT Administration Loratadine 10 mg 02/14/20 10:00 02/21/20 09:46 Claritin 10 Mg PO 03/15/20 09:59 10 mg DAILY LIZETT Administration Ondansetron HCl 4 mg 02/13/20 17:34 02/14/20 19:58 Zofran 4 Mg/2 Ml Vial IV 03/14/20 17:33 4 mg Q6H PRN PRN Administration NAUSEA/VOMITING Albuterol Mdi 2 each 02/13/20 22:29 IH 03/14/20 22:28 Q4HPRN PRN SHORTNESS OF BREATH/WHEEZING Pramipexole Dihydrochloride 1 mg 02/13/20 22:00 02/20/20 22:05 Mirapex 0.5 Mg Tablet PO 03/14/20 21:59 1 mg HS LIZETT Administration Prednisone 10 mg 02/14/20 10:00 02/21/20 09:46 Deltasone 10 Mg PO 03/15/20 09:59 10 mg DAILY LIZETT Administration Roflumilast 250 mcg 02/14/20 10:00 02/21/20 09:47 Daliresp PO 03/15/20 09:59 250 mcg DAILY LIZETT Administration Fluticasone/Salmeterol 1 each 02/15/20 19:00 02/21/20 06:39 Advair 250-50 Diskus 14 Dose IH 03/16/20 18:59 1 each BIDRT LIZETT Administration Sodium Hypochlorite 473 ml 02/14/20 17:45 Dakin's Soln Full Strength TP 03/15/20 17:44 UD LIZETT Tramadol HCl 50 mg 02/13/20 18:23 02/20/20 08:06 Ultram 50 Mg PO 03/14/20 18:22 50 mg Q12H PRN PRN Administration PAIN Discontinued Medications Generic Name Dose Route Start Last Admin Trade Name Freq PRN Reason Stop Dose Admin Albuterol/Ipratropium 3 ml 02/13/20 17:34 Duoneb 0.5-3 Mg/3 Ml Neb IH 03/14/20 17:33 Q4HPRN PRN SHORTNESS OF BREATH/WHEEZING Device 1 02/16/20 09:30 02/16/20 12:03 Trough Drug Levels IJ 02/16/20 09:31 1 1XONLY ONE Administration Device 1 02/20/20 09:30 02/20/20 10:19 Trough Drug Levels IJ 02/20/20 09:31 1 1XONLY ONE Administration Fentanyl Citrate 50 mcg 02/13/20 17:42 02/15/20 05:49 Sublimaze 100 Mcg/2 Ml IV 02/18/20 17:41 50 mcg Q6HPRN PRN Administration PAIN AND/OR FEVER Fentanyl Citrate Confirm 02/13/20 17:48 Sublimaze 100 Mcg/2 Ml Administered 02/13/20 17:49 Dose 100 mcg .ROUTE .STK-MED ONE Gabapentin Confirm 02/13/20 17:48 Neurontin 300 Mg Administered 02/13/20 17:49 Dose 600 mg .ROUTE .STK-MED ONE Heparin Sodium (Beef Lung) 1,000 units 02/19/20 12:48 Heparin Lock Flush 100 Units/Ml 5ml Syringe .ROUTE 02/19/20 12:49 .STK-MED ONE Heparin Sodium/Sodium Chloride 1,000 unit 02/19/20 12:48 Heparin-Ns 1,000 Units/500 Ml IV 02/19/20 12:49 .STK-MED ONE Hydromorphone HCl 0.4 mg 02/15/20 09:06 02/20/20 04:47 Hydromorphone 1 Mg/Ml Injection IV 02/20/20 09:05 0.4 mg Q4H PRN PRN Administration PAIN Hydromorphone HCl 0.4 mg 02/20/20 09:07 02/20/20 09:43 Hydromorphone 1 Mg/Ml Injection IV 02/25/20 09:06 0.4 mg Q4H PRN PRN Administration PAIN Hydromorphone HCl 0.6 mg 02/20/20 10:04 02/20/20 10:08 Hydromorphone 1 Mg/Ml Injection IV 02/25/20 09:06 0.2 mg Q4H PRN PRN Administration PAIN Vancomycin HCl 1 gm/ Sodium 250 mls @ 125 mls/hr 02/13/20 15:30 02/13/20 18:39 Chloride IV 03/14/20 15:29 Not Given Q12H LIZETT Piperacillin Sod/Tazobactam 100 mls @ 200 mls/hr 02/13/20 15:14 02/13/20 15:35 Sod 3.375 gm/ Sodium Chloride IV 02/13/20 15:43 200 mls/hr STAT ONE Administration Vancomycin HCl 2 gm in 400 mls @ 133.333 mls/hr 02/13/20 15:15 02/13/20 15:44 Vancomycin 2 Gram/400 Ml Bag IV 02/13/20 18:14 133.333 ml/hr STAT ONE 133.33 mls/hr Administration Sodium Chloride Confirm 02/13/20 15:28 Sodium Chloride 100ml Mini-Bag Plus Administered 02/13/20 15:29 Dose 100 mls @ ud IV .STK-MED ONE Vancomycin HCl Confirm 02/13/20 15:42 Vancomycin 2 Gram/400 Ml Bag Administered 02/13/20 15:43 Dose 2 gm in 400 mls @ ud IV .STK-MED ONE Piperacillin Sod/Tazobactam 100 mls @ 200 mls/hr 02/14/20 00:00 02/15/20 07:06 Sod 3.375 gm/ Sodium Chloride IV 03/15/20 00:00 200 mls/hr Q6HT LIZETT Administration Vancomycin HCl 1.25 gm in 250 mls @ 166.667 mls/hr 02/14/20 10:00 02/16/20 12:04 Vancomycin 1.25 Gm/250 Ml Bag IV 03/15/20 09:59 Not Given Q12HT LIZETT Sodium Chloride Confirm 02/14/20 18:09 Sodium Chloride 100ml Mini-Bag Plus Administered 02/14/20 18:10 Dose 100 mls @ ud IV .STK-MED ONE Sodium Chloride Confirm 02/14/20 18:10 Sodium Chloride 100ml Mini-Bag Plus Administered 02/14/20 18:11 Dose 100 mls @ ud IV .STK-MED ONE Sodium Chloride Confirm 02/14/20 23:04 Sodium Chloride 100ml Mini-Bag Plus Administered 02/14/20 23:05 Dose 100 mls @ ud IV .STK-MED ONE Sodium Chloride Confirm 02/14/20 23:07 Sodium Chloride 100ml Mini-Bag Plus Administered 02/14/20 23:08 Dose 100 mls @ ud IV .STK-MED ONE Sodium Chloride Confirm 02/14/20 23:08 Sodium Chloride 100ml Mini-Bag Plus Administered 02/14/20 23:09 Dose 100 mls @ ud IV .STK-MED ONE Sodium Chloride Confirm 02/16/20 21:12 Sodium Chloride 100ml Mini-Bag Plus Administered 02/16/20 21:13 Dose 100 mls @ ud IV .STK-MED ONE Insulin Human Lispro 0 unit 02/13/20 17:34 Humalog SQ 03/14/20 17:33 UD PRN HYPERGLYCEMIA Miscellaneous Information 0 each 02/13/20 18:45 Medication Intervention MC 03/14/20 18:44 .RN TO CHECK WITH RT LIZETT Morphine Sulfate 4 mg 02/13/20 15:14 02/13/20 15:34 Morphine Sulfate 4 Mg Inj IV 02/13/20 15:15 4 mg STAT ONE Administration Morphine Sulfate Confirm 02/13/20 15:28 Morphine Sulfate 4 Mg Inj Administered 02/13/20 15:29 Dose 4 mg .ROUTE .STK-MED ONE Morphine Sulfate 4 mg 02/13/20 16:51 02/13/20 16:56 Morphine Sulfate 4 Mg Inj IV 02/13/20 16:52 4 mg STAT ONE Administration Morphine Sulfate Confirm 02/13/20 16:55 Morphine Sulfate 4 Mg Inj Administered 02/13/20 16:56 Dose 4 mg .ROUTE .STK-MED ONE Morphine Sulfate 4 mg 02/13/20 17:34 Morphine Sulfate 4 Mg Inj IV 02/18/20 17:33 Q4H PRN PRN PAIN Non-Formulary Medication 1 each 02/14/20 09:11 02/14/20 10:52 Pharmacy Dosing Required: Vancomycin IV 02/14/20 09:12 1 each STAT STA Administration Ondansetron HCl 4 mg 02/13/20 15:14 02/13/20 15:34 Zofran 4 Mg/2 Ml Vial IV 02/13/20 15:15 4 mg STAT ONE Administration Ondansetron HCl Confirm 02/13/20 15:28 Zofran 4 Mg/2 Ml Vial Administered 02/13/20 15:29 Dose 4 mg .ROUTE .STK-MED ONE Piperacillin Sod/Tazobactam Sod Confirm 02/13/20 15:28 Zosyn 3.375 Gm Vial Administered 02/13/20 15:29 Dose 3.375 gm IV .STK-MED ONE Piperacillin Sod/Tazobactam Sod Confirm 02/14/20 18:10 Zosyn 3.375 Gm Vial Administered 02/14/20 18:11 Dose 3.375 gm IV .STK-MED ONE Piperacillin Sod/Tazobactam Sod Confirm 02/14/20 23:07 Zosyn 3.375 Gm Vial Administered 02/14/20 23:08 Dose 3.375 gm IV .STK-MED ONE Piperacillin Sod/Tazobactam Sod Confirm 02/14/20 23:08 Zosyn 3.375 Gm Vial Administered 02/14/20 23:09 Dose 3.375 gm IV .STK-MED ONE Fluticasone/Salmeterol 2 puff 02/14/20 07:00 02/15/20 05:33 Advair Hfa 115/21 Common Canister* IH 03/15/20 06:59 2 puff BIDRT LIZETT Administration Intake & Output (Last 24 hours) 02/18/20 02/19/20 02/20/20 02/21/20 11:59 11:59 11:59 11:59 Intake Total 4115 600 2996 3322 Output Total 5862 647 3925 3450 Balance -1760 50 -929 -128 Weight 110.7 kg 110.9 kg 110.4 kg Orders (Last 24 hours) Category Date Time Status Hydromorphone 1 mg/1Ml Inj [Hydromorphone 1 mg/ml Med 02/20/20 12:35 Active Injection] 1 mg IV Q4H PRN PRN Patient Care Notes (Last 24 hours) 02/20/20 15:43 Nutrition Note by Silva Suárez F/u Note: House regular diet con't with 100% po intake. Labs 02/15= Na 135, glu 114, alb wnl. adm weight 111.3 kg; current weight 110.9 kg. goal of po intake >=75% met and ongoing. Will con't to monitor and f/u prn. CELE Hamilton Initialized on 02/20/20 15:43 - END OF NOTE 02/20/20 12:36 Nursing Note by Jackie Eddy DR. ROUNDED ON PT, NEW ORDER TO INCREASE DILAUDID TO 1MG Q4H. Initialized on 02/20/20 12:36 - END OF NOTE Code(s): L03.115 - CELLULITIS OF RIGHT LOWER LIMB; L03.116 - CELLULITIS OF LEFT LOWER LIMB (2) COPD (chronic obstructive pulmonary disease) Current Visit: Yes Status: Chronic Qualifiers: COPD type: unspecified COPD Qualified Code(s): J44.9 - Chronic obstructive pulmonary disease, unspecified
[2020-02-21] MEDS ORDERED: Sodium Chloride 0.9% 10 ML FLUSH Syringe IV PRN (15:15)
[2020-02-21] MEDS: Mirapex 0.5 MG Tablet PO SCH (21:58)
[2020-02-22] MEDS: Merrem 1 GM 1 G in Sodium Chloride 100ML MINI-BAG PLUS 100 ML IV SCH (05:01)
[2020-02-22] MEDS: Hydromorphone 1 mg/ml Injection IV PRN ×2 (05:01→09:15)
[2020-02-22] MEDS: DUONEB 0.5-3 MG/3 ml Neb IH SCH ×2 (05:31→10:21)
[2020-02-22] MEDS: ADVAIR 250-50 DISKUS 14 DOSE IH SCH (05:32)
[2020-02-22 07:41] VITALS: BP 123/78
[2020-02-22] MEDS: NEURONTIN 300 MG PO SCH (09:15)
[2020-02-22] MEDS: CLARITIN 10 MG PO SCH (09:15)
[2020-02-22] MEDS: DELTASONE 10 MG PO SCH (09:15)
[2020-02-22] MEDS: BUMEX 1 MG PO SCH (09:15)
[2020-02-22] MEDS: ECOTRIN 81 MG PO SCH (09:15)
[2020-02-22] MEDS: Pepcid 20 MG VIAL IV SCH (09:16)
[2020-02-22] MEDS: VANCOMYCIN 1.5 GRAM/300 ML BAG 1.5 GM/300 ML PIGGYBACK IV SCH (09:16)
[2020-02-22] MEDS: DALIRESP PO SCH (09:16)
[2020-02-22 10:33] VITALS: PULSE 126; O2SAT 93
--- NOTE | 2020-02-22 11:31 | PCM.DS ---
Discharge Summary Date of Admission: 02/14/20 09:07 Admitting Physician: AG SOW Consults: Consults on Case 02/14/20 09:14 Consult Podiatry ROUTINE Primary Care Provider: AG SOW Allergies Allergies No Known Drug Allergies Allergy (Verified 02/13/20 18:07) Hospital Summary - Hospital Course Hospital Course: Chief Complaint Diagnosis CELLULITIS LOWER EXTREMITIES Allergies Allergy/AdvReac Type Severity Reaction Status Date / Time No Known Drug Allergies Allergy Verified 02/13/20 18:07 Vital Signs (Last 24 hours) Temp Pulse Resp BP BP Pulse Ox 02/22/20 10:32 126 H 20 93 L 02/22/20 07:40 98.2 F 112 H 18 123/78 98 02/22/20 05:32 112 H 18 98 02/22/20 04:00 97.3 F 99 H 18 111/68 97 02/22/20 00:00 97.2 F 97 H 18 123/69 99 02/21/20 20:00 97.6 F 109 H 18 118/81 98 02/21/20 19:57 111 H 18 98 02/21/20 16:00 97.4 F 93 H 18 114/80 99 02/21/20 14:58 110 H 18 98 02/21/20 12:00 97.4 F 100 H 20 116/78 98 Home Medications Medication Instructions Recorded Confirmed Last Taken Type Albuterol Sulfate [Proair Hfa] 8.5 gm IH QID 02/13/20 02/13/20 02/13/20 History Aspirin 81 mg PO DAILY 02/13/20 02/13/20 02/13/20 History Pramipexole Di-HCl [Mirapex] 1 mg PO HS 02/13/20 02/13/20 02/12/20 History Tramadol HCl 50 mg [Ultram 50 50 mg PO Q12H PRN PRN 02/13/20 02/13/20 02/13/20 History mg] Gabapentin 600 mg PO TID 10 Days #30 tablet 02/22/20 Unknown Rx Levofloxacin [Levaquin] 500 mg PO DAILY 7 Days #7 tablet 02/22/20 Unknown Rx Current Medications Generic Name Dose Route Start Last Admin Trade Name Freq PRN Reason Stop Dose Admin Acetaminophen 650 mg 02/13/20 17:34 02/18/20 22:17 Tylenol 325 Mg PO 03/14/20 17:33 650 mg Q4H PRN PRN Administration PAIN AND/OR FEVER Albuterol/Ipratropium 3 ml 02/13/20 19:00 02/22/20 10:21 Duoneb 0.5-3 Mg/3 Ml Neb IH 03/14/20 18:59 3 ml QIDRT LIZETT Administration Alprazolam 0.5 mg 02/13/20 18:23 02/21/20 09:47 Xanax 0.5 Mg PO 03/14/20 18:22 0.5 mg TID PRN PRN Administration ANXIETY Aspirin 81 mg 02/14/20 10:00 02/22/20 09:15 Ecotrin 81 Mg PO 03/15/20 09:59 81 mg DAILY LIZETT Administration Bumetanide 1 mg 02/14/20 10:00 02/22/20 09:15 Bumex 1 Mg PO 03/15/20 09:59 1 mg DAILY LIZETT Administration Famotidine 20 mg 02/13/20 22:00 02/22/20 09:16 Pepcid 20 Mg Vial IV 03/14/20 21:59 20 mg Q12HT LIZETT Administration Gabapentin 600 mg 02/13/20 18:00 02/22/20 09:15 Neurontin 300 Mg PO 03/14/20 17:59 600 mg TID LIZETT Administration Heparin Sodium (Beef Lung) 0 units 02/21/20 15:15 02/21/20 15:18 Heparin Lock Flush 100 Units/Ml 5ml Syringe IV 03/22/20 15:14 500 units UD PRN Administration Hydromorphone HCl 1 mg 02/20/20 12:35 02/22/20 09:15 Hydromorphone 1 Mg/Ml Injection IV 02/25/20 09:06 1 mg Q4H PRN PRN Administration PAIN Meropenem 1 g/ Sodium Chloride 100 mls @ 200 mls/hr 02/15/20 14:00 02/22/20 05:01 IV 03/16/20 13:59 200 mls/hr Q8HT LIZETT Administration Vancomycin HCl 1.5 gm in 300 mls @ 200 mls/hr 02/16/20 12:00 02/22/20 09:16 Vancomycin 1.5 Gram/300 Ml Bag IV 03/17/20 11:59 200 mls/hr Q12HT LIZETT Administration Lidocaine/Prilocaine 10 gm 02/18/20 10:00 02/18/20 11:28 Emla Cream 5 Gm TP 03/19/20 09:59 10 gm WEEKLY LIZETT Administration Loratadine 10 mg 02/14/20 10:00 02/22/20 09:15 Claritin 10 Mg PO 03/15/20 09:59 10 mg DAILY LIZETT Administration Ondansetron HCl 4 mg 02/13/20 17:34 02/14/20 19:58 Zofran 4 Mg/2 Ml Vial IV 03/14/20 17:33 4 mg Q6H PRN PRN Administration NAUSEA/VOMITING Albuterol Mdi 2 each 02/13/20 22:29 IH 03/14/20 22:28 Q4HPRN PRN SHORTNESS OF BREATH/WHEEZING Pramipexole Dihydrochloride 1 mg 02/13/20 22:00 02/21/20 21:58 Mirapex 0.5 Mg Tablet PO 03/14/20 21:59 1 mg HS LIZETT Administration Prednisone 10 mg 02/14/20 10:00 02/22/20 09:15 Deltasone 10 Mg PO 03/15/20 09:59 10 mg DAILY LIZETT Administration Roflumilast 250 mcg 02/14/20 10:00 02/22/20 09:16 Daliresp PO 03/15/20 09:59 250 mcg DAILY LIZETT Administration Fluticasone/Salmeterol 1 each 02/15/20 19:00 02/22/20 05:32 Advair 250-50 Diskus 14 Dose IH 03/16/20 18:59 1 each BIDRT LIZETT Administration Sodium Chloride 10 ml 02/21/20 15:15 Sodium Chloride 0.9% 10 Ml Flush Syringe IV 03/22/20 15:14 PRN PRN Sodium Hypochlorite 473 ml 02/14/20 17:45 Dakin's Soln Full Strength TP 03/15/20 17:44 UD LIZETT Tramadol HCl 50 mg 02/13/20 18:23 02/20/20 08:06 Ultram 50 Mg PO 03/14/20 18:22 50 mg Q12H PRN PRN Administration PAIN Discontinued Medications Generic Name Dose Route Start Last Admin Trade Name Freq PRN Reason Stop Dose Admin Albuterol/Ipratropium 3 ml 02/13/20 17:34 Duoneb 0.5-3 Mg/3 Ml Neb IH 03/14/20 17:33 Q4HPRN PRN SHORTNESS OF BREATH/WHEEZING Device 1 02/16/20 09:30 02/16/20 12:03 Trough Drug Levels IJ 02/16/20 09:31 1 1XONLY ONE Administration Device 1 02/20/20 09:30 02/20/20 10:19 Trough Drug Levels IJ 02/20/20 09:31 1 1XONLY ONE Administration Fentanyl Citrate 50 mcg 02/13/20 17:42 02/15/20 05:49 Sublimaze 100 Mcg/2 Ml IV 02/18/20 17:41 50 mcg Q6HPRN PRN Administration PAIN AND/OR FEVER Fentanyl Citrate Confirm 02/13/20 17:48 Sublimaze 100 Mcg/2 Ml Administered 02/13/20 17:49 Dose 100 mcg .ROUTE .STK-MED ONE Gabapentin Confirm 02/13/20 17:48 Neurontin 300 Mg Administered 02/13/20 17:49 Dose 600 mg .ROUTE .STK-MED ONE Heparin Sodium (Beef Lung) 1,000 units 02/19/20 12:48 Heparin Lock Flush 100 Units/Ml 5ml Syringe .ROUTE 02/19/20 12:49 .STK-MED ONE Heparin Sodium (Beef Lung) Confirm 02/21/20 11:57 Heparin Lock Flush 100 Units/Ml 5ml Syringe Administered 02/21/20 11:58 Dose 500 units .ROUTE .STK-MED ONE Heparin Sodium (Beef Lung) Confirm 02/21/20 15:05 Heparin Lock Flush 100 Units/Ml 5ml Syringe Administered 02/21/20 15:06 Dose 500 units .ROUTE .STK-MED ONE Heparin Sodium/Sodium Chloride 1,000 unit 02/19/20 12:48 Heparin-Ns 1,000 Units/500 Ml IV 02/19/20 12:49 .STK-MED ONE Hydromorphone HCl 0.4 mg 02/15/20 09:06 02/20/20 04:47 Hydromorphone 1 Mg/Ml Injection IV 02/20/20 09:05 0.4 mg Q4H PRN PRN Administration PAIN Hydromorphone HCl 0.4 mg 02/20/20 09:07 02/20/20 09:43 Hydromorphone 1 Mg/Ml Injection IV 02/25/20 09:06 0.4 mg Q4H PRN PRN Administration PAIN Hydromorphone HCl 0.6 mg 02/20/20 10:04 02/20/20 10:08 Hydromorphone 1 Mg/Ml Injection IV 02/25/20 09:06 0.2 mg Q4H PRN PRN Administration PAIN Vancomycin HCl 1 gm/ Sodium 250 mls @ 125 mls/hr 02/13/20 15:30 02/13/20 18:39 Chloride IV 03/14/20 15:29 Not Given Q12H LIZETT Piperacillin Sod/Tazobactam 100 mls @ 200 mls/hr 02/13/20 15:14 02/13/20 15:35 Sod 3.375 gm/ Sodium Chloride IV 02/13/20 15:43 200 mls/hr STAT ONE Administration Vancomycin HCl 2 gm in 400 mls @ 133.333 mls/hr 02/13/20 15:15 02/13/20 15:44 Vancomycin 2 Gram/400 Ml Bag IV 02/13/20 18:14 133.333 ml/hr STAT ONE 133.33 mls/hr Administration Sodium Chloride Confirm 02/13/20 15:28 Sodium Chloride 100ml Mini-Bag Plus Administered 02/13/20 15:29 Dose 100 mls @ ud IV .STK-MED ONE Vancomycin HCl Confirm 02/13/20 15:42 Vancomycin 2 Gram/400 Ml Bag Administered 02/13/20 15:43 Dose 2 gm in 400 mls @ ud IV .STK-MED ONE Piperacillin Sod/Tazobactam 100 mls @ 200 mls/hr 02/14/20 00:00 02/15/20 07:06 Sod 3.375 gm/ Sodium Chloride IV 03/15/20 00:00 200 mls/hr Q6HT LIZETT Administration Vancomycin HCl 1.25 gm in 250 mls @ 166.667 mls/hr 02/14/20 10:00 02/16/20 12:04 Vancomycin 1.25 Gm/250 Ml Bag IV 03/15/20 09:59 Not Given Q12HT [facility] Sodium Chloride Confirm 02/14/20 18:09 Sodium Chloride 100ml Mini-Bag Plus Administered 02/14/20 18:10 Dose 100 mls @ ud IV .STK-MED ONE Sodium Chloride Confirm 02/14/20 18:10 Sodium Chloride 100ml Mini-Bag Plus Administered 02/14/20 18:11 Dose 100 mls @ ud IV .STK-MED ONE Sodium Chloride Confirm 02/14/20 23:04 Sodium Chloride 100ml Mini-Bag Plus Administered 02/14/20 23:05 Dose 100 mls @ ud IV .STK-MED ONE Sodium Chloride Confirm 02/14/20 23:07 Sodium Chloride 100ml Mini-Bag Plus Administered 02/14/20 23:08 Dose 100 mls @ ud IV .STK-MED ONE Sodium Chloride Confirm 02/14/20 23:08 Sodium Chloride 100ml Mini-Bag Plus Administered 02/14/20 23:09 Dose 100 mls @ ud IV .STK-MED ONE Sodium Chloride Confirm 02/16/20 21:12 Sodium Chloride 100ml Mini-Bag Plus Administered 02/16/20 21:13 Dose 100 mls @ ud IV .STK-MED ONE Insulin Human Lispro 0 unit 02/13/20 17:34 Humalog SQ 03/14/20 17:33 UD PRN HYPERGLYCEMIA Miscellaneous Information 0 each 02/13/20 18:45 Medication Intervention 03/14/20 18:44 .RN TO CHECK WITH RT [facility] Morphine Sulfate 4 mg 02/13/20 15:14 02/13/20 15:34 Morphine Sulfate 4 Mg Inj IV 02/13/20 15:15 4 mg STAT ONE Administration Morphine Sulfate Confirm 02/13/20 15:28 Morphine Sulfate 4 Mg Inj Administered 02/13/20 15:29 Dose 4 mg .ROUTE .STK-MED ONE Morphine Sulfate 4 mg 02/13/20 16:51 02/13/20 16:56 Morphine Sulfate 4 Mg Inj IV 02/13/20 16:52 4 mg STAT ONE Administration Morphine Sulfate Confirm 02/13/20 16:55 Morphine Sulfate 4 Mg Inj Administered 02/13/20 16:56 Dose 4 mg .ROUTE .STK-MED ONE Morphine Sulfate 4 mg 02/13/20 17:34 Morphine Sulfate 4 Mg Inj IV 02/18/20 17:33 Q4H PRN PRN PAIN Non-Formulary Medication 1 each 02/14/20 09:11 02/14/20 10:52 Pharmacy Dosing Required: Vancomycin IV 02/14/20 09:12 1 each STAT STA Administration Ondansetron HCl 4 mg 02/13/20 15:14 02/13/20 15:34 Zofran 4 Mg/2 Ml Vial IV 02/13/20 15:15 4 mg STAT ONE Administration Ondansetron HCl Confirm 02/13/20 15:28 Zofran 4 Mg/2 Ml Vial Administered 02/13/20 15:29 Dose 4 mg .ROUTE .STK-MED ONE Piperacillin Sod/Tazobactam Sod Confirm 02/13/20 15:28 Zosyn 3.375 Gm Vial Administered 02/13/20 15:29 Dose 3.375 gm IV .STK-MED ONE Piperacillin Sod/Tazobactam Sod Confirm 02/14/20 18:10 Zosyn 3.375 Gm Vial Administered 02/14/20 18:11 Dose 3.375 gm IV .STK-MED ONE Piperacillin Sod/Tazobactam Sod Confirm 02/14/20 23:07 Zosyn 3.375 Gm Vial Administered 02/14/20 23:08 Dose 3.375 gm IV .STK-MED ONE Piperacillin Sod/Tazobactam Sod Confirm 02/14/20 23:08 Zosyn 3.375 Gm Vial Administered 02/14/20 23:09 Dose 3.375 gm IV .STK-MED ONE Fluticasone/Salmeterol 2 puff 02/14/20 07:00 02/15/20 05:33 Advair Hfa 115/21 Common Canister* IH 03/15/20 06:59 2 puff BIDRT LIZETT Administration Intake & Output (Last 24 hours) 02/19/20 02/20/20 02/21/20 02/22/20 11:59 11:59 11:59 11:59 Intake Total 600 2996 3322 3600 Output Total 550 3925 3450 3200 Balance 50 -929 -128 400 Weight 110.7 kg 110.9 kg 110.4 kg 110.7 kg Orders (Last 24 hours) Category Date Time Status Miscellaneous Nursing Order ROUTINE Care 02/22/20 09:21 Active Discharge Routine Discharge 02/22/20 Ordered Heparin Flush 500 units/5 ml [Heparin Lock Flush 100 Med 02/21/20 15:15 Active Units/ml 5ml Syringe] 0 units IV UD PRN Heparin Flush 500 units/5 ml [Heparin Lock Flush 100 Med 02/21/20 11:57 Discontinued Units/ml 5ml Syringe] 500 units .ROUTE .STK-MED ONE Heparin Flush 500 units/5 ml [Heparin Lock Flush 100 Med 02/21/20 15:05 Discontinued Units/ml 5ml Syringe] 500 units .ROUTE .STK-MED ONE NaCl 0.9% 10 ML FLUSH [Sodium Chloride 0.9% 10 ML FLUSH Med 02/21/20 15:15 Active Syringe] 10 ml IV PRN PRN Patient Care Notes (Last 24 hours) 02/22/20 11:12 Case Management Note by Kristina Sosa DR. NOW WANTS TO WAIT UNTIL HE SEES PATIENT ON TUESDAY TO DECIDE THE WOUND CARE PLAN. PHYSICAL THERAPY CHANGED DRESSINGS TODAY WITH THAT IN MIND. PATIENT UPDATED ON PLAN AND VERIFIED UNDERSTANDING. PATIENT'S [facility] INFORMATION GIVEN TO SHANITA IN [facility]'S OFFICE IN CASE ANY HOME CARE IS NEEDED. Initialized on 02/22/20 11:12 - END OF NOTE 02/22/20 11:07 Case Management Note by Kristina Sosa DR, SHARIFF STATED IT WAS OKAY TO PULL THE PICC LINE Initialized on 02/22/20 11:07 - END OF NOTE 02/21/20 16:17 Physical Therapy Note by Shanita Valle CHECKED DRESSING STATUS THIS DATE. DRESSINGS DRY AND INTACT SO WILL CONT. W/ MWF CHANGING SCHEDULE. PT. STILL REPORTS C/O SEVERE LL PN L > R. DR. BARRON PLANS FOR RX W/ UNNA BOOTS W/ HIM 1X/WK. WILL PLAN TO PERFORM DRESSING CHANGE TOMORROW AND MAY LIKELY D/C AFTER THAT IF MEDICALLY ABLE TO DO SO. DID CLEAN R GREAT TOE WHERE NAIL HAD PULLED AWAY. APPLIED BARRIER OINTMENT FOR PROTECTION. SHANITA VALLE PT Initialized on 02/21/20 16:17 - END OF NOTE 02/21/20 12:39 Case Management Note by Kristina Sosa NO NEW NEEDS IDENTIFIED AT [facility]. PLAN IS TO DC PATIENT HOME TOMORROW WITH F/U WITH PODIATRY AT LEAST(MAYBE PT WELL) Initialized on 02/21/20 12:39 - END OF NOTE - Vitals & Intake/Output Vital Signs: Vital Signs Temperature 98.2 F 02/22/20 07:40 Pulse Rate 126 H 02/22/20 10:32 Respiratory Rate 02/22/20 10:32 Blood Pressure 123/78 02/22/20 07:40 O2 Sat by Pulse Oximetry 93 L 02/22/20 10:32 Intake & Output: Intake & Output 02/19/20 02/20/20 02/21/20 02/22/20 11:59 11:59 11:59 11:59 Intake Total 600 2996 3322 3600 Output Total 550 3925 3450 3200 Balance 50 -929 -128 400 Weight 110.7 kg 110.9 kg 110.4 kg 110.7 kg - Lab Result Diagrams: 02/16/20 05:30 02/16/20 05:30 Micro Results-Entire Visit: Microbiology 02/13/20 15:35 Blood Culture Gram Stain - Final Blood Not Reportable Blood Culture - Final NO GROWTH 02/13/20 15:35 Blood Culture Gram Stain - Final Blood Not Reportable Blood Culture - Final NO GROWTH 02/13/20 15:42 Wound Culture - Final Leg - Left Lower Methicillin Resist Staph Aur Pseudomonas Aeruginosa - Procedures and Test Procedures and Tests throughout Hospitalization: Therapy Orders & Screens 02/13/20 18:33 OT Screen per Nursing Assess ONCE Comment: Protocol Order Physician Instructions: Greater than 3 points order OT Admission Screening Reason For Exam: Triggered on Admission Diagnosis: CELLULITIS LOWER EXTREMITIES Open Wound/Cellutlitis/Pressure Ulcers: Yes Acute Fx/ORIF/Change in wt bearing status: No Severe MUSCULOSKELETAL pain: No ADL Dysfunction: No Acute CVA w/Hemiparesis/Hemiplegia: No Decreased Functional Mobility/Strength: No Sprain/Strain: No Acute Post-op Mobility Dysfunction: No Total Points: 5 PT Screen per Nursing Assess ONCE Comment: Protocol Order Physician Instructions: Greater than 3 points order PT Admission Screenin Reason For Exam: Triggered on Admission Diagnosis: CELLULITIS LOWER EXTREMITIES Open Wound/Cellutlitis/Pressure Ulcers: Yes Acute Fx/ORIF/Change in wt bearing status: No Severe MUSCULOSKELETAL pain: No ADL Dysfunction: No Acute CVA w/Hemiparesis/Hemiplegia: No Decreased Functional Mobility/Strength: No Sprain/Strain: No Acute Post-op Mobility Dysfunction: No Total Points: 5 RT Screen per Nursing Assess ONCE Comment: Protocol Order Physician Instructions: Greater than 3 points order RT Admission Screen Reason For Exam: Triggered on Admission Diagnosis: CELLULITIS LOWER EXTREMITIES Diagnosis: CELLULITIS LOWER EXTREMITIES Pneumonia: No Home O2: Yes Asthma: No CHF: No Home CPAP/BIPAP: No Home Nebs/MDI: Yes Total Points: 10 Smoking Cessation Education ONCE Comment: Diagnosis: CELLULITIS LOWER EXTREMITIES Smoking Status: Current every day smoker How long have you smoked: years Have you smoked in the past 12 months: Yes Approximately how many cigarettes per day: 1-3 PACKS A DAY Do you dip or chew tobacco: No 02/13/20 22:28 Respiratory MDI BID Comment: Diagnosis: CELLULITIS LOWER EXTREMITIES 02/13/20 22:30 Oxygen Nasal Cannula 3 lpm Comment: Diagnosis: CELLULITIS LOWER EXTREMITIES Respiratory Therapy Assessment DAILY Comment: Diagnosis: CELLULITIS LOWER EXTREMITIES 02/15/20 08:42 PT Eval & Treat (MD Order) ONCE Reason for Eval:: wound care and dressings rosa le Diagnosis: CELLULITIS LOWER EXTREMITIES 02/16/20 07:00 Respiratory MDI BID Comment: Diagnosis: CELLULITIS LOWER EXTREMITIES Discharge Exam General Appearance: no apparent distress, alert Neurologic Exam: alert, oriented x 3, cooperative, normal mood/affect, nml cerebellar function, sensation nml, No motor deficits Eye Exam: PERRL, EOMI, eyes nml inspection Ears, Nose, Throat Exam: normal ENT inspection, pharynx normal, moist mucous membranes Neck Exam: normal inspection, non-tender, supple, full range of motion Respiratory Exam: normal breath sounds, lungs clear, No respiratory distress Cardiovascular Exam: regular rate/rhythm, normal heart sounds Gastrointestinal/Abdomen Exam: soft, No tenderness, No mass Male Genitalia Exam: deferred Rectal Exam: deferred Back Exam: normal inspection, normal range of motion, No CVA tenderness, No vertebral tenderness Extremity Exam: normal inspection, normal range of motion Skin Exam: normal color, warm, dry Wound Assessment: Skin/Wound Assessment Wound/Incision Assessment Start: 02/13/20 18:33 Text: Status: Active Freq: Q6H Protocol: Document 02/22/20 08:00 MW (Rec: 02/22/20 08:19 MW [id number]) Wound/Incision Assessment Lower Other Wound Assessment Shift Assessment Wound Type CELLULITIS Wound Stage Non Pressure Wound Dressing Status Dry & Intact Surrounding Tissue Bright Red Primary Dressing Gauze Roll/Wrap Secondary Dressing coban Comment Compression stockings to BLE CDI. Placed per therapy. Right Lower Anterior Other Wound Assessment Shift Assessment Wound Type ULCERATION Wound Stage Non Pressure Wound Dressing Status Dry & Intact Drainage Amount None Surrounding Tissue Dark Red Primary Dressing Gauze Roll/Wrap Secondary Dressing coban Right Lower Posterior Other Wound Assessment Shift Assessment Wound Type ULCERATION Wound Stage Non Pressure Wound Dressing Status Dry & Intact Surrounding Tissue Dark Red Primary Dressing Gauze Roll/Wrap Secondary Dressing coban Left Lower Posterior Other Wound Assessment Shift Assessment Wound Type ULCERATION Wound Stage Non Pressure Wound Dressing Status Dry & Intact Surrounding Tissue Bright Red Primary Dressing Gauze Roll/Wrap Secondary Dressing coban Wound Photo Photo Taken No Final Diagnosis/Problem List - Final Discharge Diagnosis/Problem (1) Cellulitis of both lower extremities Current Visit: Yes Status: Acute Assessment & Plan: improved Code(s): L03.115 - CELLULITIS OF RIGHT LOWER LIMB; L03.116 - CELLULITIS OF LEFT LOWER LIMB (2) COPD (chronic obstructive pulmonary disease) Current Visit: Yes Status: Chronic - Discharge Discharge Date: 02/22/20 Disposition: Home, Self-Care Condition: Stable Prescriptions: New Levofloxacin [Levaquin] 500 mg PO DAILY 7 Days #7 tablet Gabapentin 600 mg PO TID 10 Days #30 tablet No Action Roflumilast [Daliresp] 250 mcg PO DAILY Prednisone 10 mg [Deltasone 10 mg] 10 mg PO DAILY Levocetirizine Dihydrochloride 5 mg PO DAILY Bumetanide 1 mg PO DAILY Alprazolam 0.5 mg [xanAX 0.5 MG] 0.5 mg PO TID PRN PRN Reason: Anxiety Albuterol Sulfate [Albuterol Sulfate Hfa] 2 puffs QID Ipratropium/Albuterol Sulfate [Iprat-Albut 0.5-3(2.5) mg/3 ml] 1 ampul IH QID Fluticasone/Umeclidin/Vilanter [Trelegy Ellipta 100-62.5-25] 1 puff IH DAILY Tramadol HCl 50 mg [Ultram 50 mg] 50 mg PO Q12H PRN PRN PRN Reason: Pain Pramipexole Di-HCl [Mirapex] 1 mg PO HS Aspirin 81 mg PO DAILY Albuterol Sulfate [Proair Hfa] 8.5 gm IH QID Instructions: Cellulitis (Skin Infection), Adult (DC) Additional Instructions: KEEP YOUR APT WITH DR. MCLEAN ON 02/25/2020 Follow up with: BEATRICE TRAN DPM [ACTIVE STAFF] - 02/25/20 11:00 am AG SOW MD [Primary Care Provider] - 03/03/20 10:30 am [place] [facility] ) Forms: Discharge Instructions
== END 2020-02-22 12:55 | disposition home or self-care (01) | DRG 603 ==
LOC: ED 14:37 → MED SURG 17:10 → OBSVTOIN 02-14 09:07
PROVIDERS: ADMIT General Practice; ATTEND General Practice
PROC: 02HV33Z Insertion of Infusion Device into Superior Vena Cava, Percutaneous Approach (ICD-10-PCS; principal; 2020-02-19)
DX: L03.116 Cellulitis of left lower limb (principal); J44.1 Chronic obstructive pulmonary disease with (acute) exacerbation; L97.819 Non-pressure chronic ulcer of other part of right lower leg with unspecified severity; L97.829 Non-pressure chronic ulcer of other part of left lower leg with unspecified severity; L03.115 Cellulitis of right lower limb; M79.605 Pain in left leg; M79.604 Pain in right leg; Z79.899 Other long term (current) drug therapy; Z99.81 Dependence on supplemental oxygen; G47.30 Sleep apnea, unspecified; I83.018 Varicose veins of right lower extremity with ulcer other part of lower leg; I83.028 Varicose veins of left lower extremity with ulcer other part of lower leg; D72.829 Elevated white blood cell count, unspecified
CPT/HCPCS: 11042; 11045; 29581; 36000; 36415; 36573; 76937; 77001; 80053; 80202; 82947; 83605; 85025; 87040; 87070; 87077; 87186; 94640; 94760; 96365; 96367; 96374; 96375; 96376; 97161; 97597; 99233; 99285; G0378; 93268; C1769; J1170; J1642; J2270; J2405; J3010; A9270-GY; J3370

== ENCOUNTER 2020-03-15 17:03 | Emergency (ER) | payer MEDICARE ==
[2020-03-15 17:18] VITALS: BP 126/77; PULSE 90; O2SAT 96
--- NOTE | 2020-03-15 17:27 | ERPHSYRPT ---
- History of Present Illness Time Seen by Provider: 03/15/20 17:23 Source: patient Exam Limitations: no limitations Patient Subjective Stated Complaint: Pt states "My daughter is afraid my leg is getting worse." Triage Nursing Assessment: Pt presented alert and oriented X 3, skin pwd Pt ambulates with an upright steady gait, able to speak in clear full sentences. Pt left leg red, swollen, warm. Physician History: Mr. Guevara is 54-year-old male with history of chronic venous insufficiency in both lower extremity for which patient has been undergoing compressive treatment by podiatry service for last 3 months. When his daughter was changing dressing today she thought that he might have a infection settling into him in his leg again so she told him to come to the emergency room. Patient denies any other symptoms. Allergies/Adverse Reactions: No Known Drug Allergies Allergy (Verified 02/13/20 18:07) Home Medications: Albuterol Sulfate [Albuterol Sulfate Hfa] 2 puffs QID 11/19/19 [History] Alprazolam 0.5 mg [xanAX 0.5 MG] 0.5 mg PO TID PRN 11/19/19 [History] Bumetanide 1 mg PO DAILY 11/19/19 [History] Levocetirizine Dihydrochloride 5 mg PO DAILY 11/19/19 [History] Prednisone 10 mg [Deltasone 10 mg] 10 mg PO DAILY 11/19/19 [History] Roflumilast [Daliresp] 250 mcg PO DAILY 11/19/19 [History] Ipratropium/Albuterol Sulfate [Iprat-Albut 0.5-3(2.5) mg/3 ml] 1 ampul IH QID 11/23/19 [History] Fluticasone/Umeclidin/Vilanter [Trelegy Ellipta 100-62.5-25] 1 puff IH DAILY 12/12/19 [History] Albuterol Sulfate [Proair Hfa] 8.5 gm IH QID 02/13/20 [History] Aspirin 81 mg PO DAILY 02/13/20 [History] Pramipexole Di-HCl [Mirapex] 1 mg PO HS 02/13/20 [History] Tramadol HCl 50 mg [Ultram 50 mg] 50 mg PO Q12H PRN PRN 02/13/20 [History] Hx Tetanus, Diphtheria Vaccination/Date Given: No Hx Influenza Vaccination/Date Given: No Hx Pneumococcal Vaccination/Date Given: No Immunizations Up to Date: Yes Travel Risk - International Travel Have you traveled outside of the country in past 3 weeks: No - Coronavirus Screening Are you exhibiting any of the following symptoms?: No Close contact with a COVID-19 positive Pt in past 14-21 Days: No - Review of Systems Constitutional: No Fever, No Chills Eyes: No Symptoms Ears, Nose, & Throat: No Symptoms Respiratory: No Cough, No Dyspnea Cardiac: No Chest Pain, No Edema, No Syncope Abdominal/Gastrointestinal: No Abdominal Pain, No Nausea, No Vomiting, No Diarrhea Genitourinary Symptoms: No Dysuria Musculoskeletal: No Back Pain, No Neck Pain Skin: Cellulitis, No Rash Neurological: No Dizziness, No Focal Weakness, No Sensory Changes Psychological: No Symptoms Endocrine: No Symptoms All Other Systems: Reviewed and Negative - Past Medical History Pertinent Past Medical History: Yes Neurological History: No Pertinent History ENT History: No Pertinent History Cardiac History: No Pertinent History Respiratory History: CHF, COPD, Pneumonia, Sleep Apnea Endocrine Medical History: No Pertinent History Musculoskeletal History: No Pertinent History GI Medical History: No Pertinent History History: No Pertinent History Psycho-Social History: No Pertinent History Male Reproductive Disorders: No Pertinent History Other Medical History: chronic lower leg cellulitis. wears 3 L NC at all times - Past Surgical History Past Surgical History: No Neuro Surgical History: No Pertinent History Cardiac: No Pertinent History Respiratory: No Pertinent History Gastrointestinal: No Pertinent History Genitourinary: No Pertinent History Musculoskeletal: No Pertinent History Male Surgical History: No Pertinent History - Social History Smoking Status: Current every day smoker How long have you smoked: years Exposure to second hand smoke: Yes Drug Use: none Patient Lives Alone: No - Nursing Vital Signs Nursing Vital Signs: Initial Vital Signs Temperature 97.8 F 03/15/20 17:13 Pulse Rate 90 03/15/20 17:13 Respiratory Rate 18 03/15/20 17:13 Blood Pressure 126/77 03/15/20 17:13 O2 Sat by Pulse Oximetry 96 03/15/20 17:13 Pain Scale Pain Intensity 0 - Physical Exam General Appearance: alert Eyes, Ears, Nose, Throat Exam: moist mucous membranes Neck Exam: non-tender, supple Cardiovascular/Respiratory Exam: chest non-tender, normal breath sounds, regular rate/rhythm, no respiratory distress Gastrointestinal/Abdominal Exam: non-tender, guarding Back Exam: normal inspection, No vertebral tenderness Legs Exam: left leg: soft tissue tenderness (wound has completely healed.) Neuro/Tendon Exam: normal sensation, normal motor functions Mental Status Exam: alert, oriented x 3, cooperative Skin Exam: normal color, warm, dry SpO2: 96 - Course Nursing assessment & vital signs reviewed: Yes - Progress Progress: improved Counseled pt/family regarding: diagnosis, need for follow-up - Departure Departure Disposition: Home Clinical Impression: Venous stasis ulcer Qualifiers: Venous stasis ulcer site: other part of lower leg Varicose vein presence: without varicose veins Laterality: left Non-pressure ulcer stage: limited to breakdown of skin Qualified Code(s): I87.2 - Venous insufficiency (chronic) (peripheral); L97.821 - Non-pressure chronic ulcer of other part of left lower leg limited to breakdown of skin Condition: Stable Critical Care Time: No Referrals: AG OSW MD [Primary Care Provider] - Follow Up with PCP (10 days) Additional Instructions: ENDER GUEVARA was seen on 03/15/20 n the Emergency Room. At that time you were treated for an emergent condition, during your visit Laboratory, Radiology and/or other procedures may have been ordered. It is very important that you follow-up with your Primary Care Physician AG SOW within the next 10 days to review your Emergency Room visit and the final results of testing that was ordered. Some test results such as Urine Cultures, Blood Cultures, and other cultures if ordered will not be finalized for 24-48 hours. If you do not have a Primary Care Provider please call the medical records department at [phone] ext [phone] to obtain a copy of your results or you may sign into our patient portal to obtain these results by visiting us @ [email or web address] and completing the following steps: 1. Click on the Patient Portal link 2. Click the Patient Self Enrollment Link to complete the enrollment form and entering your 3. Once the enrollment form is completed you will receive an email with a temporary ID and password at the email address you provided. 4. Next choose a user name and password. Your user name must be at least 4 characters long and your password must be at least 4 characters long. 5. Choose a security question from the list and provide your answer to the question. If you already have signed into the Health Portal you may access your Health Care Information 04/10 by the following steps: 1. Login to our website @ [email or web address] 2. Enter your original user name and password. FAQS The [facility] Health Portal is an online tool that contains your Lab Results, Radiology Reports, Visit History, Discharge Instructions and Health Summary Lab and Radiology Results will not be available for 72 hours on the portal. The Portal is a secure site, passwords are encryted and URLs are re-written so they cannot be copied and pasted. You and authorized family members are the only ones who can access your Portal. Also there is a timeout feature that protects your information if you leave the Portal page open. If you have technical difficulty please use the Contact Us link on the page this will allow you to submit any questions you have regarding the Portal or you may contact the Medical Record Department at [phone] ext [phone].
== END 2020-03-15 17:39 | disposition home or self-care (01) ==
LOC: ED 17:03
DX: I87.2 Venous insufficiency (chronic) (peripheral) (principal); L97.821 Non-pressure chronic ulcer of other part of left lower leg limited to breakdown of skin
CPT/HCPCS: 99283

== ENCOUNTER 2020-09-18 13:09 | Observation (INO) | payer MEDICARE ==
[2020-09-18] MEDS ORDERED: ROCEPHIN 1 Gm-D5w 50 ml Bag** 1 G/50 ML IVPB IV STA (13:16)
[2020-09-18] MEDS ORDERED: solu-MEDROL IV ONE (13:16)
[2020-09-18] MEDS ORDERED: Zithromax 500 MG/ 250 ML NaCl Premix 500 MG/250 ML IVPB IV STA (13:16)
[2020-09-18] MEDS ORDERED: DUONEB 0.5-3 MG/3 ml Neb IH ONE ×2 (13:16→13:22)
--- NOTE | 2020-09-18 13:35 | XRAY ---
Indication: Chronic cough. Short of breath. Comparison: November 23, 2019. Portable chest again hyperinflated with new lingula interstitial alveolar opacity and left midlung subsegmental atelectasis/scarring. Remaining heart, right lung, and bony thorax unremarkable.
[2020-09-18] MEDS ORDERED: ROCEPHIN 1 Gm-D5w 50 ml Bag** 1 G/50 ML IVPB IV ONE (13:49)
[2020-09-18] MEDS ORDERED: solu-MEDROL ONE (13:49)
[2020-09-18] MEDS ORDERED: Sterile H2O 10 ml IJ ONE (13:49)
[2020-09-18] MEDS ORDERED: Zithromax 500 MG/ 250 ML NaCl Premix 500 MG/250 ML IVPB IV ONE (13:49)
[2020-09-18 14:07] LABS: Absolute Neutrophil Ct (ANC) 5.79 (1.4-6.9); BASOPHIL % 0.3 % (0.0-0.4); Basophil (Absolute #) 0.02 (0-0.4); Eosinophil % 0.5 % (0.00-5.0); Eosinophil (Absolute #) 0.04 (0-0.5); Hematocrit 48.5 % (42-50); Hemoglobin 15.8 gm/dl (12.5-18.0); Lymphocyte (Absolute #) 0.76 (1.0-4.6); Mean Cell Volume 99.2 fl (78-100); Mean Corpuscular Hemoglobin 32.3 pg (26-32); Mean Corpuscular Hgb Concent. 32.6 g/dl (32-36); Mean Platelet Volume 10.8 fl (7.5-11.0); Monocyte (Absolute #) 0.99 (0.0-1.3); Neutrophil % 76.2 % (36.0-66.0); Platelet Count 159 K/mm3 (150-450); Red Blood Count 4.89 M/mm3 (4.1-5.6); Red Cell Distribution Width 14.1 % (11.5-14.0); White Blood Count 7.6 K/mm3 (4.0-10.5)
--- NOTE | 2020-09-18 14:57 | ERPHSYRPT ---
- History of Present Illness Time Seen by Provider: 09/18/20 13:15 Source: patient Exam Limitations: no limitations Patient Subjective Stated Complaint: Pt states that since yesterday he has been short of breath Triage Nursing Assessment: Pt brought to the ER by his daughter, hypoxic so pt was placed on 6L NC, all other vitals wnl, diaphortic, swelling to rosa legs which pt states is normal, wheezy, pulses normal, rates chest lung pain as 2/10 Physician History: 54 years old male with history of respiratory failure secondary to COPD on 3 L oxygen, tobacco abuse presented in the ER with increasing shortness of breath since yesterday moderate to severe intensity with wheezing all over and also increasing cough productive of clear to yellow sputum. Shortness of breath gets worse with minimal activity with tightness in the chest. Has chronic lower extremity swelling which is not any worse than usual. Denies any fever or chills. Timing/Duration: yesterday, gradual onset, worse Activities at Onset: rest Severity of Dyspnea-Max: severe Severity of Dyspnea-Current: severe Possible Cause: occasional episodes Modifying Factors: Improves With: oxygen. Worsens With: activity, coughing, exertion Associated Symptoms: cough, chest pain/discomfort, edema, leg swelling, productive cough, tightness, No fever Allergies/Adverse Reactions: No Known Drug Allergies Allergy (Verified 09/18/20 13:22) Home Medications: ALPRAZolam 0.5 MG [xanAX 0.5 MG] 0.5 mg PO TID PRN 11/19/19 [History] Albuterol Sulfate [Albuterol Sulfate Hfa] 2 puffs QID 11/19/19 [History] Bumetanide 1 mg PO DAILY 11/19/19 [History] Levocetirizine Dihydrochloride 5 mg PO DAILY 11/19/19 [History] Prednisone 10 mg [Deltasone 10 mg] 10 mg PO DAILY 11/19/19 [History] Roflumilast [Daliresp] 250 mcg PO DAILY 11/19/19 [History] Ipratropium/Albuterol Sulfate [Iprat-Albut 0.5-3(2.5) mg/3 ml] 1 ampul IH QID 11/23/19 [History] Fluticasone/Umeclidin/Vilanter [Trelegy Ellipta 100-62.5-25] 1 puff IH DAILY [History] Aspirin 81 mg PO DAILY 02/13/20 [History] Pramipexole Di-HCl [Mirapex] 1 mg PO HS 02/13/20 [History] Hx Tetanus, Diphtheria Vaccination/Date Given: No Hx Influenza Vaccination/Date Given: No Hx Pneumococcal Vaccination/Date Given: No Travel Risk - International Travel Have you traveled outside of the country in past 3 weeks: No - Coronavirus Screening Are you exhibiting any of the following symptoms?: No - Vaccine Status Have you recieved a Covid-19 vaccination: No - Review of Systems Constitutional: No Symptoms Eyes: No Symptoms Ears, Nose, & Throat: No Symptoms Respiratory: Cough, Dyspnea, Dyspnea on Exertion (JAIN), Wheezing Cardiac: Chest Pain, Edema Abdominal/Gastrointestinal: No Symptoms Genitourinary Symptoms: No Symptoms Musculoskeletal: Myalgias Skin: No Symptoms Neurological: No Symptoms Psychological: No Symptoms Endocrine: No Symptoms Hematologic/Lymphatic: No Symptoms - Past Medical History Pertinent Past Medical History: Yes Neurological History: No Pertinent History ENT History: No Pertinent History Cardiac History: No Pertinent History Respiratory History: CHF, COPD, Pneumonia, Sleep Apnea Endocrine Medical History: No Pertinent History Musculoskeletal History: No Pertinent History GI Medical History: No Pertinent History History: No Pertinent History Psycho-Social History: No Pertinent History Male Reproductive Disorders: No Pertinent History Other Medical History: chronic lower leg cellulitis. wears 3 L NC at all times - Past Surgical History Past Surgical History: No Neuro Surgical History: No Pertinent History Cardiac: No Pertinent History Respiratory: No Pertinent History Gastrointestinal: No Pertinent History Genitourinary: No Pertinent History Musculoskeletal: No Pertinent History Male Surgical History: No Pertinent History - Social History Smoking Status: Current every day smoker How long have you smoked: years Exposure to second hand smoke: Yes Drug Use: none Patient Lives Alone: No - Nursing Vital Signs Nursing Vital Signs: Initial Vital Signs Pulse Rate 103 H 09/18/20 13:11 Respiratory Rate 23 09/18/20 13:11 Blood Pressure 112/72 09/18/20 13:11 O2 Sat by Pulse Oximetry 99 09/18/20 13:11 Pain Scale Pain Intensity 0 - Physical Exam General Appearance: no apparent distress, alert, anxiety Eye Exam: PERRL/EOMI, eyes nml inspection Ears, Nose, Throat Exam: hearing grossly normal, pharyngeal erythema Neck Exam: normal inspection, non-tender, full range of motion Respiratory Exam: crackles/rales, rhonchi, wheezing Cardiovascular/Chest Exam: normal heart sounds, regular rate/rhythm Abdominal/Gastrointestinal Exam: soft, normal bowel sounds Extremity Exam: pedal edema, swelling Neurologic Exam: alert, oriented x 3, cooperative Skin Exam: normal color SpO2 Interpretation: normal SpO2: 98 O2 Delivery: Room Air - Course EKG Interpreted by Me: RATE (100), Sinus Rhythm, NORMAL AXIS, NORMAL INTERVALS, NORMAL QRS Ordered Tests: Active Orders 24 hr Category Date Time Status Bedrest ROUTINE Activity 09/18/20 17:06 Active Up With Assistance ROUTINE Activity 09/18/20 17:06 Active Admit as Inpatient ROUTINE Care 09/18/20 17:06 Active Hoisting Laborer STAT Care 09/18/20 13:16 Completed Code Status Order ROUTINE Care 09/18/20 17:06 Active EKG-ER Only STAT Care 09/18/20 13:16 Completed Fall Protocol Q1H Care 09/18/20 17:06 Active IV Care Q6H Care 09/18/20 17:06 Active IV Insertion STAT Care 09/18/20 13:16 Completed Kwan Chris, Amina ROUTINE Care 09/18/20 17:06 Active Weight,Daily 0600 Care 09/18/20 17:06 Active Heart-Healthy Diet Diet 09/18/20 Dinner Active CHEST 1 VIEW (PORTABLE) Stat Exams 09/18/20 13:16 Completed BLOOD CULTURE Stat Lab 09/18/20 14:05 Received CBC W DIFF AM.LAB Lab 09/19/20 04:00 Ordered CBC W DIFF Stat Lab 09/18/20 13:30 Completed CMP AM.LAB Lab 09/19/20 04:00 Ordered CMP Stat Lab 09/18/20 13:30 Completed D-DIMER QUANTITATIVE Stat Lab 09/18/20 13:30 Completed Lactic Acid Stat Lab 09/18/20 13:39 Completed MAGNESIUM Stat Lab 09/18/20 13:30 Completed NT PRO BNP Stat Lab 09/18/20 13:30 Completed TROPONIN Q3H Lab 09/18/20 13:30 Completed TROPONIN Q3H Lab 09/18/20 16:35 Completed TROPONIN Q3H Lab 09/18/20 19:30 Completed TROPONIN Q3H Lab 09/18/20 22:30 Completed TROPONIN Q3H Lab 09/19/20 01:30 Ordered UA W/RFX UR CULTURE Stat Lab 09/18/20 18:30 Completed Oxygen Nasal Cannula 3 lpm RT 09/18/20 17:06 Active Respiratory Therapy Assessment ONCE RT 09/18/20 13:48 Completed Transfer Order Routine Transfer 09/18/20 Completed Medication Summary Generic Name Dose Route Start Last Admin Trade Name Freq PRN Reason Stop Dose Admin Acetaminophen 650 mg 09/18/20 17:06 Tylenol 325 Mg PO 10/18/20 17:05 Q4H PRN PRN PAIN AND/OR FEVER Albuterol/Ipratropium 3 ml 09/18/20 17:06 Duoneb 0.5-3 Mg/3 Ml Neb IH 10/18/20 17:05 Q4HPRN PRN SHORTNESS OF BREATH/WHEEZING Albuterol/Ipratropium 3 ml 09/18/20 19:00 09/18/20 18:56 Duoneb 0.5-3 Mg/3 Ml Neb IH 10/18/20 18:59 3 ml QIDRT LIZETT Administration Alprazolam 0.5 mg 09/18/20 17:28 Xanax 0.5 Mg PO 10/18/20 17:27 TID PRN PRN ANXIETY Aspirin 81 mg 09/19/20 10:00 Ecotrin 81 Mg PO 10/19/20 09:59 DAILY LIZETT Bumetanide 1 mg 09/19/20 10:00 Bumex 1 Mg PO 10/19/20 09:59 DAILY LIZETT Enoxaparin Sodium 40 mg 09/18/20 18:00 09/18/20 18:34 Enoxaparin Sodium SQ 10/18/20 17:59 40 mg DAILY LIZETT Administration Azithromycin 500 mg in 250 mls @ 250 mls/hr 09/19/20 10:00 Zithromax 500 Mg/ 250 Ml Nacl Premix IV 10/19/20 09:59 Q24H10 LIZETT Ceftriaxone Sodium/Dextrose 1 g in 50 mls @ 100 mls/hr 09/19/20 10:00 Rocephin 1 Gm-D5w 50 Ml Bag IV 09/22/20 09:59 Q24H10 LIZETT Loratadine 10 mg 09/19/20 10:00 Claritin 10 Mg PO 10/19/20 09:59 DAILY LIZETT Methylprednisolone Sodium Succinate 40 mg 09/18/20 22:00 09/18/20 21:24 Solu-Medrol 40 Mg IV 10/18/20 17:59 40 mg Q8HT LIZETT Administration Miscellaneous Information 1 each 09/18/20 17:45 Medication Intervention 10/18/20 17:44 .RT TO CHECK ON LIZETT Ondansetron HCl 4 mg 09/18/20 17:06 Zofran 4 Mg/2 Ml Vial IV 10/18/20 17:05 Q6H PRN PRN NAUSEA/VOMITING Pantoprazole Sodium 40 mg 09/18/20 18:00 09/18/20 18:34 Protonix 40 Mg Iv IV 10/18/20 17:59 40 mg Q24H10 LIZETT Administration Pramipexole Dihydrochloride 1 mg 09/18/20 22:00 09/18/20 21:20 Mirapex 0.5 Mg Tablet PO 10/18/20 21:59 1 mg HS LIZETT Administration Roflumilast 250 mcg 09/19/20 10:00 Daliresp PO 10/19/20 09:59 DAILY LIZETT Discontinued Medications Generic Name Dose Route Start Last Admin Trade Name Freq PRN Reason Stop Dose Admin Albuterol/Ipratropium 3 ml 09/18/20 13:16 09/18/20 13:32 Duoneb 0.5-3 Mg/3 Ml Neb IH 09/18/20 13:17 3 ml STAT ONE Administration Albuterol/Ipratropium Confirm 09/18/20 13:22 Duoneb 0.5-3 Mg/3 Ml Neb Administered 09/18/20 13:23 Dose 3 ml IH .STK-MED ONE Ceftriaxone Sodium/Dextrose 1 g in 50 mls @ 100 mls/hr 09/18/20 13:16 09/18/20 15:20 Rocephin 1 Gm-D5w 50 Ml Bag IV 09/18/20 13:45 Infused STAT STA Infusion Azithromycin 500 mg in 250 mls @ 250 mls/hr 09/18/20 13:16 09/18/20 15:20 Zithromax 500 Mg/ 250 Ml Nacl Premix IV 09/18/20 14:15 Infused STAT STA Infusion Azithromycin Confirm 09/18/20 13:49 Zithromax 500 Mg/ 250 Ml Nacl Premix Administered 09/18/20 13:50 Dose 500 mg in 250 mls @ ud IV .STK-MED ONE Ceftriaxone Sodium/Dextrose Confirm 09/18/20 13:49 Rocephin 1 Gm-D5w 50 Ml Bag Administered 09/18/20 13:50 Dose 1 g in 50 mls @ ud IV .STK-MED ONE Methylprednisolone Sodium Succinate 125 mg 09/18/20 13:16 09/18/20 13:57 Solu-Medrol 125 Mg IV 09/18/20 13:17 125 mg STAT ONE Administration Methylprednisolone Sodium Succinate Confirm 09/18/20 13:49 Solu-Medrol 125 Mg Administered 09/18/20 13:50 Dose 125 mg .ROUTE .STK-MED ONE Methylprednisolone Sodium Succinate 40 mg 09/18/20 18:00 Solu-Medrol 40 Mg IV 10/18/20 17:59 Q8H LIZETT Morphine Sulfate 2 mg 09/18/20 17:06 Morphine Sulfate 2 Mg Inj IV 09/23/20 17:05 Q4H PRN PRN PAIN Sterile Water Confirm 09/18/20 13:49 Sterile H2o 10 Ml Administered 09/18/20 13:50 Dose 10 ml IJ .STK-MED ONE Lab/Rad Data: Laboratory Result Diagrams 09/18/20 13:30 09/18/20 13:30 Laboratory Results 09/18/20 09/18/20 09/18/20 Range/Units 16:35 15:32 13:39 WBC (4.0-10.5) K/mm3 RBC (4.1-5.6) M/mm3 Hgb (12.5-18.0) gm/dl Hct (42-50) % MCV (78-100) fl MCH (26-32) pg MCHC (32-36) g/dl RDW (11.5-14.0) % Plt Count (150-450) K/mm3 MPV (7.5-11.0) fl Gran % (36.0-66.0) % Eos # (Auto) (0-0.5) Absolute Lymphs (auto) (1.0-4.6) Absolute Monos (auto) (0.0-1.3) Lymphocytes % (24.0-44.0) % Monocytes % (0.0-12.0) % Eosinophils % (0.00-5.0) % Basophils % (0.0-0.4) % Absolute Granulocytes (1.4-6.9) Basophils # (0-0.4) D-Dimer (215-500) ng/mL Sodium (137-145) mmol/L Potassium (3.5-5.1) mmol/L Chloride (98-107) mmol/L Carbon Dioxide (22-30) mmol/L Anion Gap (5-15) MEQ/L BUN (9-20) mg/dL Creatinine (0.66-1.25) mg/dL Estimated GFR ML/MIN Glucose (74-106) mg/dL Lactic Acid 1.1 (0.4-2.0) Calcium (8.4-10.2) mg/dL Magnesium (1.6-2.3) mg/dL Total Bilirubin (0.2-1.3) mg/dL AST (17-59) U/L ALT (0-50) U/L Alkaline Phosphatase (38-126) U/L Troponin I < 0.012 (0.000-0.034) ng/mL NT-Pro-B Natriuret Pep (0-900) pg/mL Serum Total Protein (6.3-8.2) g/dL Albumin (3.5-5.0) g/dL SARS-CoV-2 (PCR) NEGATIVE (NEGATIVE) 09/18/20 09/18/20 09/18/20 Range/Units 13:30 13:30 13:30 WBC (4.0-10.5) K/mm3 RBC (4.1-5.6) M/mm3 Hgb (12.5-18.0) gm/dl Hct (42-50) % MCV (78-100) fl MCH (26-32) pg MCHC (32-36) g/dl RDW (11.5-14.0) % Plt Count (150-450) K/mm3 MPV (7.5-11.0) fl Gran % (36.0-66.0) % Eos # (Auto) (0-0.5) Absolute Lymphs (auto) (1.0-4.6) Absolute Monos (auto) (0.0-1.3) Lymphocytes % (24.0-44.0) % Monocytes % (0.0-12.0) % Eosinophils % (0.00-5.0) % Basophils % (0.0-0.4) % Absolute Granulocytes (1.4-6.9) Basophils # (0-0.4) D-Dimer 378 (215-500) ng/mL Sodium 139 (137-145) mmol/L Potassium 3.5 (3.5-5.1) mmol/L Chloride 102 (98-107) mmol/L Carbon Dioxide 29 (22-30) mmol/L Anion Gap 12.1 (5-15) MEQ/L BUN 8 L (9-20) mg/dL Creatinine 0.87 (0.66-1.25) mg/dL Estimated GFR > 60.0 ML/MIN Glucose 105 (74-106) mg/dL Lactic Acid (0.4-2.0) Calcium 9.1 (8.4-10.2) mg/dL Magnesium 2.1 (1.6-2.3) mg/dL Total Bilirubin 0.40 (0.2-1.3) mg/dL AST 26 (17-59) U/L ALT 18 (0-50) U/L Alkaline Phosphatase 68 (38-126) U/L Troponin I < 0.012 (0.000-0.034) ng/mL NT-Pro-B Natriuret Pep 40.5 (0-900) pg/mL Serum Total Protein 6.4 (6.3-8.2) g/dL Albumin 4.1 (3.5-5.0) g/dL SARS-CoV-2 (PCR) (NEGATIVE) 09/18/20 Range/Units 13:30 WBC 7.6 (4.0-10.5) K/mm3 RBC 4.89 (4.1-5.6) M/mm3 Hgb 15.8 (12.5-18.0) gm/dl Hct 48.5 (42-50) % MCV 99.2 (78-100) fl MCH 32.3 H (26-32) pg MCHC 32.6 (32-36) g/dl RDW 14.1 H (11.5-14.0) % Plt Count 159 (150-450) K/mm3 MPV 10.8 (7.5-11.0) fl Gran % 76.2 H (36.0-66.0) % Eos # (Auto) 0.04 (0-0.5) Absolute Lymphs (auto) 0.76 L (1.0-4.6) Absolute Monos (auto) 0.99 (0.0-1.3) Lymphocytes % 10.0 L (24.0-44.0) % Monocytes % 13.0 H (0.0-12.0) % Eosinophils % 0.5 (0.00-5.0) % Basophils % 0.3 (0.0-0.4) % Absolute Granulocytes 5.79 (1.4-6.9) Basophils # 0.02 (0-0.4) D-Dimer (215-500) ng/mL Sodium (137-145) mmol/L Potassium (3.5-5.1) mmol/L Chloride (98-107) mmol/L Carbon Dioxide (22-30) mmol/L Anion Gap (5-15) MEQ/L BUN (9-20) mg/dL Creatinine (0.66-1.25) mg/dL Estimated GFR ML/MIN Glucose (74-106) mg/dL Lactic Acid (0.4-2.0) Calcium (8.4-10.2) mg/dL Magnesium (1.6-2.3) mg/dL Total Bilirubin (0.2-1.3) mg/dL AST (17-59) U/L ALT (0-50) U/L Alkaline Phosphatase (38-126) U/L Troponin I (0.000-0.034) ng/mL NT-Pro-B Natriuret Pep (0-900) pg/mL Serum Total Protein (6.3-8.2) g/dL Albumin (3.5-5.0) g/dL SARS-CoV-2 (PCR) (NEGATIVE) - Progress Progress: improved Air Movement: good Progress Note: 09/18/20 14:50 Patient was in moderate distress on presentation with wheezing all over, given Solu-Medrol, breathing treatment and increased oxygen to 6 L, on reevaluation he is feeling better and turned down to 4 L with sats around 95%. Work-up showed normal white count and lactate. Negative D-dimers. EKG did not show any acute ST elevations. Negative initial troponins. Chest x-ray consistent with pneumonia, started on Rocephin and Zithromax. I believe patient would benefit with IV antibiotics, of steroids and frequent nebs. Discussed with , reviewed history work-up and current management, agreed with admission. Blood Culture(s) Obtained: Yes Antibiotics given: Yes Discussed with .: Roby Will see patient in: hospital (full admit) Counseled pt/family regarding: lab results, diagnosis, rad results - Departure Departure Disposition: In-patient Admission Clinical Impression: Acute and chronic respiratory failure with hypoxia Pneumonia Qualifiers: Pneumonia type: due to unspecified organism Laterality: left Lung location: unspecified part of lung Qualified Code(s): J18.9 - Pneumonia, unspecified organism COPD (chronic obstructive pulmonary disease) Qualifiers: COPD type: COPD with acute exacerbation Qualified Code(s): J44.1 - Chronic obstructive pulmonary disease with (acute) exacerbation Condition: Stable Critical Care Time: Yes Critical Care Time(excluding separately billable procedures): Critical 30-74 mins
[2020-09-18 15:00] LABS: ALBUMIN 4.1 g/dL (3.5-5.0); ALKALINE PHOSPHATASE 68 U/L (38-126); ANION GAP 12.1 MEQ/L (5-15); BLOOD UREA NITROGEN 8 mg/dL (9-20); CHLORIDE 102 mmol/L (98-107); Calcium 9.1 mg/dL (8.4-10.2); Carbon Dioxide 29 mmol/L (22-30); Creatinine 1 0.87 mg/dL (0.66-1.25); EST GLOMERULAR FILTRATION RATE > 60.0 ML/MIN; Glucose 105 mg/dL (74-106); MAGNESIUM 2.1 mg/dL (1.6-2.3); NT PRO BNP 40.5 pg/mL (0-900); Potassium 3.5 mmol/L (3.5-5.1); SGOT/AST 26 U/L (17-59); SGPT/ALT 18 U/L (0-50); SODIUM 139 mmol/L (137-145); Total Protein 6.4 g/dL (6.3-8.2)
[2020-09-18] MEDS ORDERED: TYLENOL 325 MG PO PRN (17:06)
[2020-09-18] MEDS ORDERED: DUONEB 0.5-3 MG/3 ml Neb IH PRN (17:06)
[2020-09-18] MEDS ORDERED: Zofran 4 MG/2 ML VIAL IV PRN (17:06)
[2020-09-18] MEDS ORDERED: MORPHINE SULFATE 2 MG INJ IV PRN (17:06)
[2020-09-18] MEDS ORDERED: xanAX 0.5 MG PO PRN (17:28)
[2020-09-18] MEDS ORDERED: MEDICATION INTERVENTION MC SCH (17:45)
[2020-09-18] MEDS ORDERED: solu-MEDROL 40 MG IV SCH (18:00)
[2020-09-18] MEDS: PROTONIX 40 MG IV IV SCH (18:34)
[2020-09-18] MEDS: ENOXAPARIN SODIUM SQ SCH (18:34)
[2020-09-18 18:50] LABS: Appearance CLEAR (CLEAR); Bilirubin NEGATIVE (NEGATIVE); Blood SMALL Ery/ul (0-5); Glucose 50 mg/dL (NEGATIVE); Ketones TRACE (NEGATIVE); Leukocyte Esterase NEGATIVE (NEGATIVE); Mucus SLIGHT /HPF (NEGATIVE); Nitrite NEGATIVE (NEGATIVE); Protein,Urine Dip NEGATIVE (Negative); RBC 0-2 /HPF (0-2); Specific Gravity 1.012 (1.005-1.025); Urobilinogen NEGATIVE mg/dL (0-1)
[2020-09-18] MEDS: DUONEB 0.5-3 MG/3 ml Neb IH SCH (18:56)
--- NOTE | 2020-09-18 20:08 | PCM.HP ---
History of Present Illness - Chief Complaint Chief Complaint: shortness of breath for 1 day History of Present Illness: is a 54 year old male.with history of respiratory failure secondary to COPD on 3 L oxygen, tobacco abuse presented in the ER with increasing shortness of breath since yesterday moderate to severe intensity with wheezing all over and also increasing cough productive of clear to yellow sputum. Shortness of breath gets worse with minimal activity with tightness in the chest. Has chronic lower extremity swelling which is not any worse than usual. Denies any fever or chills. Timing/Duration: yesterday, gradual onset, worse - Review of Systems Constitutional: No Fever, No Chills Eyes: No Symptoms Ears, Nose, & Throat: No Symptoms Respiratory: Cough, Orthopnea, Short Of Breath, Wheezing Cardiac: No Chest Pain, No Edema, No Syncope Abdominal/Gastrointestinal: No Abdominal Pain, No Nausea, No Vomiting, No Diarrhea Genitourinary Symptoms: No Dysuria Musculoskeletal: No Back Pain, No Neck Pain Skin: No Rash Neurological: No Dizziness, No Focal Weakness, No Sensory Changes Psychological: No Symptoms Endocrine: No Symptoms Hematologic/Lymphatic: No Symptoms Immunological/Allergic: No Symptoms Medications & Allergies Home Medications: Home Medication List ALPRAZolam 0.5 MG [xanAX 0.5 MG] 0.5 mg PO TID PRN 11/19/19 [History Confirmed 09/18/20] Albuterol Sulfate [Albuterol Sulfate Hfa] 2 puffs QID 11/19/19 [History Co nfirmed 09/18/20] Bumetanide 1 mg PO DAILY 11/19/19 [History Confirmed 09/18/20] Levocetirizine Dihydrochloride 5 mg PO DAILY 11/19/19 [History Confirmed 09/18/20] Prednisone 10 mg [Deltasone 10 mg] 10 mg PO DAILY 11/19/19 [History Confirmed 09/18/20] Roflumilast [Daliresp] 250 mcg PO DAILY 11/19/19 [History Confirmed 09/18/20] Ipratropium/Albuterol Sulfate [Iprat-Albut 0.5-3(2.5) mg/3 ml] 1 ampul IH QID 11/23/19 [History Confirmed 09/18/20] Fluticasone/Umeclidin/Vilanter [Trelegy Ellipta 100-62.5-25] 1 puff IH DAILY 12/12/19 [History Confirmed 09/18/20] Aspirin 81 mg PO DAILY 02/13/20 [History Confirmed 09/18/20] Pramipexole Di-HCl [Mirapex] 1 mg PO HS 02/13/20 [History Confirmed 09/18/20] Allergies/Adverse Reactions: Allergies Allergy/AdvReac Type Severity Reaction Status Date / Time No Known Drug Allergies Allergy Verified 09/18/20 13:22 - Past Medical History Past Medical History: Yes Neurological History: No Pertinent History ENT History: No Pertinent History Cardiac History: No Pertinent History Respiratory History: Asthma, COPD, Pneumonia, Sleep Apnea Endocrine Medical History: No Pertinent History Musculoskelatal History: No Pertinent History GI Medical History: No Pertinent History History: No Pertinent History Pyscho-Social History: Anxiety Male Reproductive Disorders: No Pertinent History Comment: Wears 3L of oxygen at home at all times. - Past Surgical History Past Surgical History: No Neuro Surgical History: No Pertinent History Cardiac History: No Pertinent History Respiratory Surgery: No Pertinent History GI Surgical History: No Pertinent History Genitourinary Surgical Hx: No Pertinent History Musculskeletal Surgical Hx: No Pertinent History Male Surgical History: No Pertinent History - Social History Smoking Status: Current every day smoker How long have you smoked: 50 years Exposure to second hand smoke: Yes Alcohol: None Drug Use: none - Physical Exam Vital Signs: Vital Signs - 24 hr Temp Pulse Resp BP Pulse Ox 09/18/20 17:08 98.2 F 94 H 22 112/66 95 09/18/20 16:19 86 18 109/75 100 09/18/20 15:06 91 H 24 112/78 100 09/18/20 14:58 98 09/18/20 13:32 100 H 24 98 09/18/20 13:11 103 H 23 112/72 100 General Appearance: no apparent distress, alert Neurologic Exam: alert, oriented x 3, cooperative, normal mood/affect, nml cerebellar function, nml station & gait, sensation nml, No motor deficits Eye Exam: PERRL/EOMI, eyes nml inspection Ears, Nose, Throat Exam: normal ENT inspection, TMs normal, pharynx normal, moist mucous membranes Neck Exam: normal inspection, non-tender, supple, full range of motion Respiratory Exam: diminished breath sounds, crackles/rales, rhonchi, wheezing, N o respiratory distress Cardiovascular Exam: regular rate/rhythm, normal heart sounds, normal peripheral pulses Gastrointestinal/Abdomen Exam: soft, normal bowel sounds, No tenderness, No mass Back Exam: normal inspection, normal range of motion, No CVA tenderness, No vertebral tenderness Extremity Exam: normal inspection, normal range of motion, pelvis stable Skin Exam: normal color, warm, dry, No rash Lymphatic Exam: No adenopathy Results - Labs Lab/Micro Results: Lab Results-Last 24 Hours 09/18/20 09/18/20 09/18/20 Range/Units 13:30 13:30 13:30 WBC 7.6 (4.0-10.5) K/mm3 RBC 4.89 (4.1-5.6) M/mm3 Hgb 15.8 (12.5-18.0) gm/dl Hct 48.5 (42-50) % MCV 99.2 (78-100) fl MCH 32.3 H (26-32) pg MCHC 32.6 (32-36) g/dl RDW 14.1 H (11.5-14.0) % Plt Count 159 (150-450) K/mm3 MPV 10.8 (7.5-11.0) fl Gran % 76.2 H (36.0-66.0) % Eos # (Auto) 0.04 (0-0.5) Absolute Lymphs (auto) 0.76 L (1.0-4.6) Absolute Monos (auto) 0.99 (0.0-1.3) Lymphocytes % 10.0 L (24.0-44.0) % Monocytes % 13.0 H (0.0-12.0) % Eosinophils % 0.5 (0.00-5.0) % Basophils % 0.3 (0.0-0.4) % Absolute Granulocytes 5.79 (1.4-6.9) Basophils # 0.02 (0-0.4) D-Dimer 378 (215-500) ng/mL Sodium 139 (137-145) mmol/L Potassium 3.5 (3.5-5.1) mmol/L Chloride 102 (98-107) mmol/L Carbon Dioxide 29 (22-30) mmol/L Anion Gap 12.1 (5-15) MEQ/L BUN 8 L (9-20) mg/dL Creatinine 0.87 (0.66-1.25) mg/dL Estimated GFR > 60.0 ML/MIN Glucose 105 (74-106) mg/dL Lactic Acid (0.4-2.0) Calcium 9.1 (8.4-10.2) mg/dL Magnesium 2.1 (1.6-2.3) mg/dL Total Bilirubin 0.40 (0.2-1.3) mg/dL AST 26 (17-59) U/L ALT 18 (0-50) U/L Alkaline Phosphatase 68 (38-126) U/L Troponin I (0.000-0.034) ng/mL NT-Pro-B Natriuret Pep 40.5 (0-900) pg/mL Serum Total Protein 6.4 (6.3-8.2) g/dL Albumin 4.1 (3.5-5.0) g/dL Urine Color (YELLOW) Urine Appearance (CLEAR) Urine pH (5-6) Ur Specific [place] (1.005-1.025) Urine Protein (Negative) Urine Ketones (NEGATIVE) Urine Blood (0-5) Xu/ul Urine Nitrite (NEGATIVE) Urine Bilirubin (NEGATIVE) Urine Urobilinogen (0-1) mg/dL Ur Leukocyte Esterase (NEGATIVE) Urine WBC (Auto) (0-5) /HPF Urine RBC (Auto) (0-2) /HPF U Epithel Cells (Auto) (FEW) /HPF Urine Bacteria (Auto) (NEGATIVE) /HPF Urine Mucus (Auto) (NEGATIVE) /HPF Urine Culture Reflexed (NO) Urine Glucose (NEGATIVE) mg/dL SARS-CoV-2 (PCR) (NEGATIVE) 09/18/20 09/18/20 09/18/20 Range/Units 13:30 13:39 15:32 WBC (4.0-10.5) K/mm3 RBC (4.1-5.6) M/mm3 Hgb (12.5-18.0) gm/dl Hct (42-50) % MCV (78-100) fl MCH (26-32) pg MCHC (32-36) g/dl RDW (11.5-14.0) % Plt Count (150-450) K/mm3 MPV (7.5-11.0) fl Gran % (36.0-66.0) % Eos # (Auto) (0-0.5) Absolute Lymphs (auto) (1.0-4.6) Absolute Monos (auto) (0.0-1.3) Lymphocytes % (24.0-44.0) % Monocytes % (0.0-12.0) % Eosinophils % (0.00-5.0) % Basophils % (0.0-0.4) % Absolute Granulocytes (1.4-6.9) Basophils # (0-0.4) D-Dimer (215-500) ng/mL Sodium (137-145) mmol/L Potassium (3.5-5.1) mmol/L Chloride (98-107) mmol/L Carbon Dioxide (22-30) mmol/L Anion Gap (5-15) MEQ/L BUN (9-20) mg/dL Creatinine (0.66-1.25) mg/dL Estimated GFR ML/MIN Glucose (74-106) mg/dL Lactic Acid 1.1 (0.4-2.0) Calcium (8.4-10.2) mg/dL Magnesium (1.6-2.3) mg/dL Total Bilirubin (0.2-1.3) mg/dL AST (17-59) U/L ALT (0-50) U/L Alkaline Phosphatase (38-126) U/L Troponin I < 0.012 (0.000-0.034) ng/mL NT-Pro-B Natriuret Pep (0-900) pg/mL Serum Total Protein (6.3-8.2) g/dL Albumin (3.5-5.0) g/dL Urine Color (YELLOW) Urine Appearance (CLEAR) Urine pH (5-6) Ur Specific [place] (1.005-1.025) Urine Protein (Negative) Urine Ketones (NEGATIVE) Urine Blood (0-5) Xu/ul Urine Nitrite (NEGATIVE) Urine Bilirubin (NEGATIVE) Urine Urobilinogen (0-1) mg/dL Ur Leukocyte Esterase (NEGATIVE) Urine WBC (Auto) (0-5) /HPF Urine RBC (Auto) (0-2) /HPF U Epithel Cells (Auto) (FEW) /HPF Urine Bacteria (Auto) (NEGATIVE) /HPF Urine Mucus (Auto) (NEGATIVE) /HPF Urine Culture Reflexed (NO) Urine Glucose (NEGATIVE) mg/dL SARS-CoV-2 (PCR) NEGATIVE (NEGATIVE) 09/18/20 09/18/20 09/18/20 Range/Units 16:35 18:30 19:30 WBC (4.0-10.5) K/mm3 RBC (4.1-5.6) M/mm3 Hgb (12.5-18.0) gm/dl Hct (42-50) % MCV (78-100) fl MCH (26-32) pg MCHC (32-36) g/dl RDW (11.5-14.0) % Plt Count (150-450) K/mm3 MPV (7.5-11.0) fl Gran % (36.0-66.0) % Eos # (Auto) (0-0.5) Absolute Lymphs (auto) (1.0-4.6) Absolute Monos (auto) (0.0-1.3) Lymphocytes % (24.0-44.0) % Monocytes % (0.0-12.0) % Eosinophils % (0.00-5.0) % Basophils % (0.0-0.4) % Absolute Granulocytes (1.4-6.9) Basophils # (0-0.4) D-Dimer (215-500) ng/mL Sodium (137-145) mmol/L Potassium (3.5-5.1) mmol/L Chloride (98-107) mmol/L Carbon Dioxide (22-30) mmol/L Anion Gap (5-15) MEQ/L BUN (9-20) mg/dL Creatinine (0.66-1.25) mg/dL Estimated GFR ML/MIN Glucose (74-106) mg/dL Lactic Acid (0.4-2.0) Calcium (8.4-10.2) mg/dL Magnesium (1.6-2.3) mg/dL Total Bilirubin (0.2-1.3) mg/dL AST (17-59) U/L ALT (0-50) U/L Alkaline Phosphatase (38-126) U/L Troponin I < 0.012 < 0.012 (0.000-0.034) ng/mL NT-Pro-B Natriuret Pep (0-900) pg/mL Serum Total Protein (6.3-8.2) g/dL Albumin (3.5-5.0) g/dL Urine Color YELLOW (YELLOW) Urine Appearance CLEAR (CLEAR) Urine pH 5.0 (5-6) Ur Specific [place] 1.012 (1.005-1.025) Urine Protein NEGATIVE (Negative) Urine Ketones TRACE (NEGATIVE) Urine Blood SMALL (0-5) Xu/ul Urine Nitrite NEGATIVE (NEGATIVE) Urine Bilirubin NEGATIVE (NEGATIVE) Urine Urobilinogen NEGATIVE (0-1) mg/dL Ur Leukocyte Esterase NEGATIVE (NEGATIVE) Urine WBC (Auto) NONE (0-5) /HPF Urine RBC (Auto) 0-2 (0-2) /HPF U Epithel Cells (Auto) NONE (FEW) /HPF Urine Bacteria (Auto) NONE (NEGATIVE) /HPF Urine Mucus (Auto) SLIGHT (NEGATIVE) /HPF Urine Culture Reflexed NO (NO) Urine Glucose 50 (NEGATIVE) mg/dL SARS-CoV-2 (PCR) (NEGATIVE) - Radiology Impressions Radiology Exams & Impressions: Radiology Procedures Category Date Time Status CHEST 1 VIEW (PORTABLE) Stat Exams 09/18/20 13:16 Completed - Other Procedures and Tests Respiratory Therapy 09/18/20 17:06 Oxygen Nasal Cannula 4 lpm 09/18/20 17:53 Smoking Cessation Education ONCE Assessment/Plan (1) Acute and chronic respiratory failure with hypoxia Current Visit: Yes Status: Acute Code(s): J96.21 - ACUTE AND CHRONIC RESPIRATORY FAILURE WITH HYPOXIA (2) Pneumonia Current Visit: Yes Status: Acute Qualifiers: Pneumonia type: due to unspecified organism Laterality: left Lung location: unspecified part of lung Qualified Code(s): J18.9 - Pneumonia, u nspecified organism Assessment & Plan: Last Vital Signs Temp 98.2 F 09/18/20 17:08 Pulse 94 H 09/18/20 17:08 Resp 22 09/18/20 17:08 BP 112/66 09/18/20 17:08 Pulse Ox 95 09/18/20 17:08 Allergies No Known Drug Allergies Allergy (Verified 09/18/20 13:22) Active Medications Acetaminophen (Tylenol 325 Mg) 650 mg PO Q4H PRN PRN PRN Reason: PAIN AND/OR FEVER Stop: 10/18/20 17:05 Albuterol/Ipratropium (Duoneb 0.5-3 Mg/3 Ml Neb) 3 ml IH Q4HPRN PRN PRN Reason: SHORTNESS OF BREATH/WHEEZING Stop: 10/18/20 17:05 Albuterol/Ipratropium (Duoneb 0.5-3 Mg/3 Ml Neb) 3 ml IH QIDRT [facility] Stop: 10/18/20 18:59 Last Admin: 09/18/20 18:56 Dose: 3 ml Documented by: Alprazolam (Xanax 0.5 Mg) 0.5 mg PO TID PRN PRN PRN Reason: ANXIETY Stop: 10/18/20 17:27 Aspirin (Ecotrin 81 Mg) 81 mg PO DAILY [facility] Stop: 10/19/20 09:59 Bumetanide (Bumex 1 Mg) 1 mg PO DAILY [facility] Stop: 10/19/20 09:59 Enoxaparin Sodium (Enoxaparin Sodium) 40 mg SQ DAILY [facility] Stop: 10/18/20 17:59 Last Admin: 09/18/20 18:34 Dose: 40 mg Documented by: Azithromycin (Zithromax 500 Mg/ 250 Ml Nacl Premix) 500 mg in 250 mls @ 250 mls/hr IV Q24H10 [facility] Stop: 10/19/20 09:59 Ceftriaxone Sodium/Dextrose (Rocephin 1 Gm-D5w 50 Ml Bag) 1 g in 50 mls @ 100 mls/hr IV Q24H10 [facility] Stop: 09/22/20 09:59 Loratadine (Claritin 10 Mg) 10 mg PO DAILY [facility] Stop: 10/19/20 09:59 Methylprednisolone Sodium Succinate (Solu-Medrol 40 Mg) 40 mg IV Q8HT [facility] Stop: 10/18/20 17:59 Miscellaneous Information (Medication Intervention) 1 each MC .RT TO CHECK ON [facility] Stop: 10/18/20 17:44 Ondansetron HCl (Zofran 4 Mg/2 Ml Vial) 4 mg IV Q6H PRN PRN PRN Reason: NAUSEA/VOMITING Stop: 10/18/20 17:05 Pantoprazole Sodium (Protonix 40 Mg Iv) 40 mg IV Q24H10 [facility] Stop: 10/18/20 17:59 Last Admin: 09/18/20 18:34 Dose: 40 mg Documented by: Pramipexole Dihydrochloride (Mirapex 0.5 Mg Tablet) 1 mg PO [facility] Stop: 10/18/20 21:59 Roflumilast (Daliresp) 250 mcg PO DAILY [facility] Stop: 10/19/20 09:59 Intake & Output 09/18/20 09/19/20 11:59 11:59 Intake Total 240 Output Total 400 Balance -160 Weight 106.4 kg Orders 09/18/20 17:10 Telemetry q6h 09/18/20 17:28 ALPRAZolam 0.5 MG [xanAX 0.5 MG] 0.5 mg PO TID PRN PRN 09/18/20 17:45 Medication Intervention 1 each .RT TO CHECK ON 09/18/20 17:53 [employer] Manager/Discharge Plan ROUTINE Smoking Cessation Education ONCE 09/18/20 19:00 Albuterol/Ipratropium 3ml Neb* [DUONEB 0.5-3 MG/3 ml Neb] 3 ml IH QIDRT 09/18/20 22:00 Methylprednisolone Sod Suc 40M [solu-MEDROL 40 MG] 40 mg IV Q8HT Pramipexole Di-HCl 0.5 mg [Mirapex 0.5 MG Tablet] 1 mg PO 09/19/20 10:00 Aspirin EC 81 mg [Ecotrin 81 mg] 81 mg PO DAILY Bumetanide 1 mg [Bumex 1 mg] 1 mg PO DAILY Loratadine 10 mg [Claritin 10 mg] 10 mg PO DAILY Roflumilast [Daliresp] 250 mcg PO DAILY Lab Tests 09/18/20 09/18/20 09/18/20 13:30 13:30 13:30 WBC 7.6 RBC 4.89 Hgb 15.8 Hct 48.5 MCV 99.2 MCH 32.3 H MCHC 32.6 RDW 14.1 H Plt Count 159 MPV 10.8 Gran % 76.2 H Eos # (Auto) 0.04 Absolute Lymphs (auto) 0.76 L Absolute Monos (auto) 0.99 Lymphocytes % 10.0 L Monocytes % 13.0 H Eosinophils % 0.5 Basophils % 0.3 Absolute Granulocytes 5.79 Basophils # 0.02 D-Dimer 378 Sodium 139 Potassium 3.5 Chloride 102 Carbon Dioxide 29 Anion Gap 12.1 BUN 8 L Creatinine 0.87 Estimated GFR > 60.0 Glucose 105 Lactic Acid Calcium 9.1 Magnesium 2.1 Total Bilirubin 0.40 AST 26 ALT 18 Alkaline Phosphatase 68 Troponin I NT-Pro-B Natriuret Pep 40.5 Serum Total Protein 6.4 Albumin 4.1 Urine Color Urine Appearance Urine pH Ur Specific [place] Urine Protein Urine Ketones Urine Blood Urine Nitrite Urine Bilirubin Urine Urobilinogen Ur Leukocyte Esterase Urine WBC (Auto) Urine RBC (Auto) U Epithel Cells (Auto) Urine Bacteria (Auto) Urine Mucus (Auto) Urine Culture Reflexed Urine Glucose SARS-CoV-2 (PCR) 09/18/20 09/18/20 09/18/20 13:30 13:39 15:32 WBC RBC Hgb Hct MCV MCH MCHC RDW Plt Count MPV Gran % Eos # (Auto) Absolute Lymphs (auto) Absolute Monos (auto) Lymphocytes % Monocytes % Eosinophils % Basophils % Absolute Granulocytes Basophils # D-Dimer Sodium Potassium Chloride Carbon Dioxide Anion Gap BUN Creatinine Estimated GFR Glucose Lactic Acid 1.1 Calcium Magnesium Total Bilirubin AST ALT Alkaline Phosphatase Troponin I < 0.012 NT-Pro-B Natriuret Pep Serum Total Protein Albumin Urine Color Urine Appearance Urine pH Ur Specific [place] Urine Protein Urine Ketones Urine Blood Urine Nitrite Urine Bilirubin Urine Urobilinogen Ur Leukocyte Esterase Urine WBC (Auto) Urine RBC (Auto) U Epithel Cells (Auto) Urine Bacteria (Auto) Urine Mucus (Auto) Urine Culture Reflexed Urine Glucose SARS-CoV-2 (PCR) NEGATIVE 09/18/20 09/18/20 09/18/20 16:35 18:30 19:30 WBC RBC Hgb Hct MCV MCH MCHC RDW Plt Count MPV Gran % Eos # (Auto) Absolute Lymphs (auto) Absolute Monos (auto) Lymphocytes % Monocytes % Eosinophils % Basophils % Absolute Granulocytes Basophils # D-Dimer Sodium Potassium Chloride Carbon Dioxide Anion Gap BUN Creatinine Estimated GFR Glucose Lactic Acid Calcium Magnesium Total Bilirubin AST ALT Alkaline Phosphatase Troponin I < 0.012 < 0.012 NT-Pro-B Natriuret Pep Serum Total Protein Albumin Urine Color YELLOW Urine Appearance CLEAR Urine pH 5.0 Ur Specific [place] 1.012 Urine Protein NEGATIVE Urine Ketones TRACE Urine Blood SMALL Urine Nitrite NEGATIVE Urine Bilirubin NEGATIVE Urine Urobilinogen NEGATIVE Ur Leukocyte Esterase NEGATIVE Urine WBC (Auto) NONE Urine RBC (Auto) 0-2 U Epithel Cells (Auto) NONE Urine Bacteria (Auto) NONE Urine Mucus (Auto) SLIGHT Urine Culture Reflexed NO Urine Glucose 50 SARS-CoV-2 (PCR) Code(s): J18.9 - PNEUMONIA, UNSPECIFIED ORGANISM (3) COPD (chronic obstructive pulmonary disease) Current Visit: Yes Status: Chronic Qualifiers: COPD type: COPD with acute exacerbation Qualified Code(s): J44.1 - Chronic obstructive pulmonary disease with (acute) exacerbation
[2020-09-18] MEDS: solu-MEDROL 40 MG IV SCH (21:24)
[2020-09-18] MEDS ORDERED: NON-FORMULARY ITEM (Pramipexole Di-Hcl [Mirapex] 1 MG) PO SCH (22:00)
[2020-09-18] MEDS ORDERED: Mirapex 0.5 MG Tablet PO SCH (22:00)
[2020-09-19 01:58] LABS: Absolute Neutrophil Ct (ANC) 4.16 (1.4-6.9); Basophil (Absolute #) 0 (0-0.4); Eosinophil (Absolute #) 0 (0-0.5); Hematocrit 47.1 % (42-50); Hemoglobin 15.3 gm/dl (12.5-18.0); Lymphocyte (Absolute #) 0.38 (1.0-4.6); Lymphocytes % 8.1 % (24.0-44.0); Mean Cell Volume 99.2 fl (78-100); Mean Corpuscular Hemoglobin 32.2 pg (26-32); Mean Corpuscular Hgb Concent. 32.5 g/dl (32-36); Mean Platelet Volume 10.9 fl (7.5-11.0); Monocyte (Absolute #) 0.14 (0.0-1.3); Neutrophil % 88.9 % (36.0-66.0); Platelet Count 161 K/mm3 (150-450); Red Blood Count 4.75 M/mm3 (4.1-5.6); Red Cell Distribution Width 13.6 % (11.5-14.0); White Blood Count 4.7 K/mm3 (4.0-10.5)
[2020-09-19 02:44] LABS: ALBUMIN 3.9 g/dL (3.5-5.0); ALKALINE PHOSPHATASE 58 U/L (38-126); ANION GAP 12.7 MEQ/L (5-15); BLOOD UREA NITROGEN 13 mg/dL (9-20); CHLORIDE 100 mmol/L (98-107); Calcium 9.1 mg/dL (8.4-10.2); Carbon Dioxide 28 mmol/L (22-30); Creatinine 1 0.77 mg/dL (0.66-1.25); EST GLOMERULAR FILTRATION RATE > 60.0 ML/MIN; Glucose 147 mg/dL (74-106); Potassium 4.3 mmol/L (3.5-5.1); SGOT/AST 24 U/L (17-59); SGPT/ALT 18 U/L (0-50); SODIUM 136 mmol/L (137-145); Total Protein 6.3 g/dL (6.3-8.2)
[2020-09-19 03:10] LABS: Slide Review 1 YES
[2020-09-19] MEDS: solu-MEDROL 40 MG IV SCH (05:57)
[2020-09-19] MEDS ORDERED: Advair Hfa 230/21 Mcg COMMON CANISTER IH SCH (07:00)
[2020-09-19] MEDS ORDERED: Advair Hfa 115/21 Common canister IH SCH (07:00)
[2020-09-19] MEDS: DUONEB 0.5-3 MG/3 ml Neb IH SCH ×2 (07:31→11:11)
[2020-09-19] MEDS: ENOXAPARIN SODIUM SQ SCH (09:32)
[2020-09-19] MEDS: PROTONIX 40 MG IV IV SCH (09:32)
[2020-09-19] MEDS ORDERED: Zithromax 500 MG/ 250 ML NaCl Premix 500 MG/250 ML IVPB IV SCH (10:00)
[2020-09-19] MEDS ORDERED: CLARITIN 10 MG PO SCH (10:00)
[2020-09-19] MEDS ORDERED: ROCEPHIN 1 Gm-D5w 50 ml Bag** 1 G/50 ML IVPB IV SCH (10:00)
[2020-09-19] MEDS ORDERED: BUMEX 1 MG PO SCH (10:00)
[2020-09-19] MEDS ORDERED: ECOTRIN 81 MG PO SCH (10:00)
[2020-09-19] MEDS ORDERED: ROFLUMILAST 250 MCG PO SCH (10:00)
[2020-09-19] MEDS ORDERED: DALIRESP PO SCH (10:00)
[2020-09-19] MEDS ORDERED: NON-FORMULARY ITEM (Levocetirizine Dihydrochloride [Levocetirizine Dihydrochloride] 5 MG) PO SCH (10:00)
[2020-09-19] MEDS ORDERED: NON-FORMULARY ITEM (Fluticasone/Umeclidin/Vilanter [Trelegy Ellipta 100-62.5-25] 1 PUFF) IH SCH (10:00)
[2020-09-19] MEDS ORDERED: NON-FORMULARY ITEM (Aspirin [Aspirin] 81 MG) PO SCH (10:00)
[2020-09-19 13:52] VITALS: BP 119/68; PULSE 106; O2SAT 97
--- NOTE | 2020-09-19 20:01 | PCM.DS ---
Discharge Summary Date of Admission: 09/18/20 17:00 Admitting Physician: AG SOW Primary Care Provider: AG SOW Allergies Allergies No Known Drug Allergies Allergy (Verified 09/18/20 13:22) Hospital Summary - Hospital Course Hospital Course: Last Vital Signs Temp 97.5 F 09/19/20 12:00 Pulse 106 H 09/19/20 12:00 Resp 19 09/19/20 12:00 BP 119/68 09/19/20 12:00 Pulse Ox 97 09/19/20 12:00 Allergies No Known Drug Allergies Allergy (Verified 09/18/20 13:22) Intake & Output 09/19/20 09/20/20 11:59 11:59 Intake Total 1800 Output Total 1400 Balance 400 Weight 106.4 kg Orders 09/18/20 20:19 Pulse Oximetry .spot check Respiratory Therapy Assessment DAILY 09/19/20 Discharge Routine 09/19/20 10:00 Respiratory MDI UD Lab Tests 09/18/20 09/18/20 09/19/20 19:30 22:30 01:15 WBC RBC Hgb Hct MCV MCH MCHC RDW Plt Count MPV Gran % Eos # (Auto) Absolute Lymphs (auto) Absolute Monos (auto) Lymphocytes % Monocytes % Eosinophils % Basophils % Absolute Granulocytes Basophils # Sodium Potassium Chloride Carbon Dioxide Anion Gap BUN Creatinine Estimated GFR Glucose Calcium Total Bilirubin AST ALT Alkaline Phosphatase Troponin I < 0.012 < 0.012 < 0.012 Serum Total Protein Albumin Slides for Path Review 09/19/20 09/19/20 01:15 01:15 WBC 4.7 RBC 4.75 Hgb 15.3 Hct 47.1 MCV 99.2 MCH 32.2 H MCHC 32.5 RDW 13.6 Plt Count 161 MPV 10.9 Gran % 88.9 H Eos # (Auto) 0 Absolute Lymphs (auto) 0.38 L Absolute Monos (auto) 0.14 Lymphocytes % 8.1 L Monocytes % 3.0 Eosinophils % 0.0 Basophils % 0.0 Absolute Granulocytes 4.16 Basophils # 0 Sodium 136 L Potassium 4.3 D Chloride 100 Carbon Dioxide 28 Anion Gap 12.7 BUN 13 Creatinine 0.77 Estimated GFR > 60.0 Glucose 147 H Calcium 9.1 Total Bilirubin 0.20 AST 24 ALT 18 Alkaline Phosphatase 58 Troponin I Serum Total Protein 6.3 Albumin 3.9 Slides for Path Review YES - Vitals & Intake/Output Vital Signs: Vital Signs Temperature 97.5 F 09/19/20 12:00 Pulse Rate 106 H 09/19/20 12:00 Respiratory Rate 19 09/19/20 12:00 Blood Pressure 119/68 09/19/20 12:00 O2 Sat by Pulse Oximetry 97 09/19/20 12:00 Intake & Output: Intake & Output 09/17/20 09/18/20 09/19/20 09/20/20 11:59 11:59 11:59 11:59 Intake Total 1800 Output Total 1400 Balance 400 Weight 106.4 kg - Lab Result Diagrams: 09/19/20 01:15 09/19/20 01:15 Lab Results-Last 24 Hrs: Lab Results-Last 24 Hours 09/18/20 09/18/20 09/19/20 Range/Units 19:30 22:30 01:15 WBC (4.0-10.5) K/mm3 RBC (4.1-5.6) M/mm3 Hgb (12.5-18.0) gm/dl Hct (42-50) % MCV (78-100) fl MCH (26-32) pg MCHC (32-36) g/dl RDW (11.5-14.0) % Plt Count (150-450) K/mm3 MPV (7.5-11.0) fl Gran % (36.0-66.0) % Eos # (Auto) (0-0.5) Absolute Lymphs (auto) (1.0-4.6) Absolute Monos (auto) (0.0-1.3) Lymphocytes % (24.0-44.0) % Monocytes % (0.0-12.0) % Eosinophils % (0.00-5.0) % Basophils % (0.0-0.4) % Absolute Granulocytes (1.4-6.9) Basophils # (0-0.4) Sodium (137-145) mmol/L Potassium (3.5-5.1) mmol/L Chloride (98-107) mmol/L Carbon Dioxide (22-30) mmol/L Anion Gap (5-15) MEQ/L BUN (9-20) mg/dL Creatinine (0.66-1.25) mg/dL Estimated GFR ML/MIN Glucose (74-106) mg/dL Calcium (8.4-10.2) mg/dL Total Bilirubin (0.2-1.3) mg/dL AST (17-59) U/L ALT (0-50) U/L Alkaline Phosphatase (38-126) U/L Troponin I < 0.012 < 0.012 < 0.012 (0.000-0.034) ng/mL Serum Total Protein (6.3-8.2) g/dL Albumin (3.5-5.0) g/dL Slides for Path Review 09/19/20 09/19/20 Range/Units 01:15 01:15 WBC 4.7 (4.0-10.5) K/mm3 RBC 4.75 (4.1-5.6) M/mm3 Hgb 15.3 (12.5-18.0) gm/dl Hct 47.1 (42-50) % MCV 99.2 (78-100) fl MCH 32.2 H (26-32) pg MCHC 32.5 (32-36) g/dl RDW 13.6 (11.5-14.0) % Plt Count 161 (150-450) K/mm3 MPV 10.9 (7.5-11.0) fl Gran % 88.9 H (36.0-66.0) % Eos # (Auto) 0 (0-0.5) Absolute Lymphs (auto) 0.38 L (1.0-4.6) Absolute Monos (auto) 0.14 (0.0-1.3) Lymphocytes % 8.1 L (24.0-44.0) % Monocytes % 3.0 (0.0-12.0) % Eosinophils % 0.0 (0.00-5.0) % Basophils % 0.0 (0.0-0.4) % Absolute Granulocytes 4.16 (1.4-6.9) Basophils # 0 (0-0.4) Sodium 136 L (137-145) mmol/L Potassium 4.3 D (3.5-5.1) mmol/L Chloride 100 (98-107) mmol/L Carbon Dioxide 28 (22-30) mmol/L Anion Gap 12.7 (5-15) MEQ/L BUN 13 (9-20) mg/dL Creatinine 0.77 (0.66-1.25) mg/dL Estimated GFR > 60.0 ML/MIN Glucose 147 H (74-106) mg/dL Calcium 9.1 (8.4-10.2) mg/dL Total Bilirubin 0.20 (0.2-1.3) mg/dL AST 24 (17-59) U/L ALT 18 (0-50) U/L Alkaline Phosphatase 58 (38-126) U/L Troponin I (0.000-0.034) ng/mL Serum Total Protein 6.3 (6.3-8.2) g/dL Albumin 3.9 (3.5-5.0) g/dL Slides for Path Review YES - Radiology Exams Ordered Rad Exams-Entire Visit: Radiology Procedures Category Date Time Status CHEST 1 VIEW (PORTABLE) Stat Exams 09/18/20 13:16 Completed - Procedures and Test Procedures and Tests throughout Hospitalization: Therapy Orders & Screens 09/18/20 13:48 Respiratory Therapy Assessment ONCE Comment: Diagnosis: right breast cancer 09/18/20 17:06 Oxygen Nasal Cannula 3 lpm Comment: Diagnosis: right breast cancer 09/18/20 17:53 RT Screen per Nursing Assess ONCE Comment: Protocol Order Physician Instructions: Greater than 3 points order RT Admission Screen Reason For Exam: Triggered on Admission Diagnosis: COPD Exacerbation Diagnosis: COPD Exacerbation Pneumonia: Yes Home O2: Yes Asthma: Yes CHF: No Home CPAP/BIPAP: No Home Nebs/MDI: Yes Total Points: 17 Smoking Cessation Education ONCE Comment: Diagnosis: COPD Exacerbation Smoking Status: Current every day smoker How long have you smoked: 50 years Have you smoked in the past 12 months: Yes Approximately how many cigarettes per day: 1 PPD Do you dip or chew tobacco: No 09/18/20 20:19 Respiratory Therapy Assessment DAILY Comment: Diagnosis: shortness of breath for 1 day 09/19/20 10:00 Respiratory MDI UD Comment: Diagnosis: shortness of breath for 1 day Discharge Exam General Appearance: no apparent distress, alert Neurologic Exam: alert, oriented x 3, cooperative, normal mood/affect, nml cerebellar function, sensation nml, No motor deficits Eye Exam: PERRL, EOMI, eyes nml inspection Ears, Nose, Throat Exam: normal ENT inspection, pharynx normal, moist mucous membranes Neck Exam: normal inspection, non-tender, supple, full range of motion Respiratory Exam: normal breath sounds, lungs clear, No respiratory distress Cardiovascular Exam: regular rate/rhythm, normal heart sounds Gastrointestinal/Abdomen Exam: soft, No tenderness, No mass Male Genitalia Exam: deferred Rectal Exam: deferred Back Exam: normal inspection, normal range of motion, No CVA tenderness, No vertebral tenderness Extremity Exam: normal inspection, normal range of motion Skin Exam: normal color, warm, dry Final Diagnosis/Problem List - Final Discharge Diagnosis/Problem (1) Acute and chronic respiratory failure with hypoxia Status: Resolved Code(s): J96.21 - ACUTE AND CHRONIC RESPIRATORY FAILURE WITH HYPOXIA (2) Pneumonia Status: Resolved Code(s): J18.9 - PNEUMONIA, UNSPECIFIED ORGANISM (3) COPD (chronic obstructive pulmonary disease) Status: Chronic - Discharge Discharge Date: 09/19/20 Disposition: Home, Self-Care Condition: Stable Prescriptions: New Methylprednisolone Packet [Medrol Dosepack] 4 mg PO UD #30 packet Azithromycin [Zithromax Tri-Brennon] 500 mg PO UD #3 tablet Continue Roflumilast [Daliresp] 250 mcg PO DAILY Prednisone 10 mg [Deltasone 10 mg] 10 mg PO DAILY Levocetirizine Dihydrochloride 5 mg PO DAILY Bumetanide 1 mg PO DAILY ALPRAZolam 0.5 MG [xanAX 0.5 MG] 0.5 mg PO TID PRN PRN Reason: Anxiety Albuterol Sulfate [Albuterol Sulfate Hfa] 2 puffs QID Ipratropium/Albuterol Sulfate [Iprat-Albut 0.5-3(2.5) mg/3 ml] 1 ampul IH QID Fluticasone/Umeclidin/Vilanter [Trelegy Ellipta 100-62.5-25] 1 puff IH DAILY Pramipexole Di-HCl [Mirapex] 1 mg PO HS Aspirin 81 mg PO DAILY Instructions: Pneumonia in Adults Follow up with: AG SOW MD [Primary Care Provider] - 09/29/20 10:30 am ([facility])
== END 2020-09-19 12:58 | disposition home or self-care (01) ==
LOC: ED 13:09 → MED SURG 17:00 → UNDOADMOB 17:00 → MED SURG 17:00 → INTOOBSV 17:00 → UNDODISOB 09-19 12:58
PROVIDERS: ADMIT General Practice; ATTEND General Practice
DX: J96.21 Acute and chronic respiratory failure with hypoxia (principal); J18.9 Pneumonia, unspecified organism; J44.9 Chronic obstructive pulmonary disease, unspecified; R07.9 Chest pain, unspecified; Z79.899 Other long term (current) drug therapy; Z99.81 Dependence on supplemental oxygen; F17.200 Nicotine dependence, unspecified, uncomplicated; M79.89 Other specified soft tissue disorders; Z20.828 Contact with and (suspected) exposure to other viral communicable diseases
CPT/HCPCS: 36000; 36415; 71045; 80053; 81001; 83605; 83735; 83880; 84484; 85025; 85379; 87040; 93005; 93041; 94640; 94760; 96365; 96367; 96374; 99285; 99291; U0003; 93268; J0456; J0696; J1650; J2920; J2930; A9270-GY; G0378

== ENCOUNTER 2020-09-20 21:39 | Emergency (ER) | payer MEDICARE ==
--- NOTE | 2020-09-20 21:46 | ERPHSYRPT ---
- History of Present Illness Time Seen by Provider: 09/20/20 21:46 Source: patient, family Exam Limitations: no limitations Physician History: This is a 54-year-old white male smoker who was a patient of Dr. Sow presents with worsening shortness of breath. Patient was seen in this emergency department on 09/18/2020 and diagnosed with pneumonia and was admitted into the hospital and discharged 24 hours later on 09/19/2020. Patient is chronically on 3 L nasal cannula oxygen therapy at home. He has a history of recurrent shortness of breath and COPD. He has continued to smoke cigarettes. Patient stated that he was discharged home on antibiotics but no other medications. He does use his small-volume nebulizers and inhalers. He is on low-dose prednisone daily. He has a history of CHF and sleep apnea. He denies chest pain at this time. He has had no fevers or chills. Timing/Duration: day(s) (a few) Activities at Onset: activity Severity of Dyspnea-Max: moderate Severity of Dyspnea-Current: mild Possible Cause: frequent episodes Modifying Factors: Improves With: activity, coughing Associated Symptoms: cough, wheezing, No chest pain/discomfort Allergies/Adverse Reactions: No Known Drug Allergies Allergy (Verified 09/20/20 21:59) Home Medications: ALPRAZolam 0.5 MG [xanAX 0.5 MG] 0.5 mg PO TID PRN 11/19/19 [History] Albuterol Sulfate [Albuterol Sulfate Hfa] 2 puffs QID 11/19/19 [History] Bumetanide 1 mg PO DAILY 11/19/19 [History] Levocetirizine Dihydrochloride 5 mg PO DAILY 11/19/19 [History] Prednisone 10 mg [Deltasone 10 mg] 10 mg PO DAILY 11/19/19 [History] Roflumilast [Daliresp] 250 mcg PO DAILY 11/19/19 [History] Ipratropium/Albuterol Sulfate [Iprat-Albut 0.5-3(2.5) mg/3 ml] 1 ampul IH QID 11/23/19 [History] Fluticasone/Umeclidin/Vilanter [Trelegy Ellipta 100-62.5-25] 1 puff IH DAILY [History] Aspirin 81 mg PO DAILY 02/13/20 [History] Pramipexole Di-HCl [Mirapex] 1 mg PO HS 02/13/20 [History] Hx Tetanus, Diphtheria Vaccination/Date Given: No Hx Influenza Vaccination/Date Given: No Hx Pneumococcal Vaccination/Date Given: No Travel Risk - International Travel Have you traveled outside of the country in past 3 weeks: No - Coronavirus Screening Are you exhibiting any of the following symptoms?: No Close contact with a COVID-19 positive Pt in past 14-21 Days: No - Vaccine Status Have you recieved a Covid-19 vaccination: No - Review of Systems Constitutional: No Symptoms Eyes: No Symptoms Ears, Nose, & Throat: No Symptoms Respiratory: Cough, Dyspnea on Exertion (JAIN), Wheezing Cardiac: No Symptoms Abdominal/Gastrointestinal: No Symptoms Genitourinary Symptoms: No Symptoms Musculoskeletal: No Symptoms Skin: No Symptoms Neurological: No Symptoms Psychological: No Symptoms Endocrine: No Symptoms Hematologic/Lymphatic: No Symptoms Immunological/Allergic: No Symptoms All Other Systems: Reviewed and Negative - Past Medical History Pertinent Past Medical History: Yes Neurological History: No Pertinent History ENT History: No Pertinent History Cardiac History: No Pertinent History Respiratory History: CHF, COPD, Pneumonia, Sleep Apnea Endocrine Medical History: No Pertinent History Musculoskeletal History: No Pertinent History GI Medical History: No Pertinent History History: No Pertinent History Psycho-Social History: No Pertinent History Male Reproductive Disorders: No Pertinent History Other Medical History: chronic lower leg cellulitis. wears 3 L NC at all times - Past Surgical History Past Surgical History: No Neuro Surgical History: No Pertinent History Cardiac: No Pertinent History Respiratory: No Pertinent History Gastrointestinal: No Pertinent History Genitourinary: No Pertinent History Musculoskeletal: No Pertinent History Male Surgical History: No Pertinent History - Social History Smoking Status: Current every day smoker How long have you smoked: years Exposure to second hand smoke: Yes Drug Use: none Patient Lives Alone: No - Nursing Vital Signs Nursing Vital Signs: Initial Vital Signs Pulse Rate 92 H 09/20/20 21:41 Respiratory Rate 22 09/20/20 21:41 Blood Pressure 111/79 09/20/20 21:41 O2 Sat by Pulse Oximetry 99 09/20/20 21:41 Pain Scale Pain Intensity 0 - Physical Exam General Appearance: no apparent distress, alert, anxiety, obese Eye Exam: PERRL/EOMI, eyes nml inspection Ears, Nose, Throat Exam: hearing grossly normal, normal ENT inspection, normal pharynx Neck Exam: normal inspection, non-tender, supple, full range of motion Respiratory Exam: lungs clear, airway intact, wheezing, No chest tenderness, No respiratory distress Cardiovascular/Chest Exam: normal heart sounds, regular rate/rhythm Abdominal/Gastrointestinal Exam: soft, normal bowel sounds, No tenderness Rectal Exam: not done Extremity Exam: non-tender, normal range of motion, normal inspection Neurologic Exam: alert, oriented x 3, cooperative, usability architect II-XII nml as tested, normal mood/affect, nml cerebellar function, nml station & gait, sensation nml Skin Exam: normal color, warm, dry Lymphatic Exam: No adenopathy SpO2 Interpretation: normal O2 Delivery: Room Air - Course Nursing assessment & vital signs reviewed: Yes EKG Interpreted by Me: RATE (94), Sinus Rhythm, NORMAL AXIS, NORMAL INTERVALS, NORMAL QRS, NORMAL ST-T, Other (No acute ischemic changes on today's EKG. the sinus tachycardia that was present on the EKG dated 2020-01-01 comparison EKG has now resolved.) Ordered Tests: Active Orders 24 hr Category Date Time Status Boring Machine Operator Vertical STAT Care 09/20/20 22:10 Active EKG-ER Only STAT Care 09/20/20 22:08 Active IV Insertion STAT Care 09/20/20 22:08 Active Pulse Oximetry (ED) STAT Care 09/20/20 22:08 Active CHEST 1 VIEW (PORTABLE) Stat Exams 09/20/20 22:10 Taken BLOOD CULTURE Stat Lab 09/20/20 22:23 Received CBC W DIFF Stat Lab 09/20/20 22:12 Completed CMP Stat Lab 09/20/20 22:12 Completed CULTURE,SPUTUM Stat Lab 09/20/20 22:09 Ordered D-DIMER QUANTITATIVE Stat Lab 09/20/20 22:23 Completed Lactic Acid Stat Lab 09/20/20 22:08 Completed Lactic Acid Stat Lab 09/21/20 00:19 Received NT PRO BNP Stat Lab 09/20/20 22:12 Completed PROTIME WITH INR Stat Lab 09/20/20 22:23 Completed TROPONIN Q3H Lab 09/20/20 22:24 Completed TROPONIN Q3H Lab 09/21/20 01:15 Ordered TROPONIN Q3H Lab 09/21/20 04:15 Ordered TROPONIN Q3H Lab 09/21/20 07:15 Ordered TROPONIN Q3H Lab 09/21/20 10:15 Ordered Respiratory Therapy Assessment DAILY RT 09/20/20 21:52 Active Medication Summary Discontinued Medications Generic Name Dose Route Start Last Admin Trade Name Delroyq PRN Reason Stop Dose Admin Albuterol/Ipratropium 3 ml 09/20/20 21:52 09/20/20 21:55 Duoneb 0.5-3 Mg/3 Ml Neb IH 09/20/20 21:53 3 ml STAT ONE Administration Albuterol/Ipratropium Confirm 09/20/20 21:50 Duoneb 0.5-3 Mg/3 Ml Neb Administered 09/20/20 21:51 Dose 3 ml IH .STK-MED ONE Methylprednisolone Sodium 0 mg 09/20/20 22:08 09/20/20 22:20 Succinate 125 mg/ Sterile IV 09/20/20 22:09 125 mg Water 2 ml STAT ONE Administration Methylprednisolone Sodium Succinate Confirm 09/20/20 22:15 Solu-Medrol Administered 09/20/20 22:16 Dose 125 mg .ROUTE .STK-MED ONE Lab/Rad Data: Laboratory Result Diagrams 09/20/20 22:12 09/20/20 22:12 Laboratory Results 09/20/20 09/20/20 09/20/20 Range/Units 22:24 22:23 22:12 WBC (4.0-10.5) K/mm3 RBC (4.1-5.6) M/mm3 Hgb (12.5-18.0) gm/dl Hct (42-50) % MCV (78-100) fl MCH (26-32) pg MCHC (32-36) g/dl RDW (11.5-14.0) % Plt Count (150-450) K/mm3 MPV (7.5-11.0) fl Gran % (36.0-66.0) % Eos # (Auto) (0-0.5) Absolute Lymphs (auto) (1.0-4.6) Absolute Monos (auto) (0.0-1.3) Lymphocytes % (24.0-44.0) % Monocytes % (0.0-12.0) % Eosinophils % (0.00-5.0) % Basophils % (0.0-0.4) % Absolute Granulocytes (1.4-6.9) Basophils # (0-0.4) PT 11.1 (9.4-12.5) SECONDS INR 0.94 (0.8-3.0) D-Dimer 481 (215-500) ng/mL Sodium 142 (137-145) mmol/L Potassium 3.9 (3.5-5.1) mmol/L Chloride 101 (98-107) mmol/L Carbon Dioxide 33 H (22-30) mmol/L Anion Gap 11.5 (5-15) MEQ/L BUN 19 (9-20) mg/dL Creatinine 0.97 (0.66-1.25) mg/dL Estimated GFR > 60.0 ML/MIN Glucose 128 H (74-106) mg/dL Lactic Acid (0.4-2.0) Calcium 9.1 (8.4-10.2) mg/dL Total Bilirubin < 0.10 L (0.2-1.3) mg/dL AST 27 (17-59) U/L ALT 21 (0-50) U/L Alkaline Phosphatase 48 (38-126) U/L Troponin I < 0.012 (0.000-0.034) ng/mL NT-Pro-B Natriuret Pep 285 (0-900) pg/mL Serum Total Protein 6.4 (6.3-8.2) g/dL Albumin 4.0 (3.5-5.0) g/dL 09/20/20 09/20/20 Range/Units 22:12 22:08 WBC 14.7 H (4.0-10.5) K/mm3 RBC 4.53 (4.1-5.6) M/mm3 Hgb 14.3 (12.5-18.0) gm/dl Hct 45.4 (42-50) % MCV 100.2 H (78-100) fl MCH 31.6 (26-32) pg MCHC 31.5 L (32-36) g/dl RDW 14.0 (11.5-14.0) % Plt Count 174 (150-450) K/mm3 MPV 11.3 H (7.5-11.0) fl Gran % 91.8 H (36.0-66.0) % Eos # (Auto) 0 (0-0.5) Absolute Lymphs (auto) 0.54 L (1.0-4.6) Absolute Monos (auto) 0.66 (0.0-1.3) Lymphocytes % 3.7 L (24.0-44.0) % Monocytes % 4.5 (0.0-12.0) % Eosinophils % 0.0 (0.00-5.0) % Basophils % 0.0 (0.0-0.4) % Absolute Granulocytes 13.54 H (1.4-6.9) Basophils # 0 (0-0.4) PT (9.4-12.5) SECONDS INR (0.8-3.0) D-Dimer (215-500) ng/mL Sodium (137-145) mmol/L Potassium (3.5-5.1) mmol/L Chloride (98-107) mmol/L Carbon Dioxide (22-30) mmol/L Anion Gap (5-15) MEQ/L BUN (9-20) mg/dL Creatinine (0.66-1.25) mg/dL Estimated GFR ML/MIN Glucose (74-106) mg/dL Lactic Acid 2.8 H (0.4-2.0) Calcium (8.4-10.2) mg/dL Total Bilirubin (0.2-1.3) mg/dL AST (17-59) U/L ALT (0-50) U/L Alkaline Phosphatase (38-126) U/L Troponin I (0.000-0.034) ng/mL NT-Pro-B Natriuret Pep (0-900) pg/mL Serum Total Protein (6.3-8.2) g/dL Albumin (3.5-5.0) g/dL - Progress Progress: improved, re-examined Air Movement: good Progress Note: 09/20/20 23:48 Chest x-ray shows no acute infiltrate. When compared to the chest x-ray dated 2020-09-18, it appears the lingular infiltrate has resolved or at least significantly improved. 09/21/20 00:36 Respiratory therapist, Ed, made arrangement with [employer] to go to the patient's home tomorrow morning between 10 to 11 AM to check their concentrator as well as change out the system if need be. Patient agrees with this plan and has enough oxygen supplement to get him through the morning. Blood Culture(s) Obtained: Yes Antibiotics given: Yes Counseled pt/family regarding: lab results, diagnosis, need for follow-up, rad results - Departure Departure Disposition: Home Clinical Impression: Upper respiratory infection Condition: Stable Critical Care Time: No Referrals: AG SOW MD [Primary Care Provider] - Prescriptions: Prednisone 10 mg [Deltasone 10 mg] 10 mg PO TID #12 tablet
[2020-09-20] MEDS ORDERED: DUONEB 0.5-3 MG/3 ml Neb IH ONE ×2 (21:50→21:52)
[2020-09-20] MEDS ORDERED: solu-MEDROL 125 MG, Sterile H2O 10 ml 2 ML IV ONE ×2 (22:08)
[2020-09-20] MEDS ORDERED: solu-MEDROL ONE (22:15)
[2020-09-20 22:33] LABS: Absolute Neutrophil Ct (ANC) 13.54 (1.4-6.9); Basophil (Absolute #) 0 (0-0.4); Eosinophil (Absolute #) 0 (0-0.5); Hematocrit 45.4 % (42-50); Hemoglobin 14.3 gm/dl (12.5-18.0); Lymphocyte (Absolute #) 0.54 (1.0-4.6); Lymphocytes % 3.7 % (24.0-44.0); Mean Cell Volume 100.2 fl (78-100); Mean Corpuscular Hemoglobin 31.6 pg (26-32); Mean Corpuscular Hgb Concent. 31.5 g/dl (32-36); Mean Platelet Volume 11.3 fl (7.5-11.0); Monocyte (Absolute #) 0.66 (0.0-1.3); Monocytes % 4.5 % (0.0-12.0); Neutrophil % 91.8 % (36.0-66.0); Platelet Count 174 K/mm3 (150-450); Red Blood Count 4.53 M/mm3 (4.1-5.6); White Blood Count 14.7 K/mm3 (4.0-10.5)
[2020-09-20 22:34] LABS: INR 0.94 (0.8-3.0); PROTIME 11.1 SECONDS (9.4-12.5)
[2020-09-20 22:41] LABS: ALKALINE PHOSPHATASE 48 U/L (38-126); ANION GAP 11.5 MEQ/L (5-15); BILIRUBIN,TOTAL < 0.10 mg/dL (0.2-1.3); BLOOD UREA NITROGEN 19 mg/dL (9-20); CHLORIDE 101 mmol/L (98-107); Calcium 9.1 mg/dL (8.4-10.2); Carbon Dioxide 33 mmol/L (22-30); Creatinine 1 0.97 mg/dL (0.66-1.25); EST GLOMERULAR FILTRATION RATE > 60.0 ML/MIN; Glucose 128 mg/dL (74-106); NT PRO BNP 285 pg/mL (0-900); Potassium 3.9 mmol/L (3.5-5.1); SGOT/AST 27 U/L (17-59); SGPT/ALT 21 U/L (0-50); SODIUM 142 mmol/L (137-145); Total Protein 6.4 g/dL (6.3-8.2)
[2020-09-21] MEDS ORDERED: DUONEB 0.5-3 MG/3 ml Neb IH ONE ×2 (00:38→00:52)
[2020-09-21 01:07] VITALS: O2SAT 97
[2020-09-21 01:22] VITALS: BP 111/71; PULSE 99
--- NOTE | 2020-09-21 06:41 | XRAY ---
Indication: Cough. Short of breath. Comparison: September 18, 2020. Portable apical lordotic chest again demonstrates subtle lingula interstitial alveolar opacity and minimal left midlung subsegmental atelectasis/scarring improved. Remaining heart and lungs unremarkable. No new cardiopulmonary abnormalities.
== END 2020-09-21 01:21 | disposition home or self-care (01) ==
LOC: ED 21:39
DX: J06.9 Acute upper respiratory infection, unspecified (principal); Z99.81 Dependence on supplemental oxygen; F17.200 Nicotine dependence, unspecified, uncomplicated; Z79.899 Other long term (current) drug therapy; J44.9 Chronic obstructive pulmonary disease, unspecified
CPT/HCPCS: 36000; 36415; 71045; 80053; 83605; 83880; 84484; 85025; 85379; 85610; 87040; 93005; 93041; 94640; 94760; 96374; 99284; J2930; A9270-GY

== ENCOUNTER 2021-01-27 08:19 | Day surgery (SDC) | payer MEDICARE ==
[~2021-01-27 08:19] MED LIST: Ak-Dilate OPHTHALMIC*** 1.065 ML, Cyclogyl 1% OPHTH SOL 5 ML 1.065 ML, GATIFLOXACIN 0.5... OP ONE; BETADINE 5% OPHTHALMIC 30 ML OP ONE; Lactated Ringers 1,000 ML IV SCH; NON-FORMULARY ITEM IJ ONE; TETRACAINE 0.5% STERI-UNIT SOL OP ONE; cefUROXime sodium 0.005 GM in Sodium Chloride Flush 30 ML*** 0.5 ML IJ ONE
[2021-01-27] MEDS ORDERED: Epinephrine Preservative Free 1 MG/ML IJ ONE (08:20)
[2021-01-27] MEDS ORDERED: LIDOCAINE HCL 1% 50 MG/5 ML VL PF IJ ONE (08:20)
[2021-01-27] MEDS ORDERED: Lactated Ringers 1,000 ML IV ONE ×2 (08:54→10:55)
[2021-01-27] MEDS ORDERED: Zofran 4 MG/2 ML VIAL IV PRN (09:00)
[2021-01-27] MEDS ORDERED: ACETAZOLAMIDE 250 MG TABLET PO ONE (09:00)
[2021-01-27] MEDS: TETRACAINE 0.5% STERI-UNIT SOL OP ONE ×2 (09:03→09:44)
[2021-01-27] MEDS ORDERED: Versed 2 MG/2 ML Injection ONE (11:02)
[2021-01-27] MEDS ORDERED: SUBLIMAZE 100 MCG/2 ML ONE (11:10)
== END 2021-01-27 12:20 | disposition home or self-care (01) ==
LOC: SDC 08:19
PROVIDERS: ATTEND Ophthalmology
DX: H25.811 Combined forms of age-related cataract, right eye (principal); Z79.899 Other long term (current) drug therapy; Z72.0 Tobacco use
CPT/HCPCS: C1780; J0171; J2001; J2250; J3010; A9270-GY

== ENCOUNTER 2021-04-03 01:35 | Emergency (ER) | payer MEDICARE ==
[2021-04-03] MEDS ORDERED: solu-MEDROL 125 MG, Sterile H2O 10 ml 2 ML IV ONE ×2 (02:03)
--- NOTE | 2021-04-03 02:03 | ERPHSYRPT ---
- History of Present Illness Time Seen by Provider: 04/03/21 01:55 Source: patient Exam Limitations: no limitations Patient Subjective Stated Complaint: pt states "I was coughing and got short of breath." Triage Nursing Assessment: pt ambulated into the er; pt is axo x4; c/o SOB; pt denies pain; positive for covid on 04/01/21; rosa upper lobes expiratory wheezing; pt wears 3L home O2; pt states chills; tachycardic; pt states last breathing treatment was 1.5 hours prior to coming; febril 103; moist cough present Physician History: This is a 55-year-old patient of Dr. Sow who was diagnosed with COVID 19 infection on 04/01/2021. This patient has a history of CHF, oxygen dependent COPD with 3 L oxygen via nasal cannula and is on daily prednisone. He continues to smoke. In the last 24 hours he has had worsening coughing episodes and he became short of breath during these coughing episodes. He has no significant chest pain. He has no nausea vomiting or diarrhea. He had fevers as well intermittently. Timing/Duration: today Activities at Onset: activity Severity of Dyspnea-Max: moderate Severity of Dyspnea-Current: moderate Possible Cause: occasional episodes Modifying Factors: Improves With: activity, albuterol nebulizer, coughing, oxygen Associated Symptoms: cough, wheezing, No chest pain/discomfort Allergies/Adverse Reactions: No Known Drug Allergies Allergy (Verified 04/03/21 01:40) Home Medications: ALPRAZolam 0.5 MG [xanAX 0.5 MG] 0.5 mg PO TID PRN 11/19/19 [History] Albuterol Sulfate [Albuterol Sulfate Hfa] 2 puffs IH QID 11/19/19 [History] Bumetanide 1 mg PO DAILY 11/19/19 [History] Levocetirizine Dihydrochloride 5 mg PO DAILY 11/19/19 [History] Prednisone 10 mg [Deltasone 10 mg] 10 mg PO DAILY 11/19/19 [History] Ipratropium/Albuterol Sulfate [Iprat-Albut 0.5-3(2.5) mg/3 ml] 1 ampul IH QID 11/23/19 [History] Fluticasone/Umeclidin/Vilanter [Trelegy Ellipta 100-62.5-25] 1 puff IH DAILY 12/12/19 [History] Aspirin 81 mg PO DAILY 02/13/20 [History] Pramipexole Di-HCl [Mirapex] 1 mg PO HS 02/13/20 [History] Azithromycin 250 mg [Zithromax 250 MG TABLET] 250 mg PO ZPACK 04/03/21 [History] Celecoxib [Celebrex] 100 mg PO DAILY 04/03/21 [History] OLANZapine [Zyprexa] 5 mg PO DAILY 04/03/21 [History] methylPREDNISolone [Medrol] 4 mg PO DAILY 04/03/21 [History] Hx Tetanus, Diphtheria Vaccination/Date Given: No Hx Influenza Vaccination/Date Given: No Hx Pneumococcal Vaccination/Date Given: No Travel Risk - International Travel Have you traveled outside of the country in past 3 weeks: No - Coronavirus Screening Are you exhibiting any of the following symptoms?: Yes Symptoms: Fever, Cough: New Onset, Shortness of Breath Close contact with a COVID-19 positive Pt in past 14-21 Days: No - Vaccine Status Have you recieved a Covid-19 vaccination: No - Review of Systems Constitutional: Fever Eyes: No Symptoms Ears, Nose, & Throat: No Symptoms Respiratory: Cough, Dyspnea, Wheezing Cardiac: No Symptoms Abdominal/Gastrointestinal: No Symptoms Genitourinary Symptoms: No Symptoms Musculoskeletal: Arthralgias, Myalgias Neurological: No Symptoms Psychological: No Symptoms Endocrine: No Symptoms Hematologic/Lymphatic: No Symptoms Immunological/Allergic: No Symptoms All Other Systems: Reviewed and Negative - Past Medical History Pertinent Past Medical History: Yes Neurological History: No Pertinent History ENT History: No Pertinent History Cardiac History: No Pertinent History Respiratory History: CHF, COPD, Pneumonia, Sleep Apnea Endocrine Medical History: No Pertinent History Musculoskeletal History: No Pertinent History GI Medical History: No Pertinent History History: No Pertinent History Psycho-Social History: No Pertinent History Male Reproductive Disorders: No Pertinent History Other Medical History: chronic lower leg cellulitis. wears 3 L NC at all times - Past Surgical History Past Surgical History: No Neuro Surgical History: No Pertinent History Cardiac: No Pertinent History Respiratory: No Pertinent History Gastrointestinal: No Pertinent History Genitourinary: No Pertinent History Musculoskeletal: No Pertinent History Male Surgical History: No Pertinent History - Social History Smoking Status: Current every day smoker How long have you smoked: 50 years Exposure to second hand smoke: No Drug Use: none Patient Lives Alone: No - Nursing Vital Signs Nursing Vital Signs: Initial Vital Signs Temperature 103 F 04/03/21 01:40 Pulse Rate 128 H 04/03/21 01:40 Respiratory Rate 24 04/03/21 01:40 Blood Pressure 110/84 04/03/21 01:40 O2 Sat by Pulse Oximetry 99 04/03/21 01:40 Pain Scale Pain Intensity 0 - Physical Exam General Appearance: mild distress, alert, anxiety, obese Eye Exam: PERRL/EOMI, eyes nml inspection Ears, Nose, Throat Exam: hearing grossly normal, normal ENT inspection, normal pharynx Neck Exam: normal inspection, non-tender, supple, full range of motion Respiratory Exam: wheezing (Mild bilateral upper), No respiratory distress Cardiovascular/Chest Exam: tachycardia Abdominal/Gastrointestinal Exam: soft, normal bowel sounds, No tenderness Rectal Exam: not done Extremity Exam: non-tender, normal range of motion, normal inspection Neurologic Exam: alert, oriented x 3, cooperative, philosophy professor II-XII nml as tested, normal mood/affect, nml cerebellar function, nml station & gait, sensation nml Skin Exam: normal color, warm, dry Lymphatic Exam: No adenopathy SpO2 Interpretation: normal SpO2: 99 O2 Delivery: Nasal Cannula (3 L nasal cannula. This patient wears this daily.) - Course Nursing assessment & vital signs reviewed: Yes EKG Interpreted by Me: RATE ([id number]), Sinus Tach, NORMAL AXIS, NORMAL INTERVALS, NORMAL QRS, NORMAL ST-T, Other (No acute ischemic changes. No sinus tachycardia when compared to EKG dated 09/20/2020) Ordered Tests: Active Orders 24 hr Category Date Time Status Reinstatement Clerk STAT Care 04/03/21 02:04 Active EKG-ER Only STAT Care 04/03/21 02:03 Active IV Insertion STAT Care 04/03/21 02:03 Active Pulse Oximetry (ED) STAT Care 04/03/21 02:03 Active CHEST 1 VIEW (PORTABLE) Stat Exams 04/03/21 02:04 Taken CHEST WITH CONTRAST [CT] Stat Exams 04/03/21 03:38 Taken BLOOD CULTURE Stat Lab 04/03/21 02:30 Received CBC W DIFF Stat Lab 04/03/21 02:03 Completed CMP Stat Lab 04/03/21 02:03 Completed D-DIMER QUANTITATIVE Stat Lab 04/03/21 02:03 Completed INFLUENZA A+B CLAUDE Stat Lab 04/03/21 02:38 Completed Lactic Acid Stat Lab 04/03/21 02:[address] [facility] Screen Stat Lab 04/03/21 02:38 Completed NT PRO BNP Stat Lab 04/03/21 02:03 Completed TROPONIN Q3H Lab 04/03/21 02:15 Completed TROPONIN Q3H Lab 04/03/21 05:15 Completed TROPONIN Q3H Lab 04/03/21 08:15 Ordered TROPONIN Q3H Lab 04/03/21 11:15 Ordered TROPONIN Q3H Lab 04/03/21 14:15 Ordered Medication Summary Generic Name Dose Route Start Last Admin Trade Name Freq PRN Reason Stop Dose Admin Sodium Chloride 1,000 mls @ 100 mls/hr 04/03/21 02:15 04/03/21 02:13 Sodium Chloride 0.9% 1000 Ml IV 05/03/21 02:14 100 mls/hr .Q10H LIZETT Administration Discontinued Medications Generic Name Dose Route Start Last Admin Trade Name Freq PRN Reason Stop Dose Admin Hydrocodone Bitart/Acetaminophen 10 ml 04/03/21 02:05 04/03/21 02:13 Hydrocodone/Acetaminophen 5 Ml Udcup PO 04/03/21 02:06 10 ml STAT STA Administration Hydrocodone Bitart/Acetaminophen Confirm 04/03/21 02:11 Hydrocodone/Acetaminophen 5 Ml Udcup Administered 04/03/21 02:12 Dose 10 ml .ROUTE .STK-MED ONE Methylprednisolone Sodium 0 mg 04/03/21 02:03 04/03/21 02:12 Succinate 125 mg/ Sterile IV 04/03/21 02:04 125 mg Water 2 ml STAT ONE Administration Ibuprofen 600 mg 04/03/21 02:05 04/03/21 02:13 Ibuprofen 600 Mg Tablet PO 04/03/21 02:06 600 mg STAT ONE Administration Ibuprofen Confirm 04/03/21 02:11 Ibuprofen 600 Mg Tablet Administered 04/03/21 02:12 Dose 600 mg .ROUTE .STK-MED ONE Methylprednisolone Sodium Succinate Confirm 04/03/21 02:12 Methylprednis Sod Succ 125 Mg/2 Ml Vial Administered 04/03/21 02:13 Dose 125 mg .ROUTE .STK-MED ONE Sterile Water Confirm 04/03/21 02:12 Water For Injection,Sterile 10 Ml Vial Administered 04/03/21 02:13 Dose 10 ml IJ .STK-MED ONE Lab/Rad Data: Laboratory Result Diagrams 04/03/21 02:03 04/03/21 02:03 Laboratory Results 04/03/21 04/03/21 04/03/21 Range/Units 05:15 02:45 02:38 WBC (4.0-10.5) K/mm3 RBC (4.1-5.6) M/mm3 Hgb (12.5-18.0) gm/dl Hct (42-50) % MCV (78-100) fl MCH (26-32) pg MCHC (32-36) g/dl RDW (11.5-14.0) % Plt Count (150-450) K/mm3 MPV (7.5-11.0) fl Gran % (36.0-66.0) % Eos # (Auto) (0-0.5) Absolute Lymphs (auto) (1.0-4.6) Absolute Monos (auto) (0.0-1.3) Lymphocytes % (24.0-44.0) % Monocytes % (0.0-12.0) % Eosinophils % (0.00-5.0) % Basophils % (0.0-0.4) % Absolute Granulocytes (1.4-6.9) Basophils # (0-0.4) D-Dimer (215-500) ng/mL Sodium (137-145) mmol/L Potassium (3.5-5.1) mmol/L Chloride (98-107) mmol/L Carbon Dioxide (22-30) mmol/L Anion Gap (5-15) MEQ/L BUN (9-20) mg/dL Creatinine (0.66-1.25) mg/dL Estimated GFR ML/MIN Glucose (74-106) mg/dL Lactic Acid 1.8 (0.4-2.0) Calcium (8.4-10.2) mg/dL Total Bilirubin (0.2-1.3) mg/dL AST (17-59) U/L ALT (0-50) U/L Alkaline Phosphatase (38-126) U/L Troponin I 0.016 (0.000-0.034) ng/mL NT-Pro-B Natriuret Pep (0-900) pg/mL Serum Total Protein (6.3-8.2) g/dL Albumin (3.5-5.0) g/dL Monoscreen NEGATIVE (Negative) Influenza Type A Ag (NEGATIVE) Influenza Type B Ag (NEGATIVE) Group A Strep Antibody (NEGATIVE) 04/03/21 04/03/21 04/03/21 Range/Units 02:38 02:15 02:03 WBC (4.0-10.5) K/mm3 RBC (4.1-5.6) M/mm3 Hgb (12.5-18.0) gm/dl Hct (42-50) % MCV (78-100) fl MCH (26-32) pg MCHC (32-36) g/dl RDW (11.5-14.0) % Plt Count (150-450) K/mm3 MPV (7.5-11.0) fl Gran % (36.0-66.0) % Eos # (Auto) (0-0.5) Absolute Lymphs (auto) (1.0-4.6) Absolute Monos (auto) (0.0-1.3) Lymphocytes % (24.0-44.0) % Monocytes % (0.0-12.0) % Eosinophils % (0.00-5.0) % Basophils % (0.0-0.4) % Absolute Granulocytes (1.4-6.9) Basophils # (0-0.4) D-Dimer (215-500) ng/mL Sodium (137-145) mmol/L Potassium (3.5-5.1) mmol/L Chloride (98-107) mmol/L Carbon Dioxide (22-30) mmol/L Anion Gap (5-15) MEQ/L BUN (9-20) mg/dL Creatinine (0.66-1.25) mg/dL Estimated GFR ML/MIN Glucose (74-106) mg/dL Lactic Acid (0.4-2.0) Calcium (8.4-10.2) mg/dL Total Bilirubin (0.2-1.3) mg/dL AST (17-59) U/L ALT (0-50) U/L Alkaline Phosphatase (38-126) U/L Troponin I < 0.012 (0.000-0.034) ng/mL NT-Pro-B Natriuret Pep (0-900) pg/mL Serum Total Protein (6.3-8.2) g/dL Albumin (3.5-5.0) g/dL Monoscreen (Negative) Influenza Type A Ag NEGATIVE (NEGATIVE) Influenza Type B Ag NEGATIVE (NEGATIVE) Group A Strep Antibody NOT DETECTED (NEGATIVE) 04/03/21 04/03/21 04/03/21 Range/Units 02:03 02:03 02:03 WBC 7.0 (4.0-10.5) K/mm3 RBC 5.51 (4.1-5.6) M/mm3 Hgb 17.8 (12.5-18.0) gm/dl Hct 53.5 H (42-50) % MCV 97.1 (78-100) fl MCH 32.3 H (26-32) pg MCHC 33.3 (32-36) g/dl RDW 14.7 H (11.5-14.0) % Plt Count 116 L (150-450) K/mm3 MPV 11.4 H (7.5-11.0) fl Gran % 74.6 H (36.0-66.0) % Eos # (Auto) 0.01 (0-0.5) Absolute Lymphs (auto) 0.98 L (1.0-4.6) Absolute Monos (auto) 0.79 (0.0-1.3) Lymphocytes % 14.0 L (24.0-44.0) % Monocytes % 11.3 (0.0-12.0) % Eosinophils % 0.1 (0.00-5.0) % Basophils % 0.0 (0.0-0.4) % Absolute Granulocytes 5.22 (1.4-6.9) Basophils # 0 (0-0.4) D-Dimer 662 H* (215-500) ng/mL Sodium 140 (137-145) mmol/L Potassium 3.6 (3.5-5.1) mmol/L Chloride 99 (98-107) mmol/L Carbon Dioxide 33 H (22-30) mmol/L Anion Gap 11.3 (5-15) MEQ/L BUN 12 (9-20) mg/dL Creatinine 0.99 (0.66-1.25) mg/dL Estimated GFR > 60.0 ML/MIN Glucose 103 (74-106) mg/dL Lactic Acid (0.4-2.0) Calcium 8.5 (8.4-10.2) mg/dL Total Bilirubin 0.60 (0.2-1.3) mg/dL AST 47 (17-59) U/L ALT 36 (0-50) U/L Alkaline Phosphatase 78 (38-126) U/L Troponin I (0.000-0.034) ng/mL NT-Pro-B Natriuret Pep 53.9 (0-900) pg/mL Serum Total Protein 6.6 (6.3-8.2) g/dL Albumin 4.3 (3.5-5.0) g/dL Monoscreen (Negative) Influenza Type A Ag (NEGATIVE) Influenza Type B Ag (NEGATIVE) Group A Strep Antibody (NEGATIVE) - Progress Progress: improved, re-examined Air Movement: good Progress Note: 04/03/21 06:27 CTA of chest reveals no pulmonary embolus. There there are chronic emphysematous changes and scarring bilaterally. There are significant pulmonary nodules that are present. This was discussed with the patient. He needs to follow-up as an outpatient, repeat CTA in 12 months. 04/03/21 06:42 Chest x-ray shows no acute cardiopulmonary process Blood Culture(s) Obtained: Yes Antibiotics given: No Counseled pt/family regarding: lab results, diagnosis, need for follow-up, smoking cessation - Departure Departure Disposition: Home Clinical Impression: COVID-19 virus infection, Fever, COPD exacerbation, Pulmonary nodule Condition: Stable Critical Care Time: No Referrals: AG SOW MD [Primary Care Provider] - Follow up/PCP as directed Instructions: Chronic Obstructive Pulmonary Disease, Flu, Adult (DC), Coronavirus Disease 2019 (COVID-19) Additional Instructions: Take your medication as prescribed. Follow-up with your primary care physician for further management and for reassessment of bilateral pulmonary nodules and repeat CT of chest at 12 months.. Prescriptions: Hydrocodone/Acetaminophen [Hydrocodone-Acetamn 7.5-325/15] 10 ml PO Q8H PRN PRN #120 ml MDD 30 ml PRN Reason: Cough Prednisone 10 mg [Deltasone 10 mg] 10 mg PO TID #12 tablet
[2021-04-03] MEDS ORDERED: HYDROCODONE-ACETAMIN 2.5-108/5 ML SOLUTION PO STA (02:05)
[2021-04-03] MEDS ORDERED: MOTRIN 600 MG PO ONE (02:05)
[2021-04-03] MEDS ORDERED: HYDROCODONE-ACETAMIN 2.5-108/5 ML SOLUTION ONE (02:11)
[2021-04-03] MEDS ORDERED: MOTRIN 600 MG ONE (02:11)
[2021-04-03] MEDS ORDERED: Sodium Chloride 0.9% 1000 ML 1,000 ML ONE (02:12)
[2021-04-03] MEDS ORDERED: solu-MEDROL ONE (02:12)
[2021-04-03] MEDS ORDERED: Sterile H2O 10 ml IJ ONE (02:12)
[2021-04-03] MEDS ORDERED: Sodium Chloride 0.9% 1000 ML 1,000 ML IV SCH (02:15)
[2021-04-03 03:11] LABS: Absolute Neutrophil Ct (ANC) 5.22 (1.4-6.9); Basophil (Absolute #) 0 (0-0.4); Eosinophil % 0.1 % (0.00-5.0); Eosinophil (Absolute #) 0.01 (0-0.5); Hematocrit 53.5 % (42-50); Hemoglobin 17.8 gm/dl (12.5-18.0); Lymphocyte (Absolute #) 0.98 (1.0-4.6); Mean Cell Volume 97.1 fl (78-100); Mean Corpuscular Hemoglobin 32.3 pg (26-32); Mean Corpuscular Hgb Concent. 33.3 g/dl (32-36); Mean Platelet Volume 11.4 fl (7.5-11.0); Monocyte (Absolute #) 0.79 (0.0-1.3); Monocytes % 11.3 % (0.0-12.0); Neutrophil % 74.6 % (36.0-66.0); Platelet Count 116 K/mm3 (150-450); Red Blood Count 5.51 M/mm3 (4.1-5.6); Red Cell Distribution Width 14.7 % (11.5-14.0)
[2021-04-03 03:13] LABS: NT PRO BNP 53.9 pg/mL (0-900)
[2021-04-03 03:32] LABS: INFLUENZA A NEGATIVE (NEGATIVE); INFLUENZA B NEGATIVE (NEGATIVE)
[2021-04-03 03:32] LABS: ALBUMIN 4.3 g/dL (3.5-5.0); ALKALINE PHOSPHATASE 78 U/L (38-126); ANION GAP 11.3 MEQ/L (5-15); BLOOD UREA NITROGEN 12 mg/dL (9-20); CHLORIDE 99 mmol/L (98-107); Calcium 8.5 mg/dL (8.4-10.2); Carbon Dioxide 33 mmol/L (22-30); Creatinine 1 0.99 mg/dL (0.66-1.25); EST GLOMERULAR FILTRATION RATE > 60.0 ML/MIN; Glucose 103 mg/dL (74-106); Potassium 3.6 mmol/L (3.5-5.1); SGOT/AST 47 U/L (17-59); SGPT/ALT 36 U/L (0-50); SODIUM 140 mmol/L (137-145); Total Protein 6.6 g/dL (6.3-8.2)
[2021-04-03 05:03] VITALS: O2SAT 99
[2021-04-03 06:11] VITALS: PULSE 80
[2021-04-03 06:47] VITALS: BP 120/85
--- NOTE | 2021-04-03 09:04 | XRAY ---
Indication: Fever and cough. Positive Covid 19. Comparison: September 20, 2020. Portable chest again demonstrates minimal left mid lung subsegmental atelectasis/scarring. No focal infiltrate, consolidation, or large effusion. Heart not enlarged. Bony thorax intact. Impression: Nonacute chest with chronic features.
--- NOTE | 2021-04-03 09:12 | XRAY ---
Indication: Fever, cough, and short of breath. Elevated d-dimer. Positive Covid 19. Multiple contiguous axial images obtained through the chest using 80 cc Isovue 370 contrast and PE protocol. Comparison: None There is adequate opacification of the pulmonary arteries. Minimal respiration artifact limits evaluation of the more distal branches. No obvious pulmonary embolus. Heart not enlarged. Aorta is normal in course and caliber. No pathologic mediastinal/hilar lymphadenopathy. Lungs demonstrates mild biapical subpleural cystic changes and mild bibasilar subsegmental atelectasis/scarring. Right lower lobe demonstrates 5 mm and right middle/left lower lobe demonstrates 4 mm subpleural noncalcified nodules all indeterminant. No infiltrate or effusion. Bony thorax intact with incidental left shoulder degenerative arthropathy. Limited upper abdomen demonstrates mild diffuse fatty liver and 1.6 cm hepatic cyst/hemangioma. Impression: 1. Respiration artifact limits evaluation for pulmonary embolus. No obvious pulmonary embolus. 2. Indeterminant bilateral noncalcified micronodules. Outside comparison studies recommended if available. If not, follow per Fleischner guidelines recommended. 3. Incidental pulmonary emphysema, fatty liver, and hepatic cyst/hemangioma. Comment: Preliminary interpretation made by [facility]. No critical discrepancy.
== END 2021-04-03 06:47 | disposition home or self-care (01) ==
LOC: ED 01:35
DX: U07.1 COVID-19 (principal); R50.9 Fever, unspecified; J44.1 Chronic obstructive pulmonary disease with (acute) exacerbation; Z99.81 Dependence on supplemental oxygen; Z72.0 Tobacco use; Z79.52 Long term (current) use of systemic steroids; R05.9 Cough, unspecified; R91.8 Other nonspecific abnormal finding of lung field; Z79.891 Long term (current) use of opiate analgesic; Z79.899 Other long term (current) drug therapy
CPT/HCPCS: 36000; 36415; 71045; 71260; 80053; 83605; 83880; 84484; 85025; 85379; 86308; 87040; 87400; 87651; 93005; 93041; 94760; 96374; 99284; J2930; A9270-GY

== ENCOUNTER 2021-04-08 22:29 | Observation (INO) | payer MEDICARE ==
[2021-04-08] MEDS ORDERED: DUONEB 0.5-3 MG/3 ml Neb IH ONE ×2 (23:12→23:17)
[2021-04-08] MEDS ORDERED: solu-MEDROL 125 MG, Sterile H2O 10 ml 2 ML IV ONE ×2 (23:12)
[2021-04-08] MEDS ORDERED: Sterile H2O 10 ml IJ ONE (23:18)
[2021-04-08] MEDS ORDERED: solu-MEDROL ONE (23:18)
[2021-04-08 23:42] LABS: Hemoglobin 18.6 gm/dl (12.5-18.0); Mean Cell Volume 94.4 fl (78-100); Mean Corpuscular Hemoglobin 32.5 pg (26-32); Mean Corpuscular Hgb Concent. 34.4 g/dl (32-36); Mean Platelet Volume 11.8 fl (7.5-11.0); Platelet Count 139 K/mm3 (150-450); Red Blood Count 5.72 M/mm3 (4.1-5.6); Red Cell Distribution Width 14.1 % (11.5-14.0); White Blood Count 6.8 K/mm3 (4.0-10.5)
[2021-04-09 00:23] LABS: ALKALINE PHOSPHATASE 85 U/L (38-126); BLOOD UREA NITROGEN 20 mg/dL (9-20); CHLORIDE 98 mmol/L (98-107); Calcium 8.6 mg/dL (8.4-10.2); Carbon Dioxide 29 mmol/L (22-30); Creatinine 1 0.78 mg/dL (0.66-1.25); EST GLOMERULAR FILTRATION RATE > 60.0 ML/MIN; Glucose 101 mg/dL (74-106); NT PRO BNP 41.4 pg/mL (0-900); Potassium 3.5 mmol/L (3.5-5.1); SGOT/AST 90 U/L (17-59); SGPT/ALT 116 U/L (0-50); SODIUM 137 mmol/L (137-145); Total Protein 6.6 g/dL (6.3-8.2)
[2021-04-09 00:52] LABS: ATYPICAL LYMPHS 4 %; BAND 2 % (0.0-2.0); Lymphocytes 10 % (24-44); Monocyte 8 % (0.0-12.0); Neutrophils 76 % (36.-66.); Total Cells Counted 100
[2021-04-09 00:53] LABS: Platelet Estimate NORMAL (NORMAL)
--- NOTE | 2021-04-09 00:59 | ERPHSYRPT ---
- History of Present Illness Time Seen by Provider: 04/08/21 22:55 Source: patient Exam Limitations: no limitations Patient Subjective Stated Complaint: pt states "I was here last week and still don't feel good." Triage Nursing Assessment: pt came into the er via ambulance; pt is axo x4; skin pink, dry, and warm; c/o SOB; hx SOB and covid-19; pt states 3/10 pain to ribs with coughing; pt states that sputum is thick and white; [place] lower base whe ezing; hypertensive; pt states he had 2 puffs of his MDI prior to arrival Physician History: Patient is a 55-year-old male presents to our ED via EMS for evaluation of feeling unwell and shortness of breath. Patient was in our ED last week for the same. Patient had a complete work-up including a CAT scan of his chest. Patient states he has been wheezing experiencing fevers. Upon arrival patient had a low-grade fever. Patient was positive for COVID-19 last week. He feels that he is not fully recovering. Patient is a smoker. Patient has a history of COPD. Patient voices no other complaints or concerns at this time. Timing/Duration: week(s) (1 week) Activities at Onset: none Severity of Dyspnea-Max: moderate Severity of Dyspnea-Current: mild Possible Cause: occasional episodes Modifying Factors: Improves With: activity Associated Symptoms: cough, fever, wheezing, No lightheadedness, No leg swelling, No tightness, No tingling face Allergies/Adverse Reactions: No Known Drug Allergies Allergy (Verified 04/03/21 01:40) Home Medications: ALPRAZolam 0.5 MG [xanAX 0.5 MG] 0.5 mg PO TID PRN 11/19/19 [History] Albuterol Sulfate [Albuterol Sulfate Hfa] 2 puffs IH QID 11/19/19 [History] Bumetanide 1 mg PO DAILY 11/19/19 [History] Levocetirizine Dihydrochloride 5 mg PO DAILY 11/19/19 [History] Prednisone 10 mg [Deltasone 10 mg] 10 mg PO DAILY 11/19/19 [History] Ipratropium/Albuterol Sulfate [Iprat-Albut 0.5-3(2.5) mg/3 ml] 1 ampul IH QID 11/23/19 [History] Fluticasone/Umeclidin/Vilanter [Trelegy Ellipta 100-62.5-25] 1 puff IH DAILY 12/12/19 [History] Aspirin 81 mg PO DAILY 02/13/20 [History] Pramipexole Di-HCl [Mirapex] 1 mg PO HS 02/13/20 [History] Azithromycin 250 mg [Zithromax 250 MG TABLET] 250 mg PO ZPACK 04/03/21 [History] Celecoxib [Celebrex] 100 mg PO DAILY 04/03/21 [History] OLANZapine [Zyprexa] 5 mg PO DAILY 04/03/21 [History] methylPREDNISolone [Medrol] 4 mg PO DAILY 04/03/21 [History] Hx Tetanus, Diphtheria Vaccination/Date Given: Yes Hx Influenza Vaccination/Date Given: No Hx Pneumococcal Vaccination/Date Given: No Travel Risk - International Travel Have you traveled outside of the country in past 3 weeks: No - Coronavirus Screening Are you exhibiting any of the following symptoms?: Yes Symptoms: Fever, Cough: New Onset, Shortness of Breath, Loss of Taste or Smell Close contact with a COVID-19 positive Pt in past 14-21 Days: No - Vaccine Status Have you recieved a Covid-19 vaccination: No - Review of Systems Constitutional: No Symptoms, No Fever, No Chills Eyes: No Symptoms Ears, Nose, & Throat: No Symptoms Respiratory: No Symptoms, No Cough, No Dyspnea Cardiac: No Symptoms, No Chest Pain, No Edema, No Syncope Abdominal/Gastrointestinal: No Symptoms, No Abdominal Pain, No Nausea, No Vomiting, No Diarrhea Genitourinary Symptoms: No Symptoms, No Dysuria Musculoskeletal: No Symptoms, No Back Pain, No Neck Pain Skin: No Symptoms, No Rash Neurological: No Symptoms, No Dizziness, No Focal Weakness, No Sensory Changes Psychological: No Symptoms Endocrine: No Symptoms Hematologic/Lymphatic: No Symptoms Immunological/Allergic: No Symptoms All Other Systems: Reviewed and Negative - Past Medical History Pertinent Past Medical History: Yes Neurological History: No Pertinent History ENT History: No Pertinent History Cardiac History: No Pertinent History Respiratory History: CHF, COPD, Pneumonia, Sleep Apnea Endocrine Medical History: No Pertinent History Musculoskeletal History: No Pertinent History GI Medical History: No Pertinent History History: No Pertinent History Psycho-Social History: No Pertinent History Male Reproductive Disorders: No Pertinent History Other Medical History: chronic lower leg cellulitis. wears 3 L NC at all times - Past Surgical History Past Surgical History: No Neuro Surgical History: No Pertinent History Cardiac: No Pertinent History Respiratory: No Pertinent History Gastrointestinal: No Pertinent History Genitourinary: No Pertinent History Musculoskeletal: No Pertinent History Male Surgical History: No Pertinent History - Social History Smoking Status: Current every day smoker How long have you smoked: 50 years Exposure to second hand smoke: No Drug Use: none Patient Lives Alone: Yes - Nursing Vital Signs Nursing Vital Signs: Initial Vital Signs Temperature 100.2 F 04/08/21 22:53 Pulse Rate 104 H 04/08/21 22:53 Respiratory Rate 24 04/08/21 22:53 Blood Pressure 101/77 04/08/21 22:53 O2 Sat by Pulse Oximetry 99 04/08/21 22:53 Pain Scale Pain Intensity 3 - Physical Exam General Appearance: no apparent distress, alert Eye Exam: PERRL/EOMI Ears, Nose, Throat Exam: hearing grossly normal, normal ENT inspection, normal pharynx Neck Exam: normal inspection, non-tender, supple, full range of motion Respiratory Exam: normal breath sounds, lungs clear, wheezing (Wheezing at bilateral bases.), No chest tenderness, No respiratory distress, No accessory muscle use Cardiovascular/Chest Exam: normal heart sounds, regular rate/rhythm Abdominal/Gastrointestinal Exam: soft, normal bowel sounds, No tenderness, No distention, No mass Extremity Exam: non-tender, normal range of motion, normal inspection, no calf tenderness, no pedal edema Peripheral Pulses Exam: dorsalis-pedis (R): 2+, dorsalis-pedis (L): 2+ Neurologic Exam: alert, oriented x 3, cooperative, big data lead II-XII nml as tested, sensation nml, No motor deficits Skin Exam: normal color, warm, No dry Lymphatic Exam: adenopathy SpO2 Interpretation: normal SpO2: 99 O2 Delivery: Room Air - Course Nursing assessment & vital signs reviewed: Yes EKG Interpreted by Me: RATE ([id number]), Sinus Tach, NORMAL AXIS, NORMAL INTERVALS - Radiology Exams Chest X-ray Interpretation: Interpreted by me ('s are clear. Normal cardiac silhouette. Intact bony thorax.) Ordered Tests: Active Orders 24 hr Category Date Time Status [place] STAT Care 04/08/21 23:13 Active EKG-ER Only STAT Care 04/08/21 23:12 Active IV Insertion STAT Care 04/08/21 23:12 Active Pulse Oximetry (ED) STAT Care 04/08/21 23:12 Active CHEST 1 VIEW (PORTABLE) Stat Exams 04/08/21 23:13 Taken BLOOD CULTURE Stat Lab 04/09/21 02:09 Received CBC W DIFF Stat Lab 04/08/21 23:12 Completed CK (IN-HOUSE) [CK-Creatinine Phosphokinase] Stat Lab 04/09/21 00:00 Completed CMP Stat Lab 04/08/21 23:12 Completed Manual Differential NC Stat Lab 04/08/21 23:12 Completed NT PRO BNP Stat Lab 04/08/21 23:12 Completed POCT GLUCOSE Stat Lab 04/08/21 23:04 Completed TROPONIN Q3H Lab 04/08/21 23:12 Completed TROPONIN Q3H Lab 04/09/21 02:09 Completed TROPONIN Q3H Lab 04/09/21 05:15 Ordered TROPONIN Q3H Lab 04/09/21 08:15 Ordered TROPONIN Q3H Lab 04/09/21 11:15 Ordered UA W/RFX UR CULTURE Stat Lab 04/09/21 01:38 Completed Respiratory Therapy Assessment DAILY RT 04/08/21 23:49 Active Transfer Order Routine Transfer 04/09/21 Ordered Medication Summary Discontinued Medications Generic Name Dose Route Start Last Admin Trade Name Freq PRN Reason Stop Dose Admin Albuterol/Ipratropium 3 ml 04/08/21 23:12 04/08/21 23:18 Ipratropium/Albuterol Sulfate 3 Ml Ampul.Neb IH 04/08/21 23:13 3 ml STAT ONE Administration Albuterol/Ipratropium Confirm 04/08/21 23:17 Ipratropium/Albuterol Sulfate 3 Ml Ampul.Neb Administered 04/08/21 23:18 Dose 3 ml IH .STK-MED ONE Methylprednisolone Sodium 0 mg 04/08/21 23:12 04/08/21 23:19 Succinate 125 mg/ Sterile IV 04/08/21 23:13 125 mg Water 2 ml STAT ONE Administration Sodium Chloride 1,000 mls @ 999 mls/hr 04/09/21 01:16 04/09/21 03:09 Sodium Chloride 0.9% 1000 Ml IV 04/09/21 02:16 Infused .Q1H1M STA Infusion Sodium Chloride Confirm 04/09/21 01:53 Sodium Chloride 0.9% 1000 Ml Administered 04/09/21 01:54 Dose 1,000 mls @ ud .ROUTE .STK-MED ONE Ceftriaxone Sodium/Dextrose 2 g in 50 mls @ 100 mls/hr 04/09/21 02:22 04/09/21 03:09 Rocephin 2 Gm-D5w 50ml Bag IV 04/09/21 02:51 Infused STAT STA Infusion Azithromycin 500 mg in 250 mls @ 250 mls/hr 04/09/21 02:22 04/09/21 02:25 Zithromax 500 Mg/ 250 Ml Nacl Premix IV 04/09/21 03:21 250 mls/hr STAT STA 250 mls/hr Administration Azithromycin Confirm 04/09/21 02:24 Zithromax 500 Mg/ 250 Ml Nacl Premix Administered 04/09/21 02:25 Dose 500 mg in 250 mls @ ud IV .STK-MED ONE Ceftriaxone Sodium/Dextrose Confirm 04/09/21 02:25 Rocephin 2 Gm-D5w 50ml Bag Administered 04/09/21 02:26 Dose 2 g in 50 mls @ ud IV .STK-MED ONE Methylprednisolone Sodium Succinate Confirm 04/08/21 23:18 Methylprednis Sod Succ 125 Mg/2 Ml Vial Administered 04/08/21 23:19 Dose 125 mg .ROUTE .STK-MED ONE Sterile Water Confirm 04/08/21 23:18 Water For Injection,Sterile 10 Ml Vial Administered 04/08/21 23:19 Dose 10 ml IJ .STK-MED ONE Lab/Rad Data: Laboratory Result Diagrams 04/08/21 23:12 04/08/21 23:12 Laboratory Results 04/09/21 04/09/21 04/09/21 Range/Units 02:39 02:09 01:38 WBC (4.0-10.5) K/mm3 RBC (4.1-5.6) M/mm3 Hgb (12.5-18.0) gm/dl Hct (42-50) % MCV (78-100) fl MCH (26-32) pg MCHC (32-36) g/dl RDW (11.5-14.0) % Plt Count (150-450) K/mm3 MPV (7.5-11.0) fl Segmented Neutrophils (36.-66.) % Band Neutrophils (0.0-2.0) % Lymphocytes (Manual) (24-44) % Monocytes (Manual) (0.0-12.0) % Atypical Lymphocytes % Platelet Estimate (NORMAL) RBC Morphology Sodium (137-145) mmol/L Potassium (3.5-5.1) mmol/L Chloride (98-107) mmol/L Carbon Dioxide (22-30) mmol/L Anion Gap (5-15) MEQ/L BUN (9-20) mg/dL Creatinine (0.66-1.25) mg/dL Estimated GFR ML/MIN Glucose (74-106) mg/dL POC Glucometer (74 to 106) mg/dL Calcium (8.4-10.2) mg/dL Total Bilirubin (0.2-1.3) mg/dL AST (17-59) U/L ALT (0-50) U/L Alkaline Phosphatase (38-126) U/L Creatine Kinase (55-170) U/L Troponin I < 0.012 (0.000-0.034) ng/mL NT-Pro-B Natriuret Pep (0-900) pg/mL Serum Total Protein (6.3-8.2) g/dL Albumin (3.5-5.0) g/dL Urine Color HANS (YELLOW) Urine Appearance SLIGHTLY CLOUDY (CLEAR) Urine pH 5.0 (5-6) Ur Specific [place] 1.025 (1.005-1.025) Urine Protein 100 (Negative) Urine Ketones SMALL (NEGATIVE) Urine Blood NEGATIVE (0-5) Xu/ul Urine Nitrite NEGATIVE (NEGATIVE) Urine Bilirubin SMALL (NEGATIVE) Urine Urobilinogen 4 (0-1) mg/dL Ur Leukocyte Esterase NEGATIVE (NEGATIVE) Urine WBC (Auto) 3-5 (0-5) /HPF Urine RBC (Auto) 3-5 (0-2) /HPF U Hyaline Cast (Auto) 0-2 (0-2) /LPF U Epithel Cells (Auto) RARE (FEW) /HPF Urine Bacteria (Auto) NONE (NEGATIVE) /HPF Urine Mucus (Auto) SLIGHT (NEGATIVE) /HPF Urine Culture Reflexed NO (NO) Urine Glucose NEGATIVE (NEGATIVE) mg/dL Influenza Type A Ag NEGATIVE (NEGATIVE) Influenza Type B Ag NEGATIVE (NEGATIVE) RSV (PCR) NEGATIVE (Negative) SARS-CoV-2 (PCR) POSITIVE A (NEGATIVE) 04/09/21 04/08/21 04/08/21 Range/Units 00:00 23:12 23:12 WBC (4.0-10.5) K/mm3 RBC (4.1-5.6) M/mm3 Hgb (12.5-18.0) gm/dl Hct (42-50) % MCV (78-100) fl MCH (26-32) pg MCHC (32-36) g/dl RDW (11.5-14.0) % Plt Count (150-450) K/mm3 MPV (7.5-11.0) fl Segmented Neutrophils (36.-66.) % Band Neutrophils (0.0-2.0) % Lymphocytes (Manual) (24-44) % Monocytes (Manual) (0.0-12.0) % Atypical Lymphocytes % Platelet Estimate (NORMAL) RBC Morphology Sodium 137 (137-145) mmol/L Potassium 3.5 (3.5-5.1) mmol/L Chloride 98 (98-107) mmol/L Carbon Dioxide 29 (22-30) mmol/L Anion Gap 13.0 (5-15) MEQ/L BUN 20 (9-20) mg/dL Creatinine 0.78 (0.66-1.25) mg/dL Estimated GFR > 60.0 ML/MIN Glucose 101 (74-106) mg/dL POC Glucometer (74 to 106) mg/dL Calcium 8.6 (8.4-10.2) mg/dL Total Bilirubin 1.30 (0.2-1.3) mg/dL AST 90 H (17-59) U/L ALT 116 H (0-50) U/L Alkaline Phosphatase 85 (38-126) U/L Creatine Kinase 68 (55-170) U/L Troponin I < 0.012 (0.000-0.034) ng/mL NT-Pro-B Natriuret Pep 41.4 (0-900) pg/mL Serum Total Protein 6.6 (6.3-8.2) g/dL Albumin 4.0 (3.5-5.0) g/dL Urine Color (YELLOW) Urine Appearance (CLEAR) Urine pH (5-6) Ur Specific [place] (1.005-1.025) Urine Protein (Negative) Urine Ketones (NEGATIVE) Urine Blood (0-5) Xu/ul Urine Nitrite (NEGATIVE) Urine Bilirubin (NEGATIVE) Urine Urobilinogen (0-1) mg/dL Ur Leukocyte Esterase (NEGATIVE) Urine WBC (Auto) (0-5) /HPF Urine RBC (Auto) (0-2) /HPF U Hyaline Cast (Auto) (0-2) /LPF U Epithel Cells (Auto) (FEW) /HPF Urine Bacteria (Auto) (NEGATIVE) /HPF Urine Mucus (Auto) (NEGATIVE) /HPF Urine Culture Reflexed (NO) Urine Glucose (NEGATIVE) mg/dL Influenza Type A Ag (NEGATIVE) Influenza Type B Ag (NEGATIVE) RSV (PCR) (Negative) SARS-CoV-2 (PCR) (NEGATIVE) 04/08/21 04/08/21 Range/Units 23:12 23:04 WBC 6.8 (4.0-10.5) K/mm3 RBC 5.72 H (4.1-5.6) M/mm3 Hgb 18.6 H (12.5-18.0) gm/dl Hct 54.0 H (42-50) % MCV 94.4 (78-100) fl MCH 32.5 H (26-32) pg MCHC 34.4 (32-36) g/dl RDW 14.1 H (11.5-14.0) % Plt Count 139 L (150-450) K/mm3 MPV 11.8 H (7.5-11.0) fl Segmented Neutrophils 76 H (36.-66.) % Band Neutrophils 2 (0.0-2.0) % Lymphocytes (Manual) 10 L (24-44) % Monocytes (Manual) 8 (0.0-12.0) % Atypical Lymphocytes 4 % Platelet Estimate NORMAL (NORMAL) RBC Morphology NORMAL Sodium (137-145) mmol/L Potassium (3.5-5.1) mmol/L Chloride (98-107) mmol/L Carbon Dioxide (22-30) mmol/L Anion Gap (5-15) MEQ/L BUN (9-20) mg/dL Creatinine (0.66-1.25) mg/dL Estimated GFR ML/MIN Glucose (74-106) mg/dL POC Glucometer 438 H (74 to 106) mg/dL Calcium (8.4-10.2) mg/dL Total Bilirubin (0.2-1.3) mg/dL AST (17-59) U/L ALT (0-50) U/L Alkaline Phosphatase (38-126) U/L Creatine Kinase (55-170) U/L Troponin I (0.000-0.034) ng/mL NT-Pro-B Natriuret Pep (0-900) pg/mL Serum Total Protein (6.3-8.2) g/dL Albumin (3.5-5.0) g/dL Urine Color (YELLOW) Urine Appearance (CLEAR) Urine pH (5-6) Ur Specific [place] (1.005-1.025) Urine Protein (Negative) Urine Ketones (NEGATIVE) Urine Blood (0-5) Xu/ul Urine Nitrite (NEGATIVE) Urine Bilirubin (NEGATIVE) Urine Urobilinogen (0-1) mg/dL Ur Leukocyte Esterase (NEGATIVE) Urine WBC (Auto) (0-5) /HPF Urine RBC (Auto) (0-2) /HPF U Hyaline Cast (Auto) (0-2) /LPF U Epithel Cells (Auto) (FEW) /HPF Urine Bacteria (Auto) (NEGATIVE) /HPF Urine Mucus (Auto) (NEGATIVE) /HPF Urine Culture Reflexed (NO) Urine Glucose (NEGATIVE) mg/dL Influenza Type A Ag (NEGATIVE) Influenza Type B Ag (NEGATIVE) RSV (PCR) (Negative) SARS-CoV-2 (PCR) (NEGATIVE) - Progress Progress: improved Air Movement: good Progress Note: 04/09/21 01:41 Exertional oxygen level is 95 to 98%. Patient had a CT contrast 6 days ago due to an elevated D-dimer. CT at that time reveals no obvious PE. There was some respiration artifact. Noncalcified micronodules. Incidental pulmonary emphysema fatty liver and hepatic cyst/hemangioma. Patient symptoms have been ongoing since last week. No acute change. In light of this recent CT chest there is no indication for repeat CT at this time. 04/09/21 01:[address] Sow who accepts admission to observation. Repeat Covid test pending. 04/09/21 02:24 Patient Covid positive. Case discussed with Dr. Fuentes who accepts admission to observation. Plan of care discussed with patient. He agrees to admission [facility] for further evaluation and treatment. Portions of this note were created with voice recognition technology. There may be grammatical, spelling, punctuation or sound alike errors 04/09/21 03:40 Blood Culture(s) Obtained: Yes Antibiotics given: Yes Discussed with : Roby Will see patient in: hospital (observation) Counseled pt/family regarding: lab results, diagnosis, rad results - Departure Departure Disposition: Observation Clinical Impression: Thrombocytopenia, Elevated liver enzymes, Fever, COPD exacerbation, Dehydration, Generalized weakness, Polycythemia Condition: Stable Critical Care Time: No Referrals: AG SOW MD [Primary Care Provider] - Follow up/PCP as directed Instructions: Chronic Obstructive Pulmonary Disease
[2021-04-09] MEDS: Sodium Chloride 0.9% 1000 ML 1,000 ML IV STA ×2 (01:26→01:54)
[2021-04-09] MEDS ORDERED: Sodium Chloride 0.9% 1000 ML 1,000 ML ONE (01:53)
[2021-04-09 02:15] LABS: Appearance SLIGHTLY CLOUDY (CLEAR); Bilirubin SMALL (NEGATIVE); Blood NEGATIVE Ery/ul (0-5); Epithelial Cells RARE /HPF (FEW); Glucose NEGATIVE (NEGATIVE); Hyaline Casts 0-2 /LPF (0-2); Ketones SMALL (NEGATIVE); Leukocyte Esterase NEGATIVE (NEGATIVE); Mucus SLIGHT /HPF (NEGATIVE); Nitrite NEGATIVE (NEGATIVE); Protein,Urine Dip 100 (Negative); Specific Gravity 1.025 (1.005-1.025); Urobilinogen 4 mg/dL (0-1)
[2021-04-09] MEDS ORDERED: ROCEPHIN 2 Gm-D5w 50ML BAG** 2 G/50 ML IVPB IV STA (02:22)
[2021-04-09] MEDS ORDERED: Zithromax 500 MG/ 250 ML NaCl Premix 500 MG/250 ML IVPB IV STA (02:22)
[2021-04-09] MEDS ORDERED: Zithromax 500 MG/ 250 ML NaCl Premix 500 MG/250 ML IVPB IV ONE (02:24)
[2021-04-09] MEDS ORDERED: ROCEPHIN 2 Gm-D5w 50ML BAG** 2 G/50 ML IVPB IV ONE (02:25)
[2021-04-09 03:21] LABS: INFLUENZA A NEGATIVE (NEGATIVE); INFLUENZA B NEGATIVE (NEGATIVE); RESPIRATORY SYNCTIAL VIRUS NEGATIVE (Negative)
[2021-04-09 03:31] LABS: SARS-CoV-2 Xpert Express POSITIVE (NEGATIVE)
[2021-04-09] MEDS ORDERED: Zofran 4 MG/2 ML VIAL IV PRN (03:54)
[2021-04-09] MEDS ORDERED: TYLENOL 325 MG PO PRN (03:54)
[2021-04-09] MEDS ORDERED: VENTOLIN COMMON CANISTER IH PRN (03:54)
[2021-04-09] MEDS ORDERED: MORPHINE SULFATE 4 MG INJ IV PRN (03:54)
[2021-04-09] MEDS ORDERED: PATIENT OWN MEDICATION IH PRN ×2 (05:18→11:22)
[2021-04-09 05:26] LABS: Hematocrit 50.4 % (42-50); Hemoglobin 16.9 gm/dl (12.5-18.0); Mean Cell Volume 96.4 fl (78-100); Mean Corpuscular Hemoglobin 32.3 pg (26-32); Mean Corpuscular Hgb Concent. 33.5 g/dl (32-36); Mean Platelet Volume 11.3 fl (7.5-11.0); Platelet Count 136 K/mm3 (150-450); Red Blood Count 5.23 M/mm3 (4.1-5.6); Red Cell Distribution Width 14.1 % (11.5-14.0); White Blood Count 5.5 K/mm3 (4.0-10.5)
[2021-04-09 05:58] LABS: ALBUMIN 3.7 g/dL (3.5-5.0); ALKALINE PHOSPHATASE 83 U/L (38-126); ANION GAP 11.4 MEQ/L (5-15); BLOOD UREA NITROGEN 18 mg/dL (9-20); CHLORIDE 100 mmol/L (98-107); Calcium 8.1 mg/dL (8.4-10.2); Carbon Dioxide 27 mmol/L (22-30); Creatinine 1 0.74 mg/dL (0.66-1.25); EST GLOMERULAR FILTRATION RATE > 60.0 ML/MIN; Glucose 163 mg/dL (74-106); Potassium 3.2 mmol/L (3.5-5.1); SGOT/AST 93 U/L (17-59); SGPT/ALT 120 U/L (0-50); SODIUM 135 mmol/L (137-145); Total Protein 6.4 g/dL (6.3-8.2)
[2021-04-09] MEDS ORDERED: solu-MEDROL 60 MG, Sterile H2O 10 ml 2 ML IV SCH ×2 (06:00)
[2021-04-09] MEDS ORDERED: solu-MEDROL ONE (06:27)
[2021-04-09] MEDS ORDERED: Sterile H2O 10 ml IJ ONE (06:28)
[2021-04-09] MEDS ORDERED: VENTOLIN COMMON CANISTER IH SCH (07:00)
[2021-04-09] MEDS: PATIENT OWN MEDICATION IH SCH ×2 (07:15→12:14)
[2021-04-09] MEDS: ADVAIR/WIXELLA 250-50 DISKUS 14 DOSE IH SCH ×2 (07:15→19:25)
--- NOTE | 2021-04-09 08:57 | XRAY ---
Indication: Short of breath. Comparison: April 03, 2021. Portable chest hyperinflated with mild increasing left midlung subsegmental atelectasis/scarring. Remaining heart and lungs unremarkable. No new/acute findings.
--- NOTE | 2021-04-09 10:50 | HP ---
CHIEF COMPLAINT: Shortness of breath, productive cough, tested positive for COVID. HISTORY OF PRESENT ILLNESS: The patient is a 55-year-old white male who is disabled due to his chronic obstructive pulmonary disease. He is becoming progressively worse. He has had it for a week. He had pain in his ribs from coughing so much, sputum is thick and white. Blood pressure is up. His inhaled medicines are not helping. He was in here last week for the same. He had a complete work up including CT scan of the chest which showed things such as chronic obstructive pulmonary disease. He is a smoker still. No vaccine. TRAVEL RISK: No international travel. CORONAVIRUS SCREENING: No vaccines for flu or COVID. MEDICATIONS: His home medicines include Xanax 0.5 t.i.d. as needed, albuterol 2 puffs every 4 hours PRN, Bumex 1 mg q.d., levocetirizine 5 mg q.d., prednisone 10 q.d., Ipratropium/Albuterol Sulfate inhaler 2 puffs q.d., Trelegy Ellipta 1 puff q.d., Mirapex 1 q.d., Zithromax recently 1 q.d., Celebrex 100 q.d., Zyprexa 5 mg q.d., prednisone 4 q.d. started on 04/03/2021. ALLERGIES: NKDA. PAST MEDICAL HISTORY: The patient has been admitted for heart failure, chronic obstructive pulmonary disease, pneumonia, sleep apnea, lower leg cellulitis. He wears 3 liters of oxygen all the time at home. PAST SURGICAL HISTORY: None. REVIEW OF SYSTEMS: HEENT: No problems hearing or seeing. No fever. CHEST: Increased coughing, some chest pain with coughing. CVS: No heaviness sor pressure. No myocardial infarction. He has hypertension. ABDOMEN: No loss of appetite just fatigued and no diarrhea. : No problems. SKIN: No rashes. ENDOCRINE: No diabetes. PSYCH: I do not know why he is on some psych medicine apparently he does not think there is anything wrong. SOCIAL HISTORY: He smokes a pack a day for 50 years. He lives alone. PHYSICAL EXAMINATION: In the emergency room, his temperature was 100.2F, pulse 104, respirations 24. He required bumping his O2 up to 5 to get his O2 saturation to 99%. GENERAL: The patient is a large, heavily bearded man who is alert, does not talk much. HEENT: Normal. NECK: Supple without adenopathy. CHEST: Few wheezes. CVS: No murmurs or gallops. ABDOMEN: Obese. No masses, tenderness or organomegaly. EXTREMITIES: No tenderness. No edema. Normal color. IMPRESSION: The patient has COVID pneumonitis. He had one elevated blood sugar at 400 but all the rest have been normal. I think that was a fluke. PLAN: The patient will be treated with Remdesivir, Decadron, Lovenox and some medicines will be continued mostly except for the Zithromax and prednisone. PROGNOSIS: Hosmer to be quite good.
[2021-04-09] MEDS ORDERED: DUONEB 0.5-3 MG/3 ml Neb IH ONE (11:27)
[2021-04-09] MEDS: DUONEB 0.5-3 MG/3 ml Neb IH SCH ×3 (11:32→19:25)
[2021-04-09] MEDS ORDERED: FEVERALL 650 MG PR PRN (11:40)
[2021-04-09] MEDS: DECADRON 10MG INJ. IV SCH (11:51)
[2021-04-09] MEDS: Sodium Chloride 0.9% 1000 ML 1,000 ML IV SCH ×2 (11:51→20:42)
[2021-04-09] MEDS: Pepcid 20 MG VIAL IV SCH ×2 (11:51→21:14)
[2021-04-09] MEDS: ENOXAPARIN SODIUM SQ SCH (11:51)
[2021-04-09] MEDS ORDERED: REMDESIVIR 200 MG in Sodium Chloride 0.9% 250 ML 250 ML IV ONE (12:00)
[2021-04-09] MEDS: HYDROCODONE-CHLORPHEN ER SUSP PO PRN (12:01)
[2021-04-09] MEDS: OLUMIANT PO SCH (12:16)
[2021-04-09] MEDS: xanAX 0.5 MG PO PRN ×2 (12:45→21:14)
[2021-04-09] MEDS: BUMEX 1 MG PO SCH (12:45)
[2021-04-09] MEDS: ECOTRIN 81 MG PO SCH (12:46)
[2021-04-09] MEDS: CLARITIN 10 MG PO SCH (12:46)
[2021-04-09] MEDS: zyPREXA 5MG TABLET PO SCH (12:51)
[2021-04-09] MEDS: celeBREX 100 MG PO SCH (12:51)
[2021-04-09] MEDS: Mirapex 0.5 MG Tablet PO SCH (21:13)
[2021-04-09] MEDS ORDERED: ROCEPHIN 1 Gm-D5w 50 ml Bag** 1 G/50 ML IVPB IV SCH (22:00)
[2021-04-09] MEDS ORDERED: PRAMIPEXOLE DI HCL 1 MG PO SCH (22:00)
[2021-04-09] MEDS ORDERED: Zithromax 500 MG/ 250 ML NaCl Premix 500 MG/250 ML IVPB IV SCH (22:00)
[2021-04-10] MEDS: HYDROCODONE-CHLORPHEN ER SUSP PO PRN (04:18)
[2021-04-10] MEDS: ADVAIR/WIXELLA 250-50 DISKUS 14 DOSE IH SCH ×2 (06:53→19:59)
[2021-04-10] MEDS: DUONEB 0.5-3 MG/3 ml Neb IH SCH ×4 (06:53→19:59)
[2021-04-10] MEDS ORDERED: NON-FORMULARY ITEM (Aspirin [Aspirin] 81 MG Tablet) PO SCH (10:00)
[2021-04-10] MEDS ORDERED: NON-FORMULARY ITEM (Levocetirizine Dihydrochloride [Levocetirizine Dihydrochloride] 5 MG T PO SCH (10:00)
[2021-04-10] MEDS: OLUMIANT PO SCH (10:05)
[2021-04-10] MEDS: ECOTRIN 81 MG PO SCH (10:06)
[2021-04-10] MEDS: ENOXAPARIN SODIUM SQ SCH (10:06)
[2021-04-10] MEDS: xanAX 0.5 MG PO PRN (10:06)
[2021-04-10] MEDS: BUMEX 1 MG PO SCH (10:06)
[2021-04-10] MEDS: CLARITIN 10 MG PO SCH (10:07)
[2021-04-10] MEDS: celeBREX 100 MG PO SCH (10:07)
[2021-04-10] MEDS: zyPREXA 5MG TABLET PO SCH (10:07)
[2021-04-10] MEDS: DECADRON 10MG INJ. IV SCH (10:09)
[2021-04-10] MEDS: Pepcid 20 MG VIAL IV SCH ×2 (10:09→22:29)
[2021-04-10] MEDS: REMDESIVIR 100 MG in Sodium Chloride 0.9% 100 ML BAG 100 ML IV SCH (11:55)
[2021-04-10] MEDS: Mirapex 0.5 MG Tablet PO SCH (22:29)
[2021-04-11] MEDS ORDERED: PROVENTIL 2.5 MG/3 ML NEB IH ONE (04:54)
[2021-04-11] MEDS ORDERED: PROVENTIL 2.5 MG/3 ML NEB IH PRN (04:56)
[2021-04-11 07:06] LABS: Hematocrit 44.3 % (42-50); Hemoglobin 15.2 gm/dl (12.5-18.0); Mean Cell Volume 95.7 fl (78-100); Mean Corpuscular Hemoglobin 32.8 pg (26-32); Mean Corpuscular Hgb Concent. 34.3 g/dl (32-36); Mean Platelet Volume 11.4 fl (7.5-11.0); Platelet Count 160 K/mm3 (150-450); Red Blood Count 4.63 M/mm3 (4.1-5.6); Red Cell Distribution Width 14.1 % (11.5-14.0); White Blood Count 10.7 K/mm3 (4.0-10.5)
[2021-04-11] MEDS: DUONEB 0.5-3 MG/3 ml Neb IH SCH ×2 (07:18→11:02)
[2021-04-11] MEDS: ADVAIR/WIXELLA 250-50 DISKUS 14 DOSE IH SCH (07:19)
[2021-04-11 08:02] LABS: ATYPICAL LYMPHS 2 %; Lymphocytes 6 % (24-44); Monocyte 2 % (0.0-12.0); Neutrophils 90 % (36.-66.); Platelet Estimate NORMAL (NORMAL); Total Cells Counted 100
[2021-04-11 08:12] VITALS: BP 112/68
[2021-04-11] MEDS: CLARITIN 10 MG PO SCH (10:28)
[2021-04-11] MEDS: ECOTRIN 81 MG PO SCH (10:28)
[2021-04-11] MEDS: BUMEX 1 MG PO SCH (10:28)
[2021-04-11] MEDS: OLUMIANT PO SCH (10:28)
[2021-04-11] MEDS: Pepcid 20 MG VIAL IV SCH ×2 (10:29→10:53)
[2021-04-11] MEDS: celeBREX 100 MG PO SCH (10:29)
[2021-04-11] MEDS: DECADRON 10MG INJ. IV SCH (10:29)
[2021-04-11] MEDS: zyPREXA 5MG TABLET PO SCH (10:29)
[2021-04-11] MEDS: REMDESIVIR 100 MG in Sodium Chloride 0.9% 100 ML BAG 100 ML IV SCH ×2 (10:30→10:52)
[2021-04-11 10:51] VITALS: O2SAT 97
[2021-04-11] MEDS: ENOXAPARIN SODIUM SQ SCH (10:52)
[2021-04-11 11:06] VITALS: PULSE 96
--- NOTE | 2021-04-13 12:12 | DS ---
ADMISSION DIAGNOSIS: COVID pneumonia. DISCHARGE DIAGNOSES: 1) COVID PNEUMONIA. 2) CHRONIC OBSTRUCTIVE PULMONARY DISEASE. HISTORY: The patient is a 55-year-old white male who lives by himself. He is normally on 2 to 3 liters of oxygen for chronic obstructive pulmonary disease. He still smokes. He has not had any vaccines. Coughing and running a fever and came to the emergency room and was admitted. He really stayed about the same during his entire stay. He did not need increase in his oxygen above 3. He was treated with Remdesivir, Dexamethasone, baricitinib 4 mg, Lovenox, Ativan, Tylenol, Zofran and Tussionex. His white count stayed normal. His D-dimer yesterday was 684 and just minimally elevated. He had no sharp chest pains. Chest x-ray showed mid left lung atelectasis with scarring otherwise unremarkable. Telemetry was unremarkable. HOSPITAL COURSE: The patient has felt pretty well the last two days. He wants to go home. He is certainly stable. He can go home on his normal oxygen at 2 to 3 liters, take his prednisone as he normally takes at home as well as his other medications. Follow up with his doctor in two weeks. PROGNOSIS: Good.
== END 2021-04-11 12:15 | disposition home or self-care (01) ==
LOC: ED 22:29 → MED SURG 04-09 03:48
PROVIDERS: ADMIT Family Medicine; ATTEND Family Medicine
DX: U07.1 COVID-19 (principal); J12.82 Pneumonia due to coronavirus disease 2019; J44.9 Chronic obstructive pulmonary disease, unspecified; I10 Essential (primary) hypertension; Z72.0 Tobacco use; Z99.81 Dependence on supplemental oxygen; Z79.899 Other long term (current) drug therapy; Z20.828 Contact with and (suspected) exposure to other viral communicable diseases
CPT/HCPCS: 0241U; 36000; 36415; 71045; 80053; 81001; 82550; 82947; 83880; 84484; 85025; 85027; 85379; 87040; 93005; 93041; 93268; 94640; 94760; 94762; 96360; 96374; 99285; G0378; J0248; J0456; J0696; J1100; J1650; J2930; J7609; A9270-GY

== ENCOUNTER 2021-08-02 15:42 | Observation (INO) | payer MEDICARE ==
[2021-08-02] MEDS ORDERED: DUONEB 0.5-3 MG/3 ml Neb IH ONE ×4 (15:55→19:53)
[2021-08-02] MEDS ORDERED: Zithromax 500 MG/ 250 ML NaCl Premix 500 MG/250 ML IVPB IV STA (16:08)
[2021-08-02] MEDS ORDERED: solu-MEDROL 125 MG, Sterile H2O 10 ml 2 ML IV ONE ×2 (16:08)
[2021-08-02] MEDS ORDERED: ROCEPHIN 2 Gm-D5w 50ML BAG** 2 G/50 ML IVPB IV STA (16:10)
[2021-08-02] MEDS ORDERED: Zithromax 500 MG/ 250 ML NaCl Premix 500 MG/250 ML IVPB IV ONE (16:26)
[2021-08-02] MEDS ORDERED: Sterile H2O 10 ml IJ ONE ×2 (16:26→23:36)
[2021-08-02] MEDS ORDERED: solu-MEDROL ONE ×2 (16:26→23:35)
[2021-08-02] MEDS ORDERED: ROCEPHIN 2 Gm-D5w 50ML BAG** 2 G/50 ML IVPB IV ONE (16:26)
[2021-08-02 16:44] LABS: Absolute Neutrophil Ct (ANC) 14.16 x10^3/uL (1.4-6.9); Basophil (Absolute #) 0.04 x10^3/uL (0-0.4); Eosinophil % 0.6 % (0.00-5.0); Eosinophil (Absolute #) 0.11 x10^3/uL (0-0.5); Hematocrit 49.4 % (42-50); Hemoglobin 16.8 g/dL (12.5-18.0); Lymphocyte (Absolute #) 1.75 x10^3/uL (1.0-4.6); Lymphocytes % 10.2 % (24.0-44.0); Mean Cell Volume 98.6 fL (78-100); Mean Corpuscular Hemoglobin 33.5 pg (26-32); Mean Platelet Volume 11.2 fL (7.5-11.0); Monocyte (Absolute #) 0.99 x10^3/uL (0.0-1.3); Monocytes % 5.8 % (0.0-12.0); Neutrophil % 82.6 % (36.0-66.0); Platelet Count 164 x10^3/uL (150-450); Red Blood Count 5.01 x10^6/uL (4.1-5.6); Red Cell Distribution Width 13.3 % (11.5-14.0); White Blood Count 17.2 x10^3/uL (4.0-10.5)
[2021-08-02 17:06] LABS: ALBUMIN 3.4 g/dL (3.5-5.0); ALKALINE PHOSPHATASE 54 U/L (38-126); ANION GAP 6.9 MEQ/L (5-15); BLOOD UREA NITROGEN 11 mg/dL (9-20); CHLORIDE 102 mmol/L (98-107); Calcium 8.6 mg/dL (8.4-10.2); Carbon Dioxide 34 mmol/L (22-30); Creatinine 1 0.89 mg/dL (0.66-1.25); EST GLOMERULAR FILTRATION RATE > 60.0 ML/MIN; Glucose 120 mg/dL (74-106); MAGNESIUM 2.1 mg/dL (1.6-2.3); Potassium 3.7 mmol/L (3.5-5.1); SGOT/AST 25 U/L (17-59); SGPT/ALT 23 U/L (0-50); SODIUM 140 mmol/L (137-145); Total Protein 5.7 g/dL (6.3-8.2)
--- NOTE | 2021-08-02 17:37 | ERPHSYRPT ---
- History of Present Illness Time Seen by Provider: 08/02/21 15:51 Source: patient Exam Limitations: no limitations Patient Subjective Stated Complaint: SOB Triage Nursing Assessment: Patient ambulated back to ED and transferred self to bed. Patient A+O X3 .Patient's skin pink, warm and dry. Patient states he is supposed to wear O2 at 3 liters per N/C, but didn't bring his home O2. Patient's O2 89% on room air. Patient placed on O2 at 3 liters bringing it to 97%. Patient states he has been SOB all morning and it has gotten worse. Lungs noted to have wheezing throughout. Patient has 3+ pitting edema to BLE. Patient denies pain or discomfort. Physician History: 55 years old with history of chronic respiratory failure secondary to COPD on 3 L oxygen, tobacco abuse presented in the ER with increasing shortness of breath since yesterday with cough productive of clear to yellow sputum. Patient has been using neb treatments every 6 hourly with no significant relief. Patient did not bring his home oxygen and is satting around 89% on presentation with diffuse wheezing all over. Denies any chest pain but has some tightness. No fever or chills reported. Has chronic lower extremity swelling which is not any worse than usual. Timing/Duration: yesterday, constant, gradual onset, worse Activities at Onset: activity, rest Severity of Dyspnea-Max: moderate Severity of Dyspnea-Current: moderate Possible Cause: frequent episodes Modifying Factors: Improves With: albuterol nebulizer, oxygen, rest. Worsens With: coughing, exertion Associated Symptoms: anxiety, cough, chest pain/discomfort, productive cough, sweating, tightness, No fever, No painful breathing Allergies/Adverse Reactions: No Known Drug Allergies Allergy (Verified 08/02/21 15:47) Home Medications: ALPRAZolam 0.5 MG [xanAX 0.5 MG] 0.5 mg PO TID PRN 11/19/19 [History] Albuterol Sulfate [Albuterol Sulfate Hfa] 2 puffs IH QID 11/19/19 [History] Bumetanide 1 mg PO DAILY 11/19/19 [History] Levocetirizine Dihydrochloride 5 mg PO DAILY 11/19/19 [History] Prednisone 10 mg [Deltasone 10 mg] 10 mg PO DAILY 11/19/19 [History] Ipratropium/Albuterol Sulfate [Iprat-Albut 0.5-3(2.5) mg/3 ml] 1 ampul IH QID 11/23/19 [History] Fluticasone/Umeclidin/Vilanter [Trelegy Ellipta 100-62.5-25] 1 puff IH DAILY 0 12/12/19 [History] Aspirin 81 mg PO DAILY 02/13/20 [History] Pramipexole Di-HCl [Mirapex] 1 mg PO HS 02/13/20 [History] Celecoxib [Celebrex] 100 mg PO DAILY 04/03/21 [History] OLANZapine [Zyprexa] 5 mg PO DAILY 04/03/21 [History] Hx Tetanus, Diphtheria Vaccination/Date Given: Yes Hx Influenza Vaccination/Date Given: No Hx Pneumococcal Vaccination/Date Given: No Immunizations Up to Date: Yes Travel Risk - International Travel Have you traveled outside of the country in past 3 weeks: No - Coronavirus Screening Are you exhibiting any of the following symptoms?: No Close contact with a COVID-19 positive Pt in past 14-21 Days: No - Vaccine Status Have you recieved a Covid-19 vaccination: No - Review of Systems Constitutional: No Symptoms Eyes: No Symptoms Ears, Nose, & Throat: No Symptoms Respiratory: Cough, Dyspnea, Dyspnea on Exertion (JAIN), Wheezing Cardiac: No Symptoms Abdominal/Gastrointestinal: No Symptoms Genitourinary Symptoms: No Symptoms Musculoskeletal: No Symptoms Skin: No Symptoms Neurological: No Symptoms Psychological: Anxiety Endocrine: No Symptoms Hematologic/Lymphatic: No Symptoms Immunological/Allergic: No Symptoms - Past Medical History Pertinent Past Medical History: Yes Neurological History: No Pertinent History ENT History: No Pertinent History Cardiac History: No Pertinent History Respiratory History: CHF, COPD, Pneumonia, Sleep Apnea Endocrine Medical History: No Pertinent History Musculoskeletal History: No Pertinent History GI Medical History: No Pertinent History History: No Pertinent History Psycho-Social History: No Pertinent History Male Reproductive Disorders: No Pertinent History Other Medical History: chronic lower leg cellulitis. wears 3 L NC at all times - Past Surgical History Past Surgical History: No Neuro Surgical History: No Pertinent History Cardiac: No Pertinent History Respiratory: No Pertinent History Gastrointestinal: No Pertinent History Genitourinary: No Pertinent History Musculoskeletal: No Pertinent History Male Surgical History: No Pertinent History - Social History Smoking Status: Current every day smoker How long have you smoked: 50 years Exposure to second hand smoke: No Drug Use: none Patient Lives Alone: Yes - Nursing Vital Signs Nursing Vital Signs: Initial Vital Signs Temperature 97.7 F 08/02/21 15:47 Pulse Rate 132 H 08/02/21 15:47 Respiratory Rate 25 H 08/02/21 15:47 Blood Pressure 109/72 08/02/21 15:47 O2 Sat by Pulse Oximetry 89 L 08/02/21 15:47 Pain Scale Pain Intensity 0 - Physical Exam General Appearance: mild distress, alert, anxiety Eye Exam: PERRL/EOMI, eyes nml inspection Ears, Nose, Throat Exam: hearing grossly normal, normal ENT inspection, normal pharynx Neck Exam: normal inspection, non-tender, supple, full range of motion Respiratory Exam: respiratory distress, accessory muscle use, rhonchi, wheezing Cardiovascular/Chest Exam: normal heart sounds, tachycardia Abdominal/Gastrointestinal Exam: soft, normal bowel sounds, No tenderness Extremity Exam: non-tender, normal range of motion Neurologic Exam: alert, oriented x 3, cooperative Skin Exam: normal color SpO2 Interpretation: O2 applied SpO2: 96 O2 Delivery: Nasal Cannula Ordered Tests: Active Orders 24 hr Category Date Time Status Multimedia Authoring Specialist STAT Care 08/02/21 16:09 Active EKG-ER Only STAT Care 08/02/21 16:08 Active IV Insertion STAT Care 08/02/21 16:08 Active Oxygen-ED Only Nasal Cannula 3 lpm Care 08/02/21 16:08 Active CHEST 1 VIEW (PORTABLE) Stat Exams 08/02/21 16:09 Taken BLOOD CULTURE Stat Lab 08/02/21 16:25 Received CBC W DIFF Stat Lab 08/02/21 16:39 Completed CMP Stat Lab 08/02/21 16:39 Completed Lactic Acid Stat Lab 08/02/21 16:08 Ordered MAGNESIUM Stat Lab 08/02/21 16:39 Completed NT PRO BNP Stat Lab 08/02/21 16:39 Completed TROPONIN Q3H Lab 08/02/21 16:15 Completed TROPONIN Q3H Lab 08/02/21 19:15 Ordered TROPONIN Q3H Lab 08/02/21 22:15 Ordered TROPONIN Q3H Lab 08/03/21 01:15 Ordered TROPONIN Q3H Lab 08/03/21 04:15 Ordered UA W/RFX CULTURE Stat Lab 08/02/21 Ordered Respiratory Therapy Assessment DAILY RT 08/02/21 16:10 Completed Medication Summary Discontinued Medications Generic Name Dose Route Start Last Admin Trade Name Anitha PRN Reason Stop Dose Admin Albuterol/Ipratropium Confirm 08/02/21 15:55 Ipratropium/Albuterol Sulfate 3 Ml Ampul.Neb Administered 08/02/21 15:56 Dose 3 ml IH .STK-MED ONE Albuterol/Ipratropium 3 ml 08/02/21 16:09 08/02/21 16:10 Ipratropium/Albuterol Sulfate 3 Ml Ampul.Neb IH 08/02/21 16:10 3 ml STAT ONE Administration Albuterol/Ipratropium 3 ml 08/02/21 16:08 Ipratropium/Albuterol Sulfate 3 Ml Ampul.Neb IH 08/02/21 16:09 STAT ONE Methylprednisolone Sodium 0 mg 08/02/21 16:08 08/02/21 16:30 Succinate 125 mg/ Sterile IV 08/02/21 16:09 125 mg Water 2 ml STAT ONE Administration Azithromycin 500 mg in 250 mls @ 250 mls/hr 08/02/21 16:08 08/02/21 17:06 Zithromax 500 Mg/ 250 Ml Nacl Premix IV 08/02/21 17:07 250 ml/hr STAT STA 250 mls/hr Administration Ceftriaxone Sodium/Dextrose 2 g in 50 mls @ 100 mls/hr 08/02/21 16:10 08/02/21 16:33 Rocephin 2 Gm-D5w 50ml Bag IV 08/02/21 16:39 100 ml/hr STAT STA 100 mls/hr Administration Azithromycin Confirm 08/02/21 16:26 Zithromax 500 Mg/ 250 Ml Nacl Premix Administered 08/02/21 16:27 Dose 500 mg in 250 mls @ ud IV .STK-MED ONE Ceftriaxone Sodium/Dextrose Confirm 08/02/21 16:26 Rocephin 2 Gm-D5w 50ml Bag Administered 08/02/21 16:27 Dose 2 g in 50 mls @ ud IV .STK-MED ONE Methylprednisolone Sodium Succinate Confirm 08/02/21 16:26 Methylprednis Sod Succ 125 Mg/2 Ml Vial Administered 08/02/21 16:27 Dose 125 mg .ROUTE .STK-MED ONE Sterile Water Confirm 08/02/21 16:26 Water For Injection,Sterile 10 Ml Vial Administered 08/02/21 16:27 Dose 10 ml IJ .[employer] ONE Lab/Rad Data: Laboratory Result Diagrams 08/02/21 16:39 08/02/21 16:39 Laboratory Results 08/02/21 08/02/21 08/02/21 Range/Units 16:39 16:39 16:15 WBC 17.2 H (4.0-10.5) x10^3/uL RBC 5.01 (4.1-5.6) x10^6/uL Hgb 16.8 (12.5-18.0) g/dL Hct 49.4 (42-50) % MCV 98.6 (78-100) fL MCH 33.5 H (26-32) pg MCHC 34.0 (32-36) g/dL RDW 13.3 (11.5-14.0) % Plt Count 164 (150-450) x10^3/uL MPV 11.2 H (7.5-11.0) fL Gran % 82.6 H (36.0-66.0) % Immature Gran % (Auto) 0.6 H (0.00-0.4) % Nucleat RBC Rel Count 0.0 (0.00-0.1) % Eos # (Auto) 0.11 (0-0.5) x10^3/uL Immature Gran # (Auto) 0.11 H (0.00-0.03) x10^3u/L Absolute Lymphs (auto) 1.75 (1.0-4.6) x10^3/uL Absolute Monos (auto) 0.99 (0.0-1.3) x10^3/uL Absolute Nucleated RBC 0.00 (0.00-0.01) x10^3u/L Lymphocytes % 10.2 L (24.0-44.0) % Monocytes % 5.8 (0.0-12.0) % Eosinophils % 0.6 (0.00-5.0) % Basophils % 0.2 (0.0-0.4) % Absolute Granulocytes 14.16 H (1.4-6.9) x10^3/uL Basophils # 0.04 (0-0.4) x10^3/uL Sodium 140 (137-145) mmol/L Potassium 3.7 (3.5-5.1) mmol/L Chloride 102 (98-107) mmol/L Carbon Dioxide 34 H (22-30) mmol/L Anion Gap 6.9 (5-15) MEQ/L BUN 11 (9-20) mg/dL Creatinine 0.89 (0.66-1.25) mg/dL Estimated GFR > 60.0 ML/MIN Glucose 120 H (74-106) mg/dL Calcium 8.6 (8.4-10.2) mg/dL Magnesium 2.1 (1.6-2.3) mg/dL Total Bilirubin 0.60 (0.2-1.3) mg/dL AST 25 (17-59) U/L ALT 23 (0-50) U/L Alkaline Phosphatase 54 (38-126) U/L Troponin I < 0.012 (0.000-0.034) ng/mL NT-Pro-B Natriuret Pep 74.0 (0-900) pg/mL Serum Total Protein 5.7 L (6.3-8.2) g/dL Albumin 3.4 L (3.5-5.0) g/dL - Progress Progress: improved Air Movement: fair Progress Note: 08/02/21 17:36 55 years old is evaluated for worsening shortness of breath. Patient is placed on 3 L oxygen, given DuoNeb and steroid, on reevaluation feeling better. Chest x-ray did not show any focal consolidation. Has normal white count, grossly unr emarkable chemistries and negative initial troponins. Given a dose of antibiotic. I believe patient has COPD exacerbation, discussed with Dr. Garcia and patient is excepted for admission. Blood Culture(s) Obtained: Yes Antibiotics given: Yes Discussed with : Errol Will see patient in: hospital (observation) Counseled pt/family regarding: lab results, diagnosis, need for follow-up, rad results, smoking cessation - Departure Departure Disposition: Observation Clinical Impression: COPD exacerbation Condition: Stable Critical Care Time: No Referrals: AG SOW MD [Primary Care Provider] - Follow up/PCP as directed Instructions: Chronic Obstructive Pulmonary Disease
[2021-08-02 18:21] LABS: INFLUENZA A NEGATIVE (NEGATIVE); INFLUENZA B NEGATIVE (NEGATIVE); RESPIRATORY SYNCTIAL VIRUS NEGATIVE (Negative); SARS-CoV-2 Xpert Express NEGATIVE (NEGATIVE)
[2021-08-02] MEDS ORDERED: DUONEB 0.5-3 MG/3 ml Neb IH SCH (19:00)
--- NOTE | 2021-08-02 19:03 | XRAY ---
Indication: Short of breath. COPD. Comparison: April 08, 2021. Portable chest unchanged again hyperinflated with mild left midlung subsegmental atelectasis/scarring. Remaining heart and lungs unremarkable. Bony thorax intact. No new/acute findings.
[2021-08-02] MEDS ORDERED: HUMALOG SQ PRN (19:39)
[2021-08-02] MEDS ORDERED: TYLENOL 325 MG PO PRN (19:39)
[2021-08-02] MEDS ORDERED: solu-MEDROL 60 MG, Sterile H2O 10 ml 2 ML IV SCH ×2 (19:39)
[2021-08-02] MEDS ORDERED: Zofran 4 MG/2 ML VIAL IV PRN (19:39)
[2021-08-02] MEDS ORDERED: celeBREX 100 MG ONE (21:20)
[2021-08-02] MEDS: Mirapex 0.5 MG Tablet PO SCH (21:25)
[2021-08-02] MEDS: xanAX 0.5 MG PO PRN (21:25)
[2021-08-02] MEDS: celeBREX 100 MG PO SCH (21:29)
[2021-08-02 21:46] LABS: Appearance CLEAR (CLEAR); Bilirubin NEGATIVE (NEGATIVE); Dipstick done @ ? MAIN LAB; Glucose NEGATIVE (NEGATIVE); Ketones NEGATIVE (NEGATIVE); Nitrite NEGATIVE (NEGATIVE); Protein,Urine Dip NEGATIVE (Negative); RBC NEGATIVE Ery/ul (0-5); Specific Gravity >=1.030 (1.005-1.025); Urobilinogen 0.2 mg/dL (0-1)
[2021-08-02 21:51] LABS: Urine Cultured Indicated? NO
[2021-08-02] MEDS ORDERED: Ventolin Hfa MDI IH SCH (22:00)
[2021-08-02] MEDS: solu-MEDROL 60 MG, Sterile H2O 10 ml 2 ML IV SCH ×2 (23:42)
[2021-08-03] MEDS ORDERED: DUONEB 0.5-3 MG/3 ml Neb IH ONE (00:32)
[2021-08-03] MEDS: DUONEB 0.5-3 MG/3 ml Neb IH SCH ×7 (00:38→22:31)
[2021-08-03 04:43] LABS: ALBUMIN 3.7 g/dL (3.5-5.0); ALKALINE PHOSPHATASE 63 U/L (38-126); ANION GAP 8.2 MEQ/L (5-15); BLOOD UREA NITROGEN 12 mg/dL (9-20); CHLORIDE 104 mmol/L (98-107); Calcium 9.3 mg/dL (8.4-10.2); Carbon Dioxide 31 mmol/L (22-30); Creatinine 1 0.82 mg/dL (0.66-1.25); EST GLOMERULAR FILTRATION RATE > 60.0 ML/MIN; Glucose 153 mg/dL (74-106); Potassium 4.3 mmol/L (3.5-5.1); SGOT/AST 22 U/L (17-59); SGPT/ALT 25 U/L (0-50); SODIUM 138 mmol/L (137-145); Total Protein 5.9 g/dL (6.3-8.2)
[2021-08-03] MEDS: solu-MEDROL 60 MG, Sterile H2O 10 ml 2 ML IV SCH ×8 (06:19→23:58)
[2021-08-03] MEDS: Advair Hfa 115/21 Common canister IH SCH ×2 (06:54→18:29)
[2021-08-03 07:14] LABS: Absolute Neutrophil Ct (ANC) 12.11 x10^3/uL (1.4-6.9); Basophil (Absolute #) 0.02 x10^3/uL (0-0.4); Eosinophil (Absolute #) 0 x10^3/uL (0-0.5); Hematocrit 51.8 % (42-50); Hemoglobin 16.9 g/dL (12.5-18.0); Lymphocyte (Absolute #) 0.39 x10^3/uL (1.0-4.6); Lymphocytes % 3.1 % (24.0-44.0); Mean Cell Volume 101.4 fL (78-100); Mean Corpuscular Hemoglobin 33.1 pg (26-32); Mean Corpuscular Hgb Concent. 32.6 g/dL (32-36); Mean Platelet Volume 11.7 fL (7.5-11.0); Monocytes % 0.8 % (0.0-12.0); Neutrophil % 95.1 % (36.0-66.0); Platelet Count 163 x10^3/uL (150-450); Red Blood Count 5.11 x10^6/uL (4.1-5.6); Red Cell Distribution Width 13.5 % (11.5-14.0); White Blood Count 12.7 x10^3/uL (4.0-10.5)
--- NOTE | 2021-08-03 09:09 | PCM.HP ---
History of Present Illness - Chief Complaint Chief Complaint: COPD History of Present Illness: is a 55 year old male patient of Dr Shearer who presented to ER with cough and shortness of breath,denies fever or chest pain but does have Spring allergies. PMHx includes COPD,current everday smoker with no interest in stopping also Bipolar on Zyprexa and Xanax. Patient denies Hx cardiac disease. Has chronic swelling in legs,denies calf pain but states he sits with legs down most of the day. - Review of Systems Constitutional: Fatigue Eyes: No Symptoms Ears, Nose, & Throat: Sinus Drainage Respiratory: Cough, Short Of Breath, Wheezing Cardiac: No Symptoms, Other (does have chronic dependent edema without calf pain) Abdominal/Gastrointestinal: No Symptoms Genitourinary Symptoms: No Symptoms Musculoskeletal: No Symptoms Skin: No Symptoms Neurological: No Symptoms Psychological: Anxiety, Depression (stable on meds) Immunological/Allergic: Pollen Allergy (on Loratadine) Medications & Allergies Home Medications: Home Medication List ALPRAZolam 0.5 MG [xanAX 0.5 MG] 0.5 mg PO TID PRN 11/19/19 [History Confirmed 08/02/21] Albuterol Sulfate [Albuterol Sulfate Hfa] 2 puffs IH QID 11/19/19 [History Confirmed 08/02/21] Bumetanide 1 mg PO DAILY 11/19/19 [History Confirmed 08/02/21] Levocetirizine Dihydrochloride 5 mg PO DAILY 11/19/19 [History Confirmed 08/02/21] Prednisone 10 mg [Deltasone 10 mg] 10 mg PO DAILY 11/19/19 [History Confirmed 08/02/21] Ipratropium/Albuterol Sulfate [Iprat-Albut 0.5-3(2.5) mg/3 ml] 1 ampul IH QID 11/23/19 [History Confirmed 08/02/21] Fluticasone/Umeclidin/Vilanter [Trelegy Ellipta 100-62.5-25] 1 puff IH DAILY 12/12/19 [History Confirmed 08/02/21] Aspirin 81 mg PO DAILY 02/13/20 [History Confirmed 08/02/21] Pramipexole Di-HCl [Mirapex] 1 mg PO HS 02/13/20 [History Confirmed 08/02/21] Celecoxib [Celebrex] 100 mg PO DAILY 04/03/21 [History Confirmed 08/02/21] OLANZapine [Zyprexa] 5 mg PO DAILY 04/03/21 [History Confirmed 08/02/21] Allergies/Adverse Reactions: Allergies Allergy/AdvReac Type Severity Reaction Status Date / Time No Known Drug Allergies Allergy Verified 08/02/21 15:47 - Past Medical History Past Medical History: Yes Neurological History: No Pertinent History ENT History: No Pertinent History Cardiac History: No Pertinent History Respiratory History: CHF, COPD, Pneumonia, Sleep Apnea Endocrine Medical History: No Pertinent History Musculoskelatal History: No Pertinent History GI Medical History: No Pertinent History History: No Pertinent History Pyscho-Social History: No Pertinent History Male Reproductive Disorders: No Pertinent History Comment: chronic lower leg cellulitis. wears 3 L NC at all times - Past Surgical History Past Surgical History: No Neuro Surgical History: No Pertinent History Cardiac History: No Pertinent History Respiratory Surgery: No Pertinent History GI Surgical History: No Pertinent History Genitourinary Surgical Hx: No Pertinent History Musculskeletal Surgical Hx: No Pertinent History Male Surgical History: No Pertinent History - Social History Smoking Status: Current every day smoker How long have you smoked: 50 years Exposure to second hand smoke: No Alcohol: None Drug Use: none - Physical Exam Vital Signs: Vital Signs - 24 hr Temp Pulse Resp BP Pulse Ox 08/03/21 07:43 98.4 F 93 H 22 105/67 93 L 08/03/21 06:57 89 20 94 L 08/03/21 04:00 97.8 F 103 H 22 107/57 93 L 08/03/21 03:48 95 H 20 92 L 08/03/21 00:38 92 H 20 95 08/03/21 00:00 97.1 F 98 H 20 112/64 95 08/02/21 20:01 108 H 20 92 L 08/02/21 19:59 98.7 F 112 H 28 H 120/77 95 08/02/21 19:35 102 H 20 106/78 95 08/02/21 18:41 108 H 18 108/78 97 08/02/21 17:42 96 08/02/21 16:11 112 H 26 H 96 08/02/21 15:47 97.7 F 132 H 25 H 109/72 89 L General Appearance: mild distress (coughing spell productive of pedro white sputum,wheezing-due for neb tx) Neurologic Exam: alert, oriented x 3, other (decreased affect,no smiles short answers) Eye Exam: eyes nml inspection Ears, Nose, Throat Exam: moist mucous membranes Neck Exam: normal inspection Respiratory Exam: diminished breath sounds, wheezing (all lung snyder) Cardiovascular Exam: regular rate/rhythm Gastrointestinal/Abdomen Exam: soft (nontender), normal bowel sounds Rectal Exam: not done Back Exam: normal inspection Extremity Exam: swelling (1+pitting bilateral ankles and feet,calves are soft and nontender) Results - Labs Lab/Micro Results: Lab Results-Last 24 Hours 08/02/21 08/02/21 08/02/21 Range/Units 16:15 16:39 16:39 WBC 17.2 H (4.0-10.5) x10^3/uL RBC 5.01 (4.1-5.6) x10^6/uL Hgb 16.8 (12.5-18.0) g/dL Hct 49.4 (42-50) % MCV 98.6 (78-100) fL MCH 33.5 H (26-32) pg MCHC 34.0 (32-36) g/dL RDW 13.3 (11.5-14.0) % Plt Count 164 (150-450) x10^3/uL MPV 11.2 H (7.5-11.0) fL Gran % 82.6 H (36.0-66.0) % Immature Gran % (Auto) 0.6 H (0.00-0.4) % Nucleat RBC Rel Count 0.0 (0.00-0.1) % Eos # (Auto) 0.11 (0-0.5) x10^3/uL Immature Gran # (Auto) 0.11 H (0.00-0.03) x10^3u/L Absolute Lymphs (auto) 1.75 (1.0-4.6) x10^3/uL Absolute Monos (auto) 0.99 (0.0-1.3) x10^3/uL Absolute Nucleated RBC 0.00 (0.00-0.01) x10^3u/L Lymphocytes % 10.2 L (24.0-44.0) % Monocytes % 5.8 (0.0-12.0) % Eosinophils % 0.6 (0.00-5.0) % Basophils % 0.2 (0.0-0.4) % Absolute Granulocytes 14.16 H (1.4-6.9) x10^3/uL Basophils # 0.04 (0-0.4) x10^3/uL Sodium 140 (137-145) mmol/L Potassium 3.7 (3.5-5.1) mmol/L Chloride 102 (98-107) mmol/L Carbon Dioxide 34 H (22-30) mmol/L Anion Gap 6.9 (5-15) MEQ/L BUN 11 (9-20) mg/dL Creatinine 0.89 (0.66-1.25) mg/dL Estimated GFR > 60.0 ML/MIN Glucose 120 H (74-106) mg/dL Calcium 8.6 (8.4-10.2) mg/dL Magnesium 2.1 (1.6-2.3) mg/dL Total Bilirubin 0.60 (0.2-1.3) mg/dL AST 25 (17-59) U/L ALT 23 (0-50) U/L Alkaline Phosphatase 54 (38-126) U/L Troponin I < 0.012 (0.000-0.034) ng/mL NT-Pro-B Natriuret Pep 74.0 (0-900) pg/mL Serum Total Protein 5.7 L (6.3-8.2) g/dL Albumin 3.4 L (3.5-5.0) g/dL Urinalys Dipstick Clnc Urine Color (YELLOW) Urine Appearance (CLEAR) Urine pH (5-6) Ur Specific [place] (1.005-1.025) POC Urine Protein Conf (Negative) Urine Ketones (NEGATIVE) Urine Nitrite (NEGATIVE) Urine Bilirubin (NEGATIVE) Urine Urobilinogen (0-1) mg/dL Urine Leukocytes (NEGATIVE) Urine WBC (Auto) (0-5) /HPF Urine RBC (Auto) (0-2) /HPF U Epithel Cells (Auto) (FEW) /HPF Urine Bacteria (Auto) (NEGATIVE) /HPF Urine RBC (0-5) Xu/ul Ur Culture Indicated? Urine Glucose (NEGATIVE) mg/dL Influenza Type A Ag (NEGATIVE) Influenza Type B Ag (NEGATIVE) RSV (PCR) (Negative) SARS-CoV-2 (PCR) (NEGATIVE) 08/02/21 08/02/21 08/02/21 Range/Units 17:42 19:02 21:45 WBC (4.0-10.5) x10^3/uL RBC (4.1-5.6) x10^6/uL Hgb (12.5-18.0) g/dL Hct (42-50) % MCV (78-100) fL MCH (26-32) pg MCHC (32-36) g/dL RDW (11.5-14.0) % Plt Count (150-450) x10^3/uL MPV (7.5-11.0) fL Gran % (36.0-66.0) % Immature Gran % (Auto) (0.00-0.4) % Nucleat RBC Rel Count (0.00-0.1) % Eos # (Auto) (0-0.5) x10^3/uL Immature Gran # (Auto) (0.00-0.03) x10^3u/L Absolute Lymphs (auto) (1.0-4.6) x10^3/uL Absolute Monos (auto) (0.0-1.3) x10^3/uL Absolute Nucleated RBC (0.00-0.01) x10^3u/L Lymphocytes % (24.0-44.0) % Monocytes % (0.0-12.0) % Eosinophils % (0.00-5.0) % Basophils % (0.0-0.4) % Absolute Granulocytes (1.4-6.9) x10^3/uL Basophils # (0-0.4) x10^3/uL Sodium (137-145) mmol/L Potassium (3.5-5.1) mmol/L Chloride (98-107) mmol/L Carbon Dioxide (22-30) mmol/L Anion Gap (5-15) MEQ/L BUN (9-20) mg/dL Creatinine (0.66-1.25) mg/dL Estimated GFR ML/MIN Glucose (74-106) mg/dL Calcium (8.4-10.2) mg/dL Magnesium (1.6-2.3) mg/dL Total Bilirubin (0.2-1.3) mg/dL AST (17-59) U/L ALT (0-50) U/L Alkaline Phosphatase (38-126) U/L Troponin I < 0.012 (0.000-0.034) ng/mL NT-Pro-B Natriuret Pep (0-900) pg/mL Serum Total Protein (6.3-8.2) g/dL Albumin (3.5-5.0) g/dL Urinalys Dipstick Clnc MAIN LAB Urine Color YELLOW (YELLOW) Urine Appearance CLEAR (CLEAR) Urine pH 6.0 (5-6) Ur Specific [place] >=1.030 (1.005-1.025) POC Urine Protein Conf NEGATIVE (Negative) Urine Ketones NEGATIVE (NEGATIVE) Urine Nitrite NEGATIVE (NEGATIVE) Urine Bilirubin NEGATIVE (NEGATIVE) Urine Urobilinogen 0.2 (0-1) mg/dL Urine Leukocytes NEGATIVE (NEGATIVE) Urine WBC (Auto) NONE (0-5) /HPF Urine RBC (Auto) NONE (0-2) /HPF U Epithel Cells (Auto) NONE (FEW) /HPF Urine Bacteria (Auto) NONE (NEGATIVE) /HPF Urine RBC NEGATIVE (0-5) Xu/ul Ur Culture Indicated? NO Urine Glucose NEGATIVE (NEGATIVE) mg/dL Influenza Type A Ag NEGATIVE (NEGATIVE) Influenza Type B Ag NEGATIVE (NEGATIVE) RSV (PCR) NEGATIVE (Negative) SARS-CoV-2 (PCR) NEGATIVE (NEGATIVE) 08/02/21 08/03/21 08/03/21 Range/Units 22:28 02:10 04:09 WBC (4.0-10.5) x10^3/uL RBC (4.1-5.6) x10^6/uL Hgb (12.5-18.0) g/dL Hct (42-50) % MCV (78-100) fL MCH (26-32) pg MCHC (32-36) g/dL RDW (11.5-14.0) % Plt Count (150-450) x10^3/uL MPV (7.5-11.0) fL Gran % (36.0-66.0) % Immature Gran % (Auto) (0.00-0.4) % Nucleat RBC Rel Count (0.00-0.1) % Eos # (Auto) (0-0.5) x10^3/uL Immature Gran # (Auto) (0.00-0.03) x10^3u/L Absolute Lymphs (auto) (1.0-4.6) x10^3/uL Absolute Monos (auto) (0.0-1.3) x10^3/uL Absolute Nucleated RBC (0.00-0.01) x10^3u/L Lymphocytes % (24.0-44.0) % Monocytes % (0.0-12.0) % Eosinophils % (0.00-5.0) % Basophils % (0.0-0.4) % Absolute Granulocytes (1.4-6.9) x10^3/uL Basophils # (0-0.4) x10^3/uL Sodium (137-145) mmol/L Potassium (3.5-5.1) mmol/L Chloride (98-107) mmol/L Carbon Dioxide (22-30) mmol/L Anion Gap (5-15) MEQ/L BUN (9-20) mg/dL Creatinine (0.66-1.25) mg/dL Estimated GFR ML/MIN Glucose (74-106) mg/dL Calcium (8.4-10.2) mg/dL Magnesium (1.6-2.3) mg/dL Total Bilirubin (0.2-1.3) mg/dL AST (17-59) U/L ALT (0-50) U/L Alkaline Phosphatase (38-126) U/L Troponin I < 0.012 < 0.012 < 0.012 (0.000-0.034) ng/mL NT-Pro-B Natriuret Pep (0-900) pg/mL Serum Total Protein (6.3-8.2) g/dL Albumin (3.5-5.0) g/dL Urinalys Dipstick Clnc Urine Color (YELLOW) Urine Appearance (CLEAR) Urine pH (5-6) Ur Specific [place] (1.005-1.025) POC Urine Protein Conf (Negative) Urine Ketones (NEGATIVE) Urine Nitrite (NEGATIVE) Urine Bilirubin (NEGATIVE) Urine Urobilinogen (0-1) mg/dL Urine Leukocytes (NEGATIVE) Urine WBC (Auto) (0-5) /HPF Urine RBC (Auto) (0-2) /HPF U Epithel Cells (Auto) (FEW) /HPF Urine Bacteria (Auto) (NEGATIVE) /HPF Urine RBC (0-5) Xu/ul Ur Culture Indicated? Urine Glucose (NEGATIVE) mg/dL Influenza Type A Ag (NEGATIVE) Influenza Type B Ag (NEGATIVE) RSV (PCR) (Negative) SARS-CoV-2 (PCR) (NEGATIVE) 08/03/21 08/03/21 Range/Units 04:09 04:09 WBC 12.7 H (4.0-10.5) x10^3/uL RBC 5.11 (4.1-5.6) x10^6/uL Hgb 16.9 (12.5-18.0) g/dL Hct 51.8 H (42-50) % MCV 101.4 H (78-100) fL MCH 33.1 H (26-32) pg MCHC 32.6 (32-36) g/dL RDW 13.5 (11.5-14.0) % Plt Count 163 (150-450) x10^3/uL MPV 11.7 H (7.5-11.0) fL Gran % 95.1 H (36.0-66.0) % Immature Gran % (Auto) 0.8 H (0.00-0.4) % Nucleat RBC Rel Count 0.0 (0.00-0.1) % Eos # (Auto) 0 (0-0.5) x10^3/uL Immature Gran # (Auto) 0.10 H (0.00-0.03) x10^3u/L Absolute Lymphs (auto) 0.39 L (1.0-4.6) x10^3/uL Absolute Monos (auto) 0.10 (0.0-1.3) x10^3/uL Absolute Nucleated RBC 0.00 (0.00-0.01) x10^3u/L Lymphocytes % 3.1 L (24.0-44.0) % Monocytes % 0.8 (0.0-12.0) % Eosinophils % 0.0 (0.00-5.0) % Basophils % 0.2 (0.0-0.4) % Absolute Granulocytes 12.11 H (1.4-6.9) x10^3/uL Basophils # 0.02 (0-0.4) x10^3/uL Sodium 138 (137-145) mmol/L Potassium 4.3 (3.5-5.1) mmol/L Chloride 104 (98-107) mmol/L Carbon Dioxide 31 H (22-30) mmol/L Anion Gap 8.2 (5-15) MEQ/L BUN 12 (9-20) mg/dL Creatinine 0.82 (0.66-1.25) mg/dL Estimated GFR > 60.0 ML/MIN Glucose 153 H (74-106) mg/dL Calcium 9.3 (8.4-10.2) mg/dL Magnesium (1.6-2.3) mg/dL Total Bilirubin 0.50 (0.2-1.3) mg/dL AST 22 (17-59) U/L ALT 25 (0-50) U/L Alkaline Phosphatase 63 (38-126) U/L Troponin I (0.000-0.034) ng/mL NT-Pro-B Natriuret Pep (0-900) pg/mL Serum Total Protein 5.9 L (6.3-8.2) g/dL Albumin 3.7 (3.5-5.0) g/dL Urinalys Dipstick Clnc Urine Color (YELLOW) Urine Appearance (CLEAR) Urine pH (5-6) Ur Specific [place] (1.005-1.025) POC Urine Protein Conf (Negative) Urine Ketones (NEGATIVE) Urine Nitrite (NEGATIVE) Urine Bilirubin (NEGATIVE) Urine Urobilinogen (0-1) mg/dL Urine Leukocytes (NEGATIVE) Urine WBC (Auto) (0-5) /HPF Urine RBC (Auto) (0-2) /HPF U Epithel Cells (Auto) (FEW) /HPF Urine Bacteria (Auto) (NEGATIVE) /HPF Urine RBC (0-5) Xu/ul Ur Culture Indicated? Urine Glucose (NEGATIVE) mg/dL Influenza Type A Ag (NEGATIVE) Influenza Type B Ag (NEGATIVE) RSV (PCR) (Negative) SARS-CoV-2 (PCR) (NEGATIVE) - Radiology Impressions Radiology Exams & Impressions: Radiology Procedures Category Date Time Status CHEST 1 VIEW (PORTABLE) Stat Exams 08/02/21 16:09 Completed - Other Procedures and Tests Respiratory Therapy 08/02/21 16:10 Respiratory Therapy Assessment DAILY 08/02/21 19:39 Oxygen Nasal Cannula 3 lpm Assessment/Plan (1) COPD exacerbation Current Visit: Yes Status: Acute Assessment & Plan: IV solumedrol ,Rocephin and Zithromax, Neb treatments with RT to follow. Code(s): J44.1 - CHRONIC OBSTRUCTIVE PULMONARY DISEASE W (ACUTE) EXACERBATION (2) Smoker Current Visit: Yes Status: Chronic Assessment & Plan: not interested in smoke cessation Code(s): F17.200 - NICOTINE DEPENDENCE, UNSPECIFIED, UNCOMPLICATED (3) Bipolar depression Current Visit: Yes Status: Chronic Assessment & Plan: continue current meds Code(s): F31.9 - BIPOLAR DISORDER, UNSPECIFIED (4) Dependent edema Current Visit: Yes Status: Chronic Assessment & Plan: refuses to elevate legs per nursing Code(s): R60.9 - EDEMA, UNSPECIFIED
[2021-08-03] MEDS: zyPREXA 5MG TABLET PO SCH (09:13)
[2021-08-03] MEDS: ECOTRIN 81 MG PO SCH (09:13)
[2021-08-03] MEDS: ENOXAPARIN SODIUM SQ SCH (09:13)
[2021-08-03] MEDS: xanAX 0.5 MG PO PRN ×2 (09:13→21:12)
[2021-08-03] MEDS: PROTONIX 40 MG IV IV SCH (09:13)
[2021-08-03] MEDS: celeBREX 100 MG PO SCH ×2 (09:13→21:12)
[2021-08-03] MEDS: CLARITIN 10 MG PO SCH (09:13)
[2021-08-03] MEDS: BUMEX 1 MG PO SCH (09:13)
[2021-08-03] MEDS: Zithromax 500 MG/ 250 ML NaCl Premix 500 MG/250 ML IVPB IV SCH (09:14)
[2021-08-03] MEDS: ROCEPHIN 1 Gm-D5w 50 ml Bag** 1 G/50 ML IVPB IV SCH (09:14)
[2021-08-03] MEDS ORDERED: NON-FORMULARY ITEM (Aspirin [Aspirin] 81 MG Tablet) PO SCH (10:00)
[2021-08-03] MEDS ORDERED: NON-FORMULARY ITEM (Levocetirizine Dihydrochloride [Levocetirizine Dihydrochloride] 5 MG T PO SCH (10:00)
[2021-08-03] MEDS ORDERED: VENTOLIN COMMON CANISTER IH SCH (10:00)
[2021-08-03] MEDS ORDERED: celeBREX 100 MG PO SCH (10:00)
--- NOTE | 2021-08-03 18:11 | PCM.NOTE ---
Date and Time: 08/03/211808 Subjective Assessment: doing better - Review of Systems Constitutional: No Fever, No Chills Eyes: No Symptoms Ears, Nose, & Throat: No Symptoms Respiratory: Cough, Short Of Breath Cardiac: No Chest Pain, No Edema, No Syncope Abdominal/Gastrointestinal: No Abdominal Pain, No Nausea, No Vomiting, No Diarrhea Genitourinary Symptoms: No Dysuria Musculoskeletal: No Back Pain, No Neck Pain Skin: No Rash Neurological: No Dizziness, No Focal Weakness, No Sensory Changes Psychological: No Symptoms Endocrine: No Symptoms Hematologic/Lymphatic: No Symptoms Immunological/Allergic: No Symptoms Objective Exam General Appearance: no apparent distress, alert Neurologic Exam: alert, oriented x 3, cooperative, normal mood/affect, nml cerebellar function, sensation nml, No motor deficits Skin Exam: normal color, warm, dry Eye Exam: PERRL, EOMI, eyes nml inspection Ears, Nose, Throat Exam: normal ENT inspection, pharynx normal, moist mucous membranes Neck Exam: normal inspection, non-tender, supple, full range of motion Respiratory Exam: diminished breath sounds, crackles/rales, rhonchi, wheezing, No respiratory distress Cardiovascular Exam: regular rate/rhythm, normal heart sounds Gastrointestinal/Abdomen Exam: soft, No tenderness, No mass Extremity Exam: normal inspection, normal range of motion Back Exam: normal inspection, normal range of motion, No CVA tenderness, No vertebral tenderness Male Genitalia Exam: deferred Rectal Exam: deferred OBJECTIVE DATA Vital Signs: Vital Signs - 24 hr Temp Pulse Resp BP Pulse Ox 08/03/21 16:00 97.7 F 95 H 23 111/65 99 08/03/21 14:40 96 H 20 97 08/03/21 12:00 96.9 F 106 H 21 125/79 97 08/03/21 10:50 96 H 20 94 L 08/03/21 07:43 98.4 F 93 H 22 105/67 93 L 08/03/21 06:57 89 20 94 L 08/03/21 04:00 97.8 F 103 H 22 107/57 93 L 08/03/21 03:48 95 H 20 92 L 08/03/21 00:38 92 H 20 95 08/03/21 00:00 97.1 F 98 H 20 112/64 95 08/02/21 20:01 108 H 20 92 L 08/02/21 19:59 98.7 F 112 H 28 H 120/77 95 08/02/21 19:35 102 H 20 106/78 95 08/02/21 18:41 108 H 18 108/78 97 Pain Assessment - Last Documented Pain Intensity 0 Intake and Output: Intake & Output 08/01/21 08/02/21 08/03/21 08/04/21 11:59 11:59 11:59 11:59 Intake Total 1460 240 Output Total 850 1100 Balance 610 -860 Weight 104.5 kg Lab Results: Lab Results-Last 24 Hours 08/02/21 08/02/21 08/02/21 Range/Units 17:42 19:02 21:45 WBC (4.0-10.5) x10^3/uL RBC (4.1-5.6) x10^6/uL Hgb (12.5-18.0) g/dL Hct (42-50) % MCV (78-100) fL MCH (26-32) pg MCHC (32-36) g/dL RDW (11.5-14.0) % Plt Count (150-450) x10^3/uL MPV (7.5-11.0) fL Gran % (36.0-66.0) % Immature Gran % (Auto) (0.00-0.4) % Nucleat RBC Rel Count (0.00-0.1) % Eos # (Auto) (0-0.5) x10^3/uL Immature Gran # (Auto) (0.00-0.03) x10^3u/L Absolute Lymphs (auto) (1.0-4.6) x10^3/uL Absolute Monos (auto) (0.0-1.3) x10^3/uL Absolute Nucleated RBC (0.00-0.01) x10^3u/L Lymphocytes % (24.0-44.0) % Monocytes % (0.0-12.0) % Eosinophils % (0.00-5.0) % Basophils % (0.0-0.4) % Absolute Granulocytes (1.4-6.9) x10^3/uL Basophils # (0-0.4) x10^3/uL Sodium (137-145) mmol/L Potassium (3.5-5.1) mmol/L Chloride (98-107) mmol/L Carbon Dioxide (22-30) mmol/L Anion Gap (5-15) MEQ/L BUN (9-20) mg/dL Creatinine (0.66-1.25) mg/dL Estimated GFR ML/MIN Glucose (74-106) mg/dL POC Glucometer (74 to 106) mg/dL Calcium (8.4-10.2) mg/dL Total Bilirubin (0.2-1.3) mg/dL AST (17-59) U/L ALT (0-50) U/L Alkaline Phosphatase (38-126) U/L Troponin I < 0.012 (0.000-0.034) ng/mL Serum Total Protein (6.3-8.2) g/dL Albumin (3.5-5.0) g/dL Urinalys Dipstick Clnc MAIN LAB Urine Color YELLOW (YELLOW) Urine Appearance CLEAR (CLEAR) Urine pH 6.0 (5-6) Ur Specific [place] >=1.030 (1.005-1.025) POC Urine Protein Conf NEGATIVE (Negative) Urine Ketones NEGATIVE (NEGATIVE) Urine Nitrite NEGATIVE (NEGATIVE) Urine Bilirubin NEGATIVE (NEGATIVE) Urine Urobilinogen 0.2 (0-1) mg/dL Urine Leukocytes NEGATIVE (NEGATIVE) Urine WBC (Auto) NONE (0-5) /HPF Urine RBC (Auto) NONE (0-2) /HPF U Epithel Cells (Auto) NONE (FEW) /HPF Urine Bacteria (Auto) NONE (NEGATIVE) /HPF Urine RBC NEGATIVE (0-5) Xu/ul Ur Culture Indicated? NO Urine Glucose NEGATIVE (NEGATIVE) mg/dL Influenza Type A Ag NEGATIVE (NEGATIVE) Influenza Type B Ag NEGATIVE (NEGATIVE) RSV (PCR) NEGATIVE (Negative) SARS-CoV-2 (PCR) NEGATIVE (NEGATIVE) 08/02/21 08/03/21 08/03/21 Range/Units 22:28 02:10 04:09 WBC (4.0-10.5) x10^3/uL RBC (4.1-5.6) x10^6/uL Hgb (12.5-18.0) g/dL Hct (42-50) % MCV (78-100) fL MCH (26-32) pg MCHC (32-36) g/dL RDW (11.5-14.0) % Plt Count (150-450) x10^3/uL MPV (7.5-11.0) fL Gran % (36.0-66.0) % Immature Gran % (Auto) (0.00-0.4) % Nucleat RBC Rel Count (0.00-0.1) % Eos # (Auto) (0-0.5) x10^3/uL Immature Gran # (Auto) (0.00-0.03) x10^3u/L Absolute Lymphs (auto) (1.0-4.6) x10^3/uL Absolute Monos (auto) (0.0-1.3) x10^3/uL Absolute Nucleated RBC (0.00-0.01) x10^3u/L Lymphocytes % (24.0-44.0) % Monocytes % (0.0-12.0) % Eosinophils % (0.00-5.0) % Basophils % (0.0-0.4) % Absolute Granulocytes (1.4-6.9) x10^3/uL Basophils # (0-0.4) x10^3/uL Sodium (137-145) mmol/L Potassium (3.5-5.1) mmol/L Chloride (98-107) mmol/L Carbon Dioxide (22-30) mmol/L Anion Gap (5-15) MEQ/L BUN (9-20) mg/dL Creatinine (0.66-1.25) mg/dL Estimated GFR ML/MIN Glucose (74-106) mg/dL POC Glucometer (74 to 106) mg/dL Calcium (8.4-10.2) mg/dL Total Bilirubin (0.2-1.3) mg/dL AST (17-59) U/L ALT (0-50) U/L Alkaline Phosphatase (38-126) U/L Troponin I < 0.012 < 0.012 < 0.012 (0.000-0.034) ng/mL Serum Total Protein (6.3-8.2) g/dL Albumin (3.5-5.0) g/dL Urinalys Dipstick Clnc Urine Color (YELLOW) Urine Appearance (CLEAR) Urine pH (5-6) Ur Specific [place] (1.005-1.025) POC Urine Protein Conf (Negative) Urine Ketones (NEGATIVE) Urine Nitrite (NEGATIVE) Urine Bilirubin (NEGATIVE) Urine Urobilinogen (0-1) mg/dL Urine Leukocytes (NEGATIVE) Urine WBC (Auto) (0-5) /HPF Urine RBC (Auto) (0-2) /HPF U Epithel Cells (Auto) (FEW) /HPF Urine Bacteria (Auto) (NEGATIVE) /HPF Urine RBC (0-5) Xu/ul Ur Culture Indicated? Urine Glucose (NEGATIVE) mg/dL Influenza Type A Ag (NEGATIVE) Influenza Type B Ag (NEGATIVE) RSV (PCR) (Negative) SARS-CoV-2 (PCR) (NEGATIVE) 08/03/21 08/03/21 08/03/21 Range/Units 04:09 04:09 16:47 WBC 12.7 H (4.0-10.5) x10^3/uL RBC 5.11 (4.1-5.6) x10^6/uL Hgb 16.9 (12.5-18.0) g/dL Hct 51.8 H (42-50) % MCV 101.4 H (78-100) fL MCH 33.1 H (26-32) pg MCHC 32.6 (32-36) g/dL RDW 13.5 (11.5-14.0) % Plt Count 163 (150-450) x10^3/uL MPV 11.7 H (7.5-11.0) fL Gran % 95.1 H (36.0-66.0) % Immature Gran % (Auto) 0.8 H (0.00-0.4) % Nucleat RBC Rel Count 0.0 (0.00-0.1) % Eos # (Auto) 0 (0-0.5) x10^3/uL Immature Gran # (Auto) 0.10 H (0.00-0.03) x10^3u/L Absolute Lymphs (auto) 0.39 L (1.0-4.6) x10^3/uL Absolute Monos (auto) 0.10 (0.0-1.3) x10^3/uL Absolute Nucleated RBC 0.00 (0.00-0.01) x10^3u/L Lymphocytes % 3.1 L (24.0-44.0) % Monocytes % 0.8 (0.0-12.0) % Eosinophils % 0.0 (0.00-5.0) % Basophils % 0.2 (0.0-0.4) % Absolute Granulocytes 12.11 H (1.4-6.9) x10^3/uL Basophils # 0.02 (0-0.4) x10^3/uL Sodium 138 (137-145) mmol/L Potassium 4.3 (3.5-5.1) mmol/L Chloride 104 (98-107) mmol/L Carbon Dioxide 31 H (22-30) mmol/L Anion Gap 8.2 (5-15) MEQ/L BUN 12 (9-20) mg/dL Creatinine 0.82 (0.66-1.25) mg/dL Estimated GFR > 60.0 ML/MIN Glucose 153 H (74-106) mg/dL POC Glucometer 111 H (74 to 106) mg/dL Calcium 9.3 (8.4-10.2) mg/dL Total Bilirubin 0.50 (0.2-1.3) mg/dL AST 22 (17-59) U/L ALT 25 (0-50) U/L Alkaline Phosphatase 63 (38-126) U/L Troponin I (0.000-0.034) ng/mL Serum Total Protein 5.9 L (6.3-8.2) g/dL Albumin 3.7 (3.5-5.0) g/dL Urinalys Dipstick Clnc Urine Color (YELLOW) Urine Appearance (CLEAR) Urine pH (5-6) Ur Specific [place] (1.005-1.025) POC Urine Protein Conf (Negative) Urine Ketones (NEGATIVE) Urine Nitrite (NEGATIVE) Urine Bilirubin (NEGATIVE) Urine Urobilinogen (0-1) mg/dL Urine Leukocytes (NEGATIVE) Urine WBC (Auto) (0-5) /HPF Urine RBC (Auto) (0-2) /HPF U Epithel Cells (Auto) (FEW) /HPF Urine Bacteria (Auto) (NEGATIVE) /HPF Urine RBC (0-5) Xu/ul Ur Culture Indicated? Urine Glucose (NEGATIVE) mg/dL Influenza Type A Ag (NEGATIVE) Influenza Type B Ag (NEGATIVE) RSV (PCR) (Negative) SARS-CoV-2 (PCR) (NEGATIVE) Radiology Exams: Radiology Procedures Category Date Time Status CHEST 1 VIEW (PORTABLE) Stat Exams 08/02/21 16:09 Completed Assessment/Plan (1) COPD exacerbation Current Visit: Yes Status: Acute Assessment & Plan: Chief Complaint Diagnosis COPD Allergies Allergy/AdvReac Type Severity Reaction Status Date / Time No Known Drug Allergies Allergy Verified 08/02/21 15:47 Vital Signs (Last 24 hours) Temp Pulse Resp BP Pulse Ox 08/03/21 16:00 97.7 F 95 H 23 111/65 99 08/03/21 14:40 96 H 20 97 08/03/21 12:00 96.9 F 106 H 21 125/79 97 08/03/21 10:50 96 H 20 94 L 08/03/21 07:43 98.4 F 93 H 22 105/67 93 L 08/03/21 06:57 89 20 94 L 08/03/21 04:00 97.8 F 103 H 22 107/57 93 L 08/03/21 03:48 95 H 20 92 L 08/03/21 00:38 92 H 20 95 08/03/21 00:00 97.1 F 98 H 20 112/64 95 08/02/21 20:01 108 H 20 92 L 08/02/21 19:59 98.7 F 112 H 28 H 120/77 95 08/02/21 19:35 102 H 20 106/78 95 08/02/21 18:41 108 H 18 108/78 97 Current Medications Generic Name Dose Route Start Last Admin Trade Name Freq PRN Reason Stop Dose Admin Acetaminophen 650 mg 08/02/21 19:39 Acetaminophen 325 Mg Tablet PO 09/01/21 19:38 Q4H PRN PRN PAIN AND/OR FEVER Albuterol/Ipratropium 3 ml 08/03/21 03:00 08/03/21 14:37 Ipratropium/Albuterol Sulfate 3 Ml Ampul.Neb IH 09/02/21 02:59 3 ml Q4HRT LIZETT Administration Alprazolam 0.5 mg 08/02/21 20:54 08/03/21 09:13 Alprazolam 0.5 Mg Tablet PO 09/01/21 20:53 0.5 mg TID PRN PRN Administration ANXIETY Aspirin 81 mg 08/03/21 10:00 08/03/21 09:13 Aspirin 81 Mg Tablet.Ec PO 09/02/21 09:59 81 mg DAILY LIZETT Administration Bumetanide 1 mg 08/03/21 10:00 08/03/21 09:13 Bumetanide 1 Mg Tablet PO 09/02/21 09:59 1 mg DAILY LIZETT Administration Celecoxib 100 mg 08/03/21 22:00 Celecoxib 100 Mg Capsule PO 09/02/21 21:59 BID LIZETT Methylprednisolone Sodium 0 mg 08/03/21 00:00 08/03/21 13:27 Succinate 60 mg/ Sterile Water IV 09/02/21 00:00 60 mg 2 ml Q6HT LIZETT Administration Enoxaparin Sodium 40 mg 08/03/21 10:00 08/03/21 09:13 Enoxaparin Sodium 40 Mg/0.4 Ml Syringe SQ 09/02/21 09:59 40 mg DAILY LIZETT Administration Azithromycin 500 mg in 250 mls @ 250 mls/hr 08/03/21 10:00 08/03/21 09:14 Zithromax 500 Mg/ 250 Ml Nacl Premix IV 09/02/21 09:59 250 mls/hr Q24H10 LIZETT Administration Ceftriaxone Sodium/Dextrose 1 g in 50 mls @ 100 mls/hr 08/03/21 10:00 08/03/21 09:14 Rocephin 1 Gm-D5w 50 Ml Bag IV 08/06/21 09:59 100 mls/hr Q24H10 LIZETT Administration Insulin Human Lispro 0 unit 08/02/21 19:39 Insulin Lispro 1 Unit SQ 09/01/21 19:38 UD PRN HYPERGLYCEMIA Loratadine 10 mg 08/03/21 10:00 08/03/21 09:13 Loratadine 10 Mg Tablet PO 09/02/21 09:59 10 mg DAILY LIZETT Administration Olanzapine 5 mg 08/03/21 10:00 08/03/21 09:13 Olanzapine 5 Mg Tab PO 09/02/21 09:59 5 mg DAILY LIZETT Administration Ondansetron HCl 4 mg 08/02/21 19:39 Ondansetron Hcl 4 Mg/2 Ml Vial IV 09/01/21 19:38 Q6H PRN PRN NAUSEA/VOMITING Pantoprazole Sodium 40 mg 08/03/21 10:00 08/03/21 09:13 Pantoprazole 40 Mg Vial IV 09/02/21 09:59 40 mg Q24H10 LIZETT Administration Pramipexole Dihydrochloride 1 mg 08/02/21 22:00 08/02/21 21:25 Pramipexole Di-Hcl 0.5 Mg Tab PO 09/01/21 21:59 1 mg HS LIZETT Administration Fluticasone/Salmeterol 2 puff 08/03/21 07:00 08/03/21 06:54 Fluticasone/Salmeterol - 120 Puff Common Canister 09/02/21 06:59 2 puff BIDRT LIZETT Administration Discontinued Medications Generic Name Dose Route Start Last Admin Trade Name Freq PRN Reason Stop Dose Admin Albuterol Sulfate 2 gm 08/02/21 22:00 Albuterol Sulfate 8 Gm Mdi Hfa 09/01/21 21:59 QID LIZETT Albuterol/Ipratropium Confirm 08/02/21 15:55 Ipratropium/Albuterol Sulfate 3 Ml Ampul.Neb Administered 08/02/21 15:56 Dose 3 ml IH .STK-MED ONE Albuterol/Ipratropium 3 ml 08/02/21 16:09 08/02/21 16:10 Ipratropium/Albuterol Sulfate 3 Ml Ampul.Neb 08/02/21 16:10 3 ml STAT ONE Administration Albuterol/Ipratropium 3 ml 08/02/21 16:08 08/02/21 19:58 Ipratropium/Albuterol Sulfate 3 Ml Ampul.Neb 08/02/21 16:09 Not Given STAT ONE Albuterol/Ipratropium Confirm 08/02/21 19:53 Ipratropium/Albuterol Sulfate 3 Ml Ampul.Neb Administered 08/02/21 19:54 Dose 3 ml IH .STK-MED ONE Albuterol/Ipratropium 3 ml 08/02/21 19:00 08/02/21 20:00 Ipratropium/Albuterol Sulfate 3 Ml Ampul.Neb IH 09/01/21 18:59 3 ml QIDRT LIZETT Administration Albuterol/Ipratropium Confirm 08/03/21 00:32 Ipratropium/Albuterol Sulfate 3 Ml Ampul.Neb Administered 08/03/21 00:33 Dose 3 ml IH .STK-MED ONE Celecoxib Confirm 08/02/21 21:20 Celecoxib 100 Mg Capsule Administered 08/02/21 21:21 Dose 100 mg .ROUTE .STK-MED ONE Celecoxib 100 mg 08/03/21 10:00 08/03/21 09:13 Celecoxib 100 Mg Capsule PO 09/02/21 09:59 100 mg DAILY LIZETT Administration Methylprednisolone Sodium 0 mg 08/02/21 16:08 08/02/21 16:30 Succinate 125 mg/ Sterile IV 08/02/21 16:09 125 mg Water 2 ml STAT ONE Administration Methylprednisolone Sodium 0 mg 08/02/21 19:39 Succinate 60 mg/ Sterile Water IV 09/01/21 19:38 2 ml Q6HT LIZETT Azithromycin 500 mg in 250 mls @ 250 mls/hr 08/02/21 16:08 08/02/21 18:44 Zithromax 500 Mg/ 250 Ml Nacl Premix IV 08/02/21 17:07 Infused STAT STA Infusion Ceftriaxone Sodium/Dextrose 2 g in 50 mls @ 100 mls/hr 08/02/21 16:10 08/02/21 17:40 Rocephin 2 Gm-D5w 50ml Bag IV 08/02/21 16:39 Infused STAT STA Infusion Azithromycin Confirm 08/02/21 16:26 Zithromax 500 Mg/ 250 Ml Nacl Premix Administered 08/02/21 16:27 Dose 500 mg in 250 mls @ ud IV .STK-MED ONE Ceftriaxone Sodium/Dextrose Confirm 08/02/21 16:26 Rocephin 2 Gm-D5w 50ml Bag Administered 08/02/21 16:27 Dose 2 g in 50 mls @ ud IV .STK-MED ONE Methylprednisolone Sodium Succinate Confirm 08/02/21 16:26 Methylprednis Sod Succ 125 Mg/2 Ml Vial Administered 08/02/21 16:27 Dose 125 mg .ROUTE .STK-MED ONE Methylprednisolone Sodium Succinate Confirm 08/02/21 23:35 Methylprednis Sod Succ 125 Mg/2 Ml Vial Administered 08/02/21 23:36 Dose 125 mg .ROUTE .STK-MED ONE Sterile Water Confirm 08/02/21 16:26 Water For Injection,Sterile 10 Ml Vial Administered 08/02/21 16:27 Dose 10 ml IJ .STK-MED ONE Sterile Water Confirm 08/02/21 23:36 Water For Injection,Sterile 10 Ml Vial Administered 08/02/21 23:37 Dose 10 ml IJ .STK-MED ONE Intake & Output (Last 24 hours) 08/01/21 08/02/21 08/03/21 08/04/21 11:59 11:59 11:59 11:59 Intake Total 1460 240 Output Total 850 1100 Balance 610 -860 Weight 104.5 kg Microbiology Results (Last 24 hours) 08/02/21 16:25 Blood Blood Culture Gram Stain - Pending 08/02/21 16:25 Blood Blood Culture - Pending 08/02/21 16:25 Blood Blood Culture Gram Stain - Pending 08/02/21 16:25 Blood Blood Culture - Pending Laboratory Results (Last 24 hours) 08/03/21 08/03/21 08/03/21 16:47 04:09 04:09 WBC 12.7 H RBC 5.11 Hgb 16.9 Hct 51.8 H MCV 101.4 H MCH 33.1 H MCHC 32.6 RDW 13.5 Plt Count 163 MPV 11.7 H Gran % 95.1 H Immature Gran % (Auto) 0.8 H Nucleat RBC Rel Count 0.0 Eos # (Auto) 0 Immature Gran # (Auto) 0.10 H Absolute Lymphs (auto) 0.39 L Absolute Monos (auto) 0.10 Absolute Nucleated RBC 0.00 Lymphocytes % 3.1 L Monocytes % 0.8 Eosinophils % 0.0 Basophils % 0.2 Absolute Granulocytes 12.11 H Basophils # 0.02 Sodium 138 Potassium 4.3 Chloride 104 Carbon Dioxide 31 H Anion Gap 8.2 BUN 12 Creatinine 0.82 Estimated GFR > 60.0 Glucose 153 H POC Glucometer 111 H Calcium 9.3 Total Bilirubin 0.50 AST 22 ALT 25 Alkaline Phosphatase 63 Troponin I Serum Total Protein 5.9 L Albumin 3.7 Urinalys Dipstick Clnc Urine Color Urine Appearance Urine pH Ur Specific [place] POC Urine Protein Conf Urine Ketones Urine Nitrite Urine Bilirubin Urine Urobilinogen Urine Leukocytes Urine WBC (Auto) Urine RBC (Auto) U Epithel Cells (Auto) Urine Bacteria (Auto) Urine RBC Ur Culture Indicated? Urine Glucose Influenza Type A Ag Influenza Type B Ag RSV (PCR) SARS-CoV-2 (PCR) 08/03/21 08/03/21 08/02/21 04:09 02:10 22:28 WBC RBC Hgb Hct MCV MCH MCHC RDW Plt Count MPV Gran % Immature Gran % (Auto) Nucleat RBC Rel Count Eos # (Auto) Immature Gran # (Auto) Absolute Lymphs (auto) Absolute Monos (auto) Absolute Nucleated RBC Lymphocytes % Monocytes % Eosinophils % Basophils % Absolute Granulocytes Basophils # Sodium Potassium Chloride Carbon Dioxide Anion Gap BUN Creatinine Estimated GFR Glucose POC Glucometer Calcium Total Bilirubin AST ALT Alkaline Phosphatase Troponin I < 0.012 < 0.012 < 0.012 Serum Total Protein Albumin Urinalys Dipstick Clnc Urine Color Urine Appearance Urine pH Ur Specific [place] POC Urine Protein Conf Urine Ketones Urine Nitrite Urine Bilirubin Urine Urobilinogen Urine Leukocytes Urine WBC (Auto) Urine RBC (Auto) U Epithel Cells (Auto) Urine Bacteria (Auto) Urine RBC Ur Culture Indicated? Urine Glucose Influenza Type A Ag Influenza Type B Ag RSV (PCR) SARS-CoV-2 (PCR) 08/02/21 08/02/21 08/02/21 21:45 19:02 17:42 WBC RBC Hgb Hct MCV MCH MCHC RDW Plt Count MPV Gran % Immature Gran % (Auto) Nucleat RBC Rel Count Eos # (Auto) Immature Gran # (Auto) Absolute Lymphs (auto) Absolute Monos (auto) Absolute Nucleated RBC Lymphocytes % Monocytes % Eosinophils % Basophils % Absolute Granulocytes Basophils # Sodium Potassium Chloride Carbon Dioxide Anion Gap BUN Creatinine Estimated GFR Glucose POC Glucometer Calcium Total Bilirubin AST ALT Alkaline Phosphatase Troponin I < 0.012 Serum Total Protein Albumin Urinalys Dipstick Clnc MAIN LAB Urine Color YELLOW Urine Appearance CLEAR Urine pH 6.0 Ur Specific [place] >=1.030 POC Urine Protein Conf NEGATIVE Urine Ketones NEGATIVE Urine Nitrite NEGATIVE Urine Bilirubin NEGATIVE Urine Urobilinogen 0.2 Urine Leukocytes NEGATIVE Urine WBC (Auto) NONE Urine RBC (Auto) NONE U Epithel Cells (Auto) NONE Urine Bacteria (Auto) NONE Urine RBC NEGATIVE Ur Culture Indicated? NO Urine Glucose NEGATIVE Influenza Type A Ag NEGATIVE Influenza Type B Ag NEGATIVE RSV (PCR) NEGATIVE SARS-CoV-2 (PCR) NEGATIVE Orders (Last 24 hours) Category Date Time Status Bedrest ROUTINE Activity 08/02/21 19:39 Active Up With Assistance ROUTINE Activity 08/02/21 19:39 Active Code Status Order ROUTINE Care 08/02/21 19:39 Active Fall Protocol Q1H Care 08/02/21 19:39 Active IV Care Q6H Care 08/02/21 19:39 Active POCT Glucose Check ACHS Care 08/03/21 12:[address] in Observation ROUTINE Care 08/02/21 19:39 Active [place]wan Chris[place] ROUTINE Care 08/02/21 19:39 Active Weight,Daily 0600 Care 08/02/21 19:39 Active House Regular Diet Diet 08/03/21 Lunch Active CBC AM.LAB Lab 08/04/21 04:00 Ordered CBC W DIFF AM.LAB Lab 08/03/21 04:09 Completed CMP AM.LAB Lab 08/03/21 04:09 Completed COVID/FLU/RSV Panel Stat Lab 08/02/21 17:42 Completed POCT GLUCOSE Stat Lab 08/03/21 16:47 Completed TROPONIN Q3H Lab 08/02/21 19:02 Completed TROPONIN Q3H Lab 08/02/21 22:28 Completed TROPONIN Q3H Lab 08/03/21 02:10 Completed TROPONIN Q3H Lab 08/03/21 04:09 Completed UA W/RFX CULTURE Stat Lab 08/02/21 21:45 Completed ALPRAZolam 0.5 MG [xanAX 0.5 MG] Med 08/02/21 20:54 Active 0.5 mg PO TID PRN PRN Acetaminophen 325 mg [Tylenol 325 mg] Med 08/02/21 19:39 Active 650 mg PO Q4H PRN PRN Albuterol 8 gm Mdi Hfa [Ventolin Hfa MDI] Med 08/02/21 22:00 Discontinued 2 gm IH QID Albuterol/Ipratropium 3ml Neb* [DUONEB 0.5-3 MG/3 ml Med 08/02/21 19:53 D iscontinued Neb] 3 ml IH .STK-MED ONE Albuterol/Ipratropium 3ml Neb* [DUONEB 0.5-3 MG/3 ml Med 08/03/21 00:32 Discontinued Neb] 3 ml IH .STK-MED ONE Albuterol/Ipratropium 3ml Neb* [DUONEB 0.5-3 MG/3 ml Med 08/03/21 03:00 Active Neb] 3 ml IH Q4HRT Albuterol/Ipratropium 3ml Neb* [DUONEB 0.5-3 MG/3 ml Med 08/02/21 19:00 Discontinued Neb] 3 ml IH QIDRT Aspirin EC 81 mg [Ecotrin 81 mg] Med 08/03/21 10:00 Active 81 mg PO DAILY Azithromycin 500 mg/250 ml [Zithromax 500 MG/ 250 ML Med 08/03/21 10:00 Active NaCl Premix] 500 mg in 250 ml IV Q24H10 Bumetanide 1 mg [Bumex 1 mg] Med 08/03/21 10:00 Active 1 mg PO DAILY Ceftriaxone 1 GM/50 ML PREMIX* [ROCEPHIN 1 Gm-D5w 50 ml Med 08/03/21 10:00 Active Bag] 1 g in 50 ml IV Q24H10 Celecoxib 100 mg [celeBREX 100 MG] Med 08/02/21 21:20 Discontinued 100 mg .ROUTE .STK-MED ONE Celecoxib 100 mg [celeBREX 100 MG] Med 08/03/21 22:00 Active 100 mg PO BID Celecoxib 100 mg [celeBREX 100 MG] Med 08/03/21 10:00 Discontinued 100 mg PO DAILY Enoxaparin Sodium [Enoxaparin Sodium] Med 08/03/21 10:00 Active 40 mg SQ DAILY Fluticasone/Salmeterol 115/21 [Advair Hfa 115/21 Common Med 08/03/21 07:00 Active canister*] 2 puff IH BIDRT Insulin Lispro [Humalog] Med 08/02/21 19:39 Active See Dose Instructions SQ UD PRN Loratadine 10 mg [Claritin 10 mg] Med 08/03/21 10:00 Active 10 mg PO DAILY Methylprednis Sod Succ 125 mg* [solu-MEDROL] Med 08/02/21 23:35 Discontinued 125 mg .ROUTE .STK-MED ONE Methylprednis Sod Succ 125 mg* [solu-MEDROL] 60 mg Med 08/02/21 19:39 Discontinued Water For Injection,Sterile [Sterile H2O 10 ml] 2 ml IV Q6HT Methylprednis Sod Succ 125 mg* [solu-MEDROL] 60 mg Med 08/03/21 00:00 Active Water For Injection,Sterile [Sterile H2O 10 ml] 2 ml IV Q6HT Olanzapine 5 mg [zyPREXA 5MG TABLET] Med 08/03/21 10:00 Active 5 mg PO DAILY Ondansetron HCl 4 mg/2 ml [Zofran 4 MG/2 ML VIAL] Med 08/02/21 19:39 Active 4 mg IV Q6H PRN PRN Pantoprazole 40 mg [Protonix 40 mg IV] Med 08/03/21 10:00 Active 40 mg IV Q24H10 Pramipexole Di-HCl 0.5 mg [Mirapex 0.5 MG Tablet] Med 08/02/21 22:00 Active 1 mg PO HS Water For Injection,Sterile [Sterile H2O 10 ml] Med 08/02/21 23:36 Discontinued 10 ml IJ .STK-MED ONE Oxygen Nasal Cannula 3 lpm RT 08/02/21 19:39 Active Pulse Oximetry .spot check RT 08/02/21 20:00 Active Patient Care Notes (Last 24 hours) 08/03/21 12:24 Nursing Note by Tanja Lam ROUNDED ON PT WITH DR. SOW AT THIS TIME. RECEIVED THE FOLLOWING ORDERS: CHANGE TO REGULAR DIET, INCREASE CELEBREX TO BID RATHER THAN QD, CBC TOMORROW AM, AND POCT ACHS DUE TO SOLU-MEDROL. MD STATES PT WILL LIKELY BE DISCHARGED HOME TOMORROW. Initialized on 08/03/21 12:24 - END OF NOTE 08/03/21 02:15 Nursing Note by Nina Pham Dr. here to see patient. Ordered breathing treatments every 4 hours. Plan of care discussed. Initialized on 08/03/21 02:15 - END OF NOTE Code(s): J44.1 - CHRONIC OBSTRUCTIVE PULMONARY DISEASE W (ACUTE) EXACERBATION
[2021-08-03] MEDS: Mirapex 0.5 MG Tablet PO SCH (21:11)
[2021-08-04] MEDS: DUONEB 0.5-3 MG/3 ml Neb IH SCH ×3 (02:11→11:41)
[2021-08-04 04:32] LABS: Hematocrit 47.6 % (42-50); Hemoglobin 15.6 g/dL (12.5-18.0); Mean Cell Volume 102.4 fL (78-100); Mean Corpuscular Hemoglobin 33.5 pg (26-32); Mean Corpuscular Hgb Concent. 32.8 g/dL (32-36); Mean Platelet Volume 10.6 fL (7.5-11.0); Platelet Count 153 x10^3/uL (150-450); Red Blood Count 4.65 x10^6/uL (4.1-5.6); Red Cell Distribution Width 13.3 % (11.5-14.0); White Blood Count 22.5 x10^3/uL (4.0-10.5)
[2021-08-04] MEDS ORDERED: solu-MEDROL ONE (05:59)
[2021-08-04] MEDS: solu-MEDROL 60 MG, Sterile H2O 10 ml 2 ML IV SCH ×2 (06:27)
[2021-08-04] MEDS: Advair Hfa 115/21 Common canister IH SCH (07:10)
[2021-08-04] MEDS: ROCEPHIN 1 Gm-D5w 50 ml Bag** 1 G/50 ML IVPB IV SCH (08:34)
[2021-08-04] MEDS: PROTONIX 40 MG IV IV SCH (08:34)
[2021-08-04] MEDS: BUMEX 1 MG PO SCH (08:35)
[2021-08-04] MEDS: ENOXAPARIN SODIUM SQ SCH (08:35)
[2021-08-04] MEDS: zyPREXA 5MG TABLET PO SCH (08:35)
[2021-08-04] MEDS: celeBREX 100 MG PO SCH (08:35)
[2021-08-04] MEDS: ECOTRIN 81 MG PO SCH (08:35)
[2021-08-04] MEDS: Zithromax 500 MG/ 250 ML NaCl Premix 500 MG/250 ML IVPB IV SCH (08:35)
[2021-08-04] MEDS: CLARITIN 10 MG PO SCH (08:35)
--- NOTE | 2021-08-04 10:34 | PCM.DS ---
Discharge Summary Date of Admission: 08/02/21 19:38 Admitting Physician: UMESH KEITH DO Primary Care Provider: AG SOW Allergies Allergies No Known Drug Allergies Allergy (Verified 08/02/21 15:47) Hospital Summary - Hospital Course Hospital Course: Chief Complaint Diagnosis COPD Allergies Allergy/AdvReac Type Severity Reaction Status Date / Time No Known Drug Allergies Allergy Verified 08/02/21 15:47 Vital Signs (Last 24 hours) Temp Pulse Resp BP Pulse Ox 08/04/21 07:41 97.9 F 78 16 105/65 97 08/04/21 07:12 78 16 97 08/04/21 04:00 98.4 F 95 H 13 115/64 95 08/04/21 02:11 81 20 96 08/03/21 23:48 98.2 F 80 16 103/68 97 08/03/21 22:31 85 20 95 08/03/21 19:55 98.4 F 97 H 22 104/55 94 L 08/03/21 18:28 105 H 24 93 L 08/03/21 16:00 97.7 F 95 H 23 111/65 99 08/03/21 14:40 96 H 20 97 08/03/21 12:00 96.9 F 106 H 21 125/79 97 08/03/21 10:50 96 H 20 94 L Current Medications Generic Name Dose Route Start Last Admin Trade Name Freq PRN Reason Stop Dose Admin Acetaminophen 650 mg 08/02/21 19:39 Acetaminophen 325 Mg Tablet PO 09/01/21 19:38 Q4H PRN PRN PAIN AND/OR FEVER Albuterol/Ipratropium 3 ml 08/03/21 03:00 08/04/21 07:10 Ipratropium/Albuterol Sulfate 3 Ml Ampul.Neb IH 09/02/21 02:59 3 ml Q4HRT LIZETT Administration Alprazolam 0.5 mg 08/02/21 20:54 08/03/21 21:12 Alprazolam 0.5 Mg Tablet PO 09/01/21 20:53 0.5 mg TID PRN PRN Administration ANXIETY Aspirin 81 mg 08/03/21 10:00 08/04/21 08:35 Aspirin 81 Mg Tablet.Ec PO 09/02/21 09:59 81 mg DAILY LIZETT Administration Bumetanide 1 mg 08/03/21 10:00 08/04/21 08:35 Bumetanide 1 Mg Tablet PO 09/02/21 09:59 1 mg DAILY LIZETT Administration Celecoxib 100 mg 08/03/21 22:00 08/04/21 08:35 Celecoxib 100 Mg Capsule PO 09/02/21 21:59 100 mg BID LIZETT Administration Methylprednisolone Sodium 0 mg 08/03/21 00:00 08/04/21 06:27 Succinate 60 mg/ Sterile Water IV 09/02/21 00:00 60 mg 2 ml Q6HT LIZETT Administration Enoxaparin Sodium 40 mg 08/03/21 10:00 08/04/21 08:35 Enoxaparin Sodium 40 Mg/0.4 Ml Syringe SQ 09/02/21 09:59 40 mg DAILY LIZETT Administration Azithromycin 500 mg in 250 mls @ 250 mls/hr 08/03/21 10:00 08/04/21 08:35 Zithromax 500 Mg/ 250 Ml Nacl Premix IV 09/02/21 09:59 250 mls/hr Q24H10 LIZETT Administration Ceftriaxone Sodium/Dextrose 1 g in 50 mls @ 100 mls/hr 08/03/21 10:00 08/04/21 08:34 Rocephin 1 Gm-D5w 50 Ml Bag IV 08/06/21 09:59 100 mls/hr Q24H10 LIZETT Administration Insulin Human Lispro 0 unit 08/02/21 19:39 Insulin Lispro 1 Unit SQ 09/01/21 19:38 UD PRN HYPERGLYCEMIA Loratadine 10 mg 08/03/21 10:00 08/04/21 08:35 Loratadine 10 Mg Tablet PO 09/02/21 09:59 10 mg DAILY LIZETT Administration Olanzapine 5 mg 08/03/21 10:00 08/04/21 08:35 Olanzapine 5 Mg Tab PO 09/02/21 09:59 5 mg DAILY LIZETT Administration Ondansetron HCl 4 mg 08/02/21 19:39 Ondansetron Hcl 4 Mg/2 Ml Vial IV 09/01/21 19:38 Q6H PRN PRN NAUSEA/VOMITING Pantoprazole Sodium 40 mg 08/03/21 10:00 08/04/21 08:34 Pantoprazole 40 Mg Vial IV 09/02/21 09:59 40 mg Q24H10 LIZETT Administration Pramipexole Dihydrochloride 1 mg 08/02/21 22:00 08/03/21 21:11 Pramipexole Di-Hcl 0.5 Mg Tab PO 09/01/21 21:59 1 mg HS LIZETT Administration Fluticasone/Salmeterol 2 puff 08/03/21 07:00 08/04/21 07:10 Fluticasone/Salmeterol 115/21 - 120 Puff Common Canister 09/02/21 06:59 2 puff BIDRT LIZETT Administration Discontinued Medications Generic Name Dose Route Start Last Admin Trade Name Delroyq PRN Reason Stop Dose Admin Albuterol Sulfate 2 gm 08/02/21 22:00 Albuterol Sulfate 8 Gm Mdi Hfa 09/01/21 21:59 QID LIZETT Albuterol/Ipratropium Confirm 08/02/21 15:55 Ipratropium/Albuterol Sulfate 3 Ml Ampul.Neb Administered 08/02/21 15:56 Dose 3 ml IH .STK-MED ONE Albuterol/Ipratropium 3 ml 08/02/21 16:09 08/02/21 16:10 Ipratropium/Albuterol Sulfate 3 Ml Ampul.Neb 08/02/21 16:10 3 ml STAT ONE Administration Albuterol/Ipratropium 3 ml 08/02/21 16:08 08/02/21 19:58 Ipratropium/Albuterol Sulfate 3 Ml Ampul.Neb 08/02/21 16:09 Not Given STAT ONE Albuterol/Ipratropium Confirm 08/02/21 19:53 Ipratropium/Albuterol Sulfate 3 Ml Ampul.Neb Administered 08/02/21 19:54 Dose 3 ml IH .STK-MED ONE Albuterol/Ipratropium 3 ml 08/02/21 19:00 08/02/21 20:00 Ipratropium/Albuterol Sulfate 3 Ml Ampul.Neb 09/01/21 18:59 3 ml QIDRT LIZETT Administration Albuterol/Ipratropium Confirm 08/03/21 00:32 Ipratropium/Albuterol Sulfate 3 Ml Ampul.Neb Administered 08/03/21 00:33 Dose 3 ml IH .STK-MED ONE Celecoxib Confirm 08/02/21 21:20 Celecoxib 100 Mg Capsule Administered 08/02/21 21:21 Dose 100 mg .ROUTE .STK-MED ONE Celecoxib 100 mg 08/03/21 10:00 08/03/21 09:13 Celecoxib 100 Mg Capsule PO 09/02/21 09:59 100 mg DAILY LIZETT Administration Methylprednisolone Sodium 0 mg 08/02/21 16:08 08/02/21 16:30 Succinate 125 mg/ Sterile IV 08/02/21 16:09 125 mg Water 2 ml STAT ONE Administration Methylprednisolone Sodium 0 mg 08/02/21 19:39 Succinate 60 mg/ Sterile Water IV 09/01/21 19:38 2 ml Q6HT LIZETT Azithromycin 500 mg in 250 mls @ 250 mls/hr 08/02/21 16:08 08/02/21 18:44 Zithromax 500 Mg/ 250 Ml Nacl Premix IV 08/02/21 17:07 Infused STAT STA Infusion Ceftriaxone Sodium/Dextrose 2 g in 50 mls @ 100 mls/hr 08/02/21 16:10 08/02/21 17:40 Rocephin 2 Gm-D5w 50ml Bag IV 08/02/21 16:39 Infused STAT STA Infusion Azithromycin Confirm 08/02/21 16:26 Zithromax 500 Mg/ 250 Ml Nacl Premix Administered 08/02/21 16:27 Dose 500 mg in 250 mls @ ud IV .STK-MED ONE Ceftriaxone Sodium/Dextrose Confirm 08/02/21 16:26 Rocephin 2 Gm-D5w 50ml Bag Administered 08/02/21 16:27 Dose 2 g in 50 mls @ ud IV .STK-MED ONE Methylprednisolone Sodium Succinate Confirm 08/02/21 16:26 Methylprednis Sod Succ 125 Mg/2 Ml Vial Administered 08/02/21 16:27 Dose 125 mg .ROUTE .STK-MED ONE Methylprednisolone Sodium Succinate Confirm 08/02/21 23:35 Methylprednis Sod Succ 125 Mg/2 Ml Vial Administered 08/02/21 23:36 Dose 125 mg .ROUTE .STK-MED ONE Methylprednisolone Sodium Succinate Confirm 08/04/21 05:59 Methylprednis Sod Succ 125 Mg/2 Ml Vial Administered 08/04/21 06:00 Dose 125 mg .ROUTE .STK-MED ONE Sterile Water Confirm 08/02/21 16:26 Water For Injection,Sterile 10 Ml Vial Administered 08/02/21 16:27 Dose 10 ml IJ .STK-MED ONE Sterile Water Confirm 08/02/21 23:36 Water For Injection,Sterile 10 Ml Vial Administered 08/02/21 23:37 Dose 10 ml IJ .STK-MED ONE Intake & Output (Last 24 hours) 08/01/21 08/02/21 08/03/21 08/04/21 11:59 11:59 11:59 11:59 Intake Total 1460 2580 Output Total 018 3325 Balance 610 -745 Weight 104.5 kg Laboratory Results (Last 24 hours) 08/04/21 08/03/21 08/03/21 04:25 21:14 16:47 WBC 22.5 H RBC 4.65 Hgb 15.6 Hct 47.6 MCV 102.4 H MCH 33.5 H MCHC 32.8 RDW 13.3 Plt Count 153 MPV 10.6 POC Glucometer 155 H 111 H Orders (Last 24 hours) Category Date Time Status POCT Glucose Check ACHS Care 08/03/21 12:27 Active House Regular Diet Diet 08/03/21 Lunch Active CBC AM.LAB Lab 08/04/21 04:25 Completed POCT GLUCOSE Stat Lab 08/03/21 16:47 Completed POCT GLUCOSE Stat Lab 08/03/21 21:14 Completed Aspirin EC 81 mg [Ecotrin 81 mg] Med 08/03/21 10:00 Active 81 mg PO DAILY Azithromycin 500 mg/250 ml [Zithromax 500 MG/ 250 ML Med 08/03/21 10:00 Active NaCl Premix] 500 mg in 250 ml IV Q24H10 Bumetanide 1 mg [Bumex 1 mg] Med 08/03/21 10:00 Active 1 mg PO DAILY Ceftriaxone 1 GM/50 ML PREMIX* [ROCEPHIN 1 Gm-D5w 50 ml Med 08/03/21 10:00 Active Bag] 1 g in 50 ml IV Q24H10 Celecoxib 100 mg [celeBREX 100 MG] Med 08/03/21 22:00 Active 100 mg PO BID Celecoxib 100 mg [celeBREX 100 MG] Med 08/03/21 10:00 Discontinued 100 mg PO DAILY Enoxaparin Sodium [Enoxaparin Sodium] Med 08/03/21 10:00 Active 40 mg SQ DAILY Loratadine 10 mg [Claritin 10 mg] Med 08/03/21 10:00 Active 10 mg PO DAILY Methylprednis Sod Succ 125 mg* [solu-MEDROL] Med 08/04/21 05:59 Discontinued 125 mg .ROUTE .STK-MED ONE Olanzapine 5 mg [zyPREXA 5MG TABLET] Med 08/03/21 10:00 Active 5 mg PO DAILY Pantoprazole 40 mg [Protonix 40 mg IV] Med 08/03/21 10:00 Active 40 mg IV Q24H10 Patient Care Notes (Last 24 hours) 08/04/21 08:39 Case Management Note by Kristina Sosa PATIENT CONTINUES TO DENY ANY NEW NEEDS AT TIME OF DC. 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 HE ALREADY HAS HOME OXYGEN AND REPORTS IT IS ALL IN GOOD CONDITION Initialized on 08/04/21 08:39 - END OF NOTE 08/03/21 12:24 Nursing Note by Tanja Lam ROUNDED ON PT WITH DR. SOW AT THIS TIME. RECEIVED THE FOLLOWING ORDERS: CHANGE TO REGULAR DIET, INCREASE CELEBREX TO BID RATHER THAN QD, CBC TOMORROW AM, AND POCT ACHS DUE TO SOLU-MEDROL. MD STATES PT WILL LIKELY BE DISCHARGED HOME TOMORROW. Initialized on 08/03/21 12:24 - END OF NOTE - Vitals & Intake/Output Vital Signs: Vital Signs Temperature 97.9 F 08/04/21 07:41 Pulse Rate 78 08/04/21 07:41 Respiratory Rate 16 08/04/21 07:41 Blood Pressure 105/65 08/04/21 07:41 O2 Sat by Pulse Oximetry 97 08/04/21 07:41 Intake & Output: Intake & Output 08/01/21 08/02/21 08/03/21 08/04/21 11:59 11:59 11:59 11:59 Intake Total 1460 2580 Output Total 025 3325 Balance 610 -745 Weight 104.5 kg - Lab Result Diagrams: 08/04/21 04:25 08/03/21 04:09 Lab Results-Last 24 Hrs: Lab Results-Last 24 Hours 08/03/21 08/03/21 08/04/21 Range/Units 16:47 21:14 04:25 WBC 22.5 H (4.0-10.5) x10^3/uL RBC 4.65 (4.1-5.6) x10^6/uL Hgb 15.6 (12.5-18.0) g/dL Hct 47.6 (42-50) % MCV 102.4 H (78-100) fL MCH 33.5 H (26-32) pg MCHC 32.8 (32-36) g/dL RDW 13.3 (11.5-14.0) % Plt Count 153 (150-450) x10^3/uL MPV 10.6 (7.5-11.0) fL POC Glucometer 111 H 155 H (74 to 106) mg/dL Micro Results-Entire Visit: Accuchecks Date 08/04/21 Date 08/03/21 Date 08/03/21 Time 07:21 - Radiology Exams Ordered Rad Exams-Entire Visit: Radiology Procedures Category Date Time Status CHEST 1 VIEW (PORTABLE) Stat Exams 08/02/21 16:09 Completed - Procedures and Test Procedures and Tests throughout Hospitalization: Therapy Orders & Screens 08/02/21 16:10 Respiratory Therapy Assessment DAILY Comment: 08/02/21 19:39 Oxygen Nasal Cannula 3 lpm Comment: Discharge Exam General Appearance: no apparent distress, alert Neurologic Exam: alert, oriented x 3, cooperative, normal mood/affect, nml cerebellar function, sensation nml, No motor deficits Eye Exam: PERRL, EOMI, eyes nml inspection Ears, Nose, Throat Exam: normal ENT inspection, pharynx normal, moist mucous membranes Neck Exam: normal inspection, non-tender, supple, full range of motion Respiratory Exam: normal breath sounds, lungs clear, No respiratory distress Cardiovascular Exam: regular rate/rhythm, normal heart sounds Gastrointestinal/Abdomen Exam: soft, No tenderness, No mass Male Genitalia Exam: deferred Rectal Exam: deferred Back Exam: normal inspection, normal range of motion, No CVA tenderness, No vertebral tenderness Extremity Exam: normal inspection, normal range of motion Skin Exam: normal color, warm, dry Final Diagnosis/Problem List - Final Discharge Diagnosis/Problem (1) COPD exacerbation Current Visit: Yes Status: Resolved Code(s): J44.1 - CHRONIC OBSTRUCTIVE PULMONARY DISEASE W (ACUTE) EXACERBATION - Discharge Discharge Date: 08/04/21 Disposition: Home, Self-Care Condition: Stable Prescriptions: New Azithromycin 500 mg PO DAILY #3 tablet Continue Prednisone 10 mg [Deltasone 10 mg] 10 mg PO DAILY Levocetirizine Dihydrochloride 5 mg PO DAILY Bumetanide 1 mg PO DAILY ALPRAZolam 0.5 MG [xanAX 0.5 MG] 0.5 mg PO TID PRN PRN Reason: Anxiety Albuterol Sulfate [Albuterol Sulfate Hfa] 2 puffs IH QID Ipratropium/Albuterol Sulfate [Iprat-Albut 0.5-3(2.5) mg/3 ml] 1 ampul IH QID Fluticasone/Umeclidin/Vilanter [Trelegy Ellipta 100-62.5-25] 1 puff IH DAILY Pramipexole Di-HCl [Mirapex] 1 mg PO HS Aspirin 81 mg PO DAILY Celecoxib [Celebrex] 100 mg PO DAILY OLANZapine [Zyprexa] 5 mg PO DAILY Follow up with: AG SOW MD [Primary Care Provider] - 7 Days
[2021-08-04 11:43] VITALS: BP 121/72; PULSE 99; O2SAT 96
== END 2021-08-04 11:57 | disposition home or self-care (01) ==
LOC: ED 15:42 → MED SURG 19:38
PROVIDERS: ADMIT Family Medicine; ATTEND General Practice
DX: J44.1 Chronic obstructive pulmonary disease with (acute) exacerbation (principal); F31.9 Bipolar disorder, unspecified; F17.200 Nicotine dependence, unspecified, uncomplicated; R60.9 Edema, unspecified; Z79.899 Other long term (current) drug therapy; Z20.828 Contact with and (suspected) exposure to other viral communicable diseases; Z99.81 Dependence on supplemental oxygen
CPT/HCPCS: 0241U; 36000; 36415; 71045; 80053; 81015; 82947; 83735; 83880; 84484; 85025; 85027; 87040; 93005; 93041; 93268; 94640; 94760; 96365; 96374; 99285; G0378; J0456; J0696; J1650; J2930; A9270-GY

== ENCOUNTER 2022-02-06 18:54 | Observation (INO) | payer MEDICARE ==
[2022-02-06] MEDS ORDERED: solu-MEDROL 125 MG, Sterile H2O 10 ml 2 ML IV ONE ×2 (19:38)
[2022-02-06] MEDS ORDERED: DUONEB 0.5-3 MG/3 ml Neb IH ONE ×2 (19:38→19:48)
--- NOTE | 2022-02-06 19:51 | ERPHSYRPT ---
- History of Present Illness Time Seen by Provider: 02/06/22 18:57 Source: patient Exam Limitations: no limitations Patient Subjective Stated Complaint: pt states he has been feeling unwell for last few days. has been incresingly short of breath today Triage Nursing Assessment: pt alert and oriented, answers questions approp. pt ambulatory with steady gait noted. respirations nonlabored. lungs diminished bilat. skin warm and dry. occasional moist cough noted. Physician History: 56-year-old male with chronic respiratory failure secondary to COPD on 3 L oxygen, tobacco abuse, anxiety, congestive heart failure presented in the ER with chief complaint of increasing shortness of breath for last 3 to 4 days with progressive worsening. Patient reports having shortness of breath initially with activity and now having shortness of breath even resting despite using oxygen. Has been having increased wheezing and cough productive of yellow-green sputum with generalized chest tightness. No fever or chills reported. Denies any sick contact. Does have chronic lower extremity swelling which is not any worse than usual. Timing/Duration: day(s) (3), constant, gradual onset, worse Activities at Onset: activity Severity of Dyspnea-Max: moderate Severity of Dyspnea-Current: moderate Possible Cause: unknown cause Modifying Factors: Worsens With: coughing, exertion Associated Symptoms: cough, chest pain/discomfort, wheezing, heaviness, tigh tness, No edema, No fever Allergies/Adverse Reactions: No Known Drug Allergies Allergy (Verified 02/06/22 19:25) Home Medications: ALPRAZolam 0.5 MG [xanAX 0.5 MG] 0.5 mg PO TID PRN 11/19/19 [History] Albuterol Sulfate [Albuterol Sulfate Hfa] 2 puffs IH QID 11/19/19 [History] Bumetanide 1 mg PO DAILY 11/19/19 [History] Levocetirizine Dihydrochloride 5 mg PO DAILY 11/19/19 [History] Prednisone 10 mg [Deltasone 10 mg] 10 mg PO BID 11/19/19 [History] Fluticasone/Umeclidin/Vilanter [Trelegy Ellipta 100-62.5-25] 1 puff IH DAILY 12/12/19 [History] Aspirin 81 mg PO DAILY 02/13/20 [History] Pramipexole Di-HCl [Mirapex] 1 mg PO HS 02/13/20 [History] Celecoxib [Celebrex] 100 mg PO BID 04/03/21 [History] OLANZapine [Zyprexa] 5 mg PO DAILY 04/03/21 [History] Fluticasone/Umeclidin/Vilanter [Trelegy Ellipta 200-62.5-25] 1 each IH BID 02/06/22 [History] Hx Tetanus, Diphtheria Vaccination/Date Given: Yes Hx Influenza Vaccination/Date Given: No Hx Pneumococcal Vaccination/Date Given: No Immunizations Up to Date: Yes Travel Risk - International Travel Have you traveled outside of the country in past 3 weeks: No - Coronavirus Screening Are you exhibiting any of the following symptoms?: No Close contact with a COVID-19 positive Pt in past 14-21 Days: No - Vaccine Status Have you recieved a Covid-19 vaccination: No - Review of Systems Constitutional: Fatigue Eyes: No Symptoms Ears, Nose, & Throat: No Symptoms Respiratory: Cough, Dyspnea, Dyspnea on Exertion (JAIN), Wheezing Cardiac: Edema Abdominal/Gastrointestinal: No Symptoms Genitourinary Symptoms: No Symptoms Musculoskeletal: Arthralgias Neurological: No Symptoms Psychological: No Symptoms Endocrine: No Symptoms Hematologic/Lymphatic: No Symptoms Immunological/Allergic: No Symptoms - Past Medical History Pertinent Past Medical History: Yes Neurological History: No Pertinent History ENT History: No Pertinent History Cardiac History: No Pertinent History Respiratory History: CHF, COPD, Pneumonia, Sleep Apnea Endocrine Medical History: No Pertinent History Musculoskeletal History: No Pertinent History GI Medical History: No Pertinent History History: No Pertinent History Psycho-Social History: No Pertinent History Male Reproductive Disorders: No Pertinent History Other Medical History: chronic lower leg cellulitis. wears 3 L NC at all times - Past Surgical History Past Surgical History: No Neuro Surgical History: No Pertinent History Cardiac: No Pertinent History Respiratory: No Pertinent History Gastrointestinal: No Pertinent History Genitourinary: No Pertinent History Musculoskeletal: No Pertinent History Male Surgical History: No Pertinent History - Social History Smoking Status: Current every day smoker How long have you smoked: 50 years Exposure to second hand smoke: No Drug Use: none Patient Lives Alone: Yes (nephew staying with) - Nursing Vital Signs Nursing Vital Signs: Initial Vital Signs Temperature 98.2 F 02/06/22 19:14 Pulse Rate 110 H 02/06/22 19:14 Respiratory Rate 20 02/06/22 19:14 Blood Pressure 115/91 02/06/22 19:14 O2 Sat by Pulse Oximetry 98 02/06/22 19:14 Pain Scale Pain Intensity 3 - Physical Exam General Appearance: mild distress, alert Eye Exam: PERRL/EOMI, eyes nml inspection Ears, Nose, Throat Exam: hearing grossly normal, pharyngeal erythema Neck Exam: normal inspection, supple, full range of motion Respiratory Exam: diminished breath sounds, rhonchi, wheezing Cardiovascular/Chest Exam: normal heart sounds, tachycardia Abdominal/Gastrointestinal Exam: soft, normal bowel sounds Extremity Exam: non-tender, normal range of motion Neurologic Exam: alert, oriented x 3, cooperative Skin Exam: normal color SpO2 Interpretation: O2 applied SpO2: 98 O2 Delivery: Nasal Cannula - Course EKG Interpreted by Me: RATE, Sinus Rhythm, NORMAL AXIS, NORMAL INTERVALS, Q- wave, Non-specific ST Changes Ordered Tests: Active Orders 24 hr Category Date Time Status Utilization Review Rn STAT Care 02/06/22 19:38 Active EKG-ER Only STAT Care 02/06/22 19:38 Active IV Insertion STAT Care 02/06/22 19:38 Active Oxygen-ED Only Nasal Cannula 3 lpm Care 02/06/22 19:38 Active CHEST 1 VIEW (PORTABLE) Stat Exams 02/06/22 19:38 Taken BLOOD CULTURE Stat Lab 02/06/22 20:24 Received CBC W DIFF Stat Lab 02/06/22 20:24 Completed CMP Stat Lab 02/06/22 20:24 Completed Lactic Acid Stat Lab 02/06/22 20:17 Completed MAGNESIUM Stat Lab 02/06/22 20:24 Completed NT PRO BNP Stat Lab 02/06/22 20:24 Completed PROCALCITONIN Stat Lab 02/06/22 20:24 Received TROPONIN Q4H Lab 02/06/22 20:24 Completed TROPONIN Q4H Lab 02/06/22 23:45 Ordered TROPONIN Q4H Lab 02/07/22 03:45 Ordered Respiratory Therapy Assessment DAILY RT 02/06/22 20:25 Active Transfer Order Routine Transfer 02/06/22 Ordered Medication Summary Generic Name Dose Route Start Last Admin Trade Name Freq PRN Reason Stop Dose Admin Ceftriaxone Sodium/Dextrose 2 g in 50 mls @ 100 mls/hr 02/06/22 20:42 Rocephin 2 Gm-D5w 50ml Bag IV 02/06/22 21:11 STAT STA Azithromycin 500 mg in 250 mls @ 250 mls/hr 02/06/22 20:42 Zithromax 500 Mg/ 250 Ml Nacl Premix IV 02/06/22 21:41 STAT STA Discontinued Medications Generic Name Dose Route Start Last Admin Trade Name Anitha PRN Reason Stop Dose Admin Albuterol/Ipratropium 3 ml 02/06/22 19:38 02/06/22 19:55 Ipratropium/Albuterol Sulfate 3 Ml Ampul.Neb IH 02/06/22 19:39 3 ml STAT ONE Administration Albuterol/Ipratropium Confirm 02/06/22 19:48 Ipratropium/Albuterol Sulfate 3 Ml Ampul.Neb Administered 02/06/22 19:49 Dose 3 ml IH .STK-MED ONE Methylprednisolone Sodium 0 mg 02/06/22 19:38 Succinate 125 mg/ Sterile IV 02/06/22 19:39 Water 2 ml STAT ONE Lab/Rad Data: Laboratory Result Diagrams 02/06/22 20:24 02/06/22 20:24 Laboratory Results 02/06/22 02/06/22 02/06/22 Range/Units 20:24 20:24 20:24 WBC (4.0-10.5) x10^3/uL RBC (4.1-5.6) x10^6/uL Hgb (12.5-18.0) g/dL Hct (42-50) % MCV (78-100) fL MCH (26-32) pg MCHC (32-36) g/dL RDW (11.5-14.0) % Plt Count (150-450) x10^3/uL MPV (7.5-11.0) fL Gran % (36.0-66.0) % Immature Gran % (Auto) (0.00-0.4) % Nucleat RBC Rel Count (0.00-0.1) % Eos # (Auto) (0-0.5) x10^3/uL Immature Gran # (Auto) (0.00-0.03) x10^3u/L Absolute Lymphs (auto) (1.0-4.6) x10^3/uL Absolute Monos (auto) (0.0-1.3) x10^3/uL Absolute Nucleated RBC (0.00-0.01) x10^3u/L Lymphocytes % (24.0-44.0) % Monocytes % (0.0-12.0) % Eosinophils % (0.00-5.0) % Basophils % (0.0-0.4) % Absolute Granulocytes (1.4-6.9) x10^3/uL Basophils # (0-0.4) x10^3/uL Sodium 138 (137-145) mmol/L Potassium 3.9 (3.5-5.1) mmol/L Chloride 99 (98-107) mmol/L Carbon Dioxide 35 H (22-30) mmol/L Anion Gap 7.6 (5-15) MEQ/L BUN 10 (9-20) mg/dL Creatinine 0.80 (0.66-1.25) mg/dL Estimated GFR > 60.0 ML/MIN Glucose 104 (74-106) mg/dL Lactic Acid (0.4-2.0) Calcium 9.3 (8.4-10.2) mg/dL Magnesium 2.0 (1.6-2.3) mg/dL Total Bilirubin 1.00 (0.2-1.3) mg/dL AST 20 (17-59) U/L ALT 24 (0-50) U/L Alkaline Phosphatase 68 (38-126) U/L Troponin I < 0.012 (0.000-0.034) ng/mL NT-Pro-B Natriuret Pep 63.7 (0-900) pg/mL Serum Total Protein 7.1 (6.3-8.2) g/dL Albumin 4.7 (3.5-5.0) g/dL Procalcitonin 0.089 H (0.030-0.080) ng/mL 02/06/22 02/06/22 Range/Units 20:24 20:17 WBC 19.0 H (4.0-10.5) x10^3/uL RBC 5.44 (4.1-5.6) x10^6/uL Hgb 18.0 (12.5-18.0) g/dL Hct 55.2 H (42-50) % MCV 101.5 H (78-100) fL MCH 33.1 H (26-32) pg MCHC 32.6 (32-36) g/dL RDW 13.9 (11.5-14.0) % Plt Count 165 (150-450) x10^3/uL MPV 10.5 (7.5-11.0) fL Gran % 83.9 H (36.0-66.0) % Immature Gran % (Auto) 0.7 H (0.00-0.4) % Nucleat RBC Rel Count 0.0 (0.00-0.1) % Eos # (Auto) 0.11 (0-0.5) x10^3/uL Immature Gran # (Auto) 0.14 H (0.00-0.03) x10^3u/L Absolute Lymphs (auto) 1.34 (1.0-4.6) x10^3/uL Absolute Monos (auto) 1.39 H (0.0-1.3) x10^3/uL Absolute Nucleated RBC 0.00 (0.00-0.01) x10^3u/L Lymphocytes % 7.1 L (24.0-44.0) % Monocytes % 7.3 (0.0-12.0) % Eosinophils % 0.6 (0.00-5.0) % Basophils % 0.4 (0.0-0.4) % Absolute Granulocytes 15.92 H (1.4-6.9) x10^3/uL Basophils # 0.08 (0-0.4) x10^3/uL Sodium (137-145) mmol/L Potassium (3.5-5.1) mmol/L Chloride (98-107) mmol/L Carbon Dioxide (22-30) mmol/L Anion Gap (5-15) MEQ/L BUN (9-20) mg/dL Creatinine (0.66-1.25) mg/dL Estimated GFR ML/MIN Glucose (74-106) mg/dL Lactic Acid 2.4 H (0.4-2.0) Calcium (8.4-10.2) mg/dL Magnesium (1.6-2.3) mg/dL Total Bilirubin (0.2-1.3) mg/dL AST (17-59) U/L ALT (0-50) U/L Alkaline Phosphatase (38-126) U/L Troponin I (0.000-0.034) ng/mL NT-Pro-B Natriuret Pep (0-900) pg/mL Serum Total Protein (6.3-8.2) g/dL Albumin (3.5-5.0) g/dL Procalcitonin (0.030-0.080) ng/mL - Progress Progress: improved Air Movement: fair Progress Note: 02/06/22 20:59 56-year-old is evaluated for worsening cough with shortness of breath. Patient is having diffuse wheezing with some rales. Given Solu-Medrol and DuoNeb. Chest x-ray showed some questionable airspace disease, given a dose of Rocephin and Zithromax. Has a white count of 19, lactate of 2.[address] elevation and negative initial troponins. Grossly unremarkable chemistries. Discussed with Dr. Abreu, reviewed history, work-up and patient is being admitted for COPD exacerbation. Blood Culture(s) Obtained: Yes Antibiotics given: Yes Discussed with : [place] Will see patient in: hospital (observation) Counseled pt/family regarding: lab results, diagnosis, rad results, smoking cessation - Departure Departure Disposition: Observation Clinical Impression: COPD exacerbation Condition: Stable Critical Care Time: No Referrals: AG SOW MD [Primary Care Provider] - Follow up/PCP as directed Instructions: Chronic Obstructive Pulmonary Disease
[2022-02-06 20:29] LABS: Absolute Neutrophil Ct (ANC) 15.92 x10^3/uL (1.4-6.9); Basophil (Absolute #) 0.08 x10^3/uL (0-0.4); Eosinophil % 0.6 % (0.00-5.0); Eosinophil (Absolute #) 0.11 x10^3/uL (0-0.5); Hematocrit 55.2 % (42-50); Lymphocyte (Absolute #) 1.34 x10^3/uL (1.0-4.6); Lymphocytes % 7.1 % (24.0-44.0); Mean Cell Volume 101.5 fL (78-100); Mean Corpuscular Hemoglobin 33.1 pg (26-32); Mean Corpuscular Hgb Concent. 32.6 g/dL (32-36); Mean Platelet Volume 10.5 fL (7.5-11.0); Monocyte (Absolute #) 1.39 x10^3/uL (0.0-1.3); Monocytes % 7.3 % (0.0-12.0); Neutrophil % 83.9 % (36.0-66.0); Platelet Count 165 x10^3/uL (150-450); Red Blood Count 5.44 x10^6/uL (4.1-5.6); Red Cell Distribution Width 13.9 % (11.5-14.0)
[2022-02-06] MEDS ORDERED: Zithromax 500 MG/ 250 ML NaCl Premix 500 MG/250 ML IVPB IV STA (20:42)
[2022-02-06] MEDS ORDERED: ROCEPHIN 2 Gm-D5w 50ML BAG** 2 G/50 ML IVPB IV STA (20:42)
[2022-02-06 20:50] LABS: ALBUMIN 4.7 g/dL (3.5-5.0); ALKALINE PHOSPHATASE 68 U/L (38-126); ANION GAP 7.6 MEQ/L (5-15); BLOOD UREA NITROGEN 10 mg/dL (9-20); CHLORIDE 99 mmol/L (98-107); Calcium 9.3 mg/dL (8.4-10.2); Carbon Dioxide 35 mmol/L (22-30); EST GLOMERULAR FILTRATION RATE > 60.0 ML/MIN; Glucose 104 mg/dL (74-106); NT PRO BNP 63.7 pg/mL (0-900); Potassium 3.9 mmol/L (3.5-5.1); SGOT/AST 20 U/L (17-59); SGPT/ALT 24 U/L (0-50); SODIUM 138 mmol/L (137-145); Total Protein 7.1 g/dL (6.3-8.2)
[2022-02-06] MEDS ORDERED: ROCEPHIN 2 Gm-D5w 50ML BAG** 2 G/50 ML IVPB IV ONE (21:12)
[2022-02-06] MEDS ORDERED: solu-MEDROL ONE (21:18)
[2022-02-06] MEDS ORDERED: Zithromax 500 MG/ 250 ML NaCl Premix 500 MG/250 ML IVPB IV ONE (21:18)
[2022-02-06] MEDS ORDERED: Sterile H2O 10 ml IJ ONE (21:18)
--- NOTE | 2022-02-06 21:25 | XRAY ---
Indication: Short of breath. Comparison: August 02, 2021 Portable chest again hyperinflated with left midlung subsegmental atelectasis/scarring. Remaining heart and lungs unremarkable. Bony thorax intact again with left shoulder degenerative changes. No new/acute findings. Impression: Continued nonacute chest with chronic features.
[2022-02-06 22:33] LABS: INFLUENZA A NEGATIVE (NEGATIVE); INFLUENZA B NEGATIVE (NEGATIVE); RESPIRATORY SYNCTIAL VIRUS NEGATIVE (Negative); SARS-CoV-2 Xpert Express NEGATIVE (NEGATIVE)
[2022-02-06] MEDS ORDERED: Zofran 4 MG/2 ML VIAL IV PRN (22:49)
[2022-02-06] MEDS ORDERED: MORPHINE SULFATE 2 MG INJ IV PRN (22:49)
[2022-02-06] MEDS ORDERED: TYLENOL 325 MG PO PRN (22:49)
[2022-02-07] MEDS ORDERED: xanAX 0.5 MG PO ONE (00:17)
[2022-02-07] MEDS: solu-MEDROL 60 MG, Sterile H2O 10 ml 2 ML IV SCH ×10 (00:27→23:44)
[2022-02-07] MEDS ORDERED: celeBREX 100 MG PO ONE (00:30)
[2022-02-07] MEDS: DUONEB 0.5-3 MG/3 ml Neb IH SCH ×4 (01:30→17:22)
[2022-02-07 04:24] LABS: Absolute Neutrophil Ct (ANC) 16.52 x10^3/uL (1.4-6.9); Basophil (Absolute #) 0.03 x10^3/uL (0-0.4); Eosinophil (Absolute #) 0 x10^3/uL (0-0.5); Hematocrit 53.4 % (42-50); Hemoglobin 17.4 g/dL (12.5-18.0); Lymphocyte (Absolute #) 0.33 x10^3/uL (1.0-4.6); Lymphocytes % 1.9 % (24.0-44.0); Mean Cell Volume 101.3 fL (78-100); Mean Corpuscular Hgb Concent. 32.6 g/dL (32-36); Mean Platelet Volume 10.3 fL (7.5-11.0); Monocyte (Absolute #) 0.17 x10^3/uL (0.0-1.3); Neutrophil % 96.4 % (36.0-66.0); Platelet Count 155 x10^3/uL (150-450); Red Blood Count 5.27 x10^6/uL (4.1-5.6); Red Cell Distribution Width 13.8 % (11.5-14.0); White Blood Count 17.1 x10^3/uL (4.0-10.5)
[2022-02-07 04:25] LABS: ALBUMIN 4.3 g/dL (3.5-5.0); ALKALINE PHOSPHATASE 58 U/L (38-126); ANION GAP 9.5 MEQ/L (5-15); BLOOD UREA NITROGEN 14 mg/dL (9-20); CHLORIDE 101 mmol/L (98-107); Calcium 9.1 mg/dL (8.4-10.2); Carbon Dioxide 30 mmol/L (22-30); Creatinine 1 0.97 mg/dL (0.66-1.25); EST GLOMERULAR FILTRATION RATE > 60.0 ML/MIN; Glucose 146 mg/dL (74-106); Potassium 4.3 mmol/L (3.5-5.1); SGOT/AST 17 U/L (17-59); SGPT/ALT 23 U/L (0-50); SODIUM 136 mmol/L (137-145); Total Protein 6.6 g/dL (6.3-8.2)
[2022-02-07] MEDS ORDERED: solu-MEDROL ONE ×2 (06:05→17:03)
[2022-02-07] MEDS ORDERED: Sterile H2O 10 ml IJ ONE (06:05)
[2022-02-07] MEDS: Advair Hfa 115/21 Common canister IH SCH ×2 (07:15→17:22)
[2022-02-07] MEDS ORDERED: xanAX 0.5 MG PO PRN (08:31)
[2022-02-07] MEDS ORDERED: MEDICATION INTERVENTION MC SCH (08:45)
[2022-02-07 09:33] LABS: Slide Review 1 YES
[2022-02-07] MEDS ORDERED: VENTOLIN COMMON CANISTER IH SCH ×2 (10:00→11:00)
[2022-02-07] MEDS ORDERED: NON-FORMULARY ITEM (Aspirin [Aspirin] 81 MG Tablet) PO SCH (10:00)
[2022-02-07] MEDS ORDERED: NON-FORMULARY ITEM (Fluticasone/Umeclidin/Vilanter [Trelegy Ellipta 200-62.5-25] 1 EACH Bl IH SCH (10:00)
[2022-02-07] MEDS: BUMEX 1 MG PO SCH (10:20)
[2022-02-07] MEDS: ECOTRIN 81 MG PO SCH (10:20)
[2022-02-07] MEDS: celeBREX 100 MG PO SCH ×2 (10:21→21:36)
[2022-02-07] MEDS: PROTONIX 40 MG IV IV SCH (10:21)
[2022-02-07] MEDS: ENOXAPARIN SODIUM SQ SCH (10:22)
[2022-02-07] MEDS: ROCEPHIN 1 Gm-D5w 50 ml Bag** 1 G/50 ML IVPB IV SCH ×2 (10:30→21:35)
[2022-02-07] MEDS: Zithromax 500 MG/ 250 ML NaCl Premix 500 MG/250 ML IVPB IV SCH ×2 (10:48→22:24)
[2022-02-07] MEDS ORDERED: NON-FORMULARY ITEM (Levocetirizine Dihydrochloride [Levocetirizine Dihydrochloride] 5 MG T PO SCH (22:00)
[2022-02-07] MEDS ORDERED: CLARITIN 10 MG PO SCH (22:00)
[2022-02-08] MEDS: DUONEB 0.5-3 MG/3 ml Neb IH SCH ×3 (01:24→12:59)
[2022-02-08] MEDS: solu-MEDROL 60 MG, Sterile H2O 10 ml 2 ML IV SCH ×4 (06:10→11:47)
[2022-02-08] MEDS: Advair Hfa 115/21 Common canister IH SCH (06:55)
[2022-02-08] MEDS: PROTONIX 40 MG IV IV SCH (09:05)
[2022-02-08] MEDS: BUMEX 1 MG PO SCH (09:05)
[2022-02-08] MEDS: celeBREX 100 MG PO SCH (09:05)
[2022-02-08] MEDS: ECOTRIN 81 MG PO SCH (09:05)
[2022-02-08] MEDS: ENOXAPARIN SODIUM SQ SCH (09:07)
[2022-02-08 11:18] VITALS: BP 124/70
[2022-02-08 13:02] VITALS: PULSE 104; O2SAT 94
--- NOTE | 2022-02-08 17:46 | PCM.SSS ---
History of Present Illness - Chief Complaint Chief Complaint: c/o shortness of breath for 2 days History of Present Illness: is a 56 year old male.with chronic respiratory failure secondary to COPD on 3 L oxygen, tobacco abuse, anxiety, congestive heart failure presented in the ER with chief complaint of increasing shortness of breath for last 3 to 4 days with progressive worsening. Patient reports having shortness of breath initially with activity and now having shortness of breath even resting despite using oxygen. Has been having increased wheezing and cough productive of y ellow-green sputum with generalized chest tightness. No fever or chills reported. Denies any sick contact. Does have chronic lower extremity swelling which is not any worse than usual. Timing/Duration: day(s) (3), constant, gradual onset, worse Activities at Onset: activity Severity of Dyspnea-Max: moderate Severity of Dyspnea-Current: moderate Possible Cause: unknown cause Modifying Factors: Worsens With: coughing, exertion Associated Symptoms: cough, chest pain/discomfort, wheezing, heaviness, tightness, No edema, No fever - Review of Systems Constitutional: Weakness, No Fever, No Chills Eyes: No Symptoms Ears, Nose, & Throat: No Symptoms Respiratory: Orthopnea, Short Of Breath, Wheezing Cardiac: No Chest Pain, No Edema, No Syncope Abdominal/Gastrointestinal: No Abdominal Pain, No Nausea, No Vomiting, No Diarrhea Genitourinary Symptoms: No Dysuria Musculoskeletal: No Back Pain, No Neck Pain Skin: No Rash Neurological: No Dizziness, No Focal Weakness, No Sensory Changes Psychological: No Symptoms Endocrine: No Symptoms Hematologic/Lymphatic: No Symptoms Immunological/Allergic: No Symptoms Medications & Allergies Home Medications: Home Medication List ALPRAZolam 0.5 MG [xanAX 0.5 MG] 0.5 mg PO TID PRN 11/19/19 [History Confirmed 02/06/22] Albuterol Sulfate [Albuterol Sulfate Hfa] 2 puffs IH QID 11/19/19 [History Confirmed 02/06/22] Bumetanide 1 mg PO DAILY 11/19/19 [History Confirmed 02/06/22] Levocetirizine Dihydrochloride 5 mg PO HS 11/19/19 [History Confirmed 02/06/22] Prednisone 10 mg [Deltasone 10 mg] 10 mg PO BID 11/19/19 [History Confirmed 02/06/22] Aspirin 81 mg PO DAILY 02/13/20 [History Confirmed 02/06/22] Celecoxib [Celebrex] 100 mg PO BID 04/03/21 [History Confirmed 02/06/22] Fluticasone/Umeclidin/Vilanter [Trelegy Ellipta 200-62.5-25] 1 each IH DAILY 02/06/22 [History Confirmed 02/06/22] Azithromycin 250 mg [Zithromax 250 MG TABLET] 250 mg PO DAILY 5 Days #6 tablet 02/08/22 [Rx] Allergies/Adverse Reactions: Allergies Allergy/AdvReac Type Severity Reaction Status Date / Time No Known Drug Allergies Allergy Verified 02/06/22 19:25 - Past Medical History Past Medical History: Yes Neurological History: No Pertinent History ENT History: No Pertinent History Cardiac History: No Pertinent History Respiratory History: CHF, COPD, Pneumonia, Sleep Apnea Endocrine Medical History: No Pertinent History Musculoskelatal History: No Pertinent History GI Medical History: No Pertinent History History: No Pertinent History Pyscho-Social History: No Pertinent History Male Reproductive Disorders: No Pertinent History Comment: chronic lower leg cellulitis. wears 3 L NC at all times - Past Surgical History Past Surgical History: No Neuro Surgical History: No Pertinent History Cardiac History: No Pertinent History Respiratory Surgery: No Pertinent History GI Surgical History: No Pertinent History Genitourinary Surgical Hx: No Pertinent History Musculskeletal Surgical Hx: No Pertinent History Male Surgical History: No Pertinent History - Social History Smoking Status: Current every day smoker How long have you smoked: 50 years Exposure to second hand smoke: Yes Alcohol: None Drug Use: none - Physical Exam Vital Signs: Vital Signs - 24 hr Temp Pulse Resp BP Pulse Ox 02/08/22 13:01 104 H 20 94 L 02/08/22 11:18 97.5 F 100 H 18 124/70 93 L 02/08/22 06:56 97.8 F 68 18 110/73 94 L 02/08/22 06:55 89 16 98 02/08/22 03:46 97.8 F 70 22 96/59 93 L 02/08/22 01:26 70 20 97 02/08/22 00:00 98.4 F 96 H 20 103/57 93 L 02/07/22 19:58 98.6 F 103 H 20 110/59 90 L General Appearance: no apparent distress, alert Neurologic Exam: alert, oriented x 3, cooperative, normal mood/affect, nml cer ebellar function, nml station & gait, sensation nml, No motor deficits Eye Exam: PERRL/EOMI, eyes nml inspection Ears, Nose, Throat Exam: normal ENT inspection, TMs normal, pharynx normal, moist mucous membranes Neck Exam: normal inspection, non-tender, supple, full range of motion Respiratory Exam: diminished breath sounds, crackles/rales, rhonchi, wheezing, No respiratory distress Cardiovascular Exam: regular rate/rhythm, normal heart sounds, normal peripheral pulses Gastrointestinal/Abdomen Exam: soft, normal bowel sounds, No tenderness, No mass Back Exam: normal inspection, normal range of motion, No CVA tenderness, No vertebral tenderness Extremity Exam: normal inspection, normal range of motion, pelvis stable Skin Exam: normal color, warm, dry, No rash Lymphatic Exam: No adenopathy Results - Labs Lab/Micro Results: Microbiology 02/06/22 20:24 Blood Culture - Preliminary Blood NO GROWTH TO DATE 02/06/22 20:24 Blood Culture - Preliminary Blood NO GROWTH TO DATE - Radiology Impressions Radiology Exams & Impressions: Radiology Procedures Category Date Time Status CHEST 1 VIEW (PORTABLE) Stat Exams 02/06/22 19:38 Completed Assessment/Plan (1) COPD exacerbation Status: Acute Assessment & Plan: Chief Complaint Diagnosis COPD EXACERBATION Allergies Allergy/AdvReac Type Severity Reaction Status Date / Time No Known Drug Allergies Allergy Verified 02/06/22 19:25 Vital Signs (Last 24 hours) Temp Pulse Resp BP Pulse Ox 02/08/22 13:01 104 H 20 94 L 02/08/22 11:18 97.5 F 100 H 18 124/70 93 L 02/08/22 06:56 97.8 F 68 18 110/73 94 L 02/08/22 06:55 89 16 98 02/08/22 03:46 97.8 F 70 22 96/59 93 L 02/08/22 01:26 70 20 97 02/08/22 00:00 98.4 F 96 H 20 103/57 93 L 02/07/22 19:58 98.6 F 103 H 20 110/59 90 L Home Medications Medication Instructions Recorded Confirmed Last Taken Type Fluticasone/Umeclidin/Vilanter 1 each IH DAILY 02/06/22 02/06/22 Unknown History [Corwin Kahnta 200-62.5-25] Azithromycin 250 mg [Zithromax 250 mg PO DAILY 5 Days #6 tablet 02/08/22 Unknown Rx 250 MG TABLET] Current Medications Discontinued Medications Generic Name Dose Route Start Last Admin Trade Name Freq PRN Reason Stop Dose Admin Acetaminophen 650 mg 02/06/22 22:49 Acetaminophen 325 Mg Tablet PO 03/08/22 22:48 Q4H PRN PRN PAIN AND/OR FEVER Albuterol Sulfate 2 puff 02/07/22 11:00 Albuterol Common Canister Inhaler 03/09/22 10:59 QIDRT LIZETT Albuterol/Ipratropium 3 ml 02/06/22 19:38 02/06/22 19:55 Ipratropium/Albuterol Sulfate 3 Ml Ampul.Neb IH 02/06/22 19:39 3 ml STAT ONE Administration Albuterol/Ipratropium Confirm 02/06/22 19:48 Ipratropium/Albuterol Sulfate 3 Ml Ampul.Neb Administered 02/06/22 19:49 Dose 3 ml IH .STK-MED ONE Albuterol/Ipratropium 3 ml 02/07/22 01:00 02/08/22 12:59 Ipratropium/Albuterol Sulfate 3 Ml Ampul.Neb 03/09/22 00:59 3 ml Q6HRT LIZETT Administration Alprazolam 0.5 mg 02/07/22 00:17 02/07/22 00:26 Alprazolam 0.5 Mg Tablet PO 02/07/22 00:18 0.5 mg ONCE ONE Administration Alprazolam 0.5 mg 02/07/22 08:31 Alprazolam 0.5 Mg Tablet PO 03/09/22 08:30 TIDPRN PRN ANXIETY Aspirin 81 mg 02/07/22 10:00 02/08/22 09:05 Aspirin 81 Mg Tablet.Ec PO 03/09/22 09:59 81 mg DAILY LIZETT Administration Bumetanide 1 mg 02/07/22 10:00 02/08/22 09:05 Bumetanide 1 Mg Tablet PO 03/09/22 09:59 1 mg DAILY LIZETT Administration Celecoxib 100 mg 02/07/22 00:30 02/07/22 00:26 Celecoxib 100 Mg Capsule PO 02/07/22 00:31 100 mg ONCE ONE Administration Celecoxib 100 mg 02/07/22 10:00 02/08/22 09:05 Celecoxib 100 Mg Capsule PO 03/09/22 09:59 100 mg BID LIZETT Administration Methylprednisolone Sodium 0 mg 02/06/22 19:38 02/06/22 21:22 Succinate 125 mg/ Sterile IV 02/06/22 19:39 125 mg Water 2 ml STAT ONE Administration Methylprednisolone Sodium 0 mg 02/07/22 00:00 02/08/22 11:47 Succinate 60 mg/ Sterile Water IV 03/09/22 00:00 60 mg 2 ml Q6HT LIZETT Administration Enoxaparin Sodium 40 mg 02/07/22 10:00 02/08/22 09:07 Enoxaparin Sodium 40 Mg/0.4 Ml Syringe SQ 03/09/22 09:59 40 mg DAILY LIZETT Administration Ceftriaxone Sodium/Dextrose 2 g in 50 mls @ 100 mls/hr 02/06/22 20:42 02/06/22 21:14 Rocephin 2 Gm-D5w 50ml Bag IV 02/06/22 21:11 100 mls/hr STAT STA 100 mls/hr Administration Azithromycin 500 mg in 250 mls @ 250 mls/hr 02/06/22 20:42 02/06/22 21:21 Zithromax 500 Mg/ 250 Ml Nacl Premix IV 02/06/22 21:41 250 ml/hr STAT STA 250 mls/hr Administration Ceftriaxone Sodium/Dextrose Confirm 02/06/22 21:12 Rocephin 2 Gm-D5w 50ml Bag Administered 02/06/22 21:13 Dose 2 g in 50 mls @ ud IV .STK-MED ONE Azithromycin Confirm 02/06/22 21:18 Zithromax 500 Mg/ 250 Ml Nacl Premix Administered 02/06/22 21:19 Dose 500 mg in 250 mls @ ud IV .STK-MED ONE Azithromycin 500 mg in 250 mls @ 250 mls/hr 02/07/22 10:00 02/07/22 22:24 Zithromax 500 Mg/ 250 Ml Nacl Premix IV 03/09/22 09:59 250 mls/hr HS LIZETT Administration Ceftriaxone Sodium/Dextrose 1 g in 50 mls @ 100 mls/hr 02/07/22 10:00 02/07/22 21:35 Rocephin 1 Gm-D5w 50 Ml Bag IV 02/10/22 09:59 100 mls/hr HS LIZETT Administration Loratadine 10 mg 02/07/22 22:00 02/07/22 21:36 Loratadine 10 Mg Tablet PO 03/09/22 21:59 10 mg HS LIZETT Administration Methylprednisolone Sodium Succinate Confirm 02/06/22 21:18 Methylprednis Sod Succ 125 Mg/2 Ml Vial Administered 02/06/22 21:19 Dose 125 mg .ROUTE .STK-MED ONE Methylprednisolone Sodium Succinate Confirm 02/07/22 06:05 Methylprednis Sod Succ 125 Mg/2 Ml Vial Administered 02/07/22 06:06 Dose 125 mg .ROUTE .STK-MED ONE Methylprednisolone Sodium Succinate Confirm 02/07/22 17:03 Methylprednis Sod Succ 125 Mg/2 Ml Vial Administered 02/07/22 17:04 Dose 125 mg .ROUTE .STK-MED ONE Miscellaneous Information 1 each 02/07/22 08:45 Medication Intervention 1 Each Each 03/09/22 08:44 .RN TO CHECK LIZETT Morphine Sulfate 2 mg 02/06/22 22:49 Morphine Sulfate 2 Mg/Ml Inj IV 02/11/22 22:48 Q4H PRN PRN PAIN Ondansetron HCl 4 mg 02/06/22 22:49 Ondansetron Hcl 4 Mg/2 Ml Vial IV 03/08/22 22:48 Q6H PRN PRN NAUSEA/VOMITING Pantoprazole Sodium 40 mg 02/07/22 10:00 02/08/22 09:05 Pantoprazole 40 Mg Vial IV 03/09/22 09:59 40 mg Q24H10 LIZETT Administration Fluticasone/Salmeterol 2 puff 02/07/22 07:00 02/08/22 06:55 Fluticasone/Salmeterol 115/21 - 120 Puff Common Canister IH 03/09/22 06:59 2 puff BIDRT LIZETT Administration Sterile Water Confirm 02/06/22 21:18 Water For Injection,Sterile 10 Ml Vial Administered 02/06/22 21:19 Dose 10 ml IJ .STK-MED ONE Sterile Water Confirm 02/07/22 06:05 Water For Injection,Sterile 10 Ml Vial Administered 02/07/22 06:06 Dose 10 ml IJ .STK-MED ONE Intake & Output (Last 24 hours) 02/06/22 02/07/22 02/08/22 02/09/22 11:59 11:59 11:59 11:59 Intake Total 860 2750 300 Output Total 1850 Balance 860 900 300 Weight 93.44 kg 93.44 kg Microbiology Results (Last 24 hours) 02/06/22 20:24 Blood Blood Culture Gram Stain - Pending 02/06/22 20:24 Blood Blood Culture - Preliminary NO GROWTH TO DATE 02/06/22 20:24 Blood Blood Culture Gram Stain - Pending 02/06/22 20:24 Blood Blood Culture - Preliminary NO GROWTH TO DATE Orders (Last 24 hours) Category Date Time Status Discharge Routine Discharge 02/08/22 Ordered Loratadine 10 mg [Claritin 10 mg] Med 02/07/22 22:00 Discontinued 10 mg PO HS Methylprednis Sod Succ 125 mg* [solu-MEDROL] Med 02/07/22 17:03 Discontinued 125 mg .ROUTE .STK-MED ONE Code(s): J44.1 - CHRONIC OBSTRUCTIVE PULMONARY DISEASE W (ACUTE) EXACERBATION Hospital Summary - Hospital Course Hospital Course: Last Vital Signs Temp 97.5 F 02/08/22 11:18 Pulse 104 H 02/08/22 13:01 Resp 20 02/08/22 13:01 BP 124/70 02/08/22 11:18 Pulse Ox 94 L 02/08/22 13:01 Allergies No Known Drug Allergies Allergy (Verified 02/06/22 19:25) Intake & Output 02/08/22 02/09/22 11:59 11:59 Intake Total 2750 300 Output Total 1850 Balance 900 300 Weight 93.44 kg Orders 02/08/22 Discharge Routine Microbiology 02/06/22 20:24 Blood Blood Culture - Preliminary NO GROWTH TO DATE 02/06/22 20:24 Blood Blood Culture - Preliminary NO GROWTH TO DATE Chief Complaint Diagnosis COPD EXACERBATION Allergies Allergy/AdvReac Type Severity Reaction Status Date / Time No Known Drug Allergies Allergy Verified 02/06/22 19:25 Vital Signs (Last 24 hours) Temp Pulse Resp BP Pulse Ox 02/08/22 13:01 104 H 20 94 L 02/08/22 11:18 97.5 F 100 H 18 124/70 93 L 02/08/22 06:56 97.8 F 68 18 110/73 94 L 02/08/22 06:55 89 16 98 02/08/22 03:46 97.8 F 70 22 96/59 93 L 02/08/22 01:26 70 20 97 02/08/22 00:00 98.4 F 96 H 20 103/57 93 L 02/07/22 19:58 98.6 F 103 H 20 110/59 90 L Home Medications Medication Instructions Recorded Confirmed Last Taken Type Fluticasone/Umeclidin/Vilanter 1 each IH DAILY 02/06/22 02/06/22 Unknown History [Trelegy Ellipta 200-62.5-25] Azithromycin 250 mg [Zithromax 250 mg PO DAILY 5 Days #6 tablet 02/08/22 Unknown Rx 250 MG TABLET] Current Medications Discontinued Medications Generic Name Dose Route Start Last Admin Trade Name Freq PRN Reason Stop Dose Admin Acetaminophen 650 mg 02/06/22 22:49 Acetaminophen 325 Mg Tablet PO 03/08/22 22:48 Q4H PRN PRN PAIN AND/OR FEVER Albuterol Sulfate 2 puff 02/07/22 11:00 Albuterol Common Canister Inhaler 03/09/22 10:59 QIDRT LIZETT Albuterol/Ipratropium 3 ml 02/06/22 19:38 02/06/22 19:55 Ipratropium/Albuterol Sulfate 3 Ml Ampul.Neb 02/06/22 19:39 3 ml STAT ONE Administration Albuterol/Ipratropium Confirm 02/06/22 19:48 Ipratropium/Albuterol Sulfate 3 Ml Ampul.Neb Administered 02/06/22 19:49 Dose 3 ml IH .STK-MED ONE Albuterol/Ipratropium 3 ml 02/07/22 01:00 02/08/22 12:59 Ipratropium/Albuterol Sulfate 3 Ml Ampul.Neb IH 03/09/22 00:59 3 ml Q6HRT LIZETT Administration Alprazolam 0.5 mg 02/07/22 00:17 02/07/22 00:26 Alprazolam 0.5 Mg Tablet PO 02/07/22 00:18 0.5 mg ONCE ONE Administration Alprazolam 0.5 mg 02/07/22 08:31 Alprazolam 0.5 Mg Tablet PO 03/09/22 08:30 TIDPRN PRN ANXIETY Aspirin 81 mg 02/07/22 10:00 02/08/22 09:05 Aspirin 81 Mg Tablet.Ec PO 03/09/22 09:59 81 mg DAILY LIZETT Administration Bumetanide 1 mg 02/07/22 10:00 02/08/22 09:05 Bumetanide 1 Mg Tablet PO 03/09/22 09:59 1 mg DAILY LIZETT Administration Celecoxib 100 mg 02/07/22 00:30 02/07/22 00:26 Celecoxib 100 Mg Capsule PO 02/07/22 00:31 100 mg ONCE ONE Administration Celecoxib 100 mg 02/07/22 10:00 02/08/22 09:05 Celecoxib 100 Mg Capsule PO 03/09/22 09:59 100 mg BID LIZETT Administration Methylprednisolone Sodium 0 mg 02/06/22 19:38 02/06/22 21:22 Succinate 125 mg/ Sterile IV 02/06/22 19:39 125 mg Water 2 ml STAT ONE Administration Methylprednisolone Sodium 0 mg 02/07/22 00:00 02/08/22 11:47 Succinate 60 mg/ Sterile Water IV 03/09/22 00:00 60 mg 2 ml Q6HT LIZETT Administration Enoxaparin Sodium 40 mg 02/07/22 10:00 02/08/22 09:07 Enoxaparin Sodium 40 Mg/0.4 Ml Syringe SQ 03/09/22 09:59 40 mg DAILY LIZETT Administration Ceftriaxone Sodium/Dextrose 2 g in 50 mls @ 100 mls/hr 02/06/22 20:42 02/06/22 21:14 Rocephin 2 Gm-D5w 50ml Bag IV 02/06/22 21:11 100 mls/hr STAT STA 100 mls/hr Administration Azithromycin 500 mg in 250 mls @ 250 mls/hr 02/06/22 20:42 02/06/22 21:21 Zithromax 500 Mg/ 250 Ml Nacl Premix IV 02/06/22 21:41 250 ml/hr STAT STA 250 mls/hr Administration Ceftriaxone Sodium/Dextrose Confirm 02/06/22 21:12 Rocephin 2 Gm-D5w 50ml Bag Administered 02/06/22 21:13 Dose 2 g in 50 mls @ ud IV .STK-MED ONE Azithromycin Confirm 02/06/22 21:18 Zithromax 500 Mg/ 250 Ml Nacl Premix Administered 02/06/22 21:19 Dose 500 mg in 250 mls @ ud IV .STK-MED ONE Azithromycin 500 mg in 250 mls @ 250 mls/hr 02/07/22 10:00 02/07/22 22:24 Zithromax 500 Mg/ 250 Ml Nacl Premix IV 03/09/22 09:59 250 mls/hr HS LIZETT Administration Ceftriaxone Sodium/Dextrose 1 g in 50 mls @ 100 mls/hr 02/07/22 10:00 02/07/22 21:35 Rocephin 1 Gm-D5w 50 Ml Bag IV 02/10/22 09:59 100 mls/hr HS LIZETT Administration Loratadine 10 mg 02/07/22 22:00 02/07/22 21:36 Loratadine 10 Mg Tablet PO 03/09/22 21:59 10 mg HS LIZETT Administration Methylprednisolone Sodium Succinate Confirm 02/06/22 21:18 Methylprednis Sod Succ 125 Mg/2 Ml Vial Administered 02/06/22 21:19 Dose 125 mg .ROUTE .STK-MED ONE Methylprednisolone Sodium Succinate Confirm 02/07/22 06:05 Methylprednis Sod Succ 125 Mg/2 Ml Vial Administered 02/07/22 06:06 Dose 125 mg .ROUTE .STK-MED ONE Methylprednisolone Sodium Succinate Confirm 02/07/22 17:03 Methylprednis Sod Succ 125 Mg/2 Ml Vial Administered 02/07/22 17:04 Dose 125 mg .ROUTE .STK-MED ONE Miscellaneous Information 1 each 02/07/22 08:45 Medication Intervention 1 Each Each 03/09/22 08:44 .RN TO CHECK LIZETT Morphine Sulfate 2 mg 02/06/22 22:49 Morphine Sulfate 2 Mg/Ml Inj IV 02/11/22 22:48 Q4H PRN PRN PAIN Ondansetron HCl 4 mg 02/06/22 22:49 Ondansetron Hcl 4 Mg/2 Ml Vial IV 03/08/22 22:48 Q6H PRN PRN NAUSEA/VOMITING Pantoprazole Sodium 40 mg 02/07/22 10:00 02/08/22 09:05 Pantoprazole 40 Mg Vial IV 03/09/22 09:59 40 mg Q24H10 LIZETT Administration Fluticasone/Salmeterol 2 puff 02/07/22 07:00 02/08/22 06:55 Fluticasone/Salmeterol 115/21 - 120 Puff Common Canister IH 03/09/22 06:59 2 puff BIDRT LIZETT Administration Sterile Water Confirm 02/06/22 21:18 Water For Injection,Sterile 10 Ml Vial Administered 02/06/22 21:19 Dose 10 ml IJ .STK-MED ONE Sterile Water Confirm 02/07/22 06:05 Water For Injection,Sterile 10 Ml Vial Administered 02/07/22 06:06 Dose 10 ml IJ .STK-MED ONE Intake & Output (Last 24 hours) 02/06/22 02/07/22 02/08/22 02/09/22 11:59 11:59 11:59 11:59 Intake Total 860 2750 300 Output Total 1850 Balance 860 900 300 Weight 93.44 kg 93.44 kg Microbiology Results (Last 24 hours) 02/06/22 20:24 Blood Blood Culture Gram Stain - Pending 02/06/22 20:24 Blood Blood Culture - Preliminary NO GROWTH TO DATE 02/06/22 20:24 Blood Blood Culture Gram Stain - Pending 02/06/22 20:24 Blood Blood Culture - Preliminary NO GROWTH TO DATE Orders (Last 24 hours) Category Date Time Status Discharge Routine Discharge 02/08/22 Ordered Loratadine 10 mg [Claritin 10 mg] Med 02/07/22 22:00 Discontinued 10 mg PO HS Methylprednis Sod Succ 125 mg* [solu-MEDROL] Med 02/07/22 17:03 Discontinued 125 mg .ROUTE .STK-MED ONE - Vitals & Intake/Output Vital Signs: Vital Signs Temperature 97.5 F 02/08/22 11:18 Pulse Rate 104 H 02/08/22 13:01 Respiratory Rate 20 02/08/22 13:01 Blood Pressure 124/70 02/08/22 11:18 O2 Sat by Pulse Oximetry 94 L 02/08/22 13:01 Intake & Output: Intake & Output 02/06/22 02/07/22 02/08/22 02/09/22 11:59 11:59 11:59 11:59 Intake Total 860 2750 300 Output Total 1850 Balance 860 900 300 Weight 93.44 kg 93.44 kg - Lab Result Diagrams: 02/07/22 04:08 02/07/22 04:08 Micro Results-Entire Visit: Microbiology 02/06/22 20:24 Blood Culture - Preliminary Blood NO GROWTH TO DATE 02/06/22 20:24 Blood Culture - Preliminary Blood NO GROWTH TO DATE - Radiology Exams Ordered Rad Exams-Entire Visit: Radiology Procedures Category Date Time Status CHEST 1 VIEW (PORTABLE) Stat Exams 02/06/22 19:38 Completed - Procedures and Test Procedures and Tests throughout Hospitalization: Therapy Orders & Screens 02/06/22 20:25 Respiratory Therapy Assessment DAILY Comment: 02/06/22 23:54 Oxygen Nasal Cannula 3 lpm Comment: Diagnosis: COPD EXACERBATION Respiratory MDI UD Comment: Diagnosis: COPD EXACERBATION - Discharge Discharge Date: 02/08/22 Disposition: Home, Self-Care Condition: Stable Prescriptions: New Azithromycin 250 mg [Zithromax 250 MG TABLET] 250 mg PO DAILY 5 Days #6 tablet Continue Prednisone 10 mg [Deltasone 10 mg] 10 mg PO BID Levocetirizine Dihydrochloride 5 mg PO HS Bumetanide 1 mg PO DAILY ALPRAZolam 0.5 MG [xanAX 0.5 MG] 0.5 mg PO TID PRN PRN Reason: Anxiety Albuterol Sulfate [Albuterol Sulfate Hfa] 2 puffs IH QID Aspirin 81 mg PO DAILY Celecoxib [Celebrex] 100 mg PO BID Fluticasone/Umeclidin/Vilanter [Trelegy Ellipta 200-62.5-25] 1 each IH DAILY Instructions: Exacerbation of COPD (DC) Follow up with: AG SOW MD [Primary Care Provider] - (Tuesday02/15/22 9:45 am at [facility]) Forms: Discharge Instructions
== END 2022-02-08 13:40 | disposition home or self-care (01) ==
LOC: ED 18:54 → MED SURG 21:47
PROVIDERS: ADMIT Family Medicine; ATTEND General Practice
DX: J44.1 Chronic obstructive pulmonary disease with (acute) exacerbation (principal); J96.10 Chronic respiratory failure, unspecified whether with hypoxia or hypercapnia; I50.9 Heart failure, unspecified; M79.89 Other specified soft tissue disorders; Z72.0 Tobacco use; Z79.899 Other long term (current) drug therapy; Z20.828 Contact with and (suspected) exposure to other viral communicable diseases; Z99.81 Dependence on supplemental oxygen
CPT/HCPCS: 0241U; 36000; 36415; 71045; 80053; 83605; 83735; 83880; 84145; 84484; 85025; 87040; 93005; 93041; 94640; 94760; 96365; 96368; 96374; 99285; 93268; J0456; J0696; J1650; J2930; A9270-GY; G0378

== ENCOUNTER 2022-07-10 07:22 | Emergency (ER) | payer MEDICARE ==
[2022-07-10] MEDS ORDERED: DUONEB 0.5-3 MG/3 ml Neb IH ONE ×2 (07:39→07:56)
[2022-07-10] MEDS ORDERED: ROCEPHIN 1 Gm-D5w 50 ml Bag** 1 G/50 ML IVPB IV STA (07:39)
[2022-07-10] MEDS ORDERED: solu-MEDROL 125 MG, Sterile H2O 10 ml 2 ML IV ONE ×2 (07:39)
[2022-07-10] MEDS ORDERED: Sodium Chloride 0.9% 1000 ML 1,000 ML IV SCH (07:45)
[2022-07-10] MEDS ORDERED: Sodium Chloride 0.9% 1000 ML 1,000 ML ONE (07:47)
[2022-07-10] MEDS ORDERED: solu-MEDROL ONE (07:47)
[2022-07-10] MEDS ORDERED: ROCEPHIN 1 Gm-D5w 50 ml Bag** 1 G/50 ML IVPB IV ONE (07:47)
[2022-07-10] MEDS ORDERED: Sterile H2O 10 ml IJ ONE (07:48)
[2022-07-10 07:53] LABS: Absolute Neutrophil Ct (ANC) 7.16 x10^3/uL (1.4-6.9); BASOPHIL % 0.4 % (0.0-0.4); Basophil (Absolute #) 0.04 x10^3/uL (0-0.4); Eosinophil % 1.3 % (0.00-5.0); Eosinophil (Absolute #) 0.15 x10^3/uL (0-0.5); Hematocrit 53.4 % (42-50); Hemoglobin 17.3 g/dL (12.5-18.0); IMMATURE GRAN % 0.9 % (0.00-0.4); Lymphocyte (Absolute #) 2.82 x10^3/uL (1.0-4.6); Mean Cell Volume 101.7 fL (78-100); Mean Corpuscular Hgb Concent. 32.4 g/dL (32-36); Mean Platelet Volume 10.1 fL (7.5-11.0); Monocytes % 8.9 % (0.0-12.0); Neutrophil % 63.5 % (36.0-66.0); Platelet Count 144 x10^3/uL (150-450); Red Blood Count 5.25 x10^6/uL (4.1-5.6); Red Cell Distribution Width 13.2 % (11.5-14.0); White Blood Count 11.3 x10^3/uL (4.0-10.5)
--- NOTE | 2022-07-10 07:53 | ERPHSYRPT ---
- History of Present Illness Time Seen by Provider: 07/10/22 07:50 Source: patient Exam Limitations: no limitations Patient Subjective Stated Complaint: Pt states that he has been becoming more short of breath for the past 3 days Triage Nursing Assessment: Pt brought self to the ER, vitals wnl, denies pain, pt states that for the past 3 days his shortness of breath has been worsening and he thought that it was just his COPD but now he doesn't think that, pt did a Duo Neb treatment prior to coming to the ER, pulses normal, skin n/w/d, wears 3L NC at all times, doesn't appear to be in any distress Physician History: Patient is 56-year-old male with significant past medical history of COPD hypertension chronic venous stasis started having short of breath for last 2 to 3 days which got worse today so he came to the emergency room. Patient drove by himself came to the emergency room. Patient walked into the emergency room without any significant difficulty. Patient is complaining of shortness of breath but denies any fever chest pain nausea vomiting headache or bowel bladder disturbance. Patient use oxygen 2 L at home. Timing/Duration: day(s) (2-3 days) Activities at Onset: none Severity of Dyspnea-Max: mild Severity of Dyspnea-Current: mild Possible Cause: frequent episodes Modifying Factors: Improves With: nothing Associated Symptoms: denies symptoms Allergies/Adverse Reactions: No Known Drug Allergies Allergy (Verified 07/10/22 07:37) Home Medications: ALPRAZolam 0.5 MG [xanAX 0.5 MG] 0.5 mg PO TID PRN 11/19/19 [History] Albuterol Sulfate [Albuterol Sulfate Hfa] 2 puffs IH QID 11/19/19 [History] Bumetanide 1 mg PO DAILY 11/19/19 [History] Levocetirizine Dihydrochloride 5 mg PO HS 11/19/19 [History] Prednisone 10 mg [Deltasone 10 mg] 10 mg PO BID 11/19/19 [History] Aspirin 81 mg PO DAILY 02/13/20 [History] Celecoxib [Celebrex] 100 mg PO BID 04/03/21 [History] Fluticasone/Umeclidin/Vilanter [Trelegy Ellipta 200-62.5-25] 1 each IH DAILY 02/06/22 [History] Hx Tetanus, Diphtheria Vaccination/Date Given: Yes Hx Influenza Vaccination/Date Given: No Hx Pneumococcal Vaccination/Date Given: No Travel Risk - International Travel Have you traveled outside of the country in past 3 weeks: No - Coronavirus Screening Are you exhibiting any of the following symptoms?: Yes Symptoms: Shortness of Breath Close contact with a COVID-19 positive Pt in past 14-21 Days: No - Vaccine Status Have you recieved a Covid-19 vaccination: No - Review of Systems Constitutional: No Fever, No Chills Eyes: No Symptoms Ears, Nose, & Throat: No Symptoms Respiratory: Dyspnea, Dyspnea on Exertion (JAIN), Wheezing, No Cough Cardiac: No Chest Pain, No Edema, No Syncope Abdominal/Gastrointestinal: No Abdominal Pain, No Nausea, No Vomiting, No Diarrhea Genitourinary Symptoms: No Dysuria Musculoskeletal: No Back Pain, No Neck Pain Skin: No Rash Neurological: No Dizziness, No Focal Weakness, No Sensory Changes Psychological: No Symptoms Endocrine: No Symptoms All Other Systems: Reviewed and Negative - Past Medical History Pertinent Past Medical History: Yes Neurological History: No Pertinent History ENT History: No Pertinent History Cardiac History: No Pertinent History Respiratory History: CHF, COPD, Pneumonia, Sleep Apnea Endocrine Medical History: No Pertinent History Musculoskeletal History: No Pertinent History GI Medical History: No Pertinent History History: No Pertinent History Psycho-Social History: No Pertinent History Male Reproductive Disorders: No Pertinent History Other Medical History: chronic lower leg cellulitis. wears 3 L NC at all times - Past Surgical History Past Surgical History: No Neuro Surgical History: No Pertinent History Cardiac: No Pertinent History Respiratory: No Pertinent History Gastrointestinal: No Pertinent History Genitourinary: No Pertinent History Musculoskeletal: No Pertinent History Male Surgical History: No Pertinent History - Social History Smoking Status: Current every day smoker How long have you smoked: 50 years Exposure to second hand smoke: Yes Drug Use: none Patient Lives Alone: No - Nursing Vital Signs Nursing Vital Signs: Initial Vital Signs Temperature 98.9 F 07/10/22 07:25 Pulse Rate 85 07/10/22 07:25 Respiratory Rate 19 07/10/22 07:25 Blood Pressure 118/90 07/10/22 07:25 O2 Sat by Pulse Oximetry 100 07/10/22 07:25 Pain Scale Pain Intensity 0 - Physical Exam General Appearance: no apparent distress, alert Eye Exam: PERRL/EOMI Neck Exam: normal inspection, supple Respiratory Exam: diminished breath sounds, wheezing Cardiovascular/Chest Exam: normal heart sounds, regular rate/rhythm Abdominal/Gastrointestinal Exam: soft, No tenderness, No distention, No mass Extremity Exam: non-tender, normal range of motion, normal inspection, no calf tenderness, no pedal edema Neurologic Exam: alert, oriented x 3, cooperative, manager nursing II-XII nml as tested, sensation nml, No motor deficits Skin Exam: normal color, warm, No dry SpO2 Interpretation: normal SpO2: 100 O2 Delivery: Room Air - Course Nursing assessment & vital signs reviewed: Yes EKG Interpreted by Me: Sinus Rhythm Rhythm Strip: Normal Sinus Rhythm - Radiology Exams Chest X-ray Interpretation: Reviewed by me - CT Exams Chest CT Interpretation: Tele-radiologist Report Ordered Tests: Active Orders 24 hr Category Date Time Status EKG-ER Only STAT Care 07/10/22 07:39 Active CHEST 2 VIEWS (PA AND LAT) Stat Exams 07/10/22 07:41 Taken CHEST WITHOUT CONTRAST [CT] Routine Exams 07/10/22 08:58 Taken CBC W DIFF Stat Lab 07/10/22 07:59 Completed CMP Stat Lab 07/10/22 07:59 Completed MAGNESIUM Stat Lab 07/10/22 07:59 Completed TROPONIN Stat Lab 07/10/22 07:59 Completed Respiratory Therapy Assessment DAILY RT 07/10/22 08:06 Active Medication Summary Generic Name Dose Route Start Last Admin Trade Name Freq PRN Reason Stop Dose Admin Sodium Chloride 1,000 mls @ 100 mls/hr 07/10/22 07:45 Sodium Chloride 0.9% 1000 Ml IV 08/09/22 07:44 .Q10H LIZETT Discontinued Medications Generic Name Dose Route Start Last Admin Trade Name Freq PRN Reason Stop Dose Admin Albuterol/Ipratropium 3 ml 07/10/22 07:39 07/10/22 08:02 Ipratropium/Albuterol Sulfate 3 Ml Ampul.Neb IH 07/10/22 07:40 3 ml STAT ONE Administration Albuterol/Ipratropium Confirm 07/10/22 07:56 Ipratropium/Albuterol Sulfate 3 Ml Ampul.Neb Administered 07/10/22 07:57 Dose 3 ml IH .STK-MED ONE Methylprednisolone Sodium 0 mg 07/10/22 07:39 Succinate 125 mg/ Sterile IV 07/10/22 07:40 Water 2 ml STAT ONE Ceftriaxone Sodium/Dextrose 1 g in 50 mls @ 100 mls/hr 07/10/22 07:39 Rocephin 1 Gm-D5w 50 Ml Bag IV 07/10/22 08:08 STAT STA Ceftriaxone Sodium/Dextrose Confirm 07/10/22 07:47 Rocephin 1 Gm-D5w 50 Ml Bag Administered 07/10/22 07:48 Dose 1 g in 50 mls @ ud IV .STK-MED ONE Methylprednisolone Sodium Succinate Confirm 07/10/22 07:47 Methylprednis Sod Succ 125 Mg/2 Ml Vial Administered 07/10/22 07:48 Dose 125 mg .ROUTE .STK-MED ONE Sterile Water Confirm 07/10/22 07:48 Water For Injection,Sterile 10 Ml Vial Administered 07/10/22 07:49 Dose 10 ml IJ .STK-MED ONE Lab/Rad Data: Laboratory Result Diagrams 07/10/22 07:59 07/10/22 07:59 Laboratory Results 07/10/22 07/10/22 Range/Units 07:59 07:59 WBC 11.3 H (4.0-10.5) x10^3/uL RBC 5.25 (4.1-5.6) x10^6/uL Hgb 17.3 (12.5-18.0) g/dL Hct 53.4 H (42-50) % MCV 101.7 H (78-100) fL MCH 33.0 H (26-32) pg MCHC 32.4 (32-36) g/dL RDW 13.2 (11.5-14.0) % Plt Count 144 L (150-450) x10^3/uL MPV 10.1 (7.5-11.0) fL Gran % 63.5 (36.0-66.0) % Immature Gran % (Auto) 0.9 H (0.00-0.4) % Nucleat RBC Rel Count 0.0 (0.00-0.1) % Eos # (Auto) 0.15 (0-0.5) x10^3/uL Immature Gran # (Auto) 0.10 H (0.00-0.03) x10^3u/L Absolute Lymphs (auto) 2.82 (1.0-4.6) x10^3/uL Absolute Monos (auto) 1.00 (0.0-1.3) x10^3/uL Absolute Nucleated RBC 0.00 (0.00-0.01) x10^3u/L Lymphocytes % 25.0 (24.0-44.0) % Monocytes % 8.9 (0.0-12.0) % Eosinophils % 1.3 (0.00-5.0) % Basophils % 0.4 (0.0-0.4) % Absolute Granulocytes 7.16 H (1.4-6.9) x10^3/uL Basophils # 0.04 (0-0.4) x10^3/uL Sodium 141 (137-145) mmol/L Potassium 4.3 (3.5-5.1) mmol/L Chloride 102 (98-107) mmol/L Carbon Dioxide 37 H (22-30) mmol/L Anion Gap 7.1 (5-15) MEQ/L BUN 24 H (9-20) mg/dL Creatinine 0.97 (0.66-1.25) mg/dL Estimated GFR > 60.0 ML/MIN Glucose 84 (74-106) mg/dL Calcium 8.7 (8.4-10.2) mg/dL Magnesium 2.4 H (1.6-2.3) mg/dL Total Bilirubin 0.50 (0.2-1.3) mg/dL AST 22 (17-59) U/L ALT 21 (0-50) U/L Alkaline Phosphatase 51 (38-126) U/L Troponin I < 0.012 (0.000-0.034) ng/mL Serum Total Protein 6.5 (6.3-8.2) g/dL Albumin 4.0 (3.5-5.0) g/dL - Progress Progress: improved Air Movement: good Blood Culture(s) Obtained: No Antibiotics given: Yes Counseled pt/family regarding: lab results, diagnosis, need for follow-up, rad results Medical Desision Making - External Record(s) Reviewed Records reviewed as a part of evaluation & management: Clinic - Diagnostic Testing Radiological Interpretation: Interpreted by me, Reviewed by me, Discussed w/ radiologist, Teleradiologist Report - Risk of complications Low Risk: Low risk of morbidity from additional dx testing or treatment The pt has a mod risk of morbidity or mortality based on: Need for prescription drug management - Departure Departure Disposition: Home Clinical Impression: COPD exacerbation Condition: Stable Critical Care Time: Yes Critical Care Time(excluding separately billable procedures): Critical 30-74 mins Referrals: AG SOW MD [Primary Care Provider] - Follow up/PCP as directed Instructions: Chronic Obstructive Pulmonary Disease, Shortness of Breath (Dyspnea) (DC), Exacerbation of COPD (DC) Additional Instructions: Discharge/Care Plan ENDER GUEVARA was seen on 07/10/22 in the Emergency Room. The patient was counseled regarding Diagnosis,Lab results, Imaging studies, need for follow up and when to return to the Emergency Room. Prescriptions given: Discharge Note I have spoken with the patient and/or caregivers. I have explained the patient's condition, diagnosis and treatment plan based on the information available to me at this time. I have answered the patient's and/or caregiver's questions and addressed any concerns. The patient and/or caregivers have as good understanding of the patient's diagnosis, condition and treatment plan as can be expected at this point. The vital signs have been stable. The patient's condition is stable and appropriate for discharge from the emergency department. The patient will pursue further outpatient evaluation with the primary care physician or other designated or consulting physician as outlined in the discharge instructions. The patient and/or caregivers are agreeable to this plan of care and follow-up instructions have been explained in detail. The patient and/or caregivers have received these instruction. The patient/and or caregivers are aware that any significant change in condition or worsening of symptoms sh ould prompt an immediate return to this or the closest emergency department or call 911. ENDER GUEVARA was seen on 07/10/22 n the Emergency Room. At that time you were treated for an emergent condition, during your visit Laboratory, Radiology and/or other procedures may have been ordered. It is very important that you follow-up with your Primary Care Physician AG SOW within the next 24-48 hours to review your Emergency Room visit and the final results of testing that was ordered. Some test results such as Urine Cultures, Blood Cultures, and other cultures if ordered will not be finalized for 24-48 hours. If you do not have a Primary Care Provider please call the medical records department at [phone] ext [phone] to obtain a copy of your results or you may sign into our patient portal to obtain these results by visiting us @ [email or web address] and completing the following steps: 1. Click on the Patient Portal link 2. Click the Patient Self Enrollment Link to complete the enrollment form and entering your 3. Once the enrollment form is completed you will receive an email with a temporary ID and password at the email address you provided. 4. Next choose a user name and password. Your user name must be at least 4 characters long and your password must be at least 4 characters long. 5. Choose a security question from the list and provide your answer to the question. If you already have signed into the Health Portal you may access your Health Care Information 04/10 by the following steps: 1. Login to our website @ [email or web address] 2. Enter your original user name and password. FAQS The [facility] Health Portal is an online tool that contains your Lab Results, Radiology Reports, Visit History, Discharge Instructions and Health Summary Lab and Radiology Results will not be available for 72 hours on the portal. The Portal is a secure site, passwords are encryted and URLs are re-written so they cannot be copied and pasted. You and authorized family members are the only ones who can access your Portal. Also there is a timeout feature that protects your information if you leave the Portal page open. If you have technical difficulty please use the Contact Us link on the page this will allow you to submit any questions you have regarding the Portal or you may contact the Medical Record Department at [phone] ext [phone]. Prescriptions: Azithromycin [Azithromycin 250 mg Pack] 250 mg PO UD #6 tablet Methylprednisolone Packet [Medrol Dosepack] 4 mg PO UD #21 packet
[2022-07-10 08:37] LABS: ALKALINE PHOSPHATASE 51 U/L (38-126); ANION GAP 7.1 MEQ/L (5-15); BLOOD UREA NITROGEN 24 mg/dL (9-20); CHLORIDE 102 mmol/L (98-107); Calcium 8.7 mg/dL (8.4-10.2); Carbon Dioxide 37 mmol/L (22-30); Creatinine 1 0.97 mg/dL (0.66-1.25); EST GLOMERULAR FILTRATION RATE > 60.0 ML/MIN; Glucose 84 mg/dL (74-106); MAGNESIUM 2.4 mg/dL (1.6-2.3); Potassium 4.3 mmol/L (3.5-5.1); SGOT/AST 22 U/L (17-59); SGPT/ALT 21 U/L (0-50); SODIUM 141 mmol/L (137-145); TROPONIN < 0.012 ng/mL (0.000-0.034); Total Protein 6.5 g/dL (6.3-8.2)
[2022-07-10 09:41] VITALS: BP 130/84; PULSE 104; O2SAT 99
--- NOTE | 2022-07-10 10:11 | XRAY ---
CLINICAL HISTORY:SHORTNESS OF BREATH; COMPARISON:04/03/2021; TECHNIQUES:Spiral axial continuous cuts were taken through the chest with multiplanar reformatting and without contrast administration; FINDINGS: Both lungs show mild paraseptal emphysema at the apical segments of both upper lobes. A focal pulmonary scarring is noted at the apical segment of the right upper lung lobe. There are two subpleural pulmonary nodules are noted at the right middle lung lobe measuring 1 and 0.4 cm in size. No parenchymal or interstitial lesion. No evidence of masses or consolidation. The vascular pattern appears normal with no evidence of bronchovascular distortion. No significant hilar or mediastinal lymph vito enlargement. Normal cardiac size and shape with no pericardial effusion. The visualized pleural sacs, chest wall and axillary spaces display normal appearance. Bone window settings showed no evidence of destructive bony lesions. Scanned upper abdominal cuts are unremarkable , apart from fluid density hypodense area measuring 1.7x0.9 cm in segment IV of liver likely hepatic cyst with no interval change. IMPRESSION: 1. Right middle lung lobe two newly developed subpleural nodules , could be enlarged subpleural lymph nodes, follow-up is advised. 2. Bilateral apical pulmonary emphysema and right apical scarring which have been stable since the last study. Electronically Signed by: Kenyon Dhillon MD. (07/10/2022 09:09:22 DEVELOPMENT DIRECTOR)
--- NOTE | 2022-07-10 21:08 | XRAY ---
Indication: Short of breath. Comparison: February 06, 2022 PA/lateral chest remains hyperinflated with minimally worsening left mid to lower lung subsegmental atelectasis/scarring. Remaining heart and lungs unremarkable. Bony thorax intact.
== END 2022-07-10 09:50 | disposition home or self-care (01) ==
LOC: ED 07:22
DX: J44.1 Chronic obstructive pulmonary disease with (acute) exacerbation (principal); R06.02 Shortness of breath; I10 Essential (primary) hypertension; Z79.52 Long term (current) use of systemic steroids; Z79.899 Other long term (current) drug therapy; Z28.310 Unvaccinated for COVID-19; Z72.0 Tobacco use; Z99.81 Dependence on supplemental oxygen
CPT/HCPCS: 36415; 71046; 71250; 80053; 83735; 84484; 85025; 93005; 94640; 96365; 96374; 99284; 99291; J0696; J2930; A9270-GY

== ENCOUNTER 2023-03-10 16:34 | Emergency (ER) | payer MEDICARE ==
--- NOTE | 2023-03-10 16:44 | ERPHSYRPT ---
- History of Present Illness Time Seen by Provider: 03/10/23 16:44 Source: patient Exam Limitations: no limitations Physician History: This is an overweight 57-year-old white male patient of Dr. Sow who presents with a tender red raised area underneath his skin left side of his back at the thoracic level. It has been present for just over 4 weeks. There is been intermittent drainage to the area. Patient stated that his sister expressed foul-smelling cheesy type material from it. It has not gone away. Patient has a history of CHF and oxygen dependent COPD. He has not had fevers or chills. Timing/Duration: week(s) (Present for just over 4 weeks) Quality: painful Severity: mild (To moderate) Location: torso (Skin of his back left of midline thoracic level) Possible Causes: other (Sebaceous cyst) Associated Symptoms: swelling/mass/lumps (Skin of the back left of midline thoracic level) Allergies/Adverse Reactions: No Known Drug Allergies Allergy (Verified 03/10/23 16:42) Home Medications: ALPRAZolam 0.5 MG [xanAX 0.5 MG] 0.5 mg PO TID PRN 11/19/19 [History] Albuterol Sulfate [Albuterol Sulfate Hfa] 2 puffs IH QID 11/19/19 [History] Bumetanide 1 mg PO DAILY 11/19/19 [History] Levocetirizine Dihydrochloride 5 mg PO HS 11/19/19 [History] Prednisone 10 mg [Deltasone 10 mg] 10 mg PO BID 11/19/19 [History] Aspirin 81 mg PO DAILY 02/13/20 [History] Celecoxib [Celebrex] 100 mg PO BID 04/03/21 [History] Fluticasone/Umeclidin/Vilanter [Trelegy Ellipta 200-62.5-25] 1 each IH DAILY 02/06/22 [History] Hx Tetanus, Diphtheria Vaccination/Date Given: Yes Hx Influenza Vaccination/Date Given: No Hx Pneumococcal Vaccination/Date Given: No Travel Risk - International Travel Have you traveled outside of the country in past 3 weeks: No - Coronavirus Screening Are you exhibiting any of the following symptoms?: No Close contact with a COVID-19 positive Pt in past 14-21 Days: No - Vaccine Status Have you recieved a Covid-19 vaccination: No - Review of Systems Constitutional: No Symptoms Eyes: No Symptoms Ears, Nose, & Throat: No Symptoms Respiratory: No Symptoms Cardiac: No Symptoms Abdominal/Gastrointestinal: No Symptoms Genitourinary Symptoms: No Symptoms Musculoskeletal: No Symptoms Skin: Other (Subcutaneous swelling tender on his back left of midline thoracic level) Psychological: No Symptoms Endocrine: No Symptoms Hematologic/Lymphatic: No Symptoms Immunological/Allergic: No Symptoms All Other Systems: Reviewed and Negative - Past Medical History Pertinent Past Medical History: Yes Neurological History: No Pertinent History ENT History: No Pertinent History Cardiac History: No Pertinent History Respiratory History: CHF, COPD, Pneumonia, Sleep Apnea Endocrine Medical History: No Pertinent History Musculoskeletal History: No Pertinent History GI Medical History: No Pertinent History History: No Pertinent History Psycho-Social History: No Pertinent History Male Reproductive Disorders: No Pertinent History Other Medical History: chronic lower leg cellulitis. wears 3 L NC at all times - Past Surgical History Past Surgical History: No Neuro Surgical History: No Pertinent History Cardiac: No Pertinent History Respiratory: No Pertinent History Gastrointestinal: No Pertinent History Genitourinary: No Pertinent History Musculoskeletal: No Pertinent History Male Surgical History: No Pertinent History - Social History Smoking Status: Current every day smoker How long have you smoked: 50 years Exposure to second hand smoke: Yes Drug Use: none Patient Lives Alone: No - Nursing Vital Signs Nursing Vital Signs: Initial Vital Signs Temperature 97.9 F 03/10/23 16:47 Pulse Rate 102 H 03/10/23 16:47 Respiratory Rate 18 03/10/23 16:47 Blood Pressure 141/87 03/10/23 16:47 O2 Sat by Pulse Oximetry 96 03/10/23 16:47 Pain Scale Pain Intensity 2 - Physical Exam General Appearance: no apparent distress, alert, obese Eye Exam: PERRL/EOMI, eyes nml inspection Ears, Nose, Throat Exam: normal ENT inspection, moist mucous membranes Neck Exam: normal inspection, non-tender, supple, full range of motion Respiratory Exam: airway intact, No chest tenderness, No respiratory distress Gastrointestinal/Abdomen Exam: No tenderness Rectal Exam: not done Back Exam: normal range of motion, other (Subcutaneous mass, no abscess, indurated area of skin left of midline at the thoracic level.), No CVA tenderness, No vertebral tenderness Neurologic Exam: alert, oriented x 3, cooperative, astronomy instructor II-XII nml as tested, normal mood/affect, nml cerebellar function, nml station & gait, sensation nml Skin Exam: other (See abovesebaceous cyst left of midline thoracic level without abscess) Lymphatic Exam: No adenopathy SpO2 Interpretation: normal O2 Delivery: Room Air - Course Nursing assessment & vital signs reviewed: Yes - Progress Progress: unchanged Progress Note: 03/10/23 17:18 This patient's medical issue is 1 of low complexity. The level of complexity in the workup performed is based on review of the patient's past medical history, review the patient's medication list, reviewed patient's drug allergy list, history of present illness and physical findings on examination. No radiographic or laboratory studies are necessary in this workup. Counseled pt/family regarding: diagnosis, need for follow-up Medical Desision Making - Diagnostic Testing Diagnostic test were ordered, analyzed, and reviewed by me: No - Risk of complications The pt has a mod risk of morbidity or mortality based on: Need for prescription drug management - Departure Departure Disposition: Home Clinical Impression: Sebaceous cyst Condition: Stable Critical Care Time: No Referrals: AG OSW MD [Primary Care Provider] - Follow up/PCP as directed Additional Instructions: Keep the site on your back clean daily with soap and water. Do not apply lotions, ointments or creams. Take your medications as prescribed. Call your primary care provider tomorrow, 03/11/2023, to make an appointment for follow-up with referral to a general surgeon if indicated. Prescriptions: Oxycodone HCl/Acetaminophen [Percocet 5-325 mg Tablet] 1 each PO Q8H PRN PRN #6 tablet MDD 3 PRN Reason: Moderate To Severe Pain Smz/Tmp Ds Tablet [Bactrim Ds Tablet] 1 udtab PO BID #14 tablet
[2023-03-10 16:47] VITALS: BP 141/87; PULSE 102; RESP 18; TEMP 97.9; O2SAT 96
== END 2023-03-10 17:27 | disposition home or self-care (01) ==
LOC: ED 16:34
DX: L72.3 Sebaceous cyst (principal); Z79.891 Long term (current) use of opiate analgesic; Z79.899 Other long term (current) drug therapy; Z28.310 Unvaccinated for COVID-19; Z72.0 Tobacco use
CPT/HCPCS: 99281

== ENCOUNTER 2023-05-25 13:42 | Emergency (ER) | payer MEDICARE ==
[2023-05-25 13:44] VITALS: TEMP 97.8
--- NOTE | 2023-05-25 13:47 | ERPHSYRPT ---
- History of Present Illness Time Seen by Provider: 05/25/23 13:46 Source: patient, family Exam Limitations: no limitations Physician History: This is a 57-year-old white male patient of Dr. Sow who has been having worsening shortness of breath in the last 3 to 4 days. Today, he woke up in the morning and took his medication. A few hours later he felt like he had to take his medication again. Patient does take a single tablet of prednisone once daily. He wears 3 L of oxygen via nasal cannula all the time. Patient has significant history of COPD and CHF. He does get recurrent pneumonias often. He has a history of sleep apnea. I reviewed several of this patient's inpatient admission notes. Patient continues to smoke cigarettes daily. Patient states he has no chest pain. His shortness of breath is worse when he is exerting himself and active. Timing/Duration: day(s) (3 to 4 days), worse Activities at Onset: activity Severity of Dyspnea-Max: moderate Severity of Dyspnea-Current: mild Possible Cause: frequent episodes Modifying Factors: Improves With: activity, exertion Allergies/Adverse Reactions: No Known Drug Allergies Allergy (Verified 05/25/23 13:44) Home Medications: ALPRAZolam 0.5 MG [xanAX 0.5 MG] 0.5 mg PO TID PRN 11/19/19 [History] Albuterol Sulfate [Albuterol Sulfate Hfa] 2 puffs IH QID 11/19/19 [History] Bumetanide 1 mg PO DAILY 11/19/19 [History] Levocetirizine Dihydrochloride 5 mg PO HS 11/19/19 [History] Prednisone 10 mg [Deltasone 10 mg] 10 mg PO BID 11/19/19 [History] Aspirin 81 mg PO DAILY 02/13/20 [History] Celecoxib [Celebrex] 100 mg PO BID 04/03/21 [History] Fluticasone/Umeclidin/Vilanter [Trelegy Ellipta 200-62.5-25] 1 each IH DAILY 02/06/22 [History] Hx Tetanus, Diphtheria Vaccination/Date Given: Yes Hx Influenza Vaccination/Date Given: No Hx Pneumococcal Vaccination/Date Given: No Travel Risk - International Travel Have you traveled outside of the country in past 3 weeks: No - Coronavirus Screening Are you exhibiting any of the following symptoms?: Yes Symptoms: Shortness of Breath Close contact with a COVID-19 positive Pt in past 14-21 Days: No - Vaccine Status Have you recieved a Covid-19 vaccination: No - Review of Systems Constitutional: No Symptoms Eyes: No Symptoms Ears, Nose, & Throat: No Symptoms Respiratory: Dyspnea on Exertion (JAIN) Cardiac: No Symptoms Abdominal/Gastrointestinal: No Symptoms Genitourinary Symptoms: No Symptoms Musculoskeletal: No Symptoms Skin: No Symptoms Neurological: No Symptoms Psychological: No Symptoms Endocrine: No Symptoms Hematologic/Lymphatic: No Symptoms, Easy Bruising All Other Systems: Reviewed and Negative - Past Medical History Pertinent Past Medical History: Yes Neurological History: No Pertinent History ENT History: No Pertinent History Cardiac History: No Pertinent History Respiratory History: CHF, COPD, Pneumonia, Sleep Apnea Endocrine Medical History: No Pertinent History Musculoskeletal History: No Pertinent History GI Medical History: No Pertinent History History: No Pertinent History Psycho-Social History: No Pertinent History Male Reproductive Disorders: No Pertinent History Other Medical History: chronic lower leg cellulitis. wears 3 L NC at all times - Past Surgical History Past Surgical History: No Neuro Surgical History: No Pertinent History Cardiac: No Pertinent History Respiratory: No Pertinent History Gastrointestinal: No Pertinent History Genitourinary: No Pertinent History Musculoskeletal: No Pertinent History Male Surgical History: No Pertinent History - Social History Smoking Status: Current every day smoker How long have you smoked: 50 years Exposure to second hand smoke: Yes Drug Use: none Patient Lives Alone: No - Nursing Vital Signs Nursing Vital Signs: Initial Vital Signs Temperature 97.8 F 05/25/23 13:43 Pulse Rate 99 H 05/25/23 13:43 Respiratory Rate 20 05/25/23 13:43 Blood Pressure 113/77 05/25/23 13:43 O2 Sat by Pulse Oximetry 96 05/25/23 13:43 Pain Scale Pain Intensity 0 - Physical Exam General Appearance: no apparent distress, alert, obese Eye Exam: PERRL/EOMI, eyes nml inspection Ears, Nose, Throat Exam: hearing grossly normal, normal ENT inspection, normal pharynx Neck Exam: normal inspection, non-tender, supple, full range of motion Respiratory Exam: normal breath sounds, lungs clear, airway intact, No chest tenderness, No respiratory distress Cardiovascular/Chest Exam: normal heart sounds, regular rate/rhythm Abdominal/Gastrointestinal Exam: soft, normal bowel sounds, No tenderness Rectal Exam: not done Extremity Exam: non-tender, normal range of motion, normal inspection, normal capillary refill, no calf tenderness, no pedal edema, pelvis stable Neurologic Exam: alert, oriented x 3, 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 No changes on today's twelve-lead EKG when compared to twelve-lead EKG dated 07/10/2022.) Ordered Tests: Active Orders 24 hr Category Date Time Status EKG-ER Only STAT Care 05/25/23 14:18 Active IV Insertion STAT Care 05/25/23 14:18 Active Pulse Oximetry (ED) STAT Care 05/25/23 14:18 Active CHEST 1 VIEW (PORTABLE) Stat Exams 05/25/23 14:19 Completed BLOOD CULTURE Stat Lab 05/25/23 14:30 Received CBC W DIFF Stat Lab 05/25/23 13:55 Completed CMP Stat Lab 05/25/23 13:55 Completed D-DIMER QUANTITATIVE Stat Lab 05/25/23 13:55 Completed Lactic Acid Stat Lab 05/25/23 14:18 Completed MAGNESIUM Stat Lab 05/25/23 13:55 Completed NT PRO BNPII Stat Lab 05/25/23 14:30 Completed PROTIME WITH INR Stat Lab 05/25/23 13:55 Completed TROPONIN Q4H Lab 05/25/23 13:55 Completed TROPONIN Q4H Lab 05/25/23 18:30 Ordered TROPONIN Q4H Lab 05/25/23 22:30 Ordered Medication Summary Discontinued Medications Generic Name Dose Route Start Last Admin Trade Name Freq PRN Reason Stop Dose Admin Albuterol Sulfate 2.5 mg 05/25/23 14:18 05/25/23 14:41 Albuterol Sulfate 2.5 Mg/3 Ml Neb IH 05/25/23 14:19 2.5 mg STAT ONE Administration Albuterol Sulfate Confirm 03/13/24 14:28 Albuterol Sulfate 2.5 Mg/3 Ml Neb Administered 05/25/23 14:29 Dose 2.5 mg IH .STK-MED ONE Lab/Rad Data: Laboratory Result Diagrams 05/25/23 13:55 05/25/23 13:55 Laboratory Results 05/25/23 05/25/23 05/25/23 Range/Units 14:30 14:18 13:55 WBC (4.0-10.5) x10^3/uL RBC (4.1-5.6) x10^6/uL Hgb (12.5-18.0) g/dL Hct (42-50) % MCV (78-100) fL MCH (26-32) pg MCHC (32-36) g/dL RDW (11.5-14.0) % Plt Count (150-450) x10^3/uL MPV (7.5-11.0) fL Gran % (36.0-66.0) % Immature Gran % (Auto) (0.00-0.4) % Nucleat RBC Rel Count (0.00-0.1) % Eos # (Auto) (0-0.5) x10^3/uL Immature Gran # (Auto) (0.00-0.03) x10^3u/L Absolute Lymphs (auto) (1.0-4.6) x10^3/uL Absolute Monos (auto) (0.0-1.3) x10^3/uL Absolute Nucleated RBC (0.00-0.01) x10^3u/L Lymphocytes % (24.0-44.0) % Monocytes % (0.0-12.0) % Eosinophils % (0.00-5.0) % Basophils % (0.0-0.4) % Absolute Granulocytes (1.4-6.9) x10^3/uL Basophils # (0-0.4) x10^3/uL PT (9.4-12.5) SECONDS INR (0.8-3.0) D-Dimer (0.0-0.50) mg/L Sodium (135-145) mmol/L Potassium (3.5-5.1) mmol/L Chloride (98-107) mmol/L Carbon Dioxide (22-30) mmol/L Anion Gap (5-15) MEQ/L BUN (9-20) mg/dL Creatinine (0.66-1.25) mg/dL Estimated GFR ML/MIN Glucose (74-106) mg/dL Lactic Acid 1.8 (0.4-2.0) Calcium (8.4-10.2) mg/dL Magnesium (1.6-2.3) mg/dL Total Bilirubin (0.2-1.3) mg/dL AST (17-59) U/L ALT (0-50) U/L Alkaline Phosphatase (38-126) U/L Troponin I < 0.012 (0.000-0.034) ng/mL NT-Pro-B Natriuret Pep 86.1 (<300) pg/mL Serum Total Protein (6.3-8.2) g/dL Albumin (3.5-5.0) g/dL 05/25/23 05/25/23 05/25/23 Range/Units 13:55 13:55 13:55 WBC 9.1 (4.0-10.5) x10^3/uL RBC 4.41 (4.1-5.6) x10^6/uL Hgb 14.0 (12.5-18.0) g/dL Hct 43.6 (42-50) % MCV 98.9 (78-100) fL MCH 31.7 (26-32) pg MCHC 32.1 (32-36) g/dL RDW 13.6 (11.5-14.0) % Plt Count 171 (150-450) x10^3/uL MPV 11.1 H (7.5-11.0) fL Gran % 78.4 H (36.0-66.0) % Immature Gran % (Auto) 0.4 (0.00-0.4) % Nucleat RBC Rel Count 0.0 (0.00-0.1) % Eos # (Auto) 0.04 (0-0.5) x10^3/uL Immature Gran # (Auto) 0.04 H (0.00-0.03) x10^3u/L Absolute Lymphs (auto) 1.16 (1.0-4.6) x10^3/uL Absolute Monos (auto) 0.72 (0.0-1.3) x10^3/uL Absolute Nucleated RBC 0.00 (0.00-0.01) x10^3u/L Lymphocytes % 12.7 L (24.0-44.0) % Monocytes % 7.9 (0.0-12.0) % Eosinophils % 0.4 (0.00-5.0) % Basophils % 0.2 (0.0-0.4) % Absolute Granulocytes 7.14 H (1.4-6.9) x10^3/uL Basophils # 0.02 (0-0.4) x10^3/uL PT 10.3 (9.4-12.5) SECONDS INR 0.94 (0.8-3.0) D-Dimer 0.23 (0.0-0.50) mg/L Sodium 141 (135-145) mmol/L Potassium 3.9 (3.5-5.1) mmol/L Chloride 109 H (98-107) mmol/L Carbon Dioxide 28 (22-30) mmol/L Anion Gap 7.1 (5-15) MEQ/L BUN 7 L (9-20) mg/dL Creatinine 0.64 L (0.66-1.25) mg/dL Estimated GFR 109.7 ML/MIN Glucose 88 (74-106) mg/dL Lactic Acid (0.4-2.0) Calcium 8.7 (8.4-10.2) mg/dL Magnesium 2.1 (1.6-2.3) mg/dL Total Bilirubin 0.30 (0.2-1.3) mg/dL AST 17 (17-59) U/L ALT 14 (0-50) U/L Alkaline Phosphatase 57 (38-126) U/L Troponin I (0.000-0.034) ng/mL NT-Pro-B Natriuret Pep (<300) pg/mL Serum Total Protein 5.9 L (6.3-8.2) g/dL Albumin 3.8 (3.5-5.0) g/dL - Progress Progress: improved, re-examined Air Movement: good Progress Note: 05/25/23 15:01 This patient's medical issue is 1 of moderate complexity. The level complexity in the workup performed is based on review of the patient's past medical history, review the patient's medication list, review the patient drug allergy list, history present illness and physical findings on examination. The workup in this patient includes placement of an intravenous line, infusion of 125 mg intravenous Solu-Medrol, respiratory therapy evaluation and treatment with a nebulizer machine using albuterol medication, CBC, CMP, D-dimer, BNP, troponin level, twelve-lead EKG, chest x-ray. 05/25/23 15:31 I interpreted this patient's laboratory data results. The patient has no acute, emergent medical issue based on his laboratory data results. Chest x-ray was interpreted by the radiologist. The impression states nonacute hyperinflated chest. Blood Culture(s) Obtained: No Antibiotics given: No Counseled pt/family regarding: lab results, diagnosis, rad results Medical Desision Making - Diagnostic Testing Diagnostic test were ordered, analyzed, and reviewed by me: Yes Radiological Interpretation: Reviewed by me, Teleradiologist Report - Risk of complications The pt has a mod risk of morbidity or mortality based on: Need for prescription drug management - Departure Departure Disposition: Home Clinical Impression: COPD exacerbation Condition: Stable Critical Care Time: No Referrals: AG SOW MD [Primary Care Provider] - Follow up/PCP as directed Instructions: Chronic Obstructive Pulmonary Disease Additional Instructions: Continue your nebulizer treatments as prescribed. Take your medications as prescribed. Follow-up with your primary care provider and clinical mental health counselor tomorrow, by phone, to make arranges for follow-up appointment the next 5 to 7 days. Prescriptions: Prednisone 10 mg [Deltasone 10 mg] 10 mg PO TID #12 tablet
[2023-05-25] MEDS ORDERED: PROVENTIL 2.5 MG/3 ML NEB IH ONE (14:28)
[2023-05-25 14:40] LABS: Absolute Neutrophil Ct (ANC) 7.14 x10^3/uL (1.4-6.9); BASOPHIL % 0.2 % (0.0-0.4); Basophil (Absolute #) 0.02 x10^3/uL (0-0.4); Eosinophil % 0.4 % (0.00-5.0); Eosinophil (Absolute #) 0.04 x10^3/uL (0-0.5); Hematocrit 43.6 % (42-50); IMMATURE GRAN # 0.04 x10^3u/L (0.00-0.03); IMMATURE GRAN % 0.4 % (0.00-0.4); Lymphocyte (Absolute #) 1.16 x10^3/uL (1.0-4.6); Lymphocytes % 12.7 % (24.0-44.0); Mean Cell Volume 98.9 fL (78-100); Mean Corpuscular Hemoglobin 31.7 pg (26-32); Mean Corpuscular Hgb Concent. 32.1 g/dL (32-36); Mean Platelet Volume 11.1 fL (7.5-11.0); Monocyte (Absolute #) 0.72 x10^3/uL (0.0-1.3); Monocytes % 7.9 % (0.0-12.0); Neutrophil % 78.4 % (36.0-66.0); Platelet Count 171 x10^3/uL (150-450); Red Blood Count 4.41 x10^6/uL (4.1-5.6); Red Cell Distribution Width 13.6 % (11.5-14.0); White Blood Count 9.1 x10^3/uL (4.0-10.5)
[2023-05-25] MEDS: PROVENTIL 2.5 MG/3 ML NEB IH ONE (14:41)
[2023-05-25 14:44] VITALS: O2SAT 96
--- NOTE | 2023-05-25 14:45 | XRAY ---
Indication: Short of breath. Comparison: July 10, 2022 Portable apical lordotic chest again hyperinflated and is now clear. Heart not enlarged. Bony thorax intact. Impression: Nonacute hyperinflated chest.
[2023-05-25 14:56] LABS: D-DIMER QUANTITATIVE 0.23 mg/L (0.0-0.50); INR 0.94 (0.8-3.0); PROTIME 10.3 SECONDS (9.4-12.5)
[2023-05-25 14:57] LABS: ALBUMIN 3.8 g/dL (3.5-5.0); ANION GAP 7.1 MEQ/L (5-15); BILIRUBIN,TOTAL 0.3 mg/dL (0.2-1.3); Calcium 8.7 mg/dL (8.4-10.2); Creatinine 1 0.64 mg/dL (0.66-1.25); EST GLOMERULAR FILTRATION RATE 109.7 ML/MIN; MAGNESIUM 2.1 mg/dL (1.6-2.3); Potassium 3.9 mmol/L (3.5-5.1); Total Protein 5.9 g/dL (6.3-8.2)
[2023-05-25 15:38] VITALS: BP 136/83; PULSE 80; RESP 16
[2023-05-25 15:54] LABS: INFLUENZA A NEGATIVE (NEGATIVE); INFLUENZA B NEGATIVE (NEGATIVE); RESPIRATORY SYNCTIAL VIRUS NEGATIVE (NEGATIVE); SARS-CoV-2 Xpert Express NEGATIVE (NEGATIVE)
== END 2023-05-25 15:43 | disposition home or self-care (01) ==
LOC: ED 13:42
DX: J44.1 Chronic obstructive pulmonary disease with (acute) exacerbation (principal); R06.02 Shortness of breath; I50.9 Heart failure, unspecified; Z79.52 Long term (current) use of systemic steroids; Z79.899 Other long term (current) drug therapy; Z28.310 Unvaccinated for COVID-19; Z72.0 Tobacco use; Z99.81 Dependence on supplemental oxygen; Z20.828 Contact with and (suspected) exposure to other viral communicable diseases
CPT/HCPCS: 0241U; 36000; 36415; 71045; 80053; 83605; 83735; 83880; 84484; 85025; 85379; 85610; 87040; 93005; 94640; 94760; 99284; J7609; A9270-GY

== ENCOUNTER 2024-06-18 12:45 | Emergency (ER) | payer MEDICARE ==
--- NOTE | 2024-06-18 12:54 | ERPHSYRPT ---
- History of Present Illness Time Seen by Provider: 06/18/24 12:53 Source: patient Exam Limitations: no limitations Physician History: This is an obese 58-year-old white male patient who arrives by private vehicle with a complaint of shortness of breath and dry nonproductive cough. Patient drove himself to the emergency department. Patient's primary care provider is Dr. Sow. Patient has chronic COPD and chronically wears 3 L of oxygen via nasal cannula. On arrival to the emergency department room his oxygen saturation level is 98 to 99%. He does not appear to be in any distress but there is obvious expiratory wheezing present. He denies chest pain. He has not had a fever. He denies vomiting and diarrhea. He has no abdominal pain. Patient was admitted to [facility] for treatment of flu. He was discharged 6 days ago. In the last 6 days he has felt more short of breath. Patient, in addition to oxygen dependent COPD, he has anxiety, sleep apnea and CHF. Timing/Duration: today Severity of Dyspnea-Max: mild Severity of Dyspnea-Current: mild Possible Cause: frequent episodes, chronic episodes Modifying Factors: Improves With: coughing, exertion Associated Symptoms: anxiety, cough, No hemoptysis, No calf pain Allergies/Adverse Reactions: No Known Drug Allergies Allergy (Verified 06/18/24 12:56) Home Medications: ALPRAZolam 0.5 MG [xanAX 0.5 MG] 0.5 mg PO TID PRN 11/19/19 [History] Albuterol Sulfate [Albuterol Sulfate Hfa] 2 puffs IH QID 11/19/19 [History] Bumetanide 1 mg PO DAILY 11/19/19 [History] Levocetirizine Dihydrochloride 5 mg PO HS 11/19/19 [History] Prednisone 10 mg [Deltasone 10 mg] 10 mg PO DAILY 11/19/19 [History] Celecoxib [Celebrex] 100 mg PO BID 04/03/21 [History] Fluticasone/Umeclidin/Vilanter [Trelegy Ellipta 200-62.5-25] 1 each IH DAILY 02/06/22 [History] Ipratropium Ward 0.5 mg [Atrovent 0.5MG NEBULE] 0.5 mg IH Q4HPRN PRN 06/18/24 [History] Levothyroxine Sodium 50 mcg PO DAILY 06/18/24 [History] Olanzapine 5 mg [zyPREXA 5MG TABLET] 5 mg PO DAILY 06/18/24 [History] Hx Tetanus, Diphtheria Vaccination/Date Given: Yes Hx Influenza Vaccination/Date Given: No Hx Pneumococcal Vaccination/Date Given: No Travel Risk - International Travel Have you traveled outside of the country in past 3 weeks: No - Emerging Infectious Disease Are you exhibiting symptoms associated with any current EIDs: Yes Symptoms: Cough: New Onset, Shortness of Breath - Review of Systems Constitutional: No Symptoms Eyes: No Symptoms Ears, Nose, & Throat: No Symptoms Respiratory: Cough, Dyspnea, Wheezing Cardiac: No Symptoms Abdominal/Gastrointestinal: No Symptoms Genitourinary Symptoms: No Symptoms Musculoskeletal: No Symptoms Skin: No Symptoms Neurological: No Symptoms Psychological: No Symptoms Endocrine: No Symptoms Hematologic/Lymphatic: No Symptoms Immunological/Allergic: No Symptoms All Other Systems: Reviewed and Negative - Past Medical History Pertinent Past Medical History: Yes Neurological History: No Pertinent History ENT History: No Pertinent History Cardiac History: No Pertinent History Respiratory History: CHF, COPD, Pneumonia, Sleep Apnea Endocrine Medical History: No Pertinent History Musculoskeletal History: No Pertinent History GI Medical History: No Pertinent History History: No Pertinent History Psycho-Social History: No Pertinent History Male Reproductive Disorders: No Pertinent History Other Medical History: chronic lower leg cellulitis. wears 3 L NC at all times - Past Surgical History Past Surgical History: No Neuro Surgical History: No Pertinent History Cardiac: No Pertinent History Respiratory: No Pertinent History Gastrointestinal: No Pertinent History Genitourinary: No Pertinent History Musculoskeletal: No Pertinent History Male Surgical History: No Pertinent History - Social History Smoking Status: Current every day smoker How long have you smoked: 50 years Exposure to second hand smoke: Yes Drug Use: none Patient Lives Alone: No - Nursing Vital Signs Nursing Vital Signs: Initial Vital Signs Pulse Rate 71 06/18/24 13:00 Respiratory Rate 20 06/18/24 13:00 Blood Pressure 105/72 06/18/24 13:00 O2 Sat by Pulse Oximetry 99 06/18/24 13:00 Pain Scale Pain Intensity 0 - Physical Exam General Appearance: no apparent distress, alert, anxiety, obese Eye Exam: PERRL/EOMI, eyes nml inspection Ears, Nose, Throat Exam: hearing grossly normal, normal ENT inspection, normal pharynx Neck Exam: normal inspection, non-tender, supple, full range of motion Respiratory Exam: airway intact, wheezing (Bilateral diffuse expiratory wheezing), No respiratory distress Cardiovascular/Chest Exam: normal heart sounds, regular rate/rhythm Abdominal/Gastrointestinal Exam: soft, normal bowel sounds, No tenderness Rectal Exam: not done Extremity Exam: non-tender, normal range of motion, normal inspection Neurologic Exam: alert, oriented x 3, 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 No acute ischemic changes on toda y's twelve-lead EKG.) Ordered Tests: Active Orders 24 hr Category Date Time Status EKG-ER Only STAT Care 06/18/24 13:02 Active IV Insertion STAT Care 06/18/24 13:02 Active CHEST 1 VIEW (PORTABLE) Stat Exams 06/18/24 13:02 Completed BLOOD CULTURE Stat Lab 06/18/24 13:23 Received CBC W DIFF Stat Lab 06/18/24 12:55 Completed CMP Stat Lab 06/18/24 12:55 Completed MAGNESIUM Stat Lab 06/18/24 12:55 Completed NT PRO BNPII Stat Lab 06/18/24 12:55 Completed TROPONIN Q4H Lab 06/18/24 12:55 Completed TROPONIN Q4H Lab 06/18/24 17:15 Ordered TROPONIN Q4H Lab 06/18/24 21:15 Ordered Medication Summary Discontinued Medications Generic Name Dose Route Start Last Admin Trade Name Freq PRN Reason Stop Dose Admin Albuterol/Ipratropium Confirm 06/18/24 13:16 Ipratropium/Albuterol Sulfate 3 Ml Ampul.Neb Administered 06/18/24 13:17 Dose 3 ml IH .STK-MED ONE Albuterol/Ipratropium 3 ml 06/18/24 13:31 06/18/24 13:31 Ipratropium/Albuterol Sulfate 3 Ml Ampul.Neb IH 06/18/24 13:32 3 ml STAT ONE Administration Methylprednisolone Sodium 0 mg 06/18/24 14:04 06/18/24 14:08 Succinate 125 mg/ Sterile IV 06/18/24 14:05 125 mg Water 2 ml STAT ONE Administration Methylprednisolone Sodium Succinate Confirm 06/18/24 14:07 Methylprednis Sod Succ 125 Mg/2 Ml Vial Administered 06/18/24 14:08 Dose 125 mg .ROUTE .STK-MED ONE Sterile Water Confirm 06/18/24 14:06 Water For Injection,Sterile 10 Ml Vial Administered 06/18/24 14:07 Dose 10 ml IJ .STK-MED ONE Lab/Rad Data: Laboratory Result Diagrams 06/18/24 12:55 06/18/24 12:55 Laboratory Results 06/18/24 06/18/24 06/18/24 Range/Units 13:24 12:55 12:55 WBC (4.23-9.07) x10^3/uL RBC (4.63-6.08) x10^6/uL Hgb (13.7-17.5) g/dL Hct (40.1-51.0) % MCV (79.0-92.2) fL MCH (25.7-32.2) pg MCHC (32.3-36.5) g/dL RDW (11.6-14.4) % Plt Count (163-337) x10^3/uL MPV (9.4-12.4) fL Gran % (34.0-67.9) % Immature Gran % (Auto) (0.001-0.429) % Nucleat RBC Rel Count (0.00-0.2) % Eos # (Auto) (0.04-0.54) x10^3/uL Immature Gran # (Auto) (0.001-0.031) x10^3u/L Absolute Lymphs (auto) (1.32-3.57) x10^3/uL Absolute Monos (auto) (0.30-0.82) x10^3/uL Absolute Nucleated RBC (0.00-0.012) x10^3u/L Lymphocytes % (21.8-53.1) % Monocytes % (5.3-12.2) % Eosinophils % (0.8-7.0) % Basophils % (0.2-1.2) % Absolute Granulocytes (1.78-5.38) x10^3/uL Basophils # (0.01-0.08) x10^3/uL Sodium 140 (135-145) mmol/L Potassium 3.7 (3.5-5.1) mmol/L Chloride 101 (98-107) mmol/L Carbon Dioxide 34 H (22-30) mmol/L Anion Gap 8.9 (5-15) MEQ/L BUN 8 L (9-20) mg/dL Creatinine 0.69 (0.66-1.25) mg/dL Estimated GFR 106.6 ML/MIN Glucose 89 (74-106) mg/dL Calcium 8.9 (8.4-10.2) mg/dL Magnesium 2.2 (1.6-2.3) mg/dL Total Bilirubin 0.70 (0.2-1.3) mg/dL AST 30 (17-59) U/L ALT 35 (0-50) U/L Alkaline Phosphatase 61 (38-126) U/L Troponin I < 0.012 (0.000-0.033) ng/mL NT-Pro-B Natriuret Pep 85.8 (<300) pg/mL Serum Total Protein 6.1 L (6.3-8.2) g/dL Albumin 4.0 (3.5-5.0) g/dL Influenza Type A Ag NEGATIVE (NEGATIVE) Influenza Type B Ag NEGATIVE (NEGATIVE) RSV (PCR) NEGATIVE (NEGATIVE) SARS-CoV-2 (PCR) NEGATIVE (NEGATIVE) 06/18/24 Range/Units 12:55 WBC 11.6 H (4.23-9.07) x10^3/uL RBC 5.05 (4.63-6.08) x10^6/uL Hgb 16.4 (13.7-17.5) g/dL Hct 49.1 (40.1-51.0) % MCV 97.2 H (79.0-92.2) fL MCH 32.5 H (25.7-32.2) pg MCHC 33.4 (32.3-36.5) g/dL RDW 12.9 (11.6-14.4) % Plt Count 141 L (163-337) x10^3/uL MPV 10.9 (9.4-12.4) fL Gran % 82.8 H (34.0-67.9) % Immature Gran % (Auto) 0.8 H (0.001-0.429) % Nucleat RBC Rel Count 0.0 (0.00-0.2) % Eos # (Auto) 0.01 L (0.04-0.54) x10^3/uL Immature Gran # (Auto) 0.09 H (0.001-0.031) x10^3u/L Absolute Lymphs (auto) 1.22 L (1.32-3.57) x10^3/uL Absolute Monos (auto) 0.65 (0.30-0.82) x10^3/uL Absolute Nucleated RBC 0.00 (0.00-0.012) x10^3u/L Lymphocytes % 10.6 L (21.8-53.1) % Monocytes % 5.6 (5.3-12.2) % Eosinophils % 0.1 L (0.8-7.0) % Basophils % 0.1 L (0.2-1.2) % Absolute Granulocytes 9.57 H (1.78-5.38) x10^3/uL Basophils # 0.01 (0.01-0.08) x10^3/uL Sodium (135-145) mmol/L Potassium (3.5-5.1) mmol/L Chloride (98-107) mmol/L Carbon Dioxide (22-30) mmol/L Anion Gap (5-15) MEQ/L BUN (9-20) mg/dL Creatinine (0.66-1.25) mg/dL Estimated GFR ML/MIN Glucose (74-106) mg/dL Calcium (8.4-10.2) mg/dL Magnesium (1.6-2.3) mg/dL Total Bilirubin (0.2-1.3) mg/dL AST (17-59) U/L ALT (0-50) U/L Alkaline Phosphatase (38-126) U/L Troponin I (0.000-0.033) ng/mL NT-Pro-B Natriuret Pep (<300) pg/mL Serum Total Protein (6.3-8.2) g/dL Albumin (3.5-5.0) g/dL Influenza Type A Ag (NEGATIVE) Influenza Type B Ag (NEGATIVE) RSV (PCR) (NEGATIVE) SARS-CoV-2 (PCR) (NEGATIVE) - Progress Progress: improved, re-examined Air Movement: good Progress Note: 06/18/24 14:01 My medical decision making and the assignment of moderate complexity to this patient's medical issue today is based on review of the patient's past medical history, review of the patient's medication list, review the patient drug a llergy list, history present illness and physical findings on examination. The workup in this patient includes placement of intravenous line, infusion of Solu- Medrol, RT evaluation and management, CBC, CMP, BNP, troponin level, twelve-lead EKG, chest x-ray, magnesium level viral swabs. Differential diagnosis includes was not limited to CHF, COPD, myocardial infarction, arrhythmia, anemia, viral illness 06/18/24 15:12 I interpreted the patient's laboratory data results. Based on the laboratory data results there are no acute, emergent medical issues. The chest x-ray was interpreted by the radiologist and I reviewed the impression. The impression states hyperinflated, clear chest x-ray findings. No new or acute findings. Blood Culture(s) Obtained: Yes Antibiotics given: Yes Counseled pt/family regarding: lab results, diagnosis, need for follow-up, rad results Medical Desision Making - Diagnostic Testing Diagnostic test were ordered, analyzed, and reviewed by me: Yes Radiological Interpretation: Reviewed by me, Teleradiologist Report - Risk of complications The pt has a mod risk of morbidity or mortality based on: Need for prescription drug management - Departure Departure Disposition: Home Clinical Impression: COPD exacerbation, Upper respiratory infection Condition: Stable Critical Care Time: No Referrals: AG SOW MD [Primary Care Provider] - Follow up/PCP as directed Instructions: Chronic Obstructive Pulmonary Disease Additional Instructions: Avoid exposure to any type of smoke. Continue your steroids as prescribed. Use your nebulizer treatments every 4 hours while awake for the next 48 hours. Take your antibiotics as prescribed. Call your primary care provider tomorrow, 06/19/2024, to make arranges for follow-up appointment for further evaluation and management. Prescriptions: cefuroxime axetiL [Cefuroxime] 500 mg PO BID 5 Days #10 tablet
[2024-06-18] MEDS ORDERED: DUONEB 0.5-3 MG/3 ml Neb IH ONE (13:16)
[2024-06-18 13:19] VITALS: TEMP 97.4
[2024-06-18] MEDS: DUONEB 0.5-3 MG/3 ml Neb IH ONE (13:31)
[2024-06-18 13:34] LABS: Absolute Neutrophil Ct (ANC) 9.57 x10^3/uL (1.78-5.38); BASOPHIL % 0.1 % (0.2-1.2); Basophil (Absolute #) 0.01 x10^3/uL (0.01-0.08); Eosinophil % 0.1 % (0.8-7.0); Eosinophil (Absolute #) 0.01 x10^3/uL (0.04-0.54); Hematocrit 49.1 % (40.1-51.0); Hemoglobin 16.4 g/dL (13.7-17.5); IMMATURE GRAN # 0.09 x10^3u/L (0.001-0.031); IMMATURE GRAN % 0.8 % (0.001-0.429); Lymphocyte (Absolute #) 1.22 x10^3/uL (1.32-3.57); Lymphocytes % 10.6 % (21.8-53.1); Mean Cell Volume 97.2 fL (79.0-92.2); Mean Corpuscular Hemoglobin 32.5 pg (25.7-32.2); Mean Corpuscular Hgb Concent. 33.4 g/dL (32.3-36.5); Mean Platelet Volume 10.9 fL (9.4-12.4); Monocyte (Absolute #) 0.65 x10^3/uL (0.30-0.82); Monocytes % 5.6 % (5.3-12.2); Neutrophil % 82.8 % (34.0-67.9); Platelet Count 141 x10^3/uL (163-337); Red Blood Count 5.05 x10^6/uL (4.63-6.08); Red Cell Distribution Width 12.9 % (11.6-14.4); White Blood Count 11.6 x10^3/uL (4.23-9.07)
--- NOTE | 2024-06-18 13:53 | XRAY ---
Indication: Short of breath. Comparison: May 25, 2023 Portable chest again hyperinflated and clear. Heart not enlarged. Bony thorax intact. No new/acute findings.
[2024-06-18 14:03] LABS: ANION GAP 8.9 MEQ/L (5-15); BILIRUBIN,TOTAL 0.7 mg/dL (0.2-1.3); Calcium 8.9 mg/dL (8.4-10.2); Creatinine 1 0.69 mg/dL (0.66-1.25); EST GLOMERULAR FILTRATION RATE 106.6 ML/MIN; MAGNESIUM 2.2 mg/dL (1.6-2.3); NT PRO BNPII 85.8 pg/mL (<300); Potassium 3.7 mmol/L (3.5-5.1); Total Protein 6.1 g/dL (6.3-8.2)
[2024-06-18] MEDS ORDERED: Sterile H2O 10 ml IJ ONE (14:06)
[2024-06-18] MEDS ORDERED: solu-MEDROL ONE (14:07)
[2024-06-18] MEDS: solu-MEDROL 125 MG, Sterile H2O 10 ml 2 ML IV ONE (14:08)
[2024-06-18 14:11] LABS: INFLUENZA A NEGATIVE (NEGATIVE); INFLUENZA B NEGATIVE (NEGATIVE); RESPIRATORY SYNCTIAL VIRUS NEGATIVE (NEGATIVE); SARS-CoV-2 Xpert Express NEGATIVE (NEGATIVE)
[2024-06-18 15:20] VITALS: BP 104/74; PULSE 71; RESP 15; O2SAT 99
== END 2024-06-18 15:30 | disposition home or self-care (01) ==
LOC: ED 12:45
DX: J44.1 Chronic obstructive pulmonary disease with (acute) exacerbation (principal); J06.9 Acute upper respiratory infection, unspecified; R06.02 Shortness of breath; Z79.899 Other long term (current) drug therapy; Z72.0 Tobacco use
CPT/HCPCS: 0241U; 36415; 71045; 80053; 83735; 83880; 84484; 85025; 87040; 93005; 94640; 96374; 99285; 99284; J2919; A9270-GY